=== PATIENT | female | born 1995 | race African-American/Black ===

== ENCOUNTER 2023-02-07 21:02 | Outpatient (REF) | payer MEDICAID, SELFPAY ==
[2023-02-11 13:09] LABS: Age Gdln ACOG Testing Note (.); IGP, rfx Aptima HPV ASCU Note (.)
== END 2023-02-07 21:03 | disposition home or self-care (01) ==
LOC: LAB 21:02
PROVIDERS: PCP Family Medicine; Visit Provider Physician Assistant
DX: Z12.4 Encounter for screening for malignant neoplasm of cervix (principal)
CPT/HCPCS: G0145

== ENCOUNTER 2023-02-13 12:05 | Emergency (ER) | payer MEDICAID, SELFPAY ==
[2023-02-13 12:11] VITALS: BP 138/70; PULSE 93; RESP 16; TEMP 36.7; O2SAT 100; BMI 36.0
--- NOTE | 2023-02-13 13:09 | ED.GENADUL1 ---
HPI - General Adult General Chief complaint: Skin/Abscess/Foreign Body Stated complaint: POSS. PINWORM Time Seen by Provider: 02/13/23 12:07 Source: patient Mode of arrival: walk-in History of Present Illness HPI narrative: mother concerned about pinworm exposure - night of 02/10 the two kids were exposed to another child who was diagnosed with pinworms 02/12/23.? The two siblings are without symptoms but mother wanted them checked.? They tried to go to the urgent care for prophylactic treatment but were informed that they would need to have the pinworms visualized with symptoms to get the pinX, which can be hard on the liver. In going through all of this the mother started to develop itching - she is uncertain of whether this is real or imagined because of the potential exposure - she denied engaging in any activity which would have put her at risk of alfredito pinworms but wants to be checked Related Data Allergies Allergy/AdvReac Type Severity Reaction Status Date / Time No Known Drug Allergies Allergy Verified 02/13/23 12:14 Exam Narrative Exam Narrative: Nurse's notes and vital signs reviewed.? The patient is not hypoxic. afebrile General:? Alert, no acute distress, patient resting comfortably? Patient is not toxic or lethargic. Skin:? warm, intact, no pallor noted Head:? Normocephalic, atraumatic Eye:? Normal conjunctiva Cardio:? normal peripheral perfusion Respiratory:? No acute distress.? No stridor or retractions are noted. Anorectal:? Proctored by ED nurse Dory Elder No pinworms found on visual inspection. Neurological:? AAOx4. Moves extremities. Sensation intact. Psychiatric:? Cooperative. Constitutional Vital Signs, click to edit/add: Last Vital Signs Temp 98.0 F 02/13/23 12:11 Pulse 93 H 02/13/23 12:11 Resp 16 02/13/23 12:11 BP 138/70 02/13/23 12:11 Pulse Ox 100 02/13/23 12:11 O2 Del Method Room Air 02/13/23 12:31 Course Vital Signs Vital signs: Vital Signs Temperature 98.0 F 02/13/23 12:11 Pulse Rate 93 H 02/13/23 12:11 Respiratory Rate 16 02/13/23 12:11 Blood Pressure 138/70 02/13/23 12:11 Pulse Oximetry 100 02/13/23 12:11 Oxygen Delivery Method Room Air 02/13/23 12:11 Temperature 98.0 F 02/13/23 12:11 Pulse Rate 93 H 02/13/23 12:11 Respiratory Rate 16 02/13/23 12:11 Blood Pressure 138/70 02/13/23 12:11 Pulse Oximetry 100 02/13/23 12:11 Oxygen Delivery Method Room Air 02/13/23 12:31 Medical Decision Making MDM Narrative Medical decision making narrative: no pinworms found on exam Patient given reassurance. Instructed to continue to examine the children for pinworms and call the PCP for PinX if she finds them and to check herself as well. Discharge Plan Discharge Chief Complaint: Skin/Abscess/Foreign Body Clinical Impression: Encounter for well adult exam with abnormal findings Patient Disposition: Home, Self-Care Time of Disposition Decision: 13:09 Instructions: Normal Exam (ED) Stand Alone Forms: Portal Instructions Referrals: Pepe Wolfe MD [Primary Care Provider] - 1 week
== END 2023-02-13 13:17 | disposition home or self-care (01) ==
PROVIDERS: Emergency Provider Emergency Medicine; PCP Family Medicine
DX: Z71.1 Person with feared health complaint in whom no diagnosis is made (principal)
CPT/HCPCS: 99282

== ENCOUNTER 2023-02-26 20:32 | Emergency (ER) | payer MEDICAID, SELFPAY ==
[2023-02-26 20:38] VITALS: BP 150/100; PULSE 100; RESP 16; TEMP 36.8; O2SAT 100; BMI 35.8
== END 2023-02-26 21:30 | disposition left against medical advice (07) ==
PROVIDERS: Emergency Provider Internal Medicine; PCP Family Medicine
DX: Z53.21 Procedure and treatment not carried out due to patient leaving prior to being seen by health care provider (principal)
CPT/HCPCS: 99281

== ENCOUNTER 2024-01-16 01:49 | Emergency (ER) | payer MEDICAID, SELFPAY ==
[2024-01-16 01:53] VITALS: BP 139/107; PULSE 87; TEMP 36.5; O2SAT 97; BMI 37.4
--- NOTE | 2024-01-16 02:11 | ED_ITS ---
HPI - Female Genitourinary General Chief complaint: Urogenital-Female Stated complaint: POSS UTI Time Seen by Provider: 01/16/24 02:00 Source: patient Mode of arrival: walk-in Limitations: no limitations History of Present Illness HPI Narrative: patient presents complaining of UTI symptoms. States she was treated at first with Macrobid and now started on Cipro and Pyridium for 3 days. Still has pressure and concern she still has an infection No nausea or vomiting. Related Data Home Medications ?Medication ?Instructions ?Recorded ?Confirmed cephalexin 500 mg tablet mg 01/16/24 Allergies Allergy/AdvReac Type Severity Reaction Status Date / Time No Known Drug Allergies Allergy Verified 01/16/24 01:56 Review of Systems ROS Status of ROS 10 or more systems reviewed and unremark able except as noted in h istory and below PFSH PFS Social History Smoking status: Never smoker Exam Constitutional Vital Signs, click to edit/add: Last Vital Signs Temp 97.7 F 01/16/24 01:53 Pulse 87 01/16/24 01:53 Resp 18 01/16/24 01:53 BP 139/107 H 01/16/24 01:53 Pulse Ox 97 01/16/24 01:53 O2 Del Method Room Air 01/16/24 01:53 Common normals: no apparent distress, average body habitus, oriented x3, no limitations, healthy appearing, alert and well nourished [facility] Common normals: normocephalic and head/scalp atraumatic Eye Common normals: PERRL, EOMs intact bilaterally and conjunctivae normal Respiratory Common normals: normal respiratory effort, no retractions and no use of accessory muscles Cardio Common normals: regular rate, regular rhythm, S1 normal heart sound and S2 normal heart sound GI Other: mild suprapubic tenderness. no CVA tenderness Extremity Common normals: normal to inspection and full ROM Neuro Common normals: oriented x3, CN's II-XII intact bilaterally, moves all extremities and no focal motor deficits Psych Appearance: grossly normal Course Vital Signs Vital signs: Vital Signs Temperature 97.7 F 01/16/24 01:53 Pulse Rate 87 01/16/24 01:53 Respiratory Rate 18 01/16/24 01:53 Blood Pressure 139/107 H 01/16/24 01:53 Pulse Oximetry 97 01/16/24 01:53 Oxygen Delivery Method Room Air 01/16/24 01:53 Temperature 97.7 F 01/16/24 01:53 Pulse Rate 87 01/16/24 01:53 Respiratory Rate 18 01/16/24 01:53 Blood Pressure 139/107 H 01/16/24 01:53 Pulse Oximetry 97 01/16/24 01:53 Oxygen Delivery Method Room Air 01/16/24 01:53 MDM - Female Genitourinary MDM Narrative Medical decision making narrative: patient on antibiotics per Dr Wolfe. Still has urinary frequency and some pressure. Admits she is doing better but did not feel she was normal due to ongoing frequency. EXam neg. Afebrile and UA clear. Discharged and advised to follow up with Dr Wolfe for recheck Lab Data Labs: Lab Results 01/16/24 Range/Units 02:02 Urine Color Lt. yellow (YELLOW) Urine Clarity Clear (CLEAR) Urine pH 7.5 (5.0-9.0) Ur Specific [place] 1.015 (1.005-1.025) Urine Protein Negative (NEG/TRACE) mg/dL Urine Glucose (UA) Negative (NEGATIVE) mg/dL Urine Ketones Negative (NEGATIVE) mg/dL Urine Occult Blood Negative (NEGATIVE) Urine Nitrite Negative (NEGATIVE) Urine Bilirubin Negative (NEGATIVE) Urine Urobilinogen 0.2 (0.2-1.0) EU/dL Ur Leukocyte Esterase Negative (NEGATIVE) Discharge Plan Discharge Stand Alone Forms: Portal Instructions Chief Complaint: Urogenital-Female Clinical Impression: Urinary frequency Patient Disposition: Home, Self-Care Prescriptions / Home Meds: No Action cephalexin 500 mg tablet Print Language: Sudanese Instructions: Urinary Urgency and Frequency (DC) Additional Instructions: follow up with Dr Wolfe Referrals: Pepe Wolfe MD [Primary Care Provider] - 1 week
[2024-01-16 02:18] LABS: Bilirubin Urine NEGATIVE (NEGATIVE); Blood Urine NEGATIVE (NEGATIVE); Clarity Urine CLEAR (CLEAR); Color Urine LT. YELLOW (YELLOW); Glucose Urine UA NEGATIVE (NEGATIVE); Ketones Urine NEGATIVE (NEGATIVE); Leukocyte Esterase Urine NEGATIVE (NEGATIVE); Nitrite Urine NEGATIVE (NEGATIVE); Protein Urine NEGATIVE (NEG/TRACE); Specific Gravity Urine 1.015 (1.005-1.025); Urobilinogen Urine 0.2 EU/dL (0.2-1.0); pH Urine 7.5 (5.0-9.0)
[2024-01-16 02:20] LABS: Urine Microscopic Indicated NO
[2024-01-16 02:41] VITALS: BP 142/72
== END 2024-01-16 02:42 | disposition home or self-care (01) ==
PROVIDERS: Emergency Provider Internal Medicine; PCP Family Medicine
DX: R35.0 Frequency of micturition (principal)
CPT/HCPCS: 81003; 99283

== ENCOUNTER 2024-04-23 21:47 | Emergency (ER) | payer MEDICAID, SELFPAY ==
[2024-04-23 21:49] VITALS: BP 155/100; PULSE 105; TEMP 36.8; O2SAT 98; BMI 36.6
--- OUTSIDE RECORDS SUMMARY | 2024-04-23 21:51 | XMS_ITS | CCD ---
Author Organization [facility] Care Team Providers Care Pen Ruler Operator Name Role Phone Elissa Wolfe MD Primary Care Provider [phone] Maribel Del Real Unavailable Ann Drake Unavailable NON STAFF Primary Care Provider UnavailGABRIELA Gutierrez Attending Provider Elizabeth Millan Unavailable Elizabeth Millan Attending Unavailable Elizabeth Millan Admitting Unavailable NON STAFF Primary Care Unavailable DR ELISSA CHRISTIAN Primary Care Unavailable JANICE SMITH Attending Unavailable JANICE SMITH Admitting Unavailable KATINA, DR YUE Noble Consulting Unavailable JANICE SMITH Consulting Unavailable GABRIEL .DR BOWERS Primary Care Unavailable GABRIEL ., DR BOWERS Admitting Unavailable HOLópez ., DR BOWERS Attending Unavailable HOLópez ., DR BOWERS Consulting Unavailable GABRIEL .DR BOWERS Primary Care Unavailable MISC, DR PATEL Attending Unavailable MISC, DR PATEL Consulting Unavailable MISC, DR PATEL Admitting Unavailable Christiano Engel Consulting Unavailable DR ELISSA CHRISTIAN Primary Care Unavailable HENRY MOORE Attending Unavailable HENRY MOORE Admitting Unavailable DR ELISSA CHRISTIAN Primary Care Unavailable NEREIDA INMAN Attending Unavailable TYLER Corado, NEREIDA Admitting Unavailable PIERCE HEWITT Consulting UnavailNEREIDA Merino Consulting Unavailable TRAE Corado, DR PERSAUD Attending Unavailable TRAE Corado, DR PERSAUD Consulting Unavailable TRAE Corado, DR PERSAUD Admitting Unavailable DR ELISSA CHRISTIAN Primary Care Unavailable Jania Prince Unavailable Jeni Horta Unavailable ELISSA WOLFE Primary Care Unavailable JILLIAN PLATA Admitting Unavailable JILLIAN PLATA Attending Unavailable Dhaval Watson Attending Unavailable ELISSA WOLFE Primary Care Unavailable Dhaval Watson Admitting Unavailable ZOE ANDERSON Attending Unavailable ZOE ANDERSON Attending Unavailable Allergies Allergy Classification Reported Allergen(s) Allergy Type Date of Onset Reaction(s) Facility (3 sources) Shellfish Drug allergy Unknown [employer] Other (1 source) Shellfish Allergy to substance Cramping of the [facility] (1 source) No Known Medication Allergies; Translations: [No Known Medication Allergies] Propensity to adverse reactions to drug (disorder) [facility] Repository Medications Current Medications Medication Drug Class(es) Dates Sig (Normalized) Sig (Original) Acetaminophen (10 sources) Acetaminophen (TYLENOL PO) Take by mouth as needed. 0 Active [id number] actuat albuterol 0.09 mg/actuat metered dose inhaler (15 sources) beta2-Adrenergic Agonist Start: 09-20-2021 take 2 puff(s) by inhalation every four hours as needed Albuterol Sulfate HFA 108 (90 Base) MCG/ACT 2 puffs as needed Inhalation every 4 hrs Sep, Active take 1 puff(s) by in halation every four hours as needed Ventolin HFA 108 (90 Base) MCG/ACT 1 puf f as needed Inhalation every 4 hrs Active take 2 puff(s) by in halation every four hours as needed albuterol 108 (90 Base) MCG/ACT [employer] n inhaler Inhale 2 puffs every 4 hours as needed for Shortness of Breath. 0 Active amoxicillin 875 mg / clavulanate 125 mg oral tablet (1 source) Penicillin-class Antibacterial Start: 06-15-2023 take 1 tablet by mouth every twelve hours Amoxicillin-Pot Clavulanate 875-125 MG 1 tablet Orally every 12 hrs for 10 day(s) Jun, Active cephalexin 500 mg oral tablet (2 sources) Cephalosporin Antibacterial Start: 08-07-2023 take 500 mg by mouth every twelve hours Cephalexin Active 500 MG PO Every 12 hours August 07, 2023 12:00am Start: 09-15-2021 End: 09-22-2021 take 1 capsule by mouth twice daily cephALEXin 500 MG capsule Take 1 capsule by mouth 2 times daily for 7 days. 14 capsule 0 09/15/2021 09/22/2021 Active cetirizine hydrochloride 10 mg oral capsule (10 sources) Histamine-1 Receptor Antagonist take 1 capsule by mouth once daily Cetirizine HCl 10 MG capsule Take 10 mg by mouth daily. 0 Active cyclobenzaprine hydrochloride 5 mg oral tablet (3 sources) Muscle Relaxant Start: take 1 tablet by mouth every eight hours Cyclobenzaprine HCl 5 MG 1 tablet as needed Orally Three times a day Jan, Active Start: 12-09-2021 End: 12-14-2021 take 0.5 tablet by mouth three times daily as needed for muscle spasms cyclobenzaprine 10 MG tablet Take 0.5 tablets by mouth 3 times daily as needed for Muscle spasms for up to 5 days. 8 tablet 0 12/09/2021 Active dexamethasone 6 mg oral tablet (1 source) Corticosteroid Start: 09-20-2021 take 1 tablet by mouth every twenty-four hours Dexamethasone 6 MG 1 tablet Orally Once a day for 5 day(s) Sep, Active fluconazole 150 mg oral tablet (2 sources) Azole Antifungal Start: 05-19-2022 Diflucan 150 MG 1 tablet Orally once for 2 days Take 1 tablet p.o. today, take the second tablet in 3 days. May, Active fluticasone propionate 0.05 mg/actuat metered dose nasal spray (7 sources) Corticosteroid Start: 10-16-2022 take 2 spray(s) nasal route once daily Fluticasone Propionate 50 MCG/ACT 2 sprays Nasally Once a day for 14 day(s) Jun, Active Start: 10-16-2022 take 2 spray(s) nasa l route once daily Fluticasone Propionate 50 MCG/ACT 2 sprays Nasally Once a day for 14 day(s) October, Not-Taking ibuprofen 600 mg oral tablet (2 sources) Nonsteroidal Anti-inflammatory Drug Start: 12-09-2021 End: 12-14-2021 take 1 tablet by mouth three times daily as needed for pain ibuprofen 600 MG tablet Take 1 tablet by mouth 3 times daily as needed for Mild Pain (Take with food.) for up to 5 days. 15 tablet 0 12/09/2021 Active levonorgestrel 0.810344 mg/hr intrauterine system (10 sources) Progestin, Progestin-containing Intrauterine Device levonorgestrel (Mirena, 52 MG,) 20 MCG/24HR 1 Device by Intrauterine route Once. use as directed 0 Active loratadine 10 mg oral tablet (11 sources) take 1 tablet by mouth every twenty-four hours Claritin 10 MG 1 tablet Orally Once a day Active Claritin Active methylPREDNISolone 4 mg oral tablet (1 source) Corticosteroid Start: 02-07-2022 methylPREDNISolone 4 MG as directed Orally Once a day for 6 days Jan, Active nitrofurantoin, macrocrystals 25 mg / nitrofurantoin, monohydrate 75 mg oral capsule (10 sources) Nitrofuran Antibacterial Start: 04-24-2017 take 1 capsule by mouth twice daily nitrofurantoin, macrocrystal-monohydr ate, 100 MG Cap Take 1 capsule by mouth 2 times daily. Take w/ food/milk 14 capsule 0 04/24/2017 Active phenazopyridine hydrochloride 200 mg delayed release oral tablet (10 sources) Start: 04-24-2017 take 1 tablet by mouth three times daily as needed for pain phenazopyridine 200 MG Tab tablet Take 1 tablet by mouth 3 times daily as needed for Pain (Urinary pain). 12 tablet 0 04/24/2017 Active predniSONE 20 mg oral tablet (7 sources) Start: 10-16-2022 take 1 tablet by mouth every twelve hours predniSONE 20 MG 1 tablet Orally bid for 5 day(s) Jun, Active Completed/Discontinued Medications Medication Drug Class(es) Dates Sig (Normalized) Sig (Original) acetaminophen 325 mg / oxyCODONE hydrochloride 5 mg oral tablet (9 sources) Opioid Agonist Start: 09-24-2021 End: 09-24-2021 take 1-2 tablets by mouth every six hours as needed oxyCODONE-acetami nophen (PERCOCET) 5-325 MG per tablet 1-2 tablet Start: 09-15-2021 End: 09-18-2021 take 1 tablet by mouth every six hours as needed for pain oxyCODONE-acetaminophen 5-325 MG per tablet Indications: S/P bilateral breast reduction Take 1 tablet by mouth every 6 hours as needed for Moderate Pain (Use ONLY as needed for pain) for up to 3 days. 8 tablet 0 09/15/2021 Active 5 ml bupivacaine hydrochloride 2.5 mg/ml injection (1 source) Amide Local Anesthetic Start: 09-24-2021 End: 09-24-2021 bupivacaine (PF) (MARCAINE) 0.25 % injection calcium chloride 0.001 meq/ml / glucose 50 mg/ml / potassium chloride 0.004 meq/ml / sodium chloride 0.103 meq/ml / sodium lactate 0.028 meq/ml injectable solution (1 source) Start: 09-24-2021 End: 09-24-2021 dextrose 5% and lactated ringers IV solution calcium chloride 0.0014 meq/ml / potassium chloride 0.004 meq/ml / sodium chloride 0.103 meq/ml / sodium lactate 0.028 meq/ml injectable solution (1 source) Start: 09-24-2021 End: 09-24-2021 lactated ringers IV solution ceFAZolin 1000 mg injection (1 source) Cephalosporin Antibacterial Start: 09-24-2021 End: 09-24-2021 take 1 g intravenously every eight hours ceFAZolin (ANCEF) 1 g in dextrose premix IVPB EPINEPHrine 1 mg/ml injectable solution (1 source) alpha-Adrenergic Agonist, beta-Adrenergic Agonist, Catecholamine Start: 09-24-2021 End: 09-24-2021 EPINEPHrine (ADRENALIN) 30 MG/30ML injection 60 actuat formoterol fumarate 0.005 mg/actuat / mometasone furoate 0.1 mg/actuat metered dose inhaler (12 sources) Corticosteroid, beta2-Adrenergic Agonist take 2 puff(s) by inhalation twice daily as needed Dulera 100-5 MCG/ACT 2 puffs Inhalation Twice a day Not-Taking/PRN take 2 puff(s) by inhalation twi ce daily Dulera 100-5 MCG/ACT 2 puffs Inhalation Twice a day Not-Taking Dulera Active gentamicin (GARAMYCIN) 80 mg in sodium chloride 0.9 % 1,000 mL irrigation solution (1 source) Start: 09-24-2021 End: 09-24-2021 gentamicin (GARAMYCIN) 80 mg in sodium chloride 0.9 % 1,000 mL irrigation solution Ketorolac (13 sources) Nonsteroidal Anti-inflammatory Drug, Cyclooxygenase Inhibitor Start: 10-23-2020 Toradol per 15 mg October, 15 mg meperidine hydrochloride 50 mg/ml injectable solution (1 source) Opioid Agonist Start: 09-24-2021 End: 09-24-2021 inject 12.5-25 mg by intramuscular injection every four hours as needed meperidine (DEMEROL) injection 12.5-25 mg 10 ml methylene blue 5 mg/ml injection (1 source) Oxidation-Reduction Agent Start: 09-24-2021 End: 09-24-2021 methylene blue (PROVAYBLUE) injection promethazine (PHENERGAN) 12.5 mg in sodium chloride 0.9%, with overfill 60.5 mL (total volume) IVPB (1 source) Start: 09-24-2021 End: 09-24-2021 take 12.5 mg intravenously every six hours as needed promethazine (PHENERGAN) 12.5 mg in sodium chloride 0.9%, with overfill 60.5 mL (total volume) IVPB Toradol 30 mg/ml (11 sources) Start: 02-07-2022 Toradol 30 mg/ml Jan, 30 mg Triamcinolone (13 sources) Corticosteroid Start: 10-23-2020 KENALOG - 10 mg October, 10 mg Problems Active Problems Problem Classification Problem Date Documented Da te Episodic/Chronic Asthma (20 sources) Exacerbation of intermittent asthma; Translations: [Mild intermittent asthma with (acute) exacerbation] Onset: 09-20-2021 Resolved: 09-20-2021 Chronic Chronic obstructive pulmonary disease and bronchiectasis (1 source) Bronchitis, not specified as acute or chronic Episodic E Codes: Other specified and classifiable (1 source) Caught, crushed, jammed, or pinched between moving objects, initial encounter; Translations: [CAUGHT CRUSH/PINCH BTWN MOV OBJ INT] Onset: 09-28-2022 Episodic Genitourinary symptoms and ill-defined conditions (13 sources) Dysuria; Translations: [Dysuria] Onset: 05-19-2022 Episodic Immunizations and screening for infectious disease (10 sources) Suspected clinical finding; Translations: [Contact with and (suspected) exposure to other viral communicable diseases] Episodic Nonmalignant breast conditions (16 sources) Large breast; Translations: [Hypertrophy of breast] Onset: 01-28-2021 01-28-2021 Episodic Nonspecific chest pain (1 source) Chest wall pain; Translations: [Other chest pain] Episodic Other connective tissue disease (3 sources) Pain in right finger(s); Translations: [PAIN IN RIGHT FINGERS] Onset: 09-27-2022 Episodic Other ear and sense organ disorders (1 source) Impacted cerumen, left ear Episodic Other lower respiratory disease (4 sources) Chest pain on breathing; Translations: [Chest pain on breathing] Onset: 12-09-2021 12-09-2021 Episodic Other nutritional; endocrine; and metabolic disorders (10 sources) Obese class II; Translations: [Obesity, unspecified] Onset: 01-28-2021 01-28-2021 Chronic Other upper respiratory disease (13 sources) Allergic rhinitis; Translations: [Allergic rhinitis, unspecified] Chronic Other upper respiratory disease (13 sources) Allergic rhinitis due to pollen; Translations: [Allergic rhinitis due to pollen] Chronic Other upper respiratory disease (1 source) Allergic rhinitis due to pollen Onset: 01-08-2022 Resolved: 01-08-2022 Chronic Other upper respiratory disease (12 sources) Nasal congestion; Translations: [Nasal congestion] Episodic Other upper respiratory infections (8 sources) Acute pharyngitis, unspecified; Translations: [Acute upper respiratory infection, unspecified] Episodic Residual codes; unclassified (4 sources) Procedure and treatment not carried out due to patient leaving prior to being seen by health care provider; Translations: [PROC AND TX NOT CARRIED OUT PT LEAVE] Onset: 08-20-2022 Episodic Sprains and strains (2 sources) Strain of back muscle; Translations: [Strain of muscle and tendon of back wall of thorax, initial encounter] Episodic Superficial injury; contusion (1 source) Contusion of right little finger without damage to nail, initial encounter; Translations: [CONTUS RT LF W/O DAMAGE NAIL INIT] Onset: 09-28-2022 Episodic Unclassified (3 sources) COUGH, UNSPECIFIED; Translations: [COUGH, UNSPECIFIED] Onset: 05-29-2022 Unclassified (1 source) CONTACT W/AND (SUSP) EXPOS COVID-19; Translations: [CONTACT W/AND (SUSP) EXPOS COVID-19] Onset: 05-29-2022 Past or Other Problems Problem Classification Problem Date Documented Da te Episodic/Chronic Abdominal pain (4 sources) Pelvic and perineal pain; Translations: [PELVIC AND PERINEAL PAIN] Onset: 05-19-2022 Episodic Disorders of teeth and jaw (4 sources) Other specified disorders of teeth and supporting structures; Translations: [OTH SPEC DISORDERS TEETH SUPP STRCT] Onset: 04-14-2022 Episodic Inflammatory diseases of female pelvic organs (1 source) Acute vaginitis; Translations: [ACUTE VAGINITIS] Onset: 05-24-2022 Episodic Other aftercare (1 source) Other primary operator (current) drug therapy; Translations: [OTH MIXED SIGNAL DESIGN ENGINEER CURRENT DRUG THERAPY] Onset: 05-24-2022 Episodic Other circulatory disease (1 source) Other specified symptoms and signs involving the circulatory and respiratory systems Onset: 09-20-2021 Resolved: 09-20-2021 Episodic Other upper respiratory disease (1 source) Nasal congestion Onset: 01-08-2022 Resolved: 01-08-2022 Episodic Spondylosis; intervertebral disc disorders; other back problems (20 sources) Chronic back pain ; Translations: [Dorsalgia, unspecified] Onset: 01-28-2021 Resolved: 02-07-2022 01-28-2021 Episodic Unclassified (2 sources) Vaginal yeast infection B37.31 Unclassified (1 source) COUGH, UNSPECIFIED; Translations: [COUGH, UNSPECIFIED] Onset: 05-25-2022 Results Test Name Value Interpretation Reference Range Facility Coding Summaryon 08-10-2023 Coding Summary HTMLBase 64 DskyljoxIYm4oAd+PGhlY WQ+PT7OCOZaX16yaLFfkR 4tB1LJBSrMPpxvYJKGVKp UStHyulHpQE6wgAWxVHRi IC8+YX6eOLScHrrtkQCxg 3B7fFT6I68uem9nIVvacE I2GCYnEmFgvrabg1touCz 6IDcuNmluOyBt WMTvcS44KOD2eH14Zt01q GTvzCEan0aunWx3FkHxSQ ZbBLT4eJdyKTgsc7MkBML uS71byYHpw3M6 JITozCafzEYfPvNreMI2j F9nRAaazvmpj1kvakzvSh j1md29dDQkp3W4xPY0Q8C wvhB2IPTxxKDl LzzxbJPAbA6jmuesj3kxr krqNwXfQDFwAQu2QNt3HT NqcKbvSyBjCO01AZB3AZU opuHbD2WyYUZo fLiuXaW2t9J6Is9YA6JVW zsjF5JORAANRIanbMN+PC 63nt69X5DeFrdrSus7EHR zKIZ0xMU9pN9p EWMoKNspj0Q2pYJ6O5Jwl oNvot3ma1hzNHWwJWuzR5 3tvQJrg4Y0IYSyhNQ4TLB ozPygDfUriO83 Oyc+VPYxdHrzn5AlFeysv 1bny2hevWv1EmzxHSXmhl YpxCkaDSU0i7CpBs1tZGU ceFL6tIN1eU8i MoQhMrV2VOcsW129VfYbb HDuBhgbX76gM6OikCP+PH ZsCbm7SBUtiWeaCZ8cM7D hZGRpbmctbGVm bPntDW5qFJLzlkeaYUPju W1pUEWiU5r1YbOcKcP3SN edT2IpPRWvrcfmGx21fZ5 gMfPnGqL7REeu M5KwrbR0GBYtoCMeACugH GW7G93ik7P1FJUxMRSgYO E2iRL8qZ5xsXtqxcpbxDJ mdDsgdmVydGlj XEvrVLmxG501WUBlpSpgV kNvZGluZyBEYXRlOiAgMD IvMjgvMjAyNDwvdGQ+PHR lIUH2gClfPBVy lPWkNMeeIi9qzHfbkSvbO B1wLMPchxhfGITgjK3zSO ZycEEhbHnpVY3vQQFukqf or384QiMsGMK6 FWVpsCWdR4WzrT4bOcIzD UXbETQhQ6JrhVCvTRdgG4 87CPctUmM1PTDwbdWwV7Z sLWFsaWduOiB0 i9X9Pm2Gg0JeigqoJ0Mmg GVqIlZsWfvfLNr6B1QqCx wvdHI+XR52ODQxKO17GKc 0QNS5gHadGCex YZDrC3PzaJ8qHcEkDNDqG GRkOyc+PHRhYmxlIHdpZH RoPScxMDAlJyBzdHlsZT0 kTf7bXDSqDPQh kDuoiCUaJwDfr4jkSEYuY DlnBL5szFtcQ0TyrMF6HI Atz0k5Db99H77wA8ZicYT +UEKjdTI9wWJ4 jJ2vBnGgUcF8FFheA083B cJgjRSoPujgb5mcm4pstC a4IfS9IMWjbbNawIjfZDT 4j8RtVm60J87h IHdpZHRoPSIxNSUiIHZhb Txrhq0nsH0xFf5+PGNvbC G4yAO4dX7dDrFvXrW6WNt mQ819RwJfyBSx Gsfbh4ift4ewzFr9MsBuM CMmsiYbsMkcKKJ0w2YkPr 72M8CaxDosx5JuBfb4lk1 5vJFlt0T0qPG6 T2WlQTZvoihaeIYboNhcP F5iXKFghbsgBPDlcD4oIE KjW5c9CaAmOxI4VTqdQ3O tqyQ9KMUhrXFa FWOucIRQaI3ztamop6uqe ilkMpOmHCHuYZu8YLd1WD TqpRhiAjPfANW3MiY3RHE 2qJZuoD9vbIlp lzuslN9qCjz+KDG1nNHxy ULRSC0uPgfnwAX+PHRkIH W2oYinJQuoXNSlpR7pWCS eN5c4AyZoTqG4 YBjdO5IwrgW7TJKirPDsM AIgsIGJnK2ywzmcl3zdmg fjRbAkBJWkUFy9SCx7HTM saWduOiBsZWZ0 MlT6OJJ4pOOgjO7ftJiai tfbrT2gRqv+QmlydGggRG V7HIy1Y1SmIck4XMGqfSi hEY8bxVVsBBie Zt3maJwhpJxwWV6eNHOje jhtu387DjZhu3ydZVBzdR ApMVmeXYK0F41mp6A5WGU gXSHePSR9lCI8 dY9fdVtovhpwkRHmjOuee cRryNhwYPksGNtdC302SO ZtmQibFbEiGKx1W3LsGxv 9KSDrgMtrIC3b wFYeXAtyWl8sdHjygMubK K7yUAHwilhdd304AwKlg8 dsCANakFNkXPsbAFX7L21 ds9P3BFCnDSTl MWM1cAN2aJ0moEfcaqusu GVmdDsgdmVydGljYWwtYW xmF078EIPczLuzIpHhaSu 9J4PwOhw3WLQl pCcqWW6npYVqQImaCt7zq AythWcbOC6hMKWzamsfl8 45RlDil4niCZBwhSArYWw eDOT4P92oq0P1 TVQtZVPbTOX8qYC8kN1ri GlnbjogbGVmdDsgdmVydG crAAwhLPncM592UWGpeGj nPlBhdGllbnQg ZOjpDVv2D4DtOhjvvXD+P H10TEIsRB25zXKwdOZkh8 pnjLt9ZvAhLNIuRFZ8zAp oADxpp6XzRRUc K61zcUWwu9H2YISnzKznp CTeAcPibLO0gD0iCTceki lxo4xuvllyWxvfe4bxqs6 1hP41L68bHRpj ZHRoPSIzMCUiIHZhbGlnb y3dgA3xBd0+NLHjfWB8iR M6cZ6nCWRzJuG3JWtgQ31 9InRvcCIvPjxj g5pnv2ajuRb3OgF4OEVmp lGnlHszBWA1j8VqLt95N8 9sIHdpZHRoPSIyMCUiIHZ nhTofjk8erX5a Ii8+WKPhjNS6cMG4iX6qT mUxTkY1WZslS272EwBixY VqVebhV91cX9StbJP+PHR fHoz3VLBvsHiq KW7iiPHmQEguCf5tNET0F kRqPcGmCUlaG5HpOFPwfu jufiyfvXX8BDNkDRIgpL8 7Do5shTlrZKTo yNAQbJ5qrltwx1ybckkoB aYaSGLoUEa7FZa8XEKalS vwBkHsPTN9ZcX4YJB1qTZ wuZ6bvZfsmtmt uQ5mD4YzMJTheyepPg77f B6aTkRqXaB0SYseLuz+Uk 4GLPeqQoJPM2kFTXJFI6E CA9I1R2ReKyp0 ZLFqzTqeSF7wsSTeTOujD h9meFjoqDdqHI0fUTZufn ilMMJgfZ4sDZOmjZFotGy hHT4lNMKucgik t653CjSoFHU1UDGyqLJtH 7MpwQ6qVpIdUWTrONAiP2 IonXFuOEkxR964TRptKiK 8EFNaklFtT6Fc ZTSlxArcYtY7n5J4Wv2yG g0rBo4bHMd8PM40WW08rP Epi8Z6sYK8M1QqAXHkigm eitcofZY6ZABz XHQpqM40kIElUFetDi1ne 5S4l761VKZePJIurA88Qw 1ngMeoJJZkrNFIyE4vleg og1yrutewAoFl IENuFPc5BCb5GLKimUouT gFxDER7BvB9PLP9nOCkqT 7enWhymyeupL1dOma+Mjg vTWCerdN0R7Tk Jxt3HTKvtYicQK5cnPAzF YqxVy3wcWqhjDzoVI2iAD XquftpMAUkiM7jXGSpwBI ukGjaYM1rXPXj gmbho179IkEqXZC7YPPtf KKbS7KbiS7uEcQtCQZcSG DmC1KnzWSySTkwY600CFo fQgM3GFFdycTb U4AdXYUbuAgcJrC8n5P2J t7ZOH6FNVD7V4NsPbn2FF QytLvnKO6fpGWaINttOv9 fpHcrqMvuTZ0p HXRtqyizWBOpoW2lBFSow QApyYphLP6eRFNeukllk6 66KuEbGJG3QNSdqLGtO9T mzB9tOhCuJWQd IESlX8NkzNZvFMwzU809Y QyeHeA6QSLmwdRwT9EmYR WvyPzfIkF6w5A2Ww6JsCS nK5QsA9o0A3Pl PjwvdHI+VV64AZFuGO40s XNmwCUjc8evrJi6WyRgMM VjJMD5cKkpATygf7UbKVB oW12nyFSbo3Y9 GPUmnVxjdMCeQiLjxXI3z X1yWGyqlslrs6edkaybRf hkf4pdpz86pH76P07yCHr pZHRoPSIzMCUi SJSayXokhx2seB0xEp1+P JSxwMN6lXJ3uK8iPxAbUt L1BDedC452WxCepGSuRne fa9xdf9nnkUv8 IyJfECPfamTddAswGQR4q 8HaAz67X45fWVjaRMHxZM GuDEKnEKBsbGmuie4noT7 wIi8+HI8je1kl fv27fK69yFO+ONNmEGQ3f PdpACyeYWRgiT6jNNitVm N8VGLqBfUmvM04tRTaPPf fJw8jjYhzbFyr EU7fXILlejxap572NzVew 5zhVJNosMJpFBpuQHT5J2 1ja1M2HIExBFLrKPY2sOM 5hI0msPhpbbca bGVmdDsgdmVydGljYWwtY BraO149QUBmtAapTqDjbC WcX2pcjbIFNB5kBihaoPN +QZWkVIP9nAnx YXdfUYYzpJ8bFJEfO8f2B pIiJyT0PZckN3ZflaR3DE LqmVDlGMUyoBRVzH5uzip kl9zdkipxCoZp ZNBsRPr4FFm8HGBjcJhuH rIbXJJ9StZ5SZJ5pOMmpI 9zyBvfbhzgbV2nZaj+Rkl OOjwvdGQ+PHRk TAV8dKhiWDjoYUFygI0nZ SBqS1r2FmKoMwS1NJwbQ6 CmnpD9CXRhzMZxIZTwtNL QuX1vimefg4xs xdtoLdRjVHTrLRb8DPf6B LBfaQvsAzFoKII1AiT5OK A0xNLilP9ooTopjljtbP7 wOyc+TVJOOjwv dGQ+KVJtUUP1hGtkCRqwQ GHdfM7oZMGyN5x0PxTuHt W5UJvhQ1HbpqX2YQUqkAW oOWOwuYBAhB0y pjznj5pgccomAhZqEPCdA Wn7PBe6KYYqpKlxNpZnRX M7HxD9GHH3jVBsbL0vnTa momanlH4gUrx+ VKS2SME9ON10YW83L2WyJ jwvdGFibGU+PHRhYmxlIH dpZHRoPScxMDAlJyBzdHl oSI9cVc3lORQu LWN (more content not included)... Normal [facility] Chlamydia/GC Amplification L Con 08-09-2023 Chlamydia trachomatis, ANN LC Negative Invalid Interpretation Code Negative [facility] Comment on above: Performed By: #### [id number] ####[facility] (DEFAULT)[address] [place] [address] Neisseria gonorrhoeae, ANN LC Negative Invalid Interpretation Code Negative [facility] Comment on above: Result Comment: Perf ormed At: =G [facility] [address] [facility] [facility] [id number] Ashley Solares MD Ph:[phone] Performed By: #### 1 [id number] ####[facility] (DEFAULT)[address] [place] [id number] C Urineon 08-08-2023 C Urine Urine Culture ordere d as a result of parameters set on specific urine dip and urine microsopic results. <10,000 cfu/ml Normal [facility] Comment on above: Performed By: #### [id number] ####[facility] (DEFAULT)[address] [place] [id number] ED Clinical Summaryon 2023 ED Clinical Summary [facility] - Emergency Department [address] [place] [address] ED Clinical Summary PERSON INFORMATION Name: TAYLOR RAINEY Age: 28 Years Sex: FEMALE : 1995 MRN: Acct#: Visit Reason: Genitourinary problem; PELVIC PRESSURE Arrival: 08/05/2023 01:52:53 Discharge: 08/05/2023 02:52:00 LOS: 000 01:00 Check In: 08/05/2023 01:52:53 Checkout:08/05/2023 02:52:00 Address: [address] [address] PCP: ELISSA WOLFE PROVIDER INFORMATION Provider Role Assigned Unassigned Dhaval Watson DO ED Provider 08/05/2023 01:55:14 Delilah Hunt MANAGER DRUG Nurse 08/05/2023 01:55:30 VITALS INFORMATION Vital Sign Triage Latest Temperature Tympanic Temperature Temporal Artery Pulse Rate 109 bpm 109 bpm O2 Sat 98 % 98 % Respiratory Rate 18 br/min 18 br/min Blood Pressure /93 mmHg /93 mmHg MEDICAL INFORMATION Medications Given: Allergy Information: No Known Medication Allergies PHYSICIAN DOCUMENTATION DISCHARGE INFORMATION: Discharge Disposition: Home Discharge Location: Home PATIENT EDUCATION INFORMATION Instructions: Urinary Tract Infection, Adult, [id number] Follow-Up: With: Address: When: ELISSA WOLFE [address] [facility], [facility] [address] [id number] Business (1) In 2 days 08/07/2023 Comments: home continue the medications call here in 48 hours, to check the results of the STD testing, which is done on the urine your test was negative. You are welcomed to return anytime. Aaliyah WATSON< ER PHYSICIAN< [facility] DIAGNOSIS: Urinary tract infection symptoms Patient Understands: Yes - Patient/family/caregi tereza verbalizes understanding of instructions given Comment: [facility] ED Note - Physicianon 2023 ED Note - Physician Patient: TAYLOR RAINEY Age: 28 years Sex: FEMALE : 1995 Associated Diagnoses: Urinary tract infection symptoms Author: Dhaval Watson DO Basic Information Time seen: Date & time 08/05/2023 01:56:00. History source: Patient. Arrival mode: Private vehicle, walking. History limitation: None. History of Present Illness The patient presents This patient presents to the ER to check on her urine--she called her family physician in [place] yesterday Dr. Wolfe, and he prescribed Pyridium and Keflex for her. She started taking this last night, but decided that to be on the safe side, she wanted to send a urine culture and then she says that periodically she like to check to make sure there is no STDs even though she is not had any symptoms and even though she has been with the same partner for 13 years, she just likes to check, and she also wanted a test, even though she is on control and her periods are normal. She states she has no suspicions of any STD infection at this time. She states that the discomfort that she was experiencing with urination that is frequency and lower abdominal discomfort has improved markedly since she began taking the medication. Otherwise, no fevers, no sore throat cough congestion chest pain difficulty breathing abdominal pain flank pain extremity pain or rashes. On exam, she is pleasant and alert, she is known to me from prior visits to the emergency room, she brought out pictures of her family which I have not seen for some time, she is a very nice lady. Her HEENT exam is normal, neck is supple, there is no anterior posterior supraclavicular nodes, her lungs are clear, there is no expiratory wheeze or rales or paradoxical chest motion, heart rate and rhythm is regular no murmur, PMI left chest, she has no peripheral edema, she has good dorsalis pedis and radial pulses, there is no peripheral edema, the abdomen is soft and nontender, she has no CVA discomfort skin is warm and dry, neurologic exam symmetric and intact, and psychiatric evaluation is that of a pleasant individual. A urine was obtained, which was positive for nitrates, and since she was improved I told her to continue her antibiotics, also told her the test was negative, and that screening for gonorrhea and chlamydia would be performed on her urine.. Medical Decision Making Orders Launch Orders Laboratory: Test Urine 1 (Order): Urine, Stat collect, 08/05/2023 1:56 EST, Nurse collect Urine Culture (Order): Urine, Clean Catch, 08/05/2023 1:56 EST, Stat collect, Nurse collect Urinalysis with Culture, if indicated Standard (Order): Urine, Stat collect, 08/05/2023 1:56 EST, Nurse collect, Launch Orders Laboratory: Chlamydia/GC Amplification LC (Order): Urine, 08/05/2023 2:04 EST, Stat collect, Lab Collect. Results review: Interpretation Abnormal results (+) nitrate, neg preg, std pending. Impression and Plan Diagnosis Urinary tract infection symptoms ([id number] R39.9, Discharge, Medical) Plan Condition: Improved. Disposition: Discharged: time 08/05/2023 02:43:00. Patient was given the following educational materials: Urinary Tract Infection, Adult, Zfmm-np-Lnpu. Follow up with: ELISSA WOLFE In 2 days 08/07/2023 home continue the medications call here in 48 hours, to check the results of the STD testing, which is done on the urine your test was negative. You are welcomed to return anytime. Aaliyah WATSON< ER PHYSICIAN< Savannah Mcdonald. Counseled: Patient, Regarding diagnosis, Regarding diagnostic results, Regarding treatment plan, Regarding prescription, Patient indicated understanding of instructions. [Electronically Signed on: 08/06/2023 20:50 EST] Dhaval Watson DO [Electronically Signed on: 08/06/2023 20:51 EST] Dhaval Watson DO [Verified on: 08/06/2023 20:50 EST] Dhaval Watson DO Normal [facility] ED Patient Summaryon 024 ED Patient Summary [facility] - Emergency Department [address] [place] [address] PATIENT DISCHARGE INSTRUCTIONS Patient Information Name: TAYLOR RAINEY Age: 28 Years Date of : 1995 Reason For Visit: Genitourinary problem; PELVIC PRESSURE Arrival Time: 08/05/2023 01:52:53 Primary Care Physician: ELISSA WOLFE Attending Physician: Dhaval Watson DO Comment: Visit Diagnosis: Diagnoses This Visit Genitourinary problem ([id number]) Urinary tract infection symptoms (R39.9) The Pharmacy at [facility] is open Tuesday through Tuesday from 9A to 6P and Tuesday and Tuesday from 9A to 5P Prescription Information: If you have been given a prescription for narcotics, seek immediate medical attention if you have any difficulty breathing or any sudden status changes such as confusion and sleepiness. If you or anyone you know is experiencing suicidal thoughts, mental health, alcohol and/or drug addiction problems; contact the [facility] Count Includes [facility] 03/01 Crisis Hotline -Text 4HSYB pc 428349. If you received any narcotics, sedation, or any other medication that causes drowsiness for the next 24 hours, unless otherwise directed: ? Do not drive a car. ? Do not operate machinery such as power tools, lawn mowers, drills, sewing machines, or stoves ? Avoid alcoholic beverages and drugs for allergies, nerves, or sleep ? Do not make important personal or business decisions or sign any legal documents With: Address: When: ELISSA WOLFE [facility] [facility], [place] [address] Business (1) In 2 days 08/07/2023 Comments: home continue the medications call here in 48 hours, to check the results of the STD testing, which is done on the urine your test was negative. You are welcomed to return anytime. Aaliyah WATSON< ER PHYSICIAN< [facility] Medication Information: The exam and treatment you received today in the [facility] Emergency Department were for an urgent problem and are not intended as complete care. It is important for you to follow up with a doctor, nurse practitioner, or physician?s quality assurance assistant for ongoing care. If your symptoms become worse or you do not improve as expected and you are unable to reach your usual health care provider, you should return to the Emergency Department, we are available 24 hours a day. For those patients who have received Radiology results, the interpretation of your X-ray as given to you by our Emergency Department physician is only a preliminary report. The Radiologist will review your films and if there is a change in the diagnosis you will be notified by phone. Please make sure you have provided a working phone number so we can reach you if necessary. In the event that you had a lab culture while you were a patient in the Emergency Department, you will be notified by phone if there is a need to change your antibiotic. Please make sure you have provided a working phone number so we can reach you if necessary. [facility] Emergency Department has provided you with a complete list of medications post discharge. Please inform your primary teacher/provider of your visit and for further instruction on these medications. Any specific questions regarding your chronic medications and dosages should be discussed with your primary care physician(s) and/or pharmacist. Medications to Continue That Have Not Changed Other Medications cephalexin (cephalexin 500 mg oral tablet) take 2 tablets by mouth twice a day. cetirizine (cetirizine 10 mg oral tablet) 1 tab(s) Oral (given by mouth) every day as needed for allergy symptoms. formoterol-mometasone (Dulera 100 mcg-5 mcg/inh inhalation aerosol) 2 puff(s) Inhale (breathe in) 2 times a day (scheduled). phenazopyridine (phenazopyridine 200 mg oral tablet) 1 tab(s) Oral (given by mouth) 3 times a day after meals as needed as needed for urinary discomfort. with food. Visit Information Allergies: Substance Reaction Symptoms Type Comments No Known Medication Allergies Drug Vital Signs: Vitals and Measurements this Visit (last charted value for your 08/05/2023 visit) Vital Signs This Visit Temperature Oral: 36.9 DegC Peripheral Pulse Rate: 109 bpm Respiratory Rate: 18 br/min Systolic Blood Pressure: 136 mmHg Diastolic Blood Pressure: 93 mmHg SpO2: 98 % Oxygen Therapy: Room air Measurements This Visit Height/Length Measured: 165.1 cm Weight Measured: 99.79 kg Weight Dosin.790 kg Body Mass Index: 36.61 kg/m2 Problems List: Problem Onset Comments asthma seasonal allergies Patient Education Urinary Tract Infection, Adult A urinary tract infection (UTI) is an infection of any part of the urinary tract. The urinary tract includes: ? The kidneys. ? The ureters. ? The bladder. ? The urethra. These organs make, sto (more content not included)... [facility] Test Urine 1on U Preg Negative [facility] Comment on above: Performed By: #### 3 [id number], [id number], [id number], [id number] ####[facility] (DEFAULT)[address] [place] [address] U Preg Internal Control Pass [facility] Comment on above: Performed By: #### 3 [id number], [id number], [id number], [id number] ####[facility] (DEFAULT)[address] [place] [address] UA Eqnpl3ib 08-05-2023 UA Bacteria None [facility] Comment on above: Order Comment: Urina lysis Microscopic order added on by [employer] Expert Rules system. Performed By: #### 3 [id number], [id number], [id number], [id number] ####[facility] (DEFAULT)[address] [place] [address] UA RBC 0-2 [facility] Comment on above: Order Comment: Urina lysis Microscopic order added on by Discern Expert Rules system. Performed By: #### 3 [id number], [id number], [id number], [id number] ####[facility] (DEFAULT)[address] [place] [address] UA Squam Epi Moderate [facility] Comment on above: Order Comment: Urina lysis Microscopic order added on by Discern Expert Rules system. Performed By: #### 3 [id number], [id number], [id number], [id number] ####[facility] (DEFAULT)[address] [place] [address] UA WBC 3-5 [facility] Comment on above: Order Comment: Urina lysis Microscopic order added on by Discern Expert Rules system. Performed By: #### 3 [id number], [id number], [id number], [id number] ####[facility] (DEFAULT)[address] [place] [address] UA w Culture if Ind Standard on 08-05-2023 Breakpoint UA [facility] Comment on above: Performed By: #### 3 [id number], [id number], [id number], [id number] ####[facility] (DEFAULT)[address] [place] [address] Color (U) Jackson [facility] Comment on above: Performed By: #### 3 [id number], [id number], [id number], [id number] ####[facility] (DEFAULT)[address] [place] [address] Culture? Indicated Invalid Interpretation Code [facility] Comment on above: Result Comment: Resu lt created by rule GL_MAGR_ADD_UA_CULT Result created by rule GL_MAGR_ADD_UA_CULT Result created by rule GL_MAGR_ADD_UA_CULT1 Result created by rule GL_MAGR_ADD_UA_CULT Performed By: #### 3 [id number], [id number], [id number], [id number] ####[facility] (DEFAULT)[address] [place] [address] Glucose (U) [Mass/Vol] 100 mg/dL Normal [facility] Comment on above: Performed By: #### 3 [id number], [id number], [id number], [id number] ####[facility] (DEFAULT)[address] [place] [address] Ketones Ql (U) Negative Normal [facility] Comment on above: Performed By: #### 3 [id number], [id number], [id number], [id number] ####[facility] (DEFAULT)[address] [place] [address] Micro? Indicated Invalid Interpretation Code [facility] Comment on above: Result Comment: Resu lt created by rule GL_MAGR_ADD_UA_MICRO Performed By: #### 3 [id number], [id number], [id number], [id number] ####[facility] (DEFAULT)[address] [place] [address] UA Bilirubin Negative Normal [facility] Comment on above: Performed By: #### 3 [id number], [id number], [id number], [id number] ####[facility] (DEFAULT)[address] [place] [address] UA Blood Negative Normal NEGATIVE [facility] Comment on above: Performed By: #### 3 [id number], [id number], [id number], [id number] ####[facility] (DEFAULT)[address] [place] [address] UA Clarity CLEAR Normal CLEAR [facility] Comment on above: Performed By: #### 3 [id number], [id number], [id number], [id number] ####[facility] (DEFAULT)[address] [place] [address] UA Leuk Est SMALL Abnormal NEGATIVE [facility] Comment on above: Performed By: #### 3 [id number], [id number], [id number], [id number] ####[facility] (DEFAULT)[address] [place] [address] UA Nitrite Positive Abnormal NEGATIVE [facility] Comment on above: Performed By: #### 3 [id number], [id number], [id number], [id number] ####[facility] (DEFAULT)[address] [place] [address] UA pH 6.5 Normal 5-8 [facility] Comment on above: Performed By: #### 3 [id number], [id number], [id number], [id number] ####[facility] (DEFAULT)[address] [place] [address] UA Protein Negative Normal NEGATIVE [facility] Comment on above: Performed By: #### 3 [id number], [id number], [id number], [id number] ####[facility] (DEFAULT)[address] [place] [address] UA Spec Grav 1.020 Normal 1.001-1.035 [facility] Comment on above: Performed By: #### 3 [id number], [id number], [id number], [id number] ####[facility] (DEFAULT)[address] [place] [address] UA Urobilinogen 1.0 mg/dL Normal 0.2-1.0 [facility] Comment on above: Performed By: #### 3 [id number], [id number], [id number], [id number] ####[facility] (DEFAULT)[address] [place] [address] Urine Source Clean Catch Normal [facility] Comment on above: Performed By: #### 3 [id number], [id number], [id number], [id number] ####[facility] (DEFAULT)[address] [place] [address] Coding Summaryon 07-15-2023 Coding Summary HTMLBase 64 KmwhqobvBHk4dMo+PGhlY WQ+BQ6OLRRzE58sgRXsyQ 1pR3NSHGqJJrzdICGSWVv JGsKlmtJhOX2frJLwFZHu IC8+LL0sSLTvJueakMHgd 7U3eOF4X54hcb4tNBrhgV F9LQGjGyPpfeacn6pptSz 6IDcuNmluOyBt RAWogR11AHU8tS73Lh60n HCaaVFrz7pwfQa1DhEuNS DpCMG4nNoaQYbar9CmGEZ cX09jgXZek0G9 XIKvhWerdMDpUuJknFT3x O9bOGuzzhlit1xptohdZl r1vy28oEBfh8E4fHX9I3S ovfG9MSQymPHj BtggoNMYbH9iksjte9uwr zhzJqVaMJCjGQm5KBq3PR AkqFpxYnNdAY90IFP3KQT eabDgS0MmVCAd fIscIoG2v9Q3La3FF7RRX xbyX6TZYKWQCTmmeWO+PC 34rw79J1ObSyxsPri0LRY sHFN3nPY0mA1p KIIuZLeye8Z6sZU7X2Oze cSlsd5on9keCSXcKOgyZ7 7lpYGjr9W9NKJcnRF4JGG trChgZqFmiK72 Oyc+KAYmqAfmm8RvCgfoo 2xpd2losTh7LurtYBOcvh EjzAgcUKD3i1BeUi5vQNL maTA1oMZ2bH8o IgPsRlS1RFmxU925HqGhg GXnUzpfS86kE3BcmHU+PH IbPvl8DJNboKxdSD8uV6Z hZGRpbmctbGVm hPeuRU8rESQhstvkIRXai B9jANRbH7a9KqHbCuC0EM mpI4JfEVOvfyxbMj84yW7 xZcMeWcG4VFqt G9JaxvS1DHBpiAQuGOntZ LW8B76bi3X4NPRpHTUxOS J7cWH3fC3umWrzuzxruNU mdDsgdmVydGlj QMdqKKcvH816KDOpmDvqX kNvZGluZyBEYXRlOiAgMD IvMDIvMjAyNDwvdGQ+PHR lNTJ4bHybWPTw tKNvBPkkBj6yuWbmiEraM G9yJRTzfuejOIInmP0kJW OqlHUutCsmKQ0aIHSzzco js520EeIoFWM0 GWHgoIFhY8SnxY4tMqHoO ZWrJGWhO6EfaVNlHWexT9 11MXleQgG2FDXlntOjA9U sLWFsaWduOiB0 e2F8Nm0Km4NnbtmkD4Zvt LKxVqCyKvagEHl7J1JfLb wvdHI+MN98YNLcQI85GTy 1HCR3mBzcSGbt MLSnD2PnuQ0wPwOiQOFaO GRkOyc+PHRhYmxlIHdpZH RoPScxMDAlJyBzdHlsZT0 fCo5nVGOqZUGa jNwqzYOjDgIjl6unIEMyN ZjsWZ6rgFbuA4FtgVJ9QQ Mjt8l1Jh61A39fY6ChyZP +DFGjpQR6fGL3 pE2eAtFsVwB3XOlaJ231W rMrbKRvZsbzl3biz3pedF w8WvF4BMNhczQemPriDYP 2f5JfMl30M43r IHdpZHRoPSIxNSUiIHZhb Uvezj2lsX5oAw6+PGNvbC Y2mIX8rN5fJvOhNuM3POn uF615OoLyzBYq Mfebf8zib1zgvFn2OtBbW ATqgwNxtCauCAC5k4UgZi 37P2XyoEtlm2CoKbj4pp4 6gQFqd0Z7fVL4 V5VuGIIdfzvatDPomSeoZ J8oEAOgciieHJNakA3kQH FpW7r3LqEuFwV9QXniJ4C gywR4FTCggIQr CVLgfLFNeE1odsfbu5ehe bpvJpJnXWHpGOj8QQs9MM XvtIivDjWtJLT0EqV6EAP 3bZPepX3jvZsm ktgtaR2zCkc+XQS5eACdg MJUOC5oTuufpXU+PHRkIH S2xYncHCbvPGKxrX5qNRQ tG7c0SfCpKfH0 BDryW8ZcjcD9JOZouXOkQ KAcySFQnR1rrlydw2aczh aqIpDiTDDzHEm8WEh2NLD saWduOiBsZWZ0 NvA5LTN4xOIomJ2yySvtl ayflI6rHmp+QmlydGggRG T7YKr4P5CuHdc4PZNywJb vNC8ymMCmMQsf Tv4ljDmteLsoHC0uCTGke gysz246WhOzf3arKNEtpT SpPRsiMFC6S55wb6O6TKY vXINgKOY6dDH4 tF2dmUgwcdgohLPawZkqb bNwcBnkSLfwBNloD222LA TihJcoXiNyCOr9T7VlXny 1SSQwbWlfDW9v sRJmWCjkIv8avYkizSfwG M3sCTSqvmdnk826PfQnv1 haCYEqnPFeZTzjIDT2C71 mu2S7SMOyZOCq MNQ8iST2cE5nnMoanlvac GVmdDsgdmVydGljYWwtYW lpE274BWIxhNfjFvUmxQv 7D6IjQdu5LMVq oLtpWQ2knJFbDAfwNl4qz BjmzUnyMR1jQJHphkqsm0 41SrKou8szZBImjJSnPIc lVPZ0V50iw5G3 EGCpCKUnOYG6qGG3vI2tb GlnbjogbGVmdDsgdmVydG ypILbrLUxbY513SQUtsPe nPlBhdGllbnQg PQhgIFz5I2ApZdliyAO+P L73FIUzVN72lHUqlKVzz7 cxpIx1WnQzSJTaRSA9kBa iWFvof9CgCNOk Q22nxXJvf4Z5AQIqgFmeb DTjHlQdiQG7jA3pSAltgx ffp9dufjmmKwjgm5jwre6 0qW60E41rFPfk ZHRoPSIzMCUiIHZhbGlnb q3yjV8iAy4+ESJpjJK9rD Y1fT5jXDAvIbP4VThcG02 9InRvcCIvPjxj j7sns5jmgCg4SqT5NHXxc xDypIpiRDN1i2SnVy36X8 9sIHdpZHRoPSIyMCUiIHZ lcFuaho3nyO9p Ii8+REXyfOZ6rGG4nR4wC tTlGqD6XHbzG115WiKimC MzXjczY80wN9SrqXR+PHR zMde1QTBxpLgt JL2xgXHdXZwePs3hLRZ9M eQbJlHgEIesM5ArEDKwpf ievbelwCT0XKEcSCJwrP0 1Ir4qlQjxCFPl vZZYfV4dkkhkw9nmumujY yYbXLRaOBc3WMo3JUTgxT heRxYwLMD3ZpS1ZKL3hXH qiS9oqAdecyvv uB3mR9LfMIIjgiehXd72g S2qEiUmXrB8FAnmGrs+Uk 0UIUkwYzQZV5bBARCEH4C NW7N8U4RoHxu5 SBFfpCbcYH5qoKNbKDseU h1xhKqxmUlfDW9aKYDsgd kiZFVgnJ6jJEFxyETnaXi uTP1bRKKucmzl e410LfCpZAV2IQZvlYRfJ 8ZbaG5kAfQpEMXuGOKuN1 GtyAFcNMxpA780PAyqIfY 7UBHgwpZbN1Zm SOPrhTdlNhD4f7T4Zg5mB r2gUb5lVAg4YG03FI75dL Rag1R6qTE9O4HyCFHaihv gzigwtOD3WBTk CYGzrN07hSZqZVccBo8rp 2P5p276XYOkSSCozJ14Uk 9jdAjmCDIviIIRhV9kvbc uf3cbzlceSuHm NKFbCMl2FIn4KMArrRkrA sOaCNI3HmE7FAJ0rDRvaF 5ncPdmnoxnpS1bRyj+Mjg mBLUeqtS5M0Xm Lts4HDRdmDsxHE2vjTRlE GmzRt5dbBkbtOgpGG6nCL RccjnnFJMxhX3xKYDiwRQ kzBbbFN5fHDKq zrody759OmErCBV0DISqr EOxE5LckQ7eIdOgGWPbPW MxN3ZkjLUlUBieG230XFn rBpN2EITqbfUu J9IrPMZqtWuoLiH9h7T9B e8TDL2BMAE3M4BxZch8KI OxzSjmZP2uyZLzRVgrBr8 yxFxroRmcNV8e LZYfxdliYDKuyJ6uNKXhd SVcvZcaHC2fQCDsehocn6 24XlBwMCL5RHKovKEdI8C viQ4bXsNfIRLk EVCeM7DylWZwYNpcC904G VojXrC5RDAsfvVzP1EgSY QgrHjgBxZ8b3F0Vu9GQGj vdGQ+PO75zq48 U4AbPbsiXpr6ABTsWBK8s QM7uJ4xRZRbBYcgk0S7hP I5W0PjtaJaoh8vu9tiMEB vEBerN34fhVYf k1X1MRVezEJ1HFFedPtoP xXrlV30Mji+PGNvbGdyb3 VbPmasd2ljw3sgbZi9AbB wJSIgdmFsaWdu IAZ3p7VoRz09R95eYLdrA HRoPSIzMCUiIHZhbGlnbj 0yqK8tLa7+SQAgyYY3yAK 6eT5jKbPnRwD4 ANbrE634QuDbdHTtIumnw 4lbk1xhkVq5PgBkFTUphw DmfDxmKIV8m4EmBi08A5P qlCgzx4ViRek3 ot05dHOph8X7yOY3Y7OxH ATgcthipONdrJmbOQ7wFC KxuvnfJORzsL1dMNBjV9f 5YbWeFkS8AFpa Q3SuteF8HIZycWFxDFBfg DSTyE0geykbd0vmykgqKr HaQOZfAFu1HAp9EGQmfVv dCcKwJOO7GnJ5 MIM4aJFqaF8kbFmnjbtym G9wOyc+JNx2y7lvmCHwHM 9ivHE1QH55OA79iKLvp9Z 8yDP3S1IiQCWh zzjybmebuIH3OPKaAYFtk X24As1euVcpHi7eUOBfIN I8SIRomRQyH0IozM9xZjS sGOAzSLDvX8Jv bDYxENatX045PTkoPpT8F UPicjCwQ3XoXSPnoPdjGi X2z9P1Vc8UFV27FS50MF8 6uLBlh0F6xYN8 E8AdQKHvoieofleejUN3Z GInYVTwoY16Gf2xyOnmJu 2rIRXoVXP3VRAzvYNdW4J vfT8pUrUiKLNm OTYtV3SqbWXdJQvpU119B KnrVyU0DFGlesHiS2QjYT KqmQebBiZ2o9Y7Qx2TOu3 4TR15PQ33dUJl j3O2zND1Q4ZdTOHhifxms edquFI4VFKmERCelQ26Vx 4sfLkbUg4uTTJlUBO0TQE unXZsJ9HtaF6v AyCnGFDiRSPjR3ZhkWZoF ZplK560ZDfiQxS4GPCtgt QdZ0XmSDXinLmxChY3y4T 9Gj9HAKzeeue3 P0QoSknhsAA+FO93UYYyC F56rMChuOEtv6bghOn6Bc ZrRPLpZMU3eYqtPPvsv4C nYFVeY80xlYFy c2U (more content not included)... Normal [facility] C Throaton 07-11-2023 C Throat Ordered by Discern. Normal throat patricia isolated No pathogens isolated Normal [facility] Comment on above: Performed By: #### 6 [id number] ####[facility] (DEFAULT)[address] [place] [address] ED Clinical Summaryon 2023 ED Clinical Summary [facility] ? Urgent Care [address] [place] [address] Clinical Summary PERSON INFORMATION Name: TAYLOR RAINEY Age: 28 Years Sex: FEMALE : 1995 MRN: Acct#: Visit Reason: Sore throat - Adult; SORE THROAT, SINUS PRESSURE, COUGH Arrival: 07/09/2023 10:32:38 Discharge: 07/09/2023 11:36:00 LOS: 000 01:04 Check In: 07/09/2023 10:32:38 Checkout: 07/09/2023 11:36:00 Address: [facility] [place] [address] PCP: ELISSA WOLFE PROVIDER INFORMATION Provider Role Assigned Unassigned Emilie RN, Maria M ED Nurse 07/09/2023 10:36:44 JILLIAN PLATA ED PA 07/09/2023 11:05:44 VITALS INFORMATION Vital Sign Triage Latest Temperature Tympanic Temperature Temporal Artery Pulse Rate O2 Sat 99 % 99 % Respiratory Rate Blood Pressure /88 mmHg /88 mmHg MEDICAL INFORMATION Medications Given: Allergy Information: No Known Medication Allergies PHYSICIAN DOCUMENTATION DISCHARGE INFORMATION: Discharge Disposition: Home Discharge Location: Home PATIENT EDUCATION INFORMATION Instructions: Viral Respiratory Infection Follow-Up: With: Address: When: ELISSA WOLFE [address] [facility], [place] [address] Business (1) Within 3 to 5 days Comments: Follow-up primary care provider next few days for reevaluation. Continue supportive care with plenty of rest and fluids, Tylenol for aches and pains, salt water gargle for sore throat, honey as a natural cough suppressant, Vicks vapor rub for congestion, wrsk-wql-bvgmwsn medications such as Mucinex for congestion. Go directly to the emergency department for any crushing chest pains, shortness of breath, intractable vomiting, abdominal pains, high spiking fevers or any other problems. DIAGNOSIS: Nasal congestion; Sore throat Patient Understands: Yes - Patient/family/caregi tereza verbalizes understanding of instructions given Comment: Normal [facility] ED Patient Summaryon 024 ED Patient Summary [facility] ? Urgent Care [address] [place] [address] PATIENT DISCHARGE INSTRUCTIONS Patient Information Name: TAYLOR RAINEY Age: 28 Years Date of : 1995 Reason For Visit: Sore throat - Adult; SORE THROAT, SINUS PRESSURE, COUGH Arrival Time: 07/09/2023 10:32:38 Primary Care Physician: ELISSA WOLFE Attending Physician: JILLIAN PLATA Comment: Patient Education With: Address: When: ELISSA WOLFE [address] [place] [id number] Business (1) Within 3 to 5 days Comments: Follow-up primary care provider next few days for reevaluation. Continue supportive care with plenty of rest and fluids, Tylenol for aches and pains, salt water gargle for sore throat, honey as a natural cough suppressant, Vicks vapor rub for congestion, lvwc-nqp-sdjrjoe medications such as Mucinex for congestion. Go directly to the emergency department for any crushing chest pains, shortness of breath, intractable vomiting, abdominal pains, high spiking fevers or any other problems. Viral Respiratory Infection A respiratory infection is an illness that affects part of the respiratory system, such as the lungs, nose, or throat. A respiratory infection that is caused by a virus is called a viral respiratory infection. Common types of viral respiratory infections include: ? A cold. ? The flu (influenza). ? A respiratory syncytial virus (RSV) infection. What are the causes? This condition is caused by a virus. The virus may spread through contact with droplets or direct contact with infected people or their mucus or secretions. The virus may spread from person to person (is contagious). What are the signs or symptoms? Symptoms of this condition include: ? A stuffy or runny nose. ? A sore throat or cough. ? Shortness of breath or difficulty breathing. ? Yellow or green mucus (sputum). Other symptoms may include: ? A fever. ? Sweating or chills. ? Fatigue. ? Achy muscles. ? A headache. How is this diagnosed? This condition may be diagnosed based on: ? Your symptoms. ? A physical exam. ? Testing of secretions from the nose or throat. ? Chest X-ray. How is this treated? This condition may be treated with medicines, such as: ? Antiviral medicine. This may shorten the length of time a person has symptoms. ? Expectorants. These make it easier to cough up mucus. ? Decongestant nasal sprays. ? Acetaminophen or NSAIDs, such as ibuprofen, to relieve fever and pain. Antibiotic medicines are not prescribed for viral infections.This is because antibiotics are designed to kill bacteria. They do not kill viruses. Follow these instructions at home: Managing pain and congestion ? Take [id number]-[id number] and prescription medicines only as told by your health care provider. ? If you have a sore throat, gargle with a mixture of salt and water 3?4 times a day or as needed. To make salt water, completely dissolve ??1 tsp (3?6 g) of salt in 1 cup (237 mL) of warm water. ? Use nose drops made from salt water to ease congestion and soften raw skin around your nose. ? Take 2 tsp (10 mL) of honey at bedtime to lessen coughing at night. ? Do not give honey to children who are younger than 1 year. ? Drink enough fluid to keep your urine pale yellow. This helps prevent dehydration and helps loosen up mucus. General instructions ? Rest as much as possible. ? Do not drink alcohol. ? Do not use any products that contain nicotine or tobacco. These products include cigarettes, chewing tobacco, and vaping devices, such as e-cigarettes. If you need help quitting, ask your health care provider. ? Keep all follow-up visits. This is important. How is this prevented? ? Get an annual flu shot. You may get the flu shot in late summer, fall, or winter. Ask your health care provider when you should get your flu shot. ? Avoid spreading your infection to other people. If you are sick: ? Wash your hands with soap and water often, especially after you cough or sneeze. Wash for at least 20 seconds. If soap and water are not available, use alcohol-based hand critical care nurse specialist. ? Cover your mouth when you cough. Cover your nose and mouth when you sneeze. ? Do not share cups or eating utensils. ? Clean commonly used objects often. Clean commonly touched surfaces. ? Stay home from work or school as told by your health care provider. ? Avoid contact with people who are sick during cold and flu season. This is generally fall and winter. Contact a health care provider if: ? Your symptoms last for 10 days or longer. ? Your symptoms get worse over time. ? You have severe sinus pain in your face or forehead. ? The glands in your jaw or neck become very swollen. ? You have shortness of breath. Get help right away if yo (more content not included)... Normal [facility] Strep Aon 07-09-2023 Strep procedure control Pass Normal [facility] Comment on above: Performed By: #### [id number] ####[facility] (DEFAULT)[address] [place] [address] Streptococcus A Negative Normal Negative [facility] Comment on above: Performed By: #### [id number] ####[facility] (DEFAULT)[address] [place] [address] Urgent Care Note- Provideron 07-09-2023 Urgent Care Note- Provider Patient: TAYLOR RAINEY Age: 28 years Sex: FEMALE : 1995 Associated Diagnoses: Sore throat; Nasal congestion Author: JILLIAN PLATA Subjective Patient is a 28-year-old female presenting to urgent care with complaint of nasal congestion and sore throat. Patient states that this started this morning when she woke up. She indicates that her kids at home have been sick with same symptoms along with mild cough over the last week. States that they were evaluated and were told that they had a viral infection. She denies having any nausea vomiting, abdominal pains, chest pains, shortness of breath, fevers or any other problems. Health Status Allergies: Allergic Reactions (Selected) No Known Medication Allergies Problem list (past medical history): All Problems (Selected) asthma / SNOMED CT 126213103 / Confirmed seasonal allergies / SNOMED CT 550953496 / Confirmed Objective CONST: -Well-developed well-nourished. -Acute distress: No -Vitals: reviewed. SKIN: -Gross abnormalities: No EYES: -EOM intact, ALLAN: -Sclera conjunctiva: Unremarkable. ENT: - Normal pharynx pink and moist. Uvula midline tolerating oral secretions without any problems. No tripoding or hot potato voice appreciated NECK: -Supple (vpiy-vt-aipra): non-tender. CARD: -Rate and rhythm: Regular RESP: -Respiratory effort and chest excursion with respirations: Normal -Breath sounds equal bilaterally: Clear -Wheezes: No -Rales: No NEURO: -Patient: alert -Gross CN or Focal Neuro deficits: No -Oriented to: person, place and time. -Appearance and judgment: appropriate. Results Review Results review Lab results 07/09/2023 11:22 EST Employed in healthcare? No Symptomatic as defined by CDC? Yes Date of onset (Lab) 07/09/2023 Hospitalized due to COVID-19? No In ICU? No Group care resident? No status? Not SARS-CoV-2 (COVID-19) Ag (BD Veritor) Not Detected Influenza A POCT Negative Influenza B POCT Negative 07/09/2023 11:05 EST Streptococcus A Negative Impression and Plan Assessment and Plan: Diagnosis: Sore throat (MKE83-DU J02.9), Nasal congestion (YUU91-IJ R09.81). Patient reports nasal congestion and sore throat starting this morning. Sick contacts at home. COVID influenza swab are negative, rapid strep is negative. I discussed viral versus bacterial infections and continue with supportive care measures at home. I also recommended close follow-up primary care provider. Patient indicated she understood was in agreement. Patient stable will be discharged [Electronically Signed on: 07/09/2023 11:33 EST] JILLIAN PLATA [Verified on: 07/09/2023 11:33 EST] JILLIAN PLATA Normal [facility] [address] Urgent Care Record [facility] ? Urgent Care [address] [place] [address] PATIENT DISCHARGE INSTRUCTIONS Patient Information Name: TAYLOR RAINEY Age: 28 Years Date of : 1995 Reason For Visit: Sore throat - Adult; SORE THROAT, SINUS PRESSURE, COUGH Arrival Time: 07/09/2023 10:32:38 Primary Care Physician: ELISSA WOLFE Attending Physician: JILLIAN PLATA Comment: Visit Diagnosis: Diagnoses This Visit Nasal congestion (R09.81) Sore throat (J02.9) Sore throat - Adult ([id number]) If you received any narcotics, sedation, or any other medication that causes drowsiness for the next 24 hours, unless otherwise directed: ? Do not drive a car. ? Do not operate machinery such as power tools, lawn mowers, drills, sewing machines, or stoves ? Avoid alcoholic beverages and drugs for allergies, nerves, or sleep ? Do not make important personal or business decisions or sign any legal documents With: Address: When: ELISSA WOLFE [address] [place] [address] [place] [address] Business (1) Within 3 to 5 days Comments: Follow-up primary care provider next few days for reevaluation. Continue supportive care with plenty of rest and fluids, Tylenol for aches and pains, salt water gargle for sore throat, honey as a natural cough suppressant, Vicks vapor rub for congestion, utee-mxo-dnewjrn medications such as Mucinex for congestion. Go directly to the emergency department for any crushing chest pains, shortness of breath, intractable vomiting, abdominal pains, high spiking fevers or any other problems. Medication Information: The exam and treatment you received today in the [facility] were for an urgent problem and are not intended as complete care. It is important for you to follow up with a doctor, nurse practitioner, or physician?s quality assurance assistant for ongoing care. If your symptoms become worse or you do not improve as expected and you are unable to reach your usual health care provider, you should return to the Emergency Department, we are available 24 hours a day. For those patients who have received Radiology results, the interpretation of your X-ray as given to you by our Urgent Care physician is only a preliminary report. The Radiologist will review your films and if there is a change in the diagnosis you will be notified by phone. Please make sure you have provided a working phone number so we can reach you if necessary. In the event that you had a lab culture while you were a patient in the Urgent Care, you will be notified by phone if there is a need to change your antibiotic. Please make sure you have provided a working phone number so we can reach you if necessary. [facility] has provided you with a complete list of medications post discharge. Please inform your primary teacher/provider of your visit and for further instruction on these medications. Any specific questions regarding your chronic medications and dosages should be discussed with your primary care physician(s) and/or pharmacist. Additional medications on your home medication list not specifically addressed. Please contact the ordering physician if you have questions about these medications. cetirizine (cetirizine 10 mg oral tablet) 1 tab(s) Oral (given by mouth) every day as needed for allergy symptoms. formoterol-mometasone (Dulera 100 mcg-5 mcg/inh inhalation aerosol) 2 puff(s) Inhale (breathe in) 2 times a day (scheduled). Visit Information Allergies: Substance Reaction Symptoms Type Comments No Known Medication Allergies Drug Vital Signs: Vitals and Measurements this Visit (last charted value for your 07/09/2023 visit) Vital Signs This Visit Peripheral Pulse Rate: 90 bpm Respiratory Rate: 18 br/min Systolic Blood Pressure: 124 mmHg Diastolic Blood Pressure: 88 mmHg SpO2: 99 % Oxygen Therapy: Room air Blood Pressure Method: Automatic Measurements This Visit Height/Length Measured: 165.1 cm Weight Measured: 99.79 kg Weight Dosin.790 kg Body Mass Index: 36.61 kg/m2 BSA Measured: 2.14 m2 Problems List: Problem Onset Comments asthma seasonal allergies Patient Education Viral Respiratory Infection A respiratory infection is an illness that affects part of the respiratory system, such as the lungs, nose, or throat. A respiratory infection that is caused by a virus is called a viral respiratory infection. Common types of viral respiratory infections include: ? A cold. ? The flu (influenza). ? A respiratory syncytial virus (RSV) infection. What are the causes? This condition is caused by a virus. The virus may spread through contact with droplets or direct contact with infected people or their mucus or secretions. The virus may spread from person to person (is contagious). What are the signs or symptoms? Symptoms of this condition include: ? A stuffy or runny nose. ? A (more content not included)... Normal [facility] COVID/FLU/RSV RT-PCRon 05-15 SARS-CoV-2 (COVID-19) RNA ANN+probe Ql (Unsp spec) Negative [employer] Other COVID/FLU/RSV RT-PCR Negative [employer] Other Quick Strepon 10-16-2022 S. pyogenes Org specific cx Ql (Throat) Negative [employer] Other Quick Strep [employer] Other MG MAMM DIAGNOSTIC 3D RENÉE CA Don 10-11-2022 MG MAMM DIAGNOSTIC 3D RENÉE CAD Patient: TAYLOR RAINEY Exam Date: 10/11/2022 : 1995 Gender:F Ordering : [facility] [place] Admission #: [id number] Family : Order #: [id number] CLICK HERE TO VIEW EXAM RADIOLOGY REPORT PROCEDURE: MAMMOGRAM DIAGNOSTIC 3D BILATERAL CAD, 10/11/2022, 14:59 ULTRASOUND BREAST RIGHT LIMITED, 10/11/2022, 14:40 COMPARISON: None. INDICATIONS: Breast lump Calculator Name NCI Breast Cancer Risk Assessment Tool 5 Year Breast Cancer Risk Not Applicable. Lifetime Breast Cancer Risk Not Applicable. Personal Breast Cancer No Personal Ovarian Cancer No Treatments None Family Cancers None LOCATION: [facility] BREAST COMPOSITION: Scattered areas fibroglandular density. FINDINGS: DIAGNOSTIC CATEGORY 3--PROBABLY BENIGN FINDING. THE FOLLOWING FINDING(S) HAS A HIGH PROBABILITY OF A BENIGN ETIOLOGY: RIGHT BREAST: 1.3 cm poorly marginated density near the skin surface marker within the lower breast which may correspond to the patient's palpable lump. No suspicious calcifications. Ultrasound evaluation demonstrates a 1.4 x 0.5 x 0.9 cm mass with posterior shadowing corresponding to the patient's palpable lump. Clinically this is adjacent or within the scar from prior mammoplasty. Given the patient's age, breast cancer is less likely. Follow-up imaging in 6 months to document stability is recommended, with imaging performed earlier if a change is noticed. Alternatively, ultrasound-guided biopsy could be performed at this time. LEFT BREAST: No significant suspicious finding. RECOMMENDATIONS: SHORT TERM FOLLOW-UP DIAGNOSTIC MAMMOGRAM RIGHT BREAST IN 6 MONTHS. SHORT TERM FOLLOW-UP ULTRASOUND RIGHT BREAST IN 6 MONTHS. PLEASE NOTE: A NORMAL MAMMOGRAM DOES NOT EXCLUDE THE POSSIBILITY OF BREAST CANCER. A CLINICALLY SUSPICIOUS PALPABLE LUMP SHOULD BE BIOPSIED. Dictated by: Christiano Engel M.D. on 10/11/2022 at 15:38 Approved by: Christiano Engel M.D. on 10/11/2022 at 15:46 Normal [facility] US BREAST RIGHT LIMITEDon US BREAST RIGHT LIMITED Patient: TAYLOR RAINEY Exam Date: 10/11/2022 : 1995 Gender:F Ordering : [facility] [place] Admission #: [id number] Family : Order #: [id number] CLICK HERE TO VIEW EXAM RADIOLOGY REPORT PROCEDURE: MAMMOGRAM DIAGNOSTIC 3D BILATERAL CAD, 10/11/2022, 14:59 ULTRASOUND BREAST RIGHT LIMITED, 10/11/2022, 14:40 COMPARISON: None. INDICATIONS: Breast lump Calculator Name NCI Breast Cancer Risk Assessment Tool 5 Year Breast Cancer Risk Not Applicable. Lifetime Breast Cancer Risk Not Applicable. Personal Breast Cancer No Personal Ovarian Cancer No Treatments None Family Cancers None LOCATION: [facility] BREAST COMPOSITION: Scattered areas fibroglandular density. FINDINGS: DIAGNOSTIC CATEGORY 3--PROBABLY BENIGN FINDING. THE FOLLOWING FINDING(S) HAS A HIGH PROBABILITY OF A BENIGN ETIOLOGY: RIGHT BREAST: 1.3 cm poorly marginated density near the skin surface marker within the lower breast which may correspond to the patient's palpable lump. No suspicious calcifications. Ultrasound evaluation demonstrates a 1.4 x 0.5 x 0.9 cm mass with posterior shadowing corresponding to the patient's palpable lump. Clinically this is adjacent or within the scar from prior mammoplasty. Given the patient's age, breast cancer is less likely. Follow-up imaging in 6 months to document stability is recommended, with imaging performed earlier if a change is noticed. Alternatively, ultrasound-guided biopsy could be performed at this time. LEFT BREAST: No significant suspicious finding. RECOMMENDATIONS: SHORT TERM FOLLOW-UP DIAGNOSTIC MAMMOGRAM RIGHT BREAST IN 6 MONTHS. SHORT TERM FOLLOW-UP ULTRASOUND RIGHT BREAST IN 6 MONTHS. PLEASE NOTE: A NORMAL MAMMOGRAM DOES NOT EXCLUDE THE POSSIBILITY OF BREAST CANCER. A CLINICALLY SUSPICIOUS PALPABLE LUMP SHOULD BE BIOPSIED. Dictated by: Christiano Engel M.D. on 10/11/2022 at 15:38 Approved by: Christiano Engel M.D. on 10/11/2022 at 15:46 Normal [facility] COVID/FLU RT-PCRon SARS-CoV-2 (COVID-19) RNA ANN+probe Ql (Unsp spec) Negative [employer] Other COVID/FLU RT-PCR Negative [facility] [employer] Other Quick Strepon 07-12-2022 S. pyogenes Org specific cx Ql (Throat) Negative [employer] Other Quick Strep [employer] Other COVID + FLU Quick Testingon 05-30-2022 SARS-CoV-2 (COVID-19) RNA ANN+probe Ql (Unsp spec) Negative [employer] Other COVID + FLU Quick Testing Negative [employer] Other Covid-19 PCR (CVDTBH)on 05-13 SARS-CoV-2 (COVID-19) RNA ANN+probe Ql (Unsp spec) Not detected Normal NOT DETECTED [facility] Comment on above: Result Comment: This test is not yet approved or cleared by the [place] FDA. When there are no FDA-approved or cleared tests available, and other criteria are met, FDA can make tests available under an emergency access mechanism called an Emergency Use Authorization (EUA). The EUA for this test is supported by the [employer] of Health and Human Service's (HHS's) declaration that circumstances exist to justify the emergency use of in vitro diagnostics for the detection and/or diagnosis of the virus that causes COVID-19. This EUA will remain in effect (meaning this test can be used) for the duration of the COVID-19 declaration justifying emergency of IVDs, unless it is terminated or revoked by FDA (after which the test may no longer be used). When diagnostic testing is negative, the possibility of a false negative should be considered in the context of a patient's recent exposures and the presence of clinical signs and symptoms consistent with SARS-CoV-2. Performed By: #### C VDTBH #### [facility] [address] [place] [address] Dr. Shane Rodriguez GROUP A STREP CULTUREon 05-13 S. pyogenes Ag Ql (Unsp spec) Culture Observations: NEGATIVE FOR GROUP A STREPTOCOCCUS. Normal [facility] Comment on above: Performed By: #### G RASTCX, SSCRN #### [facility] [address] [place] [address] Dr. Shane Rodriguez INFLUENZA A AND B AGon 05-25 INFLUANEGH SEE BELOW Normal [facility] Comment on above: Result Comment: Nega tive for Flu A protein angiten. Infection due to Flu A cannot be ruled out. Flu A angiten in the sample may be below the detection limit of the test. Performed By: #### G RASTCX, SSCRN #### [facility] [address] [place] [address] Dr. Shane Rodriguez INFLUBNEG SEE BELOW Normal [facility] Comment on above: Result Comment: Nega tive for Flu B protein antigen. Infection due to Flu B cannot be ruled out. Flu B antigen in the sample may be below the detection limit of the test. Performed By: #### G RASTCX, SSCRN #### [facility] [address] [place] [address] Dr. Shane Rodriguez INFLUENZA A AG Negative Normal NEGATIVE SEE COMMENT [facility] Comment on above: Performed By: #### G RASTCX, SSCRN #### [facility] [address] [place] [address] Dr. Shane Rodriguez INFLUENZA B AG Negative Normal NEGATIVE SEE COMMENT [facility] Comment on above: Performed By: #### G RASTCX, SSCRN #### [facility] [address] [place] [address] Dr. Shane Rodriguez INTERNAL CONTROLS Within Normal Limits Normal Wi thin Normal Limits [facility] Comment on above: Performed By: #### G RASTCX, SSCRN #### [facility] [address] [place] [address] Dr. Shane Rodriguez STREPT SCREENon 05-25-2022 STREP SCREEN A Negative Normal NEGATIVE [facility] Comment on above: Performed By: #### G RASTCX, SSCRN #### [facility] [address] [place] [address] Dr. Shane Rodriguez CHLAMYDIA/GONOCOCCUS ANN (SW AB/URINE/PAPon 05-23-2022 Chlamydia trachomatis, ANN Negative Normal Negative [facility] Comment on above: Performed By: #### C T/NGNA #### [facility] [address] [place] [address] Dr. Shane Rodriguez Neisseria gonorrhoeae, ANN Negative Normal Negative [facility] Comment on above: Performed By: #### C T/NGNA #### [facility] [address] [place] [address] Dr. Shane Rodriguez CBC AUTO DIFFon 05-19-2022 BASO # 0.1 103/ul Normal 0.0-0.1 [facility] Comment on above: Performed By: #### G RASTCX, SSCRN #### [facility] [address] [place] [address] Dr. Shane Rodriguez Basophils/100 WBC (Bld) 0.7 % Normal 0.2-2.0 [facility] Comment on above: Performed By: #### G RASTCX, SSCRN #### [facility] [address] [place] [address] Dr. Shane Rodriguez EO # 0.1 103/ul Normal 0.0-0.7 [facility] Comment on above: Performed By: #### G RASTCX, SSCRN #### [facility] [address] [place] [address] Dr. Shane Rodriguez Eosinophils/100 WBC (Bld) 1.3 % Normal 0.9-7.0 [facility] Comment on above: Performed By: #### G RASTCX, SSCRN #### [facility] [address] [place] [address] Dr. Shane Rodriguez Erythrocyte distribution width (RBC) [Ratio] 12.6 % Normal 11.0-15.0 [facility] Comment on above: Performed By: #### G RASTCX SSCRN #### [facility] [address] [place] [address] Dr. Shane Rodriguez Hematocrit (Bld) [Volume fraction] 39.9 % Normal 36.0-48.0 [facility] Comment on above: Performed By: #### G RASTCX SSCRN #### [facility] [address] [place] [address] Dr. Shane Rodriguez Hemoglobin (Bld) [Mass/Vol] 13.8 g/dL Normal 12.0-16.0 [facility] Comment on above: Performed By: #### G RASTCX SSCRN #### [facility] [address] [place] [address] Dr. Shane Rodriguez IG # 0.03 10e3/ul Normal 0.00-0.03 [facility] Comment on above: Performed By: #### G RASTCX SSCRN #### [facility] [address] [place] [address] Dr. Shane Rodriguez IG % 0.3 % Normal 0.0-0.5 [facility] Comment on above: Performed By: #### G RASTCX, SSCRN #### [facility] [address] [place] [address] Dr. Shane Rodriguez LYMPH # 3.3 103/ul Normal 1.2-3.8 [facility] Comment on above: Performed By: #### G RASTCX, SSCRN #### [facility] [address] [address] [address] Shane Rodriguez Lymphocytes/100 WBC (Bld) 30.6 % Normal 20.5-60.0 [facility] Comment on above: Performed By: #### G RASTCX, SSCRN #### [facility] [address] [place] [address] Dr. Shane Rodriguez MANUAL DIFF REQ NO Normal [facility] Comment on above: Performed By: #### G RASTCX, SSCRN #### [facility] [address] [place] [address] Dr. Shane Rodriguez MCH (RBC) [Entitic mass] 32.3 pg Normal 26.7-34.0 [facility] Comment on above: Performed By: #### G RASTCX, SSCRN #### [facility] [address] [place] [address] Dr. Shane Rodriguez MCHC (RBC) [Mass/Vol] 34.6 g/dL Normal 29.9-35.2 [facility] Comment on above: Performed By: #### G RASTCX, SSCRN #### [facility] [address] [place] [address] Dr. Shane Rodriguez MCV (RBC) [Entitic vol] 93.4 fL Normal 81.0-99.0 [facility] Comment on above: Performed By: #### G RASTCX, SSCRN #### [facility] [address] [place] [address] Dr. Shane Rodriguez MONO # 0.7 103/ul Normal 0.3-0.8 [facility] Comment on above: Performed By: #### G RASTCX, SSCRN #### [facility] [address] [place] [address] Dr. Shane Rodriguez Monocytes/100 WBC (Bld) 6.2 % Normal 1.7-12.0 [facility] Comment on above: Performed By: #### G RASTCX, SSCRN #### [facility] [address] [place] [address] Dr. Shane Rodriguez NEUT # 6.5 103/ul Normal 1.4-6.5 [facility] Comment on above: Performed By: #### G RASTCX, SSCRN #### [facility] [address] [place] [address] Dr. Shane Rodriguez Neutrophils/100 WBC (Bld) 60.9 % Normal 43.0-75.0 [facility] Comment on above: Performed By: #### G RASTCX, SSCRN #### [facility] [address] [place] [address] Dr. Shane Rodriguez Platelet mean volume (Bld) [Entitic vol] 9.7 fL Normal 9.5-13.5 [facility] Comment on above: Performed By: #### G CHIARATCX SSCRN #### [facility] [address] [place] [address] Dr. Shane Rodriguez PLT 306 103/ul Normal 150-450 [facility] Comment on above: Performed By: #### Ginny GUADARRAMATCX SSCRN #### [facility] [address] [place] [address] Dr. Shane Rodriguez RBC 4.27 106/ul Normal 4.20-5.40 [facility] Comment on above: Performed By: #### Ginny GUADARRAMATCX SSCRN #### [facility] [address] [place] [address] Dr. Shane Rodriguez WBC 10.6 103/ul Normal 4.0-11.0 [facility] Comment on above: Performed By: #### G RASTCX, SSCRN #### [facility] [address] [place] [address] Dr. Shane Rodriguez ER URINE PROFILEon 2 Clarity (U) CLEAR Normal CLEAR [facility] Comment on above: Performed By: #### G CHIARATCX SSCRN #### [facility] [address] [place] [address] Dr. Shane Rodriguez Color (U) YELLOW Normal YELLOW [facility] Comment on above: Performed By: #### G RASTCX, SSCRN #### [facility] [address] [place] [address] Dr. Yilan Rodriguez ERUAHD A micrscopic examination will be performed if indicated. Normal [facility] Comment on above: Performed By: #### G RASTCX, SSCRN #### [facility] [address] [place] [address] Dr. Shane Rodriguez LEUKOCYTES TRACE Abnormal NEGATIVE [facility] Comment on above: Performed By: #### G RASTCX, SSCRN #### [facility] [address] [place] [address] Dr. Shane Rodriguez pH (U) 8.0 [pH] Normal 5-9 [facility] Comment on above: Performed By: #### G RASTCX, SSCRN #### [facility] [address] [place] [address] Dr. Shane Rodriguez SPEC GRAVITY 1.020 Normal 1.005-<=1.025 [facility] Comment on above: Performed By: #### G RASTCX, SSCRN #### [facility] [address] [place] [address] Dr. Shane Rodriguez UA PROTEIN Negative Normal NEGATIVE/ TRACE [facility] Comment on above: Performed By: #### G RASTCX, SSCRN #### [facility] [address] [place] [address] Dr. Shane Rodriguez UR MICRO IND INDICATED Normal [facility] Comment on above: Performed By: #### G RASTCX, SSCRN #### [facility] [address] [place] [address] Dr. Shane Rodriguez Urobilinogen Qn (U) 1.0 {Mauri'U}/dL Normal 0.2 - 1.0 [facility] Comment on above: Performed By: #### G RASTCX, SSCRN #### [facility] [address] [place] [address] Dr. Shane Rodriguez LIPASEon 05-19-2022 Lipase [Catalytic activity/Vol] 51.0 U/L Critically low 73.0-393.0 [facility] Comment on above: Performed By: #### L IPA, CMP #### [facility] [address] [place] [address] Dr. Shane Rodriguez URon 05-19-2022 , QUAL Negative Normal NEGATIVE [facility] Comment on above: Performed By: #### G RASTCX, SSCRN #### [facility] [address] [address] [address] Shane Rodriguez PROF 14(COMP METB)on 022 Albumin [Mass/Vol] 3.6 g/dL Normal 3.4-5.0 [facility] Comment on above: Performed By: #### L IPA, CMP #### [facility] [address] [place] [address] Dr. Shane Rodriguez Albumin/Globulin [Mass ratio] 0.9 {ratio} Normal [facility] Comment on above: Performed By: #### L IPA, CMP #### [facility] [address] [place] [address] Dr. Shane Rodriguez ALP [Catalytic activity/Vol] 93 U/L Normal 46-116 [facility] Comment on above: Performed By: #### L IPA, CMP #### [facility] [address] [place] [address] Dr. Shane Rodriguez ALT [Catalytic activity/Vol] 25 U/L Normal 14-59 [facility] Comment on above: Performed By: #### L IPA, CMP #### [facility] [address] [place] [address] Dr. Shane Rodriguez Anion gap [Moles/Vol] 8.1 mmol/L Normal [facility] Comment on above: Performed By: #### L IPA, CMP #### [facility] [address] [place] [address] Dr. Shane Rodriguez AST [Catalytic activity/Vol] 16 U/L Normal 15-37 [facility] Comment on above: Performed By: #### L IPA, CMP #### [facility] [address] [place] [address] Dr. Shane Rodriguez Bilirubin [Mass/Vol] 0.2 mg/dL Normal 0.2-1.0 [facility] Comment on above: Performed By: #### L IPA, CMP #### [facility] [address] [address] [address] Shane Rodriguez Calcium [Mass/Vol] 8.3 mg/dL Critically low 8.5-10.1 [facility] Comment on above: Performed By: #### L IPA, CMP #### [facility] [address] [address] [address] Shane Rodriguez Chloride [Moles/Vol] 102 mmol/L Normal 98-107 [facility] Comment on above: Performed By: #### L IPA, CMP #### [facility] [address] [address] [address] Shane Rodriguez CO2 [Moles/Vol] 28.6 mmol/L Normal 21.0-32.0 [facility] Comment on above: Performed By: #### L IPA, CMP #### [facility] [address] [place] [address] Dr. Shane Rodriguez Creatinine [Mass/Vol] 0.66 mg/dL Normal 0.55-1.02 [facility] Comment on above: Performed By: #### L IPA, CMP #### [facility] [address] [place] [address] Dr. Shane Rodriguez EGFR-AF NIGERIEN >60 Normal >=60 [facility] Comment on above: Performed By: #### L IPA, CMP #### [facility] [address] [place] [address] Dr. Shane Rodriguez EGFR-NON AF NIGERIEN >60 Normal >=60 [facility] Comment on above: Performed By: #### L IPA, CMP #### [facility] [address] [place] [address] Dr. Shane Rodriguez Globulin (S) [Mass/Vol] 4.1 g/dL Normal [facility] Comment on above: Performed By: #### L IPA, CMP #### [facility] [address] [place] [address] Dr. Shane Rodriguez Glucose [Mass/Vol] 90 mg/dL Normal 74-106 [facility] Comment on above: Performed By: #### L IPA, CMP #### [facility] [address] [place] [address] Dr. Shane Rodriguez Potassium [Moles/Vol] 3.7 mmol/L Normal 3.5-5.1 [facility] Comment on above: Performed By: #### L IPA, CMP #### [facility] [address] [place] [address] Dr. Shane Rodriguez Protein [Mass/Vol] 7.7 g/dL Normal 6.4-8.2 [facility] Comment on above: Performed By: #### L IPA, CMP #### [facility] [address] [place] [address] Dr. Shane Rodriguez Sodium [Moles/Vol] 135 mmol/L Critically low 136-145 [facility] Comment on above: Performed By: #### L IPA, CMP #### [facility] [address] [place] [address] Dr. Sahne Rodriguez Urea nitrogen [Mass/Vol] 11.0 mg/dL Normal 7.0-18.0 [facility] Comment on above: Performed By: #### L IPA, CMP #### [facility] [address] [place] [address] Dr. Shane Rodriguez Urea nitrogen/Creatinin e [Mass ratio] 16.7 mg/mg Normal [facility] Comment on above: Performed By: #### L IPA, CMP #### [facility] [address] [place] [address] Dr. Shane Rodriguez URINE MICROSCOPIC ONLYon BACTERIA TRACE Abnormal NONE SEEN [facility] Comment on above: Performed By: #### G RASTCX, SSCRN #### [facility] [address] [place] [address] Dr. Shane Rodriguez Bacteria identified Cx Nom (U) NOT INDICATED Normal [facility] Comment on above: Performed By: #### G RASTCX, SSCRN #### [facility] [address] [place] [address] Dr. Shane Rodriguez CAST NONE SEEN Normal NONE SEEN [facility] Comment on above: Performed By: #### G RASTCX, SSCRN #### [facility] [address] [place] [address] Dr. Shane Rodriguez Crystals LM Nom (Urine sed) NONE SEEN Normal NONE SEEN [facility] Comment on above: Performed By: #### G RASTCX, SSCRN #### [facility] [address] [place] [address] Dr. Shane Rodriguez Epithelial cells LM Ql (Urine sed) MODERATE Abnormal NONE SEEN /RARE [facility] Comment on above: Performed By: #### G RASTCX, SSCRN #### [facility] [address] [place] [address] Dr. Shane Rodriguez MUCOUS NONE SEEN Normal NONE SEEN [facility] Comment on above: Performed By: #### G RASTCX, SSCRN #### [facility] [address] [place] [address] Dr. Shane Rodriguez RBC 2-5 Abnormal 0-2 [facility] Comment on above: Performed By: #### G RASTCX, SSCRN #### [facility] [address] [place] [address] Dr. Shane Rodriguez WBC 0-2 Abnormal NONE SEEN [facility] Comment on above: Performed By: #### G RASTCX, SSCRN #### [facility] [address] [place] [address] Dr. Shane Rodriguez Urinalysis - AUTOMATEDon Bilirubin Ql (U) Negative Normal NEGATIVE [facility] [facility] Other Comment on above: Performed By: #### G RASTCX, SSCRN #### [facility] [address] [place] [address] Dr. Shane Rodriguez Glucose Ql (U) Negative Normal NEGATIVE [email or web address] Other Comment on above: Performed By: #### G RASTCX, SSCRN #### [facility] [address] [place] [address] Dr. Shane Rodriguez Hemoglobin Ql (U) trace-intact Abnormal NEGATIVE [employer] Other Comment on above: Performed By: #### G RASTCX, SSCRN #### [facility] [address] [address] [address] Shane Rodriguez Ketones Ql (U) Negative Normal NEGATIVE [email or web address] Other Comment on above: Performed By: #### G RASTCX, SSCRN #### [facility] [address] [address] [address] Shane Rodriguez Nitrite Ql (U) Negative Normal NEGATIVE [email or web address] Other Comment on above: Performed By: #### G RASTCX, SSCRN #### [facility] [address] [address] [address] Shane Rodriguez Appearance (U) clear [email or web address] Other Color (U) dark yellow [employer] Other Leukocyte esterase Test strip Ql (U) trace [employer] Other pH (U) 6.0 [pH] [facility] Other Protein Ql (U) Negative [email or web address] Other Specific gravity (U) [Rel density] 1.030 [facility] Other Urobilinogen (U) [Mass/Vol] 0.2 mg/dL [facility] Other Urinalysis - AUTOMATED [employer] Other Urine Cultureon 05-19-2022 Bacteria identified Cx Nom (U) Reason for Exam Dysuria Urine 40,000 colonies/ml mixed bacterial skin contaminants 2 Days PERFORMED BY: [place] [address] PATHOLOGIST [employer]PLOSION INVESTIGATOR GUIDO ROBB M.D. Normal [facility] Comment on above: Performed By: #### C UU #### [address] Bacteria identified Cx Nom (U) [employer] Other WET PREPon 12-07-2022 CLUE CELLS NONE SEEN Normal NONE SEEN [facility] Comment on above: Performed By: #### W P #### [facility] [address] [address] [address] Shane Rodriguez FUNGAL ELEMENTS NONE SEEN Normal NONE SEEN [facility] Comment on above: Performed By: #### W P #### [facility] [address] [address] [address] Shane Rodriguez RBC -WET PREP NONE SEEN Normal NONE SEEN [facility] Comment on above: Performed By: #### W P #### [facility] [address] [address] [address] Shane Rodriguez TRICHOMONAS NONE SEEN Normal NONE SEEN [facility] Comment on above: Performed By: #### W P #### [facility] [address] [address] [address] Shane Rodriguez WBC- WET PREP RARE Abnormal NONE SEEN [facility] Comment on above: Performed By: #### W P #### [facility] [address] [address] [address] Shane Rodriguez WET PREP BACTERIA RARE Abnormal NONE SEEN [facility] Comment on above: Performed By: #### W P #### [facility] [address] [address] [address] Shane Rodriguez SARS-CoV-2 (COVID-19) RNA NA A+probe Ql (Resp)on 01-08-2022 SARS-CoV-2 (COVID-19) RNA ANN+probe Ql (Unsp spec) Negative [employer] Other D DIMERon 12-09-2021 D DIMER <0.27 Normal <0.50 [facility] Comment on above: Result Comment: If r esult is greater than the cutoff value of 0.56 mg/L then the potential for PE or DVT exists. Other conditions exist which may cause a falsely elevated level. Please correlate clinically, including radiological findings and other clinical parameters. Performed By: #### D DIMER #### Testing performed at [facility] [address] [place] [address] D-DIMER,QUANTITATIVEon 12-09 Fibrin D-dimer FEU (PPP) [Mass/Vol] <0.27 <0.50 g/ml [facility] Comment on above: If result is greater than the cutoff value of 0.56 mg/L then the potential for PE or DVT exists. Other conditions exist which may cause a falsely elevated level. Please correlate clinically, including radiological findings and other clinical parameters. [facility] XR CHEST PA AND LATERALon XR CHEST PA AND LATERAL EXAMINATION: XR CHEST PA AND LATERAL, 12/09/2021 2:25 PM EDT HISTORY: chest pain thought to be muscular . Right-sided pain with deep inspiration for 2 days. COMPARISON: 09/27/2021 TECHNIQUE: Chest x-ray: Two views. FINDINGS: Lungs are clear. The cardiomediastinal configuration is within normal limits. No acute bony abnormalities. IMPRESSION: No acute cardiopulmonary abnormalities. Normal [facility] XR Chest PA and Lateralon IMPRESSION: No acute cardiopulmonary abnormalities. RADIOLOGY EXAMINATION: XR CHES T PA AND LATERAL, 12/09/2021 2:25 PM EDT HISTORY: chest pain thought to be muscular . Right-sided pain with deep inspiration for 2 days. COMPARISON: 09/27/2021 TECHNIQUE: Chest x-ray: Two views. FINDINGS: Lungs are clear. The cardiomediastinal configuration is within normal limits. No acute bony abnormalities. RADIOLOGY Mya, Adela Norris MD - 12/09/2021 EXAMINATION: XR CHEST PA AND LATERAL, 12/09/2021 2:25 PM EDT HISTORY: chest pain thought to be muscular . Right-sided pain with deep inspiration for 2 days. COMPARISON: 09/27/2021 TECHNIQUE: Chest x-ray: Two views. FINDINGS: Lungs are clear. The cardiomediastinal configuration is within normal limits. No acute bony abnormalities. IMPRESSION IMPRESSION: No acute cardiopulmonary abnormalities. [facility] Radiology Study observation (narrative) [facility] XR Chest PA and LateralOrder ed By: Adela Roque on 12-09-2021 [facility] Work Phone: HCG ( test) Ql (U)o n 09-24-2021 [facility] HCG QUALITATIVE, URINEon HCG ( test) Ql (U) Negative [facility] Comment on above: Testing performed at [place] [address] URINE HCG QUALon 09-24-2021 Beta HCG ( test) Ql (U) Negative Normal [facility] Comment on above: Result Comment: Test ing performed at [place] [address] Performed By: #### U HCGT #### [place] [address] COVID Quick Testingon 2021 Result Negative [employer] Other Quick Fluon 09-20-2021 FLUAV Ab CF (S) [Titer] Negative [facility] Other FLUBV Ab CF (S) [Titer] Negative [facility] Other Vital Signs Date Time Vital Sign Value Performing Clinician Facility 08-07-2023 11:15-0500 Body height 166.37 cm [facility] 08-07-2023 11:15-0500 Body mass index (BMI) [Ratio] 36.6 kg/m2 [facility] 08-07-2023 11:15-0500 Body temperature 98 [degF] [facility] 08-07-2023 11:15-0500 Body weight 101.26 kg [facility] 08-07-2023 11:15-0500 Heart rate 96 /min [facility] 08-07-2023 11:15-0500 Respiratory rate 18 /min [facility] 08-07-2023 11:15-0500 SaO2% (BldA) [Mass fraction] 97 % [facility] 06-15-2023 12:00-0500 Body height 166.37 cm Elizabeth Millan Other [facility] 06-15-2023 12:00-0500 Body mass index (BMI) [Ratio] 36.02 kg/m2 Elizabeth Millan Other [employer] Other 06-15-2023 12:00-0500 Body temperature 100 [degF] Elizabeth Millan Other [email or web address] [facility] Other 06-15-2023 12:00-0500 Body weight 99.7 kg Elizabeth Millan Other [employer] Other 06-15-2023 12:00-0500 Body weight 99.69 kg [facility] 06-15-2023 12:00-0500 Diastolic blood pressure 76 mm[Hg] Elizabeth Gaticamond Other [facility] 06-15-2023 12:00-0500 Respiratory rate 18 /min Elizabeth Gaticamond Other [email or web address] Other 06-15-2023 12:00-0500 SaO2% (BldA) [Mass fraction] 99 % Elizabeth Millan Other [facility] Other 06-15-2023 12:00-0500 Systolic blood pressure 118 mm[Hg] Elizabeth Millan Other [facility] 05-17-2023 12:45-0500 Body height 166.37 cm Jeni Mychal Other [facility] 05-17-2023 12:45-0500 Body mass index (BMI) [Ratio] 35.72 kg/m2 Jeni Mychal Other [facility] Other 05-17-2023 12:45-0500 Body temperature 97.7 [degF] Jeni Mychal Other [facility] Other 05-17-2023 12:45-0500 Body weight 98.88 kg Jeni Mychal Other [facility] 05-17-2023 12:45-0500 Diastolic blood pressure 82 mm[Hg] Jeni Mychal Other [facility] 05-17-2023 12:45-0500 Respiratory rate 18 /min Jeni Mychal Other [facility] Other 05-17-2023 12:45-0500 SaO2% (BldA) [Mass fraction] 98 % Jeni Mychal Other [facility] Other 05-17-2023 12:45-0500 Systolic blood pressure 127 mm[Hg] Jeni Mychal Other [facility] 05-15-2023 12:35-0500 Body height 166.37 cm Jania Prince Other [facility] 05-15-2023 12:35-0500 Body mass index (BMI) [Ratio] 35.07 kg/m2 Jania Prince Other [facility] Other 05-15-2023 12:35-0500 Body temperature 98.1 [degF] Jania Prince Other [facility] Other 05-15-2023 12:35-0500 Body weight 97.07 kg Jania Prince Other [email or web address] Other 05-15-2023 12:35-0500 Body weight 97.06 kg [facility] 05-15-2023 12:35-0500 Diastolic blood pressure 79 mm[Hg] Jania Prince Other [facility] 05-15-2023 12:35-0500 Respiratory rate 18 /min Jania Prince Other [employer] Other 05-15-2023 12:35-0500 SaO2% (BldA) [Mass fraction] 99 % Jania Prince Other [employer] Other 05-15-2023 12:35-0500 Systolic blood pressure 123 mm[Hg] Jania Prince Other [facility] 01-05-2023 14:15-0400 Body height 166.37 cm Elizabeth Millan Other [employer] Other 01-05-2023 14:15-0400 Body mass index (BMI) [Ratio] 35.07 kg/m2 Elizabeth Gaticamond Other [employer] Other 01-05-2023 14:15-0400 Body temperature 98.1 [degF] Elizabeth Millan Other [employer] Other 01-05-2023 14:15-0400 Body weight 97.07 kg Elizabeth Gaticamond Other [employer] Other 01-05-2023 14:15-0400 Diastolic blood pressure 81 mm[Hg] Elizabeth Millan Other [employer] Other 01-05-2023 14:15-0400 Respiratory rate 18 /min Elizabeth Millan Other [employer] Other 01-05-2023 14:15-0400 SaO2% (BldA) [Mass fraction] 98 % Elizabeth Millan Other [employer] Other 01-05-2023 14:15-0400 Systolic blood pressure 125 mm[Hg] Elizabeth Yana Other [employer] Other 11-10-2022 15:00-0400 Body height 166.37 cm Elizabeth Gatiacmond Other [employer] Other 05-31-2023 15:00-0400 Body mass index (BMI) [Ratio] 35.16 kg/m2 Elizabeth Yana Other [employer] Other 11-10-2022 15:00-0400 Body temperature 97.6 [degF] Elizabeth Yana Other [employer] Other 11-10-2022 15:00-0400 Body weight 97.34 kg Elizabeth Ynaa Other [employer] Other 11-10-2022 15:00-0400 Respiratory rate 18 /min Elizabeth Yana Other [employer] Other 11-10-2022 15:00-0400 SaO2% (BldA) [Mass fraction] 98 % Elizabeth Yana Other [employer] Other 10-16-2022 14:30-0400 Body height 166.37 cm Elizabeth Yana Other [employer] Other 10-16-2022 14:30-0400 Body mass index (BMI) [Ratio] 34.8 kg/m2 Elizabeth Yana Other [employer] Other 10-16-2022 14:30-0400 Body temperature 98.7 [degF] Elizabeth Yana Other [employer] Other 10-16-2022 14:30-0400 Body weight 96.34 kg Elizabeth Yana Other [employer] Other 10-16-2022 14:30-0400 Diastolic blood pressure 86 mm[Hg] Elizabeth Yana Other [employer] Other 10-16-2022 14:30-0400 Respiratory rate 18 /min Elizabeth Yana Other [employer] Other 10-16-2022 14:30-0400 SaO2% (BldA) [Mass fraction] 98 % Elizabeth Yana Other [employer] Other 10-16-2022 14:30-0400 Systolic blood pressure 130 mm[Hg] Elizabeth Yana Other [employer] Other 07-12-2022 11:35-0500 Body height 166.37 cm Elizabeth Yana Other [employer] Other 07-12-2022 11:35-0500 Body mass index (BMI) [Ratio] 34.95 kg/m2 Elizabeth Yana Other [employer] Other 07-12-2022 11:35-0500 Body temperature 98.2 [degF] Elizabeth Yana Other [employer] Other 07-12-2022 11:35-0500 Body weight 96.75 kg Elizabeth Yana Other [employer] Other 07-12-2022 11:35-0500 Respiratory rate 18 /min Elizabeth Yana Other [employer] Other 07-12-2022 11:35-0500 SaO2% (BldA) [Mass fraction] 84 % Elizabeth Yana Other [employer] Other 05-30-2022 12:00-0500 Body height 166.37 cm Maribel Del Real Other [employer] Other 05-30-2022 12:00-0500 Body mass index (BMI) [Ratio] 34.08 kg/m2 Maribel Del Real Other [employer] Other 05-30-2022 12:00-0500 Body temperature 98.2 [degF] Maribel Del Real Other [employer] Other 05-30-2022 12:00-0500 Body weight 94.35 kg Maribel Del Real Other [employer] Other 05-30-2022 12:00-0500 Respiratory rate 18 /min Maribel Del Real Other [employer] Other 05-30-2022 12:00-0500 SaO2% (BldA) [Mass fraction] 99 % Maribel Del Real Other [employer] Other 05-19-2022 11:00-0500 Body height 166.37 cm Elizabeth Yana Other [employer] Other 05-19-2022 11:00-0500 Body mass index (BMI) [Ratio] 34.08 kg/m2 Elizabeth Millan Other [employer] Other 05-19-2022 11:00-0500 Body temperature 98.5 [degF] Elizabeth Yana Other [employer] Other 05-19-2022 11:00-0500 Body weight 94.35 kg Elizabeth Yana Other [employer] Other 05-19-2022 11:00-0500 Diastolic blood pressure 80 mm[Hg] Elizabeth Millan Other [employer] Other 05-19-2022 11:00-0500 Respiratory rate 18 /min Elizabeth Millan Other [employer] Other 05-19-2022 11:00-0500 SaO2% (BldA) [Mass fraction] 100 % Elizabeth Millan Other [employer] Other 05-19-2022 11:00-0500 Systolic blood pressure 128 mm[Hg] Elizabeth Millan Other [employer] Other 02-07-2022 12:15-0400 Body height 166.37 cm Maribel Del Real Other [employer] Other 02-07-2022 12:15-0400 Body temperature 98.9 [degF] Maribel Gt Other [employer] Other 02-07-2022 12:15-0400 SaO2% (BldA) [Mass fraction] 98 % Maribel Del Real Other [employer] Other 01-08-2022 16:40-0400 Body height 166.37 cm Ann Drake Other [employer] Other 01-08-2022 16:40-0400 Body mass index (BMI) [Ratio] 34.41 kg/m2 Ann Drake Other [employer] Other 01-08-2022 16:40-0400 Body temperature 98.4 [degF] Ann Drake Other [employer] Other 01-08-2022 16:40-0400 Body weight 95.26 kg Ann Drake Other [employer] Other 01-08-2022 16:40-0400 Respiratory rate 18 /min Ann Drake Other [employer] Other 01-08-2022 16:40-0400 SaO2% (BldA) [Mass fraction] 98 % Ann Drake Other [employer] Other 01-06-2022 15:12-0400 Body height 165.1 cm Kami Leigh MD Work Phone: [facility] 01-06-2022 15:12-0400 Body mass index (BMI) [Ratio] 35.11 kg/m2 Kami Leigh MD Work Phone: [facility] 01-06-2022 15:12-0400 Body temperature 97.81 [degF] Kami Leigh MD Work Phone: [facility] 01-06-2022 15:12-0400 Body weight 95.71 kg Kami Leigh MD Work Phone: [facility] 01-06-2022 15:12-0400 Diastolic blood pressure 96 mm[Hg] Kami Leigh MD Work Phone: [facility] 01-06-2022 15:12-0400 Heart rate 89 /min Kami Leigh MD Work Phone: [facility] 01-06-2022 15:12-0400 Systolic blood pressure 122 mm[Hg] Kami Leigh MD Work Phone: [facility] 12-09-2021 15:00-0400 Diastolic blood pressure 68 mm[Hg] Dhaval Mcallister MD Work Phone: [facility] 12-09-2021 15:00-0400 Heart rate 104 /min Dhaval Mcallister MD Work Phone: [facility] 12-09-2021 15:00-0400 Respiratory rate 20 /min Dhaval Mcallister MD Work Phone: [facility] 12-09-2021 15:00-0400 SaO2% (BldA) [Mass fraction] 100 % Dhaval Mcallister MD Work Phone: [facility] 12-09-2021 15:00-0400 Systolic blood pressure 122 mm[Hg] Dhaval Mcallister MD Work Phone: [facility] 12-09-2021 14:08-0400 Body height 165.1 cm Dhaval Mcallister MD Work Phone: [facility] 12-09-2021 14:07-0400 Body temperature 97.81 [degF] Dhaval Mcallister MD Work Phone: [facility] 12-09-2021 13:25-0400 Body height 162.6 cm Kami Leigh MD Work Phone: [facility] 12-09-2021 13:25-0400 Body mass index (BMI) [Ratio] 36.05 kg/m2 Kami Leigh MD Work Phone: [phone] [place] [address] 12-09-2021 13:25-0400 Body temperature 97.5 [degF] Kami Leigh MD Work Phone: [facility] 12-09-2021 13:25-0400 Body weight 95.25 kg Kami Leigh MD Work Phone: [facility] 12-09-2021 13:25-0400 Diastolic blood pressure 77 mm[Hg] Kami Leigh MD Work Phone: [facility] 12-09-2021 13:25-0400 Heart rate 84 /min Kami Leigh MD Work Phone: [facility] 12-09-2021 13:25-0400 Systolic blood pressure 105 mm[Hg] Kami Leigh MD Work Phone: 9(702)633-564412 [place] [address] 11-10-2021 15:25-0400 Body height 162.6 cm Kami Leigh MD Work Phone: 7(226)018-119412 [place] [address] 11-10-2021 15:25-0400 Body mass index (BMI) [Ratio] 35.87 kg/m2 Kami Leigh MD Work Phone: 6(634)029-048712 [place] [address] 11-10-2021 15:25-0400 Body temperature 97.7 [degF] Kami Leigh MD Work Phone: 6(035)161-746712 [place] [address] 11-10-2021 15:25-0400 Body weight 94.8 kg Kami Leigh MD Work Phone: 6(816)144-302312 [place] [address] 11-10-2021 15:25-0400 Diastolic blood pressure 69 mm[Hg] Kami Leigh MD Work Phone: 5(706)272-102712 [place] [address] 11-10-2021 15:25-0400 Heart rate 94 /min Kami Leigh MD Work Phone: 9(195)823-718512 [place] [address] 11-10-2021 15:25-0400 Systolic blood pressure 108 mm[Hg] Kami Leigh MD Work Phone: 6(594)356-865512 [place] [address] 10-20-2021 13:38-0400 Body height 162.6 cm Kami Leigh MD Work Phone: 0(097)049-145612 [place] [address] 10-20-2021 13:38-0400 Body mass index (BMI) [Ratio] 35.75 kg/m2 Kami Leigh MD Work Phone: 9(169)350-809112 [place] [address] 10-20-2021 13:38-0400 Body temperature 97 [degF] Kami Leigh MD Work Phone: 3(888)977-456812 [place] [address] 10-20-2021 13:38-0400 Body weight 94.48 kg Kami Leigh MD Work Phone: 6(251)794-968512 [place] [address] 10-20-2021 13:38-0400 Diastolic blood pressure 93 mm[Hg] Kami Leigh MD Work Phone: 9(956)628-305012 [place] [address] 10-20-2021 13:38-0400 Heart rate 84 /min Kami Leigh MD Work Phone: 0(331)423-479912 [place] [address] 10-20-2021 13:38-0400 Systolic blood pressure 115 mm[Hg] Kami Leigh MD Work Phone: 7(237)766-249812 [place] [address] 10-07-2021 10:54-0400 Body height 162.6 cm Kami Leigh MD Work Phone: 3(689)157-414512 [place] [address] 10-07-2021 10:54-0400 Body mass index (BMI) [Ratio] 35.02 kg/m2 Kami Leigh MD Work Phone: 3(998)216-185112 [place] [address] 10-07-2021 10:54-0400 Body temperature 97.2 [degF] Kami Leigh MD Work Phone: 2(807)351-742312 [place] [address] 10-07-2021 10:54-0400 Body weight 92.53 kg Kami Leigh MD Work Phone: 2(429)893-992512 [place] [address] 10-07-2021 10:54-0400 Diastolic blood pressure 59 mm[Hg] Kami Leigh MD Work Phone: 0(038)861-285412 [place] [address] 10-07-2021 10:54-0400 Heart rate 90 /min Kami Leigh MD Work Phone: 9(630)603-259312 [place] [address] 10-07-2021 10:54-0400 Systolic blood pressure 115 mm[Hg] Kami Leigh MD Work Phone: 1(270)373-569912 [place] [address] 09-30-2021 11:05-0400 Body height 162.6 cm Kami Leigh MD Work Phone: 0(581)844-759112 [place] [address] 09-30-2021 11:05-0400 Body mass index (BMI) [Ratio] 35.02 kg/m2 Kami Leigh MD Work Phone: 2(885)074-369012 [place] [address] 09-30-2021 11:05-0400 Body temperature 97.5 [degF] Kami Leigh MD Work Phone: 0(035)594-315212 [place] [address] 09-30-2021 11:05-0400 Body weight 92.53 kg Kami Leigh MD Work Phone: 3(274)034-735912 [place] [address] 09-30-2021 11:05-0400 Diastolic blood pressure 76 mm[Hg] Kami Leigh MD Work Phone: 6(296)193-891412 [place] [address] 09-30-2021 11:05-0400 Heart rate 103 /min Kami Leigh MD Work Phone: 5(178)574-086412 [place] [address] 09-30-2021 11:05-0400 Systolic blood pressure 103 mm[Hg] Kami Leigh MD Work Phone: 5(301)124-171212 [place] [address] 09-24-2021 16:00-0400 Diastolic blood pressure 80 mm[Hg] Kami Leigh MD Work Phone: 2(771)707-665412 [place] [address] 09-24-2021 16:00-0400 Heart rate 112 /min Kami Leigh MD Work Phone: 4(197)797-785712 [place] [address] 09-24-2021 16:00-0400 Respiratory rate 16 /min Kami Leigh MD Work Phone: 6(979)984-425812 [place] [address] 09-24-2021 16:00-0400 SaO2% (BldA) [Mass fraction] 99 % Kami Leigh MD Work Phone: 4(345)183-483312 [place] [address] 09-24-2021 16:00-0400 Systolic blood pressure 130 mm[Hg] Kami Leigh MD Work Phone: 3(755)573-466912 [place] [address] 09-24-2021 12:50-0400 Body temperature 98.49 [degF] Kami Leigh MD Work Phone: 1(694)748-198512 [place] [address] 09-24-2021 06:45-0400 Body height 162.6 cm Kami Leigh MD Work Phone: [facility] 09-24-2021 06:45-0400 Body mass index (BMI) [Ratio] 36.39 kg/m2 Kami Leigh MD Work Phone: [facility] 09-24-2021 06:45-0400 Body weight 96.16 kg Kami Leigh MD Work Phone: [facility] 09-20-2021 10:35-0400 Body height 166.37 cm Maribel Solomonault Other [facility] [facility] 09-20-2021 10:35-0400 Body mass index (BMI) [Ratio] 34.08 kg/m2 Maribel Solomonault Other [employer] [facility] 09-20-2021 10:35-0400 Body temperature 98.6 [degF] Maribel Solomonault Other [employer] [facility] 09-20-2021 10:35-0400 Body weight 94.35 kg Maribel Solomonault Other [employer] Other 09-20-2021 10:35-0400 SaO2% (BldA) [Mass fraction] 99 % Maribel Solomonault Other [employer] [facility] 09-15-2021 10:31-0400 Body height 162.6 cm Kami Leigh MD Work Phone: [facility] 09-15-2021 10:31-0400 Body mass index (BMI) [Ratio] 36.39 kg/m2 Kami Leigh MD Work Phone: [facility] 09-15-2021 10:31-0400 Body temperature 97.9 [degF] Kami Leigh MD Work Phone: [facility] 09-15-2021 10:31-0400 Body weight 96.16 kg Kami Leigh MD Work Phone: [facility] 09-15-2021 10:31-0400 Diastolic blood pressure 87 mm[Hg] Kami Leigh MD Work Phone: 3(586)057-758056 [place] [address] 09-15-2021 10:31-0400 Heart rate 93 /min Kami Leigh MD Work Phone: 4(256)620-399656 [place] [address] 09-15-2021 10:31-0400 Systolic blood pressure 125 mm[Hg] Kami Leigh MD Work Phone: 2(778)658-944556 [place] [address] 01-28-2021 15:51-0400 Body height 162.6 cm Kami Leigh MD Work Phone: 5(598)856-257212 [place] [address] 01-28-2021 15:51-0400 Body mass index (BMI) [Ratio] 36.42 kg/m2 Kami Leigh MD Work Phone: 0(709)000-534312 [place] [address] 01-28-2021 15:51-0400 Body temperature 98.01 [degF] Kami Leigh MD Work Phone: [facility] 01-28-2021 15:51-0400 Body weight 96.25 kg Kami Leigh MD Work Phone: 1(582)918-707956 [place] [address] 01-28-2021 15:51-0400 Diastolic blood pressure 94 mm[Hg] Kami Leigh MD Work Phone: 4(173)777-229256 [place] [address] 01-28-2021 15:51-0400 Heart rate 95 /min Kami Leigh MD Work Phone: [facility] 01-28-2021 15:51-0400 Systolic blood pressure 125 mm[Hg] Kami Leigh MD Work Phone: 8(179)672-262856 [place] [address] Encounters Encounter Date Encounter Type Care Provider Facility Start: 08-23-2023 End: 08-23-2023 ambulatory ZOE MONICA Not Available Start: 08-09-2023 End: 08-09-2023 ambulatory ZOE MONICA Not Available Start: 08-07-2023 End: 08-07-2023 ambulatory [facility] Work Phone: Start: 08-07-2023 End: 08-07-2023 Patient encounter procedure [facility] Work Phone: Start: 08-05-2023 End: 08-05-2023 Emergency department patient visit Dhaval Watson Facility:[facility] Start: 07-09-2023 End: 07-09-2023 ambulatory ELISSA WLOFE Facility:[facility] Start: 06-15-2023 End: 06-15-2023 ambulatory Elizabeth Yana Other [facility] Other Start: 06-15-2023 Office outpatient vi sit 15 minutes Elizabeth Yana [facility] Start: 06-15-2023 End: 06-15-2023 Patient encounter procedure [facility] Work Phone: Start: 05-17-2023 End: 05-17-2023 ambulatory Jeni Mychal Other [facility] Other Start: 05-17-2023 Office outpatient vi sit 15 minutes Jeni Mychal [facility] Start: 05-17-2023 End: 05-17-2023 Patient encounter procedure [facility] Work Phone: Start: 05-15-2023 End: 05-15-2023 ambulatory Jania Prince Other [facility] Other Start: 05-15-2023 Office outpatient vi sit 15 minutes Jania Prince [facility] Start: 05-15-2023 End: 05-15-2023 Patient encounter procedure [facility] Work Phone: Start: 01-05-2023 End: 01-05-2023 ambulatory Elizabeth Yana Other [facility] Other Start: 01-05-2023 Office outpatient vi sit 15 minutes Elizabeth Yana [facility] Start: 11-10-2022 End: 11-10-2022 ambulatory Elizabeth Yana Other [facility] Other Start: 11-10-2022 Office outpatient vi sit 15 minutes Elizabeth Yana [facility] Start: 10-16-2022 End: 10-16-2022 ambulatory Elizabeth Yana Other [facility] Other Start: 10-16-2022 Office outpatient vi sit 15 minutes Elizabeth Yana [facility] Start: 10-11-2022 End: 10-12-[address] ELISSA WOLFE . Facility:[facility] Start: 09-27-2022 End: 09-27-[address] ELISSA WOLFE . Facility:[facility] Start: 08-20-2022 End: 08-20-[address] ELISSA WOLFE . Facility:[facility] Start: 07-12-2022 End: 07-12-2022 ambulatory Elizabeth Millan Other [facility] Other Start: 07-12-2022 Office outpatient vi sit 15 minutes Elizabeth Yana [facility] Start: 05-30-2022 End: 05-30-2022 ambulatory Maribel Del Real Other [facility] Other Start: 05-30-2022 Office outpatient vi sit 15 minutes Maribel Del Real [facility] Start: 05-25-2022 End: 05-25-[address] ELISSA WOLFE . Facility:[facility] Start: 05-19-2022 End: 05-19-[address] ELISSA WOLFE . Facility:[facility] Start: 05-19-2022 Office outpatient vi sit 15 minutes Elizabeth Millan [facility] Start: 05-19-2022 End: 05-19-2022 ambulatory Elizabeth Millan Facility:[facility] Start: 05-19-2022 End: 05-19-2022 ambulatory NON STAFF [facility] Work Phone: Start: 05-19-2022 End: 05-19-2022 Departed Referred [facility] [place] Start: 04-14-2022 End: 04-14-[address] CORI LARKIN . Facility:[facility] Start: 02-07-2022 End: 02-07-2022 ambulatory Maribel Del Real Other [facility] Other Start: 02-07-2022 Office outpatient vi sit 15 minutes Maribel Del Real [facility] Start: 01-08-2022 End: 01-08-2022 ambulatory Ann Drake Other [facility] Other Start: 01-08-2022 Office outpatient vi sit 15 minutes Ann rDake [facility] Start: 01-06-2022 End: 01-06-2022 Postop follow up visit related to original px Kami Leigh MD Work Phone: [facility] Comment on above: S/P bilateral breast reduction (Primary Dx) Start: 12-09-2021 End: 12-09-2021 Emergency department patient visit Dhaval Mcallister MD Work Phone: [facility] Start: 12-09-2021 End: 12-09-2021 Office outpatient visit 10 minutes Kami Leigh MD Work Phone: [facility] Comment on above: Pain of anterior diana st wall with respiration (Primary Dx); Neck pain, bilateral posterior Start: 11-10-2021 End: 11-10-2021 Postop follow up visit related to original px Kami Leigh MD Work Phone: [facility] Comment on above: S/P bilateral breast reduction (Primary Dx) Start: 10-20-2021 End: 10-20-2021 Postop follow up visit related to original px Kami Leigh MD Work Phone: [facility] Comment on above: S/P bilateral breast reduction (Primary Dx) Start: 10-07-2021 End: 10-07-2021 Postop follow up visit related to original px Kami Leigh MD Work Phone: [facility] Comment on above: S/P bilateral breast reduction (Primary Dx) Start: 09-30-2021 End: 09-30-2021 Postop follow up visit related to original px Kami Leigh MD Work Phone: [facility] Comment on above: S/P bilateral breast reduction (Primary Dx) Start: 09-24-2021 End: 09-24-2021 Patient encounter status Kami Leigh MD Work Phone: [facility] Start: 09-24-2021 End: 09-24-2021 Subsequent hospital visit by physician Kami Leigh MD Work Phone: [facility] Comment on above: Macromastia Start: 09-20-2021 End: 09-20-2021 ambulatory Maribel Del Real Other [facility] Other Start: 09-20-2021 Office outpatient vi sit 15 minutes Maribel Del Real [facility] Start: 09-15-2021 End: 09-15-2021 Office outpatient visit 25 minutes Kami Leigh MD Work Phone: [facility] Comment on above: S/P bilateral breast reduction (Primary Dx) Start: 01-28-2021 End: 01-28-2021 Office outpatient new 30 minutes Kami Leigh MD Work Phone: [facility] Comment on above: Macromastia (Primary Dx); Chronic back pain, unspecified back location, unspecified back pain laterality Procedures Date Procedure Procedure Detail Performing Clinician Start: 12-09-2021 Fibrin dgradj produc ts d-dimer quantitative Dhaval Mcallister MD Work Phone: Start: 12-09-2021 Radiologic exam ches t 2 views Dhaval Mcallister MD Work Phone: Start: 09-24-2021 Gonadotropin chorion ic qualitative Irwin Estes DO Work Phone: History of reduction of breast S/P bilateral breast reduction aKmi Leigh MD Work Phone: History of reduction of breast S/P bilateral breast reduction Kami Leigh MD Work Phone: History of reduction of breast S/P bilateral breast reduction Kami Leigh MD Work Phone: History of reduction of breast S/P bilateral breast reduction Kami Leigh MD Work Phone: History of reduction of breast S/P bilateral breast reduction Kami Leigh MD Work Phone: History of reduction of breast S/P bilateral breast reduction Kami Leigh MD Work Phone: History of reduction of breast History of bilateral breast reduction surgery Dhaval Mcallister MD Work Phone: History of reduction of breast S/P bilateral breast reduction Kami Leigh MD Work Phone: Plan of Treatment Date Care Activity Detail Author Start: 02-11-2022 Influenza vaccination A [facility] Start: 12-09-2021 End: 12-09-2021 Patient encounter procedure 12/09/2021 Office Visit Plastic Surgery Kami Leigh MD [address] [place] [address] [facility] Start: 11-03-2021 End: 11-03-2021 Patient encounter procedure 11/03/2021 Office Visit Plastic Surgery Kami Leigh MD [address] [place] [address] [facility] Start: 10-20-2021 End: 10-20-2021 Patient encounter procedure 10/20/2021 Office Visit Plastic Surgery Kami Leigh MD [address] [place] [address] [facility] Start: 10-07-2021 End: 10-07-2021 Patient encounter procedure 10/07/2021 Office Visit Plastic Surgery Kami Leigh MD [address] [place] [address] [facility] Start: 09-30-2021 End: 09-30-2021 Patient encounter procedure 09/30/2021 Office Visit Plastic Surgery Kami Leigh MD [address] [place] [address] [facility] Start: 09-24-2021 End: 09-24-2021 Admission to same day surgery center 09/24/2021 Surgery Multispecialty Kami Leigh MD [address] [place] [address] BILATERAL BREAST REDUCTION [facility] Comment on above: BILATERAL BREAST RED UCTION Start: 09-24-2021 End: 09-24-2021 Anesthesia consultation 09/24/2021 Anesthesia Event Multispecialty 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, [employer]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 [address], [place] [facility] Start: 09-24-2021 End: 09-24-2021 Reduction mammaplasty BREAST REDUCTION Macromastia Chronic back pain, unspecified back location, unspecified back pain laterality 09/24/2021 7:30 AM EDT [facility] Start: 04-14-2022 Subsequent hospital visit by physician 09/24/2021 Hospital Encounter Multispecialty Kami Leigh MD [address] [place] [address] Macromastia [facility] Comment on above: Macromastia Start: 02-11-2021 Influenza vaccination INFLUENZA VACC INE (#1) [facility] Start: 2016 Screening for malign ant neoplasm of cervix CERVICAL CANCER SCREENING DISCUSSION [facility] Start: 2014 Third diphtheria, tetanus and acellular pertussis (DTaP) vaccination TDAP (ADULT) [facility] Start: 2013 Tetanus vaccination TETANUS [facility] Start: 2011 Screening for Chlamy charli trachomatis CHLAMYDIA SCREEN [facility] Start: 2010 HIV screening HIV SCREENING DISCUSSI ON [facility] Start: 2007 COVID-19 VACCINE (1) COVID-19 VACCIN E (1) [facility] Start: 2006 Vaccination for jeferson n papillomavirus HPV VACCINE ADOL (1 - 2-dose series) [facility] Start: 2000 COVID-19 VACCINE (#1) COVID-19 VACCI NE (#1) [facility] Start: 2000 COVID-19 VACCINE (1) COVID-19 VACCIN E (1) [facility] Start: 1995 COVID-19 VACCINE (#1) COVID-19 VACCI NE (#1) [facility] Start: 1995 GONORRHEA SCREEN GONORRHEA SCREEN [facility] Start: 1995 Hepatitis C antibody , confirmatory test HEPATITIS C VIRUS SCREENING [facility] Bacteria identified in Urine by Culture [facility] SURGICAL PATHOLOGY REQUEST SURGICAL PATHOLOGY REQUEST Surg Path Routine Macromastia Chronic back pain, unspecified back location, unspecified back pain laterality Release Upon Ordering for 1 Occurrences starting 09/24/2021 [facility] Comment on above: Release Upon Orderin g for 1 Occurrences starting 09/24/2021 [facility] Immunizations Immunization Date Immunization Notes Care Provider Fa cility 02-26-2011 influenza virus vaccine, unspecified formulation Kami Leigh MD Work Phone: [facility] Payers Date Payer Category Payer Medicaid [id number] 2022 Self-pay 2021 Unknown [employer] [id number] 2021-Present [address] [place] [address] [id number] 2021 Unknown [employer] [id number] 2021-Present [address] [place] [address] [id number] 1995 Unknown [id number] 1995 Unknown [id number] 1995 Unknown [id number] 1995 Unknown [id number] [id number] 1995 Unknown [id number] [id number] 1995 Unknown [id number] [id number] 1995 Unknown [id number] [id number] 1995 Unknown [id number] [id number] 1995 Unknown [id number] [id number] 1995 Unknown [id number] 1959 Unknown [id number] Medicaid [place] Ad[place]age [id number] Unknown [id number] Unknown [id number] Social History Date Type Detail Facility Start: 04-24-2017 End: 04-15-2018 Tobacco smoking status NHIS Never smoked tobacco [facility] Work Phone: Start: 04-24-2017 Tobacco use and exposure Smokeless tobacco non-user [facility] Start: 09-15-2021 End: 01-06-2022 Alcohol intake Ex-drinker (finding) [facility] Start: 09-15-2021 End: 01-06-2022 Alcohol intake [facility] Start: 1995 Sex Assigned At Not on file A [facility] Start: 09-14-2021 End: 09-24-2021 Exposure to SARS-CoV-2 (event) Not sure [facility] Sex Assigned At Sex Assigned At Bir th [employer] Other Start: 1995 Sex Assigned At Female F [facility] Clinical Notes 01-28-2021 to 08-05-2023 Note Date & Type Note Facility 08-05-2023 Note Education Materials Obstetrics and Gynecology Urinary Tract Infection, Adult A urinary tract infection (UTI) is an infection of any part of the urinary tract. The urinary tract includes: ? The kidneys. ? The ureters. ? The bladder. ? The urethra. These organs make, store, and get rid of pee (urine) in the body. What are the causes? This infection is caused by germs (bacteria) in your genital area. These germs grow and cause swelling (inflammation) of your urinary tract. What increases the risk? The following factors may make you more likely to develop this condition: ? Using a small, thin tube (catheter) to drain pee. ? Not being able to control when you pee or poop (incontinence). ? Being female. If you are female, these things can increase the risk: ? Using these methods to prevent : ? A medicine that kills sperm (spermicide). ? A device that blocks sperm (diaphragm). ? Having low levels of a female hormone (estrogen). ? Being . You are more likely to develop this condition if: ? You have genes that add to your risk. ? You are sexually active. ? You take antibiotic medicines. ? You have trouble peeing because of: ? A prostate that is bigger than normal, if you are male. ? A blockage in the part of your body that drains pee from the bladder. ? A kidney stone. ? A nerve condition that affects your bladder. ? Not getting enough to drink. ? Not peeing often enough. ? You have other conditions, such as: ? Diabetes. ? A weak disease-fighting system (immune system). ? Sickle cell disease. ? Gout. ? Injury of the spine. What are the signs or symptoms? Symptoms of this condition include: ? Needing to pee right away. ? Peeing small amounts often. ? Pain or burning when peeing. ? Blood in the pee. ? Pee that smells bad or not like normal. ? Trouble peeing. ? Pee that is cloudy. ? Fluid coming from the vagina, if you are female. ? Pain in the belly or lower back. Other symptoms include: ? Vomiting. ? Not feeling hungry. ? Feeling mixed up (confused). This may be the first symptom in older adults. ? Being tired and grouchy (irritable). ? A fever. ? Watery poop (diarrhea). How is this treated? ? Taking antibiotic medicine. ? Taking other medicines. ? Drinking enough water. In some cases, you may need to see a specialist. Follow these instructions at home: Medicines ? Take [id number] and prescription medicines only as told by your doctor. ? If you were prescribed an antibiotic medicine, take it as told by your doctor. Do not stop taking it even if you start to feel better. General instructions ? Make sure you: ? Pee until your bladder is empty. ? Do not hold pee for a long time. ? Empty your bladder after sex. ? Wipe from front to back after peeing or pooping if you are a female. Use each tissue one time when you wipe. ? Drink enough fluid to keep your pee pale yellow. ? Keep all follow-up visits. Contact a doctor if: ? You do not get better after 1?2 days. ? Your symptoms go away and then come back. Get help right away if: ? You have very bad back pain. ? You have very bad pain in your lower belly. ? You have a fever. ? You have chills. ? You feeling like you will vomit or you vomit. Summary ? A urinary tract infection (UTI) is an infection of any part of the urinary tract. ? This condition is caused by germs in your genital area. ? There are many risk factors for a UTI. ? Treatment includes antibiotic medicines. ? Drink enough fluid to keep your pee pale yellow. This information is not intended to replace advice given to you by your health care provider. Make sure you discuss any questions you have with your health care provider. Document Revised: 01/09/2021 Document Reviewed: 01/09/2021 [employer] Patient Education ? 2022 [employer] [facility] 07-09-2023 Note Patient Education Ma terials Follows:Disease Viral Respiratory Infection A respiratory infection is an illness that affects part of the respiratory system, such as the lungs, nose, or throat. A respiratory infection that is caused by a virus is called a viral respiratory infection. Common types of viral respiratory infections include: ? A cold. ? The flu (influenza). ? A respiratory syncytial virus (RSV) infection. What are the causes? This condition is caused by a virus. The virus may spread through contact with droplets or direct contact with infected people or their mucus or secretions. The virus may spread from person to person (is contagious). What are the signs or symptoms? Symptoms of this condition include: ? A stuffy or runny nose. ? A sore throat or cough. ? Shortness of breath or difficulty breathing. ? Yellow or green mucus (sputum). Other symptoms may include: ? A fever. ? Sweating or chills. ? Fatigue. ? Achy muscles. ? A headache. How is this diagnosed? This condition may be diagnosed based on: ? Your symptoms. ? A physical exam. ? Testing of secretions from the nose or throat. ? Chest X-ray. How is this treated? This condition may be treated with medicines, such as: ? Antiviral medicine. This may shorten the length of time a person has symptoms. ? Expectorants. These make it easier to cough up mucus. ? Decongestant nasal sprays. ? Acetaminophen or NSAIDs, such as ibuprofen, to relieve fever and pain. Antibiotic medicines are not prescribed for viral infections.This is because antibiotics are designed to kill bacteria. They do not kill viruses. Follow these instructions at home: Managing pain and congestion ? Take xryf-aig-scclotm and prescription medicines only as told by your health care provider. ? If you have a sore throat, gargle with a mixture of salt and water 3?4 times a day or as needed. To make salt water, completely dissolve ??1 tsp (3?6 g) of salt in 1 cup (237 mL) of warm water. ? Use nose drops made from salt water to ease congestion and soften raw skin around your nose. ? Take 2 tsp (10 mL) of honey at bedtime to lessen coughing at night. ? Do not give honey to children who are younger than 1 year. ? Drink enough fluid to keep your urine pale yellow. This helps prevent dehydration and helps loosen up mucus. General instructions ? Rest as much as possible. ? Do not drink alcohol. ? Do not use any products that contain nicotine or tobacco. These products include cigarettes, chewing tobacco, and vaping devices, such as e-cigarettes. If you need help quitting, ask your health care provider. ? Keep all follow-up visits. This is important. How is this prevented? ? Get an annual flu shot. You may get the flu shot in late summer, fall, or winter. Ask your health care provider when you should get your flu shot. ? Avoid spreading your infection to other people. If you are sick: ? Wash your hands with soap and water often, especially after you cough or sneeze. Wash for at least 20 seconds. If soap and water are not available, use alcohol-based hand critical care nurse specialist. ? Cover your mouth when you cough. Cover your nose and mouth when you sneeze. ? Do not share cups or eating utensils. ? Clean commonly used objects often. Clean commonly touched surfaces. ? Stay home from work or school as told by your health care provider. ? Avoid contact with people who are sick during cold and flu season. This is generally fall and winter. Contact a health care provider if: ? Your symptoms last for 10 days or longer. ? Your symptoms get worse over time. ? You have severe sinus pain in your face or forehead. ? The glands in your jaw or neck become very swollen. ? You have shortness of breath. Get help right away if you: ? Feel pain or pressure in your chest. ? Have trouble breathing. ? Faint or feel like you will faint. ? Have severe and persistent vomiting. ? Feel confused or disoriented. These symptoms may represent a serious problem that is an emergency. Do not wait to see if the symptoms will go away. Get medical help right away. Call your local emergency services (911 in the [place] Do not drive yourself to the hospital. Summary ? A respiratory infection is an illness that affects part of the respiratory system, such as the lungs, nose, or throat. A respiratory infection that is caused by a virus is called a viral respiratory infection. ? Common types of viral respiratory infections include a cold, influenza, and respiratory syncytial virus (RSV) infection. ? Symptoms of this condition include a stuffy or runny nose, cough, fatigue, achy muscles, sore throat, and fevers or chills. ? Antibiotic medicines are not prescribed for viral infections. This is because antibiotics are designed to kill bacteria. They are not effective against viruses. This informati (more content not included)... [facility] 06-15-2023 Evaluation note Encounter Date Diagnosis Assessment Notes Jun, Acute sinusitis, recurrence not specified, unspecified location (ICD-10 - J01.90) Drink plenty fluids, get plenty of rest. Take the amoxicillin with clavulanate and prednisone as prescribed until gone. Use the fluticasone nasal spray as prescribed until your symptoms improve. Continue home medications as prescribed. Take Tylenol or Motrin as needed for aches pains or fevers. Follow-up with your family physician if no improvement in 2 to 3 days [facility] 12-05-2023 Evaluation note* Encounter Date Diagnosis Assessment Notes Treatment Notes Treatment Clinical Notes May, Viral upper respiratory illness (ICD-10 - J06.9) You were seen here for your cough, congestion, body aches and chills. You state you were tested by peds on [facility] nurse yesterday and was positive for flu B. You denies fevers, nausea, vomitinng, diarrhea, or abdominal pain. You deny cough, chest pain or shortness of breath, You are being diagnosed with a virla upper repsiratory infection. Tamiflu is not necessary at this time as you have had symptoms for several days. Rest. Take tylenol and motrin as needed for fever or discomfort. Drink plenty of water. Follow up with your regular primary care provider if symptoms persist. Go to the ER if you develop cough, shortness of breath, chest pain. [facility] 12-03-2023 Evaluation note* Encounter Date Diagnosis Assessment Notes Treatment Notes Treatment Clinical Notes May, Contact with and (suspected) exposure to other viral communicable diseases (ICD-10 - Z20.828) May, Viral URI (ICD-10 - J06.9) testing is negative today in clinic. low suspicion for bacterial infection at this time. continue symptomatic tx c otc meds prn. recommended hot steam baths and/or cool mist humidifier. push rest/fluids. reinforced universal infection control protocols and good hand hygiene for infection control. pt education and anticipatory guidance provided on viral vs bacterial infection progression. immediate eval if warning s/s of intractable fevers, respir distress or other emergent symptoms. otherwise f/u with PCP if febrile or new/worsening s/s. [facility] 07-26-2023 Evaluation note* Encounter Date Diagnosis Assessment Notes Treatment Notes Treatment Clinical Notes Dec, Acute sinusitis, recurrence not specified, unspecified location (ICD-10 - J01.90) Sinusitis home care material was printed Drink plenty fluids, get plenty of rest. Use your Flonase nasal spray, 2 sprays to each side of your nose once a day, take Tylenol or Motrin as needed for aches pains or fevers. Follow-up with your family physician if no improvement and 5 to 7 days [facility] 05-31-2023 Evaluation note* Encounter Date Diagnosis Assessment Notes Treatment Notes Treatment Clinical Notes October, Strain of neck muscle, initial encounter (ICD-10 - S16.1XXA) Cervical muscle strain home care material was printed Drink plenty fluids, get plenty of rest. Alternate ibuprofen with Tylenol every 4 hours for the next 24 hours for pain. Apply ice to the neck 2-3 times a day for 20 minutes at a time. You may use IcyHot or Bengay to the area as well. Follow-up with your family physician if no improvement in 2 to 3 days [facility] 05-06-2023 Evaluation note* Encounter Date Diagnosis Assessment Notes Treatment Notes Treatment Clinical Notes October, Sore throat (ICD-10 - J02.9) October, Acute sinusitis, recurrence not specified, unspecified location (ICD-10 - J01.90) Sinusitis home care material was printed Drink plenty fluids, get plenty of rest. Take the prednisone as prescribed until gone. Use the fluticasone nasal spray as prescribed until your symptoms improve. Take Tylenol or Motrin as needed for aches pains or fevers. Follow-up with your family physician if no improvement in 2 to 3 days October, Impacted cerumen, left ear (ICD-10 - H61.22) Cerumen impaction home care material was printed [facility] 04-17-2023 NotePROCEDURE: XR HAND RT MIN 3V COMPARISON: None. HISTORY: Pain FINDINGS: BONES:No fracture, acute abnormality, or significant arthropathy. SOFT TISSUES:Soft tissue swelling tip of the fifth finger EFFUSION:None visible. OTHER: Negative. IMPRESSION: No acute fracture Electronically authenticated by: YUE AMBRIZ Date: 2022-09-27 09:11[facility]01-30-2023 Evaluation note* Encounter Date Diagnosis Assessment Notes Treatment Notes Treatment Clinical Notes Jun, Sore throat (ICD-10 - J02.9) Jun, Viral upper respiratory infection (ICD-10 - J06.9) Viral upper respiratory infection: adult home care material was printed Drink plenty fluids, get plenty of rest. Take Tylenol or Motrin as needed for aches pains or fevers. Take Mucinex and/or Sudafed for congestion. Follow-up with your family physician if no improvement in 2 to 3 days [facility] 12-18-2022 Evaluation note* Encounter Date Diagnosis Assessment Notes Treatment Notes Treatment Clinical Notes May, Contact with and (suspected) exposure to other viral communicable diseases (ICD-10 - Z20.828) May, Bronchitis (ICD-10 - J40) Take medications as directed. Rest and increase fluid intake. Take meds with food to prevent stomach upset. Use inhaler as needed for coughing spells and SOB. It is better to use inhaler a few times a day over the next 2-3 days. Follow up with primary care provider if symptoms do not improve with treatment plan, although it may take a few weeks for the cough to go away [facility] 12-07-2022 Evaluation note* Encounter Date Diagnosis Assessment Notes Treatment Notes Treatment Clinical Notes May, Dysuria (ICD-10 - R30.0) May, Vaginal yeast infection (ICD-10 - B37.31) Drink plenty of fluids, get plenty of rest. Take the Diflucan as prescribed until gone. Follow-up with your family physician if no improvement in 4 to 5 days. Go to the ER for worsening symptoms or concerns History is consistent with a vaginal yeast infection, the patient will be prescribed Diflucan. Her urine appears to be negative for infection however will be sent for culture for confirmation May, Other Vaginal yeast infection material was printed [facility] 08-28-2022 Evaluation note* Encounter Date Diagnosis Assessment Notes Treatment Notes Treatment Clinical Notes Jan, Torticollis, acute (ICD-10 - M43.6) Take medications as directed. Use caution when operating machinery with muscle relaxer as it may cause drowsiness. Alternating heat and ice to area 3-4 times per day. Rest a lot Follow up with primary care if there is no symptom improvement within the next week, sooner if symptoms worsen or new symptoms occur. [facility] 07-29-2022 Evaluation note* Encounter Date Diagnosis Assessment Notes Treatment Notes Treatment Clinical Notes Dec, Nasal congestion (ICD-10 - R09.81) Dec, Seasonal allergic rhinitis due to pollen (ICD-10 - J30.1) Advised patient that COVID PCR test was negative today. Advised patient that will treat as viral URI. Supportive care as directed, increase fluids and rest, Tylenol/Motrin as directed, OTC cough/cold remedies as directed on packaging, cool mist humidifier, throat lozenges. Discussed infection control practices such as good hand washing and mask wearing. Patient to follow up with PCP if symptoms persist or worsen despite treatment. Immediate eval for SOB, difficulty, chest pain, fevers that do not break with antipyretic or any other concerning symptoms as reviewed on patient education handout. Patient verbalizes understanding and is agreeable to treatment plan. Patient left in stable condition [facility] 07-27-2022 History of Present illness Narrative* Sara Dodd LPN - 01/06/2022 3:00 PM EDT General Plastics Review of Systems: Do you have any of the following: Chills, Fatigue, Fever or Night Sweats: no. Ear pain or eye discharge: no. Hearing loss or visual changes: no. Sore throat or chronic cough: no. Shortness of breath: no. Chest pain, swelling, or heart palpitations: no. Abdominal pain: no. Constipation or diarrhea: no. Heartburn or Nausea: no. Rash or skin problems: no. Dizziness or numbness: no. Headaches or Migraines: no. Seizures: no. Joint pain, joint swelling or muscle weakness: no. Bruise or bleed easily: no. Any swollen lymph nodes: no. Have you used any nicotine products in the last 3 months? no. Do you use any cannabis, THC or marijuana containing products? no. Are you currently taking the medication Adipex? no. * Kami Leigh MD - 01/06/2022 3:00 PM EDT Subjective: Taylor Rainey is an 26 y.o. female who presents for evaluation of Bilateral breast reduction on 09/24/21. She has no concerns today. No Known Allergies Current Outpatient Medications Medication Sig Dispense Refill Acetaminophen (TYLENOL PO) Take by mouth as needed. albuterol 108 (90 Base) MCG/ACT Aero Soln inhaler Inhale 2 puffs every 4 hours as needed for Shortness of Breath. Cetirizine HCl 10 MG capsule Take 10 mg by mouth daily. levonorgestrel (Mirena, 52 MG,) 20 MCG/24HR 1 Device by Intrauterine route Once. use as directed nitrofurantoin, macrocrystal-monohydrate, 100 MG Cap Take 1 capsule by mouth 2 times daily. Take w/food/milk 14 capsule 0 phenazopyridine 200 MG Tab tablet Take 1 tablet by mouth 3 times daily as needed for Pain (Urinary pain). 12 tablet 0 cyclobenzaprine 10 MG tablet Take 0.5 tablets by mouth 3 times daily as needed for Muscle spasms for up to 5 days. 8 tablet 0 ibuprofen 600 MG tablet Take 1 tablet by mouth 3 times daily as needed for Mild Pain (Take with food.) for up to 5 days. 15 tablet 0 oxyCODONE-acetaminophen 5-325 MG per tablet Take 1 tablet by mouth every 6 hours as needed for Moderate Pain (Use ONLY as needed for pain) for up to 3 days. 8 tablet 0 No current facility-administered medications for this visit. Past Medical History: Diagnosis Date Anxiety Asthma Depression Migraine Past Surgical History: Procedure Laterality Date BREAST REDUCTION Bilateral 09/24/2021 Bilateral breast reduction. (L) 342 gms, (R) 681 gms DILATION AND CURETTAGE 01/28/2016 WISDOM TEETH EXTRACTION Family History Problem Relation Age of Onset Hypertension Brother Social History Socioeconomic History Marital status: Single Spouse name: Not on file Number of children: Not on file Years of education: Not on file Highest education level: Not on file Occupational History Not on file Tobacco Use Smoking status: Never Smoker Smokeless tobacco: Never Used Vaping Use Vaping Use: Never used Substance and Sexual Activity Alcohol use: Not Currently Alcohol/week: 2.0 standard drinks Types: 2 Cans of beer per week Drug use: No Sexual activity: Yes Other Topics Concern Not on file Social History Narrative Not on file Social Determinants of Health Financial Resource Strain: Not on file Food Insecurity: Not on file Transportation Needs: Not on file Physical Activity: Not on file Stress: Not on file Social Connections: Not on file Intimate Partner Violence: Not on file Housing Stability: Not on file Review of Systems Pertinent items are noted in HPI. General Plastics Review of Systems: Do you have any of the following: Chills, Fatigue, Fever or Night Sweats: no. Ear pain or eye discharge: no. Hearing loss or visual changes: no. Sore throat or chronic cough: no. Shortness of breath: no. Chest pain, swelling, or heart palpitations: no. Abdominal pain: no. Constipation or diarrhea: no. Heartburn or Nausea: no. Rash or skin problems: no. Dizziness or numbness: no. Headaches or Migraines: no. Seizures: no. Joint pain, joint swelling or muscle weakness: no. Bruise or bleed easily: no. Any swollen lymph nodes: no. Have you used any nicotine products in the last 3 months? no. Do you use any cannabis, THC or marijuana containing products? no. Are you currently taking the medication Adipex? no. Objective: BP (!) 122/96 Pulse 89 Temp 97.8 F (36.6 C) (Temporal) Ht 1.651 m (5' 5 ) Wt 95.7 kg (211 lb) BMI 35.11 kg/m Smoking Status Never Smoker Patient's breast incisions are well approximated. There is no evidence of infection. She has mild hypopigmentation along some of the scars. She is satisfied with the results. Assessment: Status post breast reduction surgery Plan: The pt is to call with any further problems or questions, otherwise I will see them back PRN. [facility]* Jose Elias Villalba RN - 12/09/2021 3:51 PM EDT Pt given discharge instruction and advised to pick prescription up from pharmacy. Pt voiced understanding and walked out of ER with steady gait and in stable condition. [facility]* Jose Elias Villalba RN - 12/09/2021 3:51 PM EDT Pt given discharge instruction and advised to pick prescription up from pharmacy. Pt voiced understanding and walked out of ER with steady gait and in stable condition. * Dhaval Mcallister MD - 12/09/2021 2:23 PM EDT Emergency Room Note [facility] EMERGENCY DEPARTMENT Service Date:.12/09/21 PCP: Elissa Wolfe Chief Complaint: Chief Complaint Patient presents with Muscle Pain Sent by Dr Leigh due to c/o muscular right sided chest pain with history of breast reduction surgey on September 11 HPI Taylor Rainey is a 26 y.o. female presents to the ED today due to chest and back pain. Patient is complaining of pain in the upper back and on the right anterior chest. She states it feels like muscles. She tells me she had breast reduction in September of this year. She is not been lifting anything until just recently. States she has a 1 and a 3-year-old child that she started lifting and now feels sore. She is not complaining shortness of breath. She states she does get a little increase in the pain right anterior chest with deep inspiration. She has no dyspnea on exertion. She hasno swelling or pain in her legs. She has no dysphonia or dysphagia. Is not complaining neck pain. She denies trauma to the area. She describes it as a sharp pain feels like muscle tightness. She went to Dr. Beal's office today and was sent to the emergency department for further evaluation of his pain. Review of Systems: Review of Systems She has no fever or chills. She is not complaining cough, sore throat, or other upper history complaints. No headache or lightheadedness. No paresthesias or focal weakness. She has no lower back pain. She not complaining of any rash. She has no trauma. No gastrointestinal complaints. No genitourinary complaints. No upper respiratory complaints. She has no swelling or asymmetry of the extremities.No posterior calf pain. No history of DVT. Past Medical History: Past Medical History: Diagnosis Date Anxiety Asthma Depression Migraine Past Surgical History: Past Surgical History: Procedure Laterality Date BREAST REDUCTION Bilateral 09/24/2021 Bilateral breast reduction. (L) 342 gms, (R) 681 gms DILATION AND CURETTAGE 01/28/2016 WISDOM TEETH EXTRACTION Allergies: No Known Allergies Medications: Patient's Medications New Prescriptions CYCLOBENZAPRINE 10 MG TABLET Take 0.5 tablets by mouth 3 times daily as needed for Muscle spasms for up to 5 days. IBUPROFEN 600 MG TABLET Take 1 tablet by mouth 3 times daily as needed for Mild Pain (Take with food.) for up to 5 days. Previous Medications ACETAMINOPHEN (TYLENOL PO) Take by mouth as needed. ALBUTEROL 108 (90 BASE) MCG/ACT AERO SOLN INHALER Inhale 2 puffs every 4 hours as needed for Shortness of Breath. CETIRIZINE HCL 10 MG CAPSULE Take 10 mg by mouth daily. LEVONORGESTREL (MIRENA, 52 MG,) 20 MCG/24HR 1 Device by Intrauterine route Once. use as directed NITROFURANTOIN, MACROCRYSTAL-MONOHYDRATE, 100 MG CAP Take 1 capsule by mouth 2 times daily. Take w/food/milk OXYCODONE-ACETAMINOPHEN 5-325 MG PER TABLET Take 1 tablet by mouth every 6 hours as needed for Moderate Pain (Use ONLY as needed for pain) for up to 3 days. PHENAZOPYRIDINE 200 MG TAB TABLET Take 1 tablet by mouth 3 times daily as needed for Pain (Urinary pain). Modified Medications No medications on file Discontinued Medications No medications on file Family History: Family History Problem Relation Age of Onset Hypertension Brother Social History: Social History Socioeconomic History Marital status: Single Spouse name: Not on file Number of children: Not on file Years of education: Not on file Highest education level: Not on file Occupational History Not on file Tobacco Use Smoking status: Never Smoker Smokeless tobacco: Never Used Vaping Use Vaping Use: Never used Substance and Sexual Activity Alcohol use: Not Currently Alcohol/week: 2.0 standard drinks Types: 2 Cans of beer per week Drug use: No Sexual activity: Yes Other Topics Concern Not on file Social History Narrative Not on file Social Determinants of Health Financial Resource Strain: Not on file Food Insecurity: Not on file Transportation Needs: Not on file Physical Activity: Not on file Stress: Not on file Social Connections: Not on file Intimate Partner Violence: Not on file Housing Stability: Not on file Physical Exam: Physical Exam She is speaking in full sentences. Her wrist rate is 16 on my exam and is nonlabored. Sclera conjunctiva clear moist mouth is pink moist because. Neck is supple trachea is midline. She had no tenderness of the posterior cervical spine. She has good range of motion neck without difficulty or discomfort. She is tender to palpation over the trapezius muscles and the cephalad thoracic paraspinous musculature and supraspinatus musculature bilaterally. She states this does re-create the pain she is complaining of. She has no tenderness over the shoulder joints. She is not tender over the clavicles.She has no tenderness over the thoracic spinous processes. She has no tenderness over the lumbar por tion the back. Her pain is exacerbated with rotation of the trunk. She has range of motion neck without difficulty or discomfort. She has some tenderness over the right mid lateral cephalad pectoral musculature which also states re-creates her pain. This is also exacerbated with rotation movements.Abdomen is soft and nontender. Is no erythema or swelling of her incision line beneath the breasts. Lungs are clear to auscultation bilaterally with good air movement. Heart regular. No Ottis murmur.No Mathieu's crunch. Skin is warm and dry. No rash. Cap refill is brisk distally. She is good strength and sensation in all 4 extremities. Vital Signs During ED Visit Patient Vitals for the past 24 hrs: BP Temp Temp src Pulse Resp SpO2 Height 12/09/21 1500 122/68 -- -- 104 20 100 % -- 12/09/21 1408 -- -- -- -- -- -- 1.651 m (5' 5 ) 12/09/21 1407 135/86 97.8 F (36.6 C) Oral 92 16 100 % -- Orders/Results: Orders Placed This Encounter XR CHEST PA AND LATERAL D-DIMER,QUANTITATIVE AMB REFERRAL TO PLASTIC SURGERY cyclobenzaprine 10 MG tablet ibuprofen 600 MG tablet Results for orders placed or performed during the hospital encounter of 12/09/21 D-DIMER,QUANTITATIVE Result Value Ref Range D-DIMER <0.27 <0.50 g/ml Radiographic Imaging XR CHEST PA AND LATERAL Final Result IMPRESSION: No acute cardiopulmonary abnormalities. Procedures: Procedures Moderate Sedation Procedure: No ED Summary/MDM No acute findings on chest x-ray. D-dimer is not elevated. Patient's symptomatology and presentation are consistent with musculoskeletal pain. She is medically stable for discharge. Given a prescription for short course of Flexeril and Motrin. To follow back up with her primary care provider and Dr. Curtis next week. Call both today to schedule. Return if increased or different pain, or worsen anyway. She did voice understanding and agreement with this. She is discharged in good condition. She had no further questions at this time. Clinical Impression: 1. Upper back strain, initial encounter 2. Chest wall pain 3. History of bilateral breast reduction surgery No follow-ups on file. New Prescriptions CYCLOBENZAPRINE 10 MG TABLET Take 0.5 tablets by mouth 3 times daily as needed for Muscle spasms for up to 5 days. IBUPROFEN 600 MG TABLET Take 1 tablet by mouth 3 times daily as needed for Mild Pain (Take with food.) for up to 5 days. Discontinued Medications No medications on file An After Visit Summary was printed and given to the patient with above information. . Dhaval Mcallister MD 12/09/21 1528 documented in this [facility]06-29-2022 Hospital Discharge instructions* Discharge Instructions* Dhaval Mcallister MD - 12/09/2021 3:26 PM EDT He can take Tylenol 500 mg every 4-6 hours as needed for aches or pains along with prescribed medications. No lifting over 5 pounds for the next 3-5 days. Gradually increase your activity after this. Remember that you would not use these muscles in the past few months so it will take a while before he canuse to the motions again. Return for reevaluation if you develop increased or different pain, or feel worse in any way. documented in this [facility]06-29-2022 Physician Emergency department Note* Dhaval Mcallister MD - 12/09/2021 2:23 PM EDT Emergency Room Note [facility] EMERGENCY DEPARTMENT Service Date:.12/09/21 PCP: Elissa Wolfe Chief Complaint: Chief Complaint Patient presents with Muscle Pain Sent by Dr Leigh due to c/o muscular right sided chest pain with history of breast reduction surgey on September 11 HPI Taylor Rainey is a 26 y.o. female presents to the ED today due to chest and back pain. Patient is complaining of pain in the upper back and on the right anterior chest. She states it feels like muscles. She tells me she had breast reduction in September of this year. She is not been lifting anything until just recently. States she has a 1 and a 3-year-old child that she started lifting and now feels sore. She is not complaining shortness of breath. She states she does get a little increase in the pain right anterior chest with deep inspiration. She has no dyspnea on exertion. She hasno swelling or pain in her legs. She has no dysphonia or dysphagia. Is not complaining neck pain. She denies trauma to the area. She describes it as a sharp pain feels like muscle tightness. She went to Dr. Beal's office today and was sent to the emergency department for further evaluation of his pain. Review of Systems: Review of Systems She has no fever or chills. She is not complaining cough, sore throat, or other upper history complaints. No headache or lightheadedness. No paresthesias or focal weakness. She has no lower back pain. She not complaining of any rash. She has no trauma. No gastrointestinal complaints. No genitourinary complaints. No upper respiratory complaints. She has no swelling or asymmetry of the extremities.No posterior calf pain. No history of DVT. Past Medical History: Past Medical History: Diagnosis Date Anxiety Asthma Depression Migraine Past Surgical History: Past Surgical History: Procedure Laterality Date BREAST REDUCTION Bilateral 09/24/2021 Bilateral breast reduction. (L) 342 gms, (R) 681 gms DILATION AND CURETTAGE 01/28/2016 WISDOM TEETH EXTRACTION Allergies: No Known Allergies Medications: Patient's Medications New Prescriptions CYCLOBENZAPRINE 10 MG TABLET Take 0.5 tablets by mouth 3 times daily as needed for Muscle spasms for up to 5 days. IBUPROFEN 600 MG TABLET Take 1 tablet by mouth 3 times daily as needed for Mild Pain (Take with food.) for up to 5 days. Previous Medications ACETAMINOPHEN (TYLENOL PO) Take by mouth as needed. ALBUTEROL 108 (90 BASE) MCG/ACT AERO SOLN INHALER Inhale 2 puffs every 4 hours as needed for Shortness of Breath. CETIRIZINE HCL 10 MG CAPSULE Take 10 mg by mouth daily. LEVONORGESTREL (MIRENA, 52 MG,) 20 MCG/24HR 1 Device by Intrauterine route Once. use as directed NITROFURANTOIN, MACROCRYSTAL-MONOHYDRATE, 100 MG CAP Take 1 capsule by mouth 2 times daily. Take w/food/milk OXYCODONE-ACETAMINOPHEN 5-325 MG PER TABLET Take 1 tablet by mouth every 6 hours as needed for Moderate Pain (Use ONLY as needed for pain) for up to 3 days. PHENAZOPYRIDINE 200 MG TAB TABLET Take 1 tablet by mouth 3 times daily as needed for Pain (Urinary pain). Modified Medications No medications on file Discontinued Medications No medications on file Family History: Family History Problem Relation Age of Onset Hypertension Brother Social History: Social History Socioeconomic History Marital status: Single Spouse name: Not on file Number of children: Not on file Years of education: Not on file Highest education level: Not on file Occupational History Not on file Tobacco Use Smoking status: Never Smoker Smokeless tobacco: Never Used Vaping Use Vaping Use: Never used Substance and Sexual Activity Alcohol use: Not Currently Alcohol/week: 2.0 standard drinks Types: 2 Cans of beer per week Drug use: No Sexual activity: Yes Other Topics Concern Not on file Social History Narrative Not on file Social Determinants of Health Financial Resource Strain: Not on file Food Insecurity: Not on file Transportation Needs: Not on file Physical Activity: Not on file Stress: Not on file Social Connections: Not on file Intimate Partner Violence: Not on file Housing Stability: Not on file Physical Exam: Physical Exam She is speaking in full sentences. Her wrist rate is 16 on my exam and is nonlabored. Sclera conjunctiva clear moist mouth is pink moist because. Neck is supple trachea is midline. She had no tenderness of the posterior cervical spine. She has good range of motion neck without difficulty or discomfort. She is tender to palpation over the trapezius muscles and the cephalad thoracic paraspinous musculature and supraspinatus musculature bilaterally. She states this does re-create the pain she is complaining of. She has no tenderness over the shoulder joints. She is not tender over the clavicles.She has no tenderness over the thoracic spinous processes. She has no tenderness over the lumbar por tion the back. Her pain is exacerbated with rotation of the trunk. She has range of motion neck without difficulty or discomfort. She has some tenderness over the right mid lateral cephalad pectoral musculature which also states re-creates her pain. This is also exacerbated with rotation movements.Abdomen is soft and nontender. Is no erythema or swelling of her incision line beneath the breasts. Lungs are clear to auscultation bilaterally with good air movement. Heart regular. No Ottis murmur.No Mathieu's crunch. Skin is warm and dry. No rash. Cap refill is brisk distally. She is good strength and sensation in all 4 extremities. Vital Signs During ED Visit Patient Vitals for the past 24 hrs: BP Temp Temp src Pulse Resp SpO2 Height 12/09/21 1500 122/68 -- -- 104 20 100 % -- 12/09/21 1408 -- -- -- -- -- -- 1.651 m (5' 5 ) 12/09/21 1407 135/86 97.8 F (36.6 C) Oral 92 16 100 % -- Orders/Results: Orders Placed This Encounter XR CHEST PA AND LATERAL D-DIMER,QUANTITATIVE AMB REFERRAL TO PLASTIC SURGERY cyclobenzaprine 10 MG tablet ibuprofen 600 MG tablet Results for orders placed or performed during the hospital encounter of 12/09/21 D-DIMER,QUANTITATIVE Result Value Ref Range D-DIMER <0.27 <0.50 g/ml Radiographic Imaging XR CHEST PA AND LATERAL Final Result IMPRESSION: No acute cardiopulmonary abnormalities. Procedures: Procedures Moderate Sedation Procedure: No ED Summary/MDM No acute findings on chest x-ray. D-dimer is not elevated. Patient's symptomatology and presentation are consistent with musculoskeletal pain. She is medically stable for discharge. Given a prescription for short course of Flexeril and Motrin. To follow back up with her primary care provider and Dr. Curtis next week. Call both today to schedule. Return if increased or different pain, or worsen anyway. She did voice understanding and agreement with this. She is discharged in good condition. She had no further questions at this time. Clinical Impression: 1. Upper back strain, initial encounter 2. Chest wall pain 3. History of bilateral breast reduction surgery No follow-ups on file. New Prescriptions CYCLOBENZAPRINE 10 MG TABLET Take 0.5 tablets by mouth 3 times daily as needed for Muscle spasms for up to 5 days. IBUPROFEN 600 MG TABLET Take 1 tablet by mouth 3 times daily as needed for Mild Pain (Take with food.) for up to 5 days. Discontinued Medications No medications on file An After Visit Summary was printed and given to the patient with above information. . Dhaval Mcallister MD 12/09/21 [facility]06-29-2022 History of Present illness Narrative* Sara Dodd LPN - 12/09/2021 1:30 PM EDT General Plastics Review of Systems: Do you have any of the following: Chills, Fatigue, Fever or Night Sweats: no. Ear pain or eye discharge: no. Hearing loss or visual changes: no. Sore throat or chronic cough: no. Shortness of breath: no. Chest pain, swelling, or heart palpitations: no. Abdominal pain: no. Constipation or diarrhea: no. Heartburn or Nausea: no. Rash or skin problems: no. Dizziness or numbness: no. Headaches or Migraines: no. Seizures: no. Joint pain, joint swelling or muscle weakness: yes. Bruise or bleed easily: no Any swollen lymph nodes: yes. Have you used any nicotine products in the last 3 months? no. Do you use any cannabis, THC or marijuana containing products? no. Are you currently taking the medication Adipex? no. * Kami Leigh MD - 12/09/2021 1:30 PM EDT Subjective: Taylor Rainey is an 26 y.o. female who presents for evaluation of right chest and neck pain for the past few days. She denies fever. She has been more active the last couple weeks. No Known Allergies Current Outpatient Medications Medication Sig Dispense Refill Acetaminophen (TYLENOL PO) Take by mouth as needed. albuterol 108 (90 Base) MCG/ACT Aero Soln inhaler Inhale 2 puffs every 4 hours as needed for Shortness of Breath. Cetirizine HCl 10 MG capsule Take 10 mg by mouth daily. levonorgestrel (Mirena, 52 MG,) 20 MCG/24HR 1 Device by Intrauterine route Once. use as directed nitrofurantoin, macrocrystal-monohydrate, 100 MG Cap Take 1 capsule by mouth 2 times daily. Take w/food/milk 14 capsule 0 phenazopyridine 200 MG Tab tablet Take 1 tablet by mouth 3 times daily as needed for Pain (Urinary pain). 12 tablet 0 oxyCODONE-acetaminophen 5-325 MG per tablet Take 1 tablet by mouth every 6 hours as needed for Moderate Pain (Use ONLY as needed for pain) for up to 3 days. 8 tablet 0 No current facility-administered medications for this visit. Past Medical History: Diagnosis Date Anxiety Asthma Depression Migraine Past Surgical History: Procedure Laterality Date BREAST REDUCTION Bilateral 09/24/2021 Bilateral breast reduction. (L) 342 gms, (R) 681 gms DILATION AND CURETTAGE 01/28/2016 WISDOM TEETH EXTRACTION Family History Problem Relation Age of Onset Hypertension Brother Social History Socioeconomic History Marital status: Single Spouse name: Not on file Number of children: Not on file Years of education: Not on file Highest education level: Not on file Occupational History Not on file Tobacco Use Smoking status: Never Smoker Smokeless tobacco: Never Used Vaping Use Vaping Use: Never used Substance and Sexual Activity Alcohol use: Not Currently Alcohol/week: 2.0 standard drinks Types: 2 Cans of beer per week Drug use: No Sexual activity: Yes Other Topics Concern Not on file Social History Narrative Not on file Social Determinants of Health Financial Resource Strain: Not on file Food Insecurity: Not on file Transportation Needs: Not on file Physical Activity: Not on file Stress: Not on file Social Connections: Not on file Intimate Partner Violence: Not on file Housing Stability: Not on file Review of Systems Pertinent items are noted in HPI. General Plastics Review of Systems: Do you have any of the following: Chills, Fatigue, Fever or Night Sweats: no. Ear pain or eye discharge: no. Hearing loss or visual changes: no. Sore throat or chronic cough: no. Shortness of breath: no. Chest pain, swelling, or heart palpitations: no. Abdominal pain: no. Constipation or diarrhea: no. Heartburn or Nausea: no. Rash or skin problems: no. Dizziness or numbness: no. Headaches or Migraines: no. Seizures: no. Joint pain, joint swelling or muscle weakness: yes. Bruise or bleed easily: no Any swollen lymph nodes: yes. Have you used any nicotine products in the last 3 months? no. Do you use any cannabis, THC or marijuana containing products? no. Are you currently taking the medication Adipex? no. Objective: BP 105/77 Pulse 84 Temp 97.5 F (36.4 C) (Temporal) Ht 1.626 m (5' 4 ) Wt 95.3 kg (210 lb) BMI 36.05 kg/m Smoking Status Never Smoker The patient's breast incisions are well approximated. There is no evidence of infection or tenderness. The patient complains of pain beneath the right clavicle which is especially noted when she takes adeep breath in. Her lungs are clear bilaterally There is no palpable cervical adenopathy. her discomfort does not appear to be associated with her breast reduction and therefore I will sendher down to the emergency room for evaluation. Assessment: Upper chest and neck pain unrelated to breast reduction surgery Plan: The pt is to call with any further problems or questions, otherwise I will see them back PRN. documented in this [facility]05-31-2022 History of Present illness Narrative* Sara Dodd LPN - 11/10/2021 3:15 PM EDT General Plastics Review of Systems: Do you have any of the following: Chills, Fatigue, Fever or Night Sweats: no. Ear pain or eye discharge: no. Hearing loss or visual changes: no. Sore throat or chronic cough: no. Shortness of breath: no. Chest pain, swelling, or heart palpitations: yes. Abdominal pain: no. Constipation or diarrhea: no. Heartburn or Nausea: no. Rash or skin problems: yes Dizziness or numbness: no. Headaches or Migraines: no. Seizures: no. Joint pain, joint swelling or muscle weakness: no. Bruise or bleed easily: no. Any swollen lymph nodes: no. Have you used any nicotine products in the last 3 months? no. Do you use any cannabis, THC or marijuana containing products? no. Are you currently taking the medication Adipex? no. * Kami Leigh MD - 11/10/2021 3:15 PM EDT Subjective: Taylor Rainey is an 26 y.o. female who presents for evaluation of Bilateral breast reduction on 09/24/21. She complains of itching and breaking out into a rash after using aquaphor and guaze to nipples. No Known Allergies Current Outpatient Medications Medication Sig Dispense Refill Acetaminophen (TYLENOL PO) Take by mouth as needed. albuterol 108 (90 Base) MCG/ACT Aero Soln inhaler Inhale 2 puffs every 4 hours as needed for Shortness of Breath. Cetirizine HCl 10 MG capsule Take 10 mg by mouth daily. levonorgestrel (Mirena, 52 MG,) 20 MCG/24HR 1 Device by Intrauterine route Once. use as directed nitrofurantoin, macrocrystal-monohydrate, 100 MG Cap Take 1 capsule by mouth 2 times daily. Take w/food/milk 14 capsule 0 phenazopyridine 200 MG Tab tablet Take 1 tablet by mouth 3 times daily as needed for Pain (Urinary pain). 12 tablet 0 oxyCODONE-acetaminophen 5-325 MG per tablet Take 1 tablet by mouth every 6 hours as needed for Moderate Pain (Use ONLY as needed for pain) for up to 3 days. 8 tablet 0 No current facility-administered medications for this visit. Past Medical History: Diagnosis Date Anxiety Asthma Depression Migraine Past Surgical History: Procedure Laterality Date BREAST REDUCTION Bilateral 09/24/2021 Bilateral breast reduction. (L) 342 gms, (R) 681 gms DILATION AND CURETTAGE 01/28/2016 WISDOM TEETH EXTRACTION Family History Problem Relation Age of Onset Hypertension Brother Social History Socioeconomic History Marital status: Single Spouse name: Not on file Number of children: Not on file Years of education: Not on file Highest education level: Not on file Occupational History Not on file Tobacco Use Smoking status: Never Smoker Smokeless tobacco: Never Used Vaping Use Vaping Use: Never used Substance and Sexual Activity Alcohol use: Not Currently Alcohol/week: 2.0 standard drinks Types: 2 Cans of beer per week Drug use: No Sexual activity: Yes Other Topics Concern Not on file Social History Narrative Not on file Social Determinants of Health Financial Resource Strain: Not on file Food Insecurity: Not on file Transportation Needs: Not on file Physical Activity: Not on file Stress: Not on file Social Connections: Not on file Intimate Partner Violence: Not on file Housing Stability: Not on file Review of Systems Pertinent items are noted in HPI. General Plastics Review of Systems: Do you have any of the following: Chills, Fatigue, Fever or Night Sweats: no. Ear pain or eye discharge: no. Hearing loss or visual changes: no. Sore throat or chronic cough: no. Shortness of breath: no. Chest pain, swelling, or heart palpitations: yes. Abdominal pain: no. Constipation or diarrhea: no. Heartburn or Nausea: no. Rash or skin problems: yes Dizziness or numbness: no. Headaches or Migraines: no. Seizures: no. Joint pain, joint swelling or muscle weakness: no. Bruise or bleed easily: no. Any swollen lymph nodes: no. Have you used any nicotine products in the last 3 months? no. Do you use any cannabis, THC or marijuana containing products? no. Are you currently taking the medication Adipex? no. Objective: BP 108/69 Pulse 94 Temp 97.7 F (36.5 C) (Temporal) Ht 1.626 m (5' 4 ) Wt 94.8 kg (209 lb) BMI 35.87 kg/m Smoking Status Never Smoker The patient's incisions are well approximated although she does appear to have a dermatitis in the areas where she was putting ointment. I suggest that she refrain from using the ointment. She can shower over those areas. I also suggested she apply some digital pressure to the thickened areas of the scars particularly medially. Assessment: Status post breast reduction--satisfactory postoperative course Plan: Pt to RETURN in 1 month FOR RECHECK. They are encouraged to call in the interim with any problems or questions relating to this encounter. [facility] of Present illness Narrative* Candice Puente - 10/20/2021 2:15 PM EDT General Plastics Review of Systems: Do you have any of the following: Chills, Fatigue, Fever or Night Sweats: no. Ear pain or eye discharge: no. Hearing loss or visual changes: no. Sore throat or chronic cough: no. Shortness of breath: no. Chest pain, swelling, or heart palpitations: yes, pt gets heart palpitations when in pain. States this is normal for her. . Abdominal pain: no. Constipation or diarrhea: no. Heartburn or Nausea: no. Rash or skin problems: no. Dizziness or numbness: no. Headaches or Migraines: no. Seizures: no. Joint pain, joint swelling or muscle weakness: yes. Bruise or bleed easily: no. Any swollen lymph nodes: yes. Have you used any nicotine products in the last 3 months? no. * Kami Leigh MD - 10/20/2021 2:15 PM EDT Subjective: Taylor Rainey is an 26 y.o. female who presents for evaluation of Bilateral breast reduction 09/24/21. Pt c/o swelling and Lt breast being very sore . Pt states that she thinks she over did it because she had to watch her kids herself, didn't lift them, but was moving around with them . C/o itching. No Known Allergies Current Outpatient Medications Medication Sig Dispense Refill Acetaminophen (TYLENOL PO) Take by mouth as needed. albuterol 108 (90 Base) MCG/ACT Aero Soln inhaler Inhale 2 puffs every 4 hours as needed for Shortness of Breath. Cetirizine HCl 10 MG capsule Take 10 mg by mouth daily. levonorgestrel (Mirena, 52 MG,) 20 MCG/24HR 1 Device by Intrauterine route Once. use as directed nitrofurantoin, macrocrystal-monohydrate, 100 MG Cap Take 1 capsule by mouth 2 times daily. Take w/food/milk 14 capsule 0 phenazopyridine 200 MG Tab tablet Take 1 tablet by mouth 3 times daily as needed for Pain (Urinary pain). 12 tablet 0 oxyCODONE-acetaminophen 5-325 MG per tablet Take 1 tablet by mouth every 6 hours as needed for Moderate Pain (Use ONLY as needed for pain) for up to 3 days. 8 tablet 0 No current facility-administered medications for this visit. Past Medical History: Diagnosis Date Anxiety Asthma Depression Migraine Past Surgical History: Procedure Laterality Date BREAST REDUCTION Bilateral 09/24/2021 Bilateral breast reduction. (L) 342 gms, (R) 681 gms DILATION AND CURETTAGE 01/28/2016 WISDOM TEETH EXTRACTION Family History Problem Relation Age of Onset Hypertension Brother Social History Socioeconomic History Marital status: Single Spouse name: Not on file Number of children: Not on file Years of education: Not on file Highest education level: Not on file Occupational History Not on file Tobacco Use Smoking status: Never Smoker Smokeless tobacco: Never Used Vaping Use Vaping Use: Never used Substance and Sexual Activity Alcohol use: Not Currently Alcohol/week: 2.0 standard drinks Types: 2 Cans of beer per week Drug use: No Sexual activity: Yes Other Topics Concern Not on file Social History Narrative Not on file Social Determinants of Health Financial Resource Strain: Not on file Food Insecurity: Not on file Transportation Needs: Not on file Physical Activity: Not on file Stress: Not on file Social Connections: Not on file Intimate Partner Violence: Not on file Housing Stability: Not on file Review of Systems Pertinent items are noted in HPI. General Plastics Review of Systems: Do you have any of the following: Chills, Fatigue, Fever or Night Sweats: no. Ear pain or eye discharge: no. Hearing loss or visual changes: no. Sore throat or chronic cough: no. Shortness of breath: no. Chest pain, swelling, or heart palpitations: yes, pt gets heart palpitations when in pain. States this is normal for her. . Abdominal pain: no. Constipation or diarrhea: no. Heartburn or Nausea: no. Rash or skin problems: no. Dizziness or numbness: no. Headaches or Migraines: no. Seizures: no. Joint pain, joint swelling or muscle weakness: yes. Bruise or bleed easily: no. Any swollen lymph nodes: yes. Have you used any nicotine products in the last 3 months? no. Objective: BP (!) 115/93 (BP Location: Right arm, BP Position: Sitting) Pulse 84 Temp 97 F (36.1 C) (Temporal) Ht 1.626 m (5' 4 ) Wt 94.5 kg (208 lb 4.8 oz) BMI 35.75 kg/m Smoking Status Never Smoker The patient's incisions are well approximated. There is no evidence of infection. Residual sutures are removed. Aquaphor was applied to the incisions and she is placed back in her bra. I cautioned her about activity. She is only bathing weekly and I have indicated she can bathe dailyto help get rid of the glue and dry skin. Assessment: Pt presents for ongoing assessment of operative course and is noted to have a SATISFACTORY POST-OP COURSE. Plan: Pt to RETURN in 2 weeks FOR RECHECK. They are encouraged to call in the interim with any problems or questions relating to this encounter. [facility] History of Present illness Narrative* Sara Dodd LPN - 10/07/2021 11:00 AM EDT General Plastics Review of Systems: Do you have any of the following: Chills, Fatigue, Fever or Night Sweats: no. Ear pain or eye discharge: no. Hearing loss or visual changes: no. Sore throat or chronic cough: no. Shortness of breath: no. Chest pain, swelling, or heart palpitations: no. Abdominal pain: no. Constipation or diarrhea: no. Heartburn or Nausea: no. Rash or skin problems: no. Dizziness or numbness: no. Headaches or Migraines: no. Seizures: no. Joint pain, joint swelling or muscle weakness: no. Bruise or bleed easily: no. Any swollen lymph nodes: no. * Kami Leigh MD - 10/07/2021 11:00 AM EDT Subjective: Taylor Rainey is an 26 y.o. female who presents for evaluation of Bilateral breast reduction on 09/24/21. She states she's had a little bit of drainage to left breast. She still has some discomfort in the left breast. Surgical bra worn. . No Known Allergies Current Outpatient Medications Medication Sig Dispense Refill Acetaminophen (TYLENOL PO) Take by mouth as needed. albuterol 108 (90 Base) MCG/ACT Aero Soln inhaler Inhale 2 puffs every 4 hours as needed for Shortness of Breath. Cetirizine HCl 10 MG capsule Take 10 mg by mouth daily. levonorgestrel (Mirena, 52 MG,) 20 MCG/24HR 1 Device by Intrauterine route Once. use as directed nitrofurantoin, macrocrystal-monohydrate, 100 MG Cap Take 1 capsule by mouth 2 times daily. Take w/food/milk 14 capsule 0 phenazopyridine 200 MG Tab tablet Take 1 tablet by mouth 3 times daily as needed for Pain (Urinary pain). 12 tablet 0 oxyCODONE-acetaminophen 5-325 MG per tablet Take 1 tablet by mouth every 6 hours as needed for Moderate Pain (Use ONLY as needed for pain) for up to 3 days. 8 tablet 0 No current facility-administered medications for this visit. Past Medical History: Diagnosis Date Anxiety Asthma Depression Migraine Past Surgical History: Procedure Laterality Date BREAST REDUCTION Bilateral 09/24/2021 Bilateral breast reduction. (L) 342 gms, (R) 681 gms DILATION AND CURETTAGE 01/28/2016 WISDOM TEETH EXTRACTION Family History Problem Relation Age of Onset Hypertension Brother Social History Socioeconomic History Marital status: Single Spouse name: Not on file Number of children: Not on file Years of education: Not on file Highest education level: Not on file Occupational History Not on file Tobacco Use Smoking status: Never Smoker Smokeless tobacco: Never Used Vaping Use Vaping Use: Never used Substance and Sexual Activity Alcohol use: Not Currently Alcohol/week: 2.0 standard drinks Types: 2 Cans of beer per week Drug use: No Sexual activity: Yes Other Topics Concern Not on file Social History Narrative Not on file Social Determinants of Health Financial Resource Strain: Not on file Food Insecurity: Not on file Transportation Needs: Not on file Physical Activity: Not on file Stress: Not on file Social Connections: Not on file Intimate Partner Violence: Not on file Housing Stability: Not on file Review of Systems Pertinent items are noted in HPI. General Plastics Review of Systems: Do you have any of the following: Chills, Fatigue, Fever or Night Sweats: no. Ear pain or eye discharge: no. Hearing loss or visual changes: no. Sore throat or chronic cough: no. Shortness of breath: no. Chest pain, swelling, or heart palpitations: no. Abdominal pain: no. Constipation or diarrhea: no. Heartburn or Nausea: no. Rash or skin problems: no. Dizziness or numbness: no. Headaches or Migraines: no. Seizures: no. Joint pain, joint swelling or muscle weakness: no. Bruise or bleed easily: no. Any swollen lymph nodes: no. Objective: BP 115/59 Pulse 90 Temp 97.2 F (36.2 C) (Temporal) Ht 1.626 m (5' 4 ) Wt 92.5 kg (204 lb) BMI 35.02 kg/m Smoking Status Never Smoker The incisions of the breast are well approximated. There is no evidence of infection. The dressingswere replaced with antibiotic ointment and dry gauze. She was shown how to do the same. He states she has reduced pain in her shoulders and neck Assessment: Status post breast reduction surgery--satisfactory postoperative course Plan: Pt to RETURN in 2 weeks FOR RECHECK. They are encouraged to call in the interim with any problems or questions relating to this encounter. [facility] History of Present illness Narrative* Sara Dodd LPN - 09/30/2021 11:00 AM EDT General Plastics Review of Systems: Do you have any of the following: Chills, Fatigue, Fever or Night Sweats: no. Ear pain or eye discharge: no. Hearing loss or visual changes: no. Sore throat or chronic cough: no. Shortness of breath: no. Chest pain, swelling, or heart palpitations: no. Abdominal pain: no. Constipation or diarrhea: no. Heartburn or Nausea: no. Rash or skin problems: no. Dizziness or numbness: no. Headaches or Migraines: no. Seizures: no. Joint pain, joint swelling or muscle weakness: no. Bruise or bleed easily: no. Any swollen lymph nodes: no. * Kami Leigh MD - 09/30/2021 11:00 AM EDT Subjective: Taylormaikel Rainey is an 26 y.o. female who presents for evaluation of Bilateral breast reduction on 09/24/21. She states occasional discomfort from the bra and itching. No Known Allergies Current Outpatient Medications Medication Sig Dispense Refill Acetaminophen (TYLENOL PO) Take by mouth as needed. albuterol 108 (90 Base) MCG/ACT Aero Soln inhaler Inhale 2 puffs every 4 hours as needed for Shortness of Breath. Cetirizine HCl 10 MG capsule Take 10 mg by mouth daily. levonorgestrel (Mirena, 52 MG,) 20 MCG/24HR 1 Device by Intrauterine route Once. use as directed nitrofurantoin, macrocrystal-monohydrate, 100 MG Cap Take 1 capsule by mouth 2 times daily. Take w/food/milk 14 capsule 0 phenazopyridine 200 MG Tab tablet Take 1 tablet by mouth 3 times daily as needed for Pain (Urinary pain). 12 tablet 0 oxyCODONE-acetaminophen 5-325 MG per tablet Take 1 tablet by mouth every 6 hours as needed for Moderate Pain (Use ONLY as needed for pain) for up to 3 days. 8 tablet 0 No current facility-administered medications for this visit. Past Medical History: Diagnosis Date Anxiety Asthma Depression Migraine Past Surgical History: Procedure Laterality Date BREAST REDUCTION Bilateral 09/24/2021 Laterality: Bilateral; Surgeon: Kami Leigh MD; Location: [facility] DILATION AND CURETTAGE 01/28/2016 WISDOM TEETH EXTRACTION Family History Problem Relation Age of Onset Hypertension Brother Social History Socioeconomic History Marital status: Single Spouse name: Not on file Number of children: Not on file Years of education: Not on file Highest education level: Not on file Occupational History Not on file Tobacco Use Smoking status: Never Smoker Smokeless tobacco: Never Used Vaping Use Vaping Use: Never used Substance and Sexual Activity Alcohol use: Not Currently Alcohol/week: 2.0 standard drinks Types: 2 Cans of beer per week Drug use: No Sexual activity: Yes Other Topics Concern Not on file Social History Narrative Not on file Social Determinants of Health Financial Resource Strain: Not on file Food Insecurity: Not on file Transportation Needs: Not on file Physical Activity: Not on file Stress: Not on file Social Connections: Not on file Intimate Partner Violence: Not on file Housing Stability: Not on file Review of Systems Pertinent items are noted in HPI. General Plastics Review of Systems: Do you have any of the following: Chills, Fatigue, Fever or Night Sweats: no. Ear pain or eye discharge: no. Hearing loss or visual changes: no. Sore throat or chronic cough: no. Shortness of breath: no. Chest pain, swelling, or heart palpitations: no. Abdominal pain: no. Constipation or diarrhea: no. Heartburn or Nausea: no. Rash or skin problems: no. Dizziness or numbness: no. Headaches or Migraines: no. Seizures: no. Joint pain, joint swelling or muscle weakness: no. Bruise or bleed easily: no. Any swollen lymph nodes: no. Objective: BP 103/76 Pulse 103 Temp 97.5 F (36.4 C) (Temporal) Ht 1.626 m (5' 4 ) Wt 92.5 kg (204 lb) BMI 35.02 kg/m Smoking Status Never Smoker The breast incisions are well approximated. There is no evidence of infection. The dressings were changed. Some periareolar sutures are removed. She is placed back in her surgery bra. Restrictions were reviewed with her. The pathology demonstrates benign findings bilaterally. Assessment: Status post breast reduction surgery--satisfactory postoperative course Plan: Pt to RETURN in one week FOR RECHECK. They are encouraged to call in the interim with any problems or questions relating to this encounter. [facility] Miscellaneous Notes* Nursing Notes - Nisreen Menon RN - 09/24/2021 4:35 PM EDT Patient discharge from [facility] in stable condition. IV removed and catheter intact. Discharge instructions reviewed with patient and family who all voiced understanding. Patient taken out to vehicle via wheel chair. * Nursing Notes - Nisreen Menon RN - 09/24/2021 3:02 PM EDT Patient ambulated to the bathroom without any apparent difficulty. * Brief Op Note - Kami Leigh MD - 09/24/2021 12:13 PM EDT POST OPERATIVE/PROCEDURE NOTE Taylor Rainey ([id number]) SURGEON Surgeon(s) and Role: * Kami Leigh MD - Primary TITLE INSURANCE AGENT [employer] ANESTHESIOLOGIST MACHINE SPRAYER: Kolby Childs CRNA; Magdalena Hickman APRN-MACHINE SPRAYER SURGICAL STAFF Display Designer Outside: Jeni Segura RN; Gerri Marlow, RN Monitoring Nurse: Yeni Dwyer RN Registered Nurse Echo Technologist: Vale Islas RN Relief Scrub: ashly [facility] Honey Processor: Arabella Duval PROCEDURE PERFORMED Bilateral breast reduction (R-681gm, L-342gm) PRIMARY CLOSURE Yes ANESTHESIA (type of) General ESTIMATED BLOOD LOSS <50cc ml DRAINS None BLOOD PRODUCTS None FLUIDS Intake/Output Summary (Last 24 hours) at 09/24/2021 1213 Last data filed at 09/24/2021 1157 Gross per 24 hour Intake 2000 ml Output 275 ml Net 1725 ml PRE OPERATIVE DIAGNOSIS Macromastia [N62] Chronic back pain, unspecified back location, unspecified back pain laterality [M54.9, G89.29] POST OPERATIVE DIAGNOSIS Post-Op Diagnosis Codes: * Macromastia [N62] * Chronic back pain, unspecified back location, unspecified back pain laterality [M54.9, G89.29] FINDINGS pending CONDITION OF PATIENT stable COMPLICATIONS None GRAFTS AND/OR IMPLANTS See OR Nursing Documentation SPECIMENS Microbiology specimen sent ID Type Source Tests Collected by Time Destination A : Left Breast reduction tissue (342g) Permanent TISSUE SURGICAL PATHOLOGY REQUEST Kami Leigh MD 09/24/2021 0944 B : Right Breast reduction tissue (681g) Permanent TISSUE SURGICAL PATHOLOGY REQUEST Kami Leigh MD 09/24/2021 0945 Kami Leigh MD September 24, 2021 12:13 PM documented in this [facility]04-14-2022 Note* Nursing Notes - Nisreen Menon RN - 09/24/2021 4:35 PM EDT Patient discharge from [facility] bay 10 in stable condition. IV removed and catheter intact. Discharge instructions reviewed with patient and family who all voiced understanding. Patient taken out to vehicle via wheel chair. [facility]* Nursing Notes - Nisreen Menon RN - 09/24/2021 3:02 PM EDT Patient ambulated to the bathroom without any apparent difficulty. [facility] Nurse Note* Marni Portillo RN - 09/24/2021 12:48 PM EDT Transferred to [facility] per cart in stable condition report given to Jill WALKER * Marni Portillo RN - 09/24/2021 12:14 PM EDT Patient returned from OR per cart IV site without redness or edema. Patient sedated 02 on at 5 L per nasal cannula dressings to bilat breasts clean and dry has on bra from surgery. * Gerri Marlow RN - 09/24/2021 12:13 PM EDT To PACU with Magdalena GAN and Queta Dwyer RN rails up call light in reach. With report given per Queta Dwyer to HEAD OF CYTOGENETICS. * Gerri Marlow RN - 09/24/2021 7:38 AM EDT Fire Risk level of 2 determined during Time Out Application site is dry prior to draping and use of surgical equipment No Pooling of prep solution around patient or surgical area. All prep materials have been removed from OR prior to draping and use of surgical devices. Monitored by staff OR Temp68 OR Room Humidity 42 documented in this [facility]04-14-2022 Nurse Surgical operation note* Marni Portillo RN - 09/24/2021 12:48 PM EDT Transferred to bay 10 per cart in stable condition report given to Jill WALKER [facility] Discharge instructions* Discharge Instructions* Kami Leigh MD - 09/24/2021 12:20 PM EDT Follow instructions given in the office documented in this [facility]04-14-2022 Nurse Surgical operation note* Marni Portillo RN - 09/24/2021 12:14 PM EDT Patient returned from OR per cart IV site without redness or edema. Patient sedated 02 on at 5 L per nasal cannula dressings to bilat breasts clean and dry has on bra from surgery. [facility] Note* Brief Op Note - Kami Leigh MD - 09/24/2021 12:13 PM EDT POST OPERATIVE/PROCEDURE NOTE Taylor Rainey ([id number]) SURGEON Surgeon(s) and Role: * Kami Leigh MD - Primary TITLE INSURANCE AGENT ORE SMELTER ANESTHESIOLOGIST MACHINE SPRAYER: Kolby Childs CRNA; Magdalena Hickman APRN-MACHINE SPRAYER SURGICAL STAFF Display Designer Outside: Jeni Segura RN; Gerri Marlow, RN Monitoring Nurse: Yeni Dwyer RN Registered Nurse Echo Technologist: Vale Islas RN Relief Scrub: ashly [facility] Honey Processor: Arabella Duval PROCEDURE PERFORMED Bilateral breast reduction (R-681gm, L-342gm) PRIMARY CLOSURE Yes ANESTHESIA (type of) General ESTIMATED BLOOD LOSS <50cc ml DRAINS None BLOOD PRODUCTS None FLUIDS Intake/Output Summary (Last 24 hours) at 09/24/2021 1213 Last data filed at 09/24/2021 1157 Gross per 24 hour Intake 2000 ml Output 275 ml Net 1725 ml PRE OPERATIVE DIAGNOSIS Macromastia [N62] Chronic back pain, unspecified back location, unspecified back pain laterality [M54.9, G89.29] POST OPERATIVE DIAGNOSIS Post-Op Diagnosis Codes: * Macromastia [N62] * Chronic back pain, unspecified back location, unspecified back pain laterality [M54.9, G89.29] FINDINGS pending CONDITION OF PATIENT stable COMPLICATIONS None GRAFTS AND/OR IMPLANTS See OR Nursing Documentation SPECIMENS Microbiology specimen sent ID Type Source Tests Collected by Time Destination A : Left Breast reduction tissue (342g) Permanent TISSUE SURGICAL PATHOLOGY REQUEST Kami Leigh MD 09/24/2021 0944 B : Right Breast reduction tissue (681g) Permanent TISSUE SURGICAL PATHOLOGY REQUEST Kami Leigh MD 09/24/2021 0945 Kami Leigh MD September 24, 2021 12:13 PM [facility]04-14-2022 Nurse Surgical operation note* Gerri Marlow RN - 09/24/2021 12:13 PM EDT To PACU with Magdalena GAN and Queta Dwyer RN rails up call light in reach. With report given per Queta Dwyer to HEAD OF CYTOGENETICS. [facility] Surgical operation note* Gerri Marlow RN - 09/24/2021 7:38 AM EDT Fire Risk level of 2 determined during Time Out Application site is dry prior to draping and use of surgical equipment No Pooling of prep solution around patient or surgical area. All prep materials have been removed from OR prior to draping and use of surgical devices. Monitored by staff OR Temp68 OR Room Humidity 42 [employer] [id number] History and physical note* Kami Leigh MD - 09/24/2021 7:12 AM EDT I have examined the patient and reviewed the previous H&P completed on date 09/17/21 and there are no changes. See paper H&P in chart Kami Leigh MD, 09/24/2021, 7:12 AM. [employer] [id number] History and physical note* Kami Leigh MD - 09/24/2021 7:12 AM EDT I have examined the patient and reviewed the previous H&P completed on date 09/17/21 and there are no changes. See paper H&P in chart Kami Leigh MD, 09/24/2021, 7:12 AM. documented in this [facility] [id number] Evaluation note* Encounter Date Diagnosis Assessment Notes Treatment Notes Treatment Clinical Notes Sep, Runny nose (ICD-10 - R09.89) Sep, Mild intermittent asthma with exacerbation (ICD-10 - J45.21) Take medications as directed with food. Complete all doses of steroids. Use inhaler or nebulizer at least 2-3 times per day for next 48 hours. Increase fluid intake. Follow up with primary care provider is recommended to discuss treatment plan changes to asthma. Seek emergency help if difficulty breathing develops [employer] Other 04-05-2022 History of Present illness Narrative* Sara Dodd LPN - 09/15/2021 11:15 AM EDT 78General Plastics Review of Systems: Do you have any of the following: Chills, Fatigue, Fever or Night Sweats: no. Ear pain or eye discharge: no. Hearing loss or visual changes: no. Sore throat or chronic cough: no. Shortness of breath: no. Chest pain, swelling, or heart palpitations: no. Abdominal pain: no. Constipation or diarrhea: no. Heartburn or Nausea: no. Rash or skin problems: no. Dizziness or numbness: no. Headaches or Migraines: no. Seizures: no. Joint pain, joint swelling or muscle weakness: no. Bruise or bleed easily: no. Any swollen lymph nodes: no. * Kami Leigh MD - 09/15/2021 11:15 AM EDT Subjective: Taylor Rainey is an 26 y.o. female who presents for evaluation of Bilateral breast reduction on 09/24/21. Pre-op and post-op instructions reviewed and signed.. No Known Allergies Current Outpatient Medications Medication Sig Dispense Refill Acetaminophen (TYLENOL PO) Take by mouth as needed. albuterol 108 (90 Base) MCG/ACT Aero Soln inhaler Inhale 2 puffs every 4 hours as needed for Shortness of Breath. Cetirizine HCl 10 MG capsule Take 10 mg by mouth daily. levonorgestrel (Mirena, 52 MG,) 20 MCG/24HR 1 Device by Intrauterine route Once. use as directed nitrofurantoin, macrocrystal-monohydrate, 100 MG Cap Take 1 capsule by mouth 2 times daily. Take w/food/milk 14 capsule 0 phenazopyridine 200 MG Tab tablet Take 1 tablet by mouth 3 times daily as needed for Pain (Urinary pain). 12 tablet 0 cephALEXin 500 MG capsule Take 1 capsule by mouth 2 times daily for 7 days. 14 capsule 0 oxyCODONE-acetaminophen 5-325 MG per tablet Take 1 tablet by mouth every 6 hours as needed for Moderate Pain (Use ONLY as needed for pain) for up to 3 days. 8 tablet 0 No current facility-administered medications for this visit. Past Medical History: Diagnosis Date Anxiety Asthma Depression Migraine Past Surgical History: Procedure Laterality Date DILATION AND CURETTAGE 01/28/2016 WISDOM TEETH EXTRACTION Family History Problem Relation Age of Onset Hypertension Brother Social History Socioeconomic History Marital status: Single Spouse name: Not on file Number of children: Not on file Years of education: Not on file Highest education level: Not on file Occupational History Not on file Tobacco Use Smoking status: Never Smoker Smokeless tobacco: Never Used Vaping Use Vaping Use: Never used Substance and Sexual Activity Alcohol use: Not Currently Alcohol/week: 2.0 standard drinks Types: 2 Cans of beer per week Drug use: No Sexual activity: Yes Other Topics Concern Not on file Social History Narrative Not on file Social Determinants of Health Financial Resource Strain: Not on file Food Insecurity: Not on file Transportation Needs: Not on file Physical Activity: Not on file Stress: Not on file Social Connections: Not on file Intimate Partner Violence: Not on file Housing Stability: Not on file Review of Systems Pertinent items are noted in HPI. 78General Plastics Review of Systems: Do you have any of the following: Chills, Fatigue, Fever or Night Sweats: no. Ear pain or eye discharge: no. Hearing loss or visual changes: no. Sore throat or chronic cough: no. Shortness of breath: no. Chest pain, swelling, or heart palpitations: no. Abdominal pain: no. Constipation or diarrhea: no. Heartburn or Nausea: no. Rash or skin problems: no. Dizziness or numbness: no. Headaches or Migraines: no. Seizures: no. Joint pain, joint swelling or muscle weakness: no. Bruise or bleed easily: no. Any swollen lymph nodes: no. Objective: BP 125/87 Pulse 93 Temp 97.9 F (36.6 C) (Temporal) Ht 1.626 m (5' 4 ) Wt 96.2 kg (212 lb) BMI 36.39 kg/m Smoking Status Never Smoker Patient for bilateral breast reduction to relieve asymmetry and back discomfort. The procedure of breast reduction Was thoroughly reviewed with the patient. The reasonable expected outcome was reviewed. The expected Pre-, Intra-, and Post- Operative Course was reviewed. The Pre- and Post-Operative Instructions were reviewed in addition to the medications to avoid before surgery. The patient was given the following scripts (which were also reviewed): keFlex and Percocet Measurements and Sizing were performed as applicable. The Potential Risks and Complications were reviewed as was the Consent for Surgery. The RISKS, BENEFITS, POTENTIAL COMPLICATIONS, and ALTERNATIVES OF TREATMENT were reviewed. The POTENTIAL COMPLICATIONS were reviewed which include (but are not exclusive of) bleeding, infection, pain, numbness, assymmetry, scar tissue, skin necrosis, the need for further surgery, DVT, and even . The patient was given ample opportunity to ask questions. The patient voices understanding. The patient is encouraged to call with any further questions or problems encountered before or after the proposed procedure. Assessment: Patient for bilateral breast reduction following clearance. Plan: Patient call with any problems or questions regarding the proposed surgery documented in this [facility]08-18-2021 History of Present illness Narrative* Kami Leigh MD - 01/28/2021 3:00 PM EDT Subjective: Taylor Rainey is an 25 y.o. female who presents for evaluation of Breast reduction consult. C/o back, neck and bilateral shoulder pain and headaches. Pt states that her breasts are causing bad posture. Pt states she has seen a chiropractor, takes Tylenol and uses a heating pad for pain. Pt states that she wears a 38DDD bra, but it is too small . She denies smoking history. No personal or FH of breast cancer. No Known Allergies Current Outpatient Medications Medication Sig Dispense Refill Acetaminophen (TYLENOL PO) Take by mouth as needed. albuterol (ProAir HFA) 108 (90 Base) MCG/ACT Aero Soln inhaler Inhale 2 puffs every 4 hours as needed for Shortness of Breath. Cetirizine HCl (ZyrTEC Allergy) 10 MG capsule Take 10 mg by mouth daily. levonorgestrel (Mirena, 52 MG,) 20 MCG/24HR 1 Device by Intrauterine route Once. use as directed nitrofurantoin, macrocrystal-monohydrate, 100 MG Cap Take 1 capsule by mouth 2 times daily. Take w/food/milk 14 capsule 0 phenazopyridine 200 MG Tab tablet Take 1 tablet by mouth 3 times daily as needed for Pain (Urinary pain). 12 tablet 0 No current facility-administered medications for this visit. Past Medical History: Diagnosis Date Anxiety Depression Essential hypertension, benign Migraine Vascular ring anomaly right aortic arch Past Surgical History: Procedure Laterality Date DILATION AND CURETTAGE 01/28/2016 Family History Problem Relation Age of Onset Hypertension Brother Social History Socioeconomic History Marital status: Single Spouse name: Not on file Number of children: Not on file Years of education: Not on file Highest education level: Not on file Occupational History Not on file Tobacco Use Smoking status: Never Smoker Smokeless tobacco: Never Used Substance and Sexual Activity Alcohol use: Not Currently Alcohol/week: 2.0 standard drinks Types: 2 Cans of beer per week Drug use: No Sexual activity: Yes Other Topics Concern Not on file Social History Narrative Not on file Social Determinants of Health Financial Resource Strain: Difficulty of Paying Living Expenses: Food Insecurity: Worried About Running Out of Food in the Last Year: Ran Out of Food in the Last Year: Transportation Needs: Lack of Transportation (Medical): Lack of Transportation (Non-Medical): Physical Activity: Days of Exercise per Week: Minutes of Exercise per Session: Stress: Feeling of Stress : Social Connections: Frequency of Communication with Friends and Family: Frequency of Social Gatherings with Friends and Family: Attends [employer] Services: Active Member of Clubs or Organizations: Attends Club or Organization Meetings: Marital Status: Intimate Partner Violence: Fear of Current or Ex-Partner: Emotionally Abused: Physically Abused: Sexually Abused: Review of Systems Pertinent items are noted in HPI. General Plastics Review of Systems: Do you have any of the following: Chills, Fatigue, Fever or Night Sweats: no. Ear pain or eye discharge: no. Hearing loss or visual changes: no. Sore throat or chronic cough: no. Shortness of breath: no. Chest pain, swelling, or heart palpitations: no. Abdominal pain: no. Constipation or diarrhea: no. Heartburn or Nausea: no. Rash or skin problems: no. Dizziness or numbness: no. Headaches or Migraines: yes. Seizures: no. Joint pain, joint swelling or muscle weakness: no. Bruise or bleed easily: yes. Any swollen lymph nodes: no. Objective: BP (!) 125/94 (BP Location: Left arm, BP Position: Sitting) Pulse 95 Temp 98 F (36.7 C) (Temporal) Ht 1.626 m (5' 4 ) Wt 96.3 kg (212 lb 3.2 oz) BMI 36.42 kg/m Smoking Status Never Smoker Patient with breast hypertrophy and ptosis. There are no palpable masses or axillary adenopathy. She has breast asymmetry with the right breast being larger than the left. She has enlarged areola. There is a small skin tag on the right nipple. She has hypertrophy of the trapezius muscle. Sternal notch to N/A L-37cm, R-42cm Estimated reduction L-200-300gm: R-300-400g, The procedure of breast reduction was thoroughly reviewed with the patient. The patient's goals and expectation for the surgery were reviewed, as well as the reasonable expected outcome. The expected pre-, intra-, and post- operative course was reviewed. Assessment: She would be a good candidate for breast reduction due to asymmetry and chronic back problems Plan: Pt to Obtain Further Documentation to Support the Need for the Proposed Procedure. We will then submit all the obtained info to the insurance company to obtain pre-authorization. * Candice Puente - 01/28/2021 3:00 PM EDT General Plastics Review of Systems: Do you have any of the following: Chills, Fatigue, Fever or Night Sweats: no. Ear pain or eye discharge: no. Hearing loss or visual changes: no. Sore throat or chronic cough: no. Shortness of breath: no. Chest pain, swelling, or heart palpitations: no. Abdominal pain: no. Constipation or diarrhea: no. Heartburn or Nausea: no. Rash or skin problems: no. Dizziness or numbness: no. Headaches or Migraines: yes. Seizures: no. Joint pain, joint swelling or muscle weakness: no. Bruise or bleed easily: yes. Any swollen lymph nodes: no. [facility] Diagnosis S/P bilateral breast reduction- Primary Other postprocedural status Macromastia Hypertrophy of breast Chronic back pain, unspecified back location, unspecified back pain laterality [facility] Diagnosis Macromastia- Primary Hypertrophy of breast Chronic back pain, unspecified back location, unspecified back pain laterality [facility] Diagnosis S/P bilateral breast reduction- Primary Other postprocedural status Pre-op testing Preoperative examination, unspecified Macromastia Hypertrophy of breast Chronic back pain, unspecified back location, unspecified back pain laterality [facility] this [facility] Diagnosis S/P bilateral breast reduction- Primary Other postprocedural status [facility] Diagnosis S/P bilateral breast reduction- Primary Other postprocedural status [facility] Diagnosis Upper back strain, initial encounter- Primary Chest wall pain Painful respiration History of bilateral breast reduction surgery Other postprocedural status [facility] Diagnosis Pain of anterior chest wall with respiration- Primary Neck pain, bilateral posterior Cervicalgia [facility] Diagnosis S/P bilateral breast reduction- Primary Other postprocedural status [facility] noteNo assessment information availableUniversity Hospitals Health System Work Phone: [facility] general Narrative - Reported* Type Description Date Medical History asthma Surgical History cyst removal Surgical History D&C Hospitalization History see above [employer] Other History general Narrative - Reported* Type Description Date Medical History asthma Medical History allergies Surgical History cyst removal Surgical History D&C Surgical History breast reduction 2021 Hospitalization History see above [employer] Other [facility] general Narrative - Reported* Type Description Date Medical History asthma Medical History allergies Surgical History cyst removal Surgical History D&C Surgical History breast reduction 2021 Surgical History ROOT CANAL AND CAP PLACEMENT Hospitalization History see above [employer] Other Reason for referral (narrative)* Consultation (Urgent) - New Request Specialty Diagnoses / Procedures Referred By Mary cox Referred To Contact Plastic Surgery Diagnoses Upper back strain, initial encounter Chest wall pain Dhaval Mcallister MD [address] [place] [phone] Kami Leigh MD [address] [place] [phone] Referral ID Status Reason Start Date Expiration Date V isits Requested Visits Authorized [id number] New Request 12/09/2021 01/03/2023 1 1 * (Emergency) - New Request Specialty Diagnoses / Procedures Referred By Mary cox Referred To Contact Procedures SURESH CHRISTINE Anthony J, MD [address] [place] [id number] Referral ID Status Reason Start Date Expiration Date V isits Requested Visits Authorized [id number] New Request 12/09/2021 01/03/2023 1 1 [facility] Auth/Cert Specialty Diagnoses / Procedures Referred By Mary cox Referred To Contact Diagnoses Macromastia Chronic back pain, unspecified back location, unspecified back pain laterality Macromastia [N62] Chronic back pain, unspecified back location, unspecified back pain laterality [M54.9, G89.29] Procedures OR BREAST REDUCTION BREAST REDUCTION Kami Leigh MD [address] [place] [phone] Referral ID Status Reason Start Date Expiration Date Visits Re quested Visits Authorized [id number] 08/27/2021 1 1 [facility] Purpose Family History No Family History Records Found Relationship Condition Age at Onset Recorded Date/T eva father Unknown Malignant neoplasm Unknown Advance Directives No Advanced Directives Records Found Advance Directive Response Recorded Date/ Time Advance Directives No May 6:46pm Chief Complaint and Reason for Visit Chief Complaint Dysuria Chief Complaint Congestion, Sore Thr oat (Going To Wait A Sweat, Chills, Sinus Pressure Behind The Chest Congestion, Cough, Tested Positive possible yeast/ sti Additional Source Comments Reason for Visit (unrecogniz ed section and content) Reason Comments Pre-op Exam Bilateral breast red uction on 09/24/21. Pre-op and post-op instructions reviewed and signed. Reason Comments Breast Reduction Breast reduction con sult. C/o back, neck and bilateral shoulder pain and headaches. Pt states that her breasts are causing bad posture. Pt states she has seen a chiropractor, takes Tylenol and uses a heating pad for pain. Pt states that she wears a 38DDD bra, but it is too small . Specialty Diagnoses / Procedures Referred By Mary cox Referred To Contact Plastic Surgery Diagnoses Pendulous breast Kami Leigh MD [address] [place] [address] Kami Leigh MD [address] [place] [address] Referral ID Status Reason Start Date Expiration Date Visits Re quested Visits Authorized [id number] Closed 10/23/2020 11/17/2021 1 1 Reason Comments Post Op Visit Bilateral breast red uction on 09/24/21. She states occasional discomfort from the bra and itching. Reason Comments Post Op Visit Bilateral breast red uction on 09/24/21. She states she's had a little bit of drainage to left breast. She still has some discomfort in the left breast. Surgical bra worn. Reason Comments Post Op Visit Bilateral breast red uction 09/24/21. Pt c/o swelling and Lt breast being very sore . Pt states that she thinks she over did it because she had to watch her kids herself, didn't lift them, but was moving around with them . C/o itching. Reason Comments Post Op Visit Bilateral breast red uction on 09/24/21. She complains of itching and breaking out into a rash after using aquaphor and guaze to nipples. Reason Comments Muscle Pain Sent by Dr Reese samuel to c/o muscular right sided chest pain with history of breast reduction surgey on September 11 Reason Comments Post Op Visit Bilateral breast red uction on 09/24/21. She complains of right breast and neck pain for the past few days. Reason Comments Follow-up Bilateral breast red uction on 09/24/21. She has no concerns today. Care Teams (unrecognized sec tion and content) Pen Ruler Operator Relationship Specialty Start Date End Date Elissa Wolfe MD [address] [phone] PCP - General Family Medicine 01/28/21 Pen Ruler Operator Relationship Specialty Start Date End Date Elissa Wolfe MD [address] [facility] [place] [address] [place] [address] PCP - General Family Medicine 01/28/21 Pen Ruler Operator Relationship Specialty Start Date End Date Elissa Wolfe MD [address] [facility] [place] [address] [place] [address] PCP - General Family Medicine 01/28/21 Pen Ruler Operator Relationship Specialty Start Date End Date Elissa Wolfe MD [address] [facility] [place] [address] [place] [address] PCP - General Family Medicine 01/28/21 Pen Ruler Operator Relationship Specialty Start Date End Date Elissa Wolfe MD [address] [facility] [place] [address] [place] [address] PCP - General Family Medicine 01/28/21 Pen Ruler Operator Relationship Specialty Start Date End Date Elissa Wolfe MD [address] [facility] [place] [address] [place] [address] PCP - General Family Medicine 01/28/21 Pen Ruler Operator Relationship Specialty Start Date End Date Elissa Wolfe MD [address] [facility] [place] [address] [place] [address] PCP - General Family Medicine 01/28/21 Pen Ruler Operator Relationship Specialty Start Date End Date Elissa Wolfe MD [address] [facility] [place] [address] [place] [address] PCP - General Family Medicine 01/28/21 Team Status: Inactive Member Role Status Dates NON STAFF Primary Care Provider Active GABRIELA Stone Attending Provider Active Team Status: Active Member Role Status Dates NON STAFF Primary Care Provider Active Team Status: Inactive Member Role Status Dates Jania Prince NP Attending Provider Active Start: May 15, 2023 End: May 15, 2023 Team Status: Inactive Member Role Status Dates Jeni Horta RN Attending Provider Active Start : May 17, 2023 End: May 17, 2023 Team Status: Inactive Member Role Status Dates GABRIELA Stone Attending Provider Active S tart: June 15, 2023 End: June 15, 2023 Team Status: Inactive Member Role Status Dates NON STAFF Primary Care Provider Active Start: August 07, 2023 End: August 07, 2023 Ann Drake APRN Attending Provider Active Start: August 07, 2023 End: August 07, 2023 Scheduled Active and Recently Administ ered Medications (unrecognized section and content) Medication Order 09/22/2021 09/23/2021 09/24/2021 ceFAZolin (ANCEF) 1 g in dextrose premix IVPB (COMPLETED) 1 g, Intravenous, Administer over 15 Minutes, EVERY 8 HOURS NON-STANDARD, 1 dose, First dose on Joanne 09/24/21 at 1530, Post-op/Post-Proc 1558 ($$New Bag$$ - Provider: Nisreen Menon, RN) ceFAZolin (ANCEF) 2 g in dextrose 100 mL premix IVPB (COMPLETED) 2 g, Intravenous, Administer over 30 Minutes, ONCE, 1 dose, On Joanne 09/24/21 at 0630, Pre-op/Pre-Proc 0739 (Given - Provid er: Magdalena Hickman APRN-MACHINE SPRAYER) lactated ringers IV solution (COMPLETED) Intravenous, at 50 mL/hr, ONCE, 1 dose, On Joanne 09/24/21 at 0630, Pre-op/Pre-Proc 0702 ($$New Bag$$ - Provider: Elba Miranda, RN) Continuous Medication Order 09/22/2021 09/23/2021 09/24/2021 dextrose 5% and lactated ringers IV solution Intravenous, at 50 mL/hr, CONTINUOUS, Starting on Joanne 09/24/21 at 1515, Until Joanne 09/24/21 at 1844, Discontinue on discharge, Post-op/Post-Proc 1516 ($$New Bag$$ - Provider: Marni Portillo, AARON)1625 (Stopped - Provider: Nisreen Menon, RN) PRN Medication Order 09/22/2021 09/23/2021 09/24/2021 bupivacaine (PF) (MARCAINE) 0.25 % injection NEEDED, Starting on Joanne 09/24/21 at 1200, Until Joanne 09/24/21 at 1844, Intra-op/Intra-Proc 1200 (Given - Provid er: Kami Leigh MD - Comment: bl breast tissue) EPINEPHrine (ADRENALIN) 30 MG/30ML injection NEEDED, Starting on Joanne 09/24/21 at 0822, Until Joanne 09/24/21 at 1844, Intra-op/Intra-Proc 0822 (Given - Provid er: Kami Leigh MD - Comment: topical use as needed to bl breast. to sterile table.) gentamicin (GARAMYCIN) 80 mg in sodium chloride 0.9 % 1,000 mL irrigation solution NEEDED, Starting on Joanne 09/24/21 at 0820, Until Joanne 09/24/21 at 1844, Intra-op/Intra-Proc 0820 (Given - Provid er: Kami Leigh MD - Comment: irrigation to bl breast) meperidine (DEMEROL) injection 12.5-25 mg 12.5-25 mg, Intramuscular, EVERY 4 HOURS NEEDED, Starting on Joanne 09/24/21 at 1512, Until Joanne 09/24/21 at 1844, severe pain, Post-op/Post-Proc methylene blue (PROVAYBLUE) injection NEEDED, Starting on Joanne 09/24/21 at 0818, Until Joanne 09/24/21 at 1844, Intra-op/Intra-Proc 0818 (Given - Provid er: Kami Leigh MD - Comment: BL Breast) oxyCODONE-acetaminophen (PERCOCET) 5-325 MG per tablet 1-2 tablet 1-2 tablet, Oral, EVERY 6 HOURS NEEDED, Starting on Joanne 09/24/21 at 1523, Until Joanne 09/24/21 at 1844, Mild Pain, Moderate Pain, , Post-op/Post-Proc 1528 (Given - Provid er: Nisreen Menon RN) promethazine (PHENERGAN) 12.5 mg in sodium chloride 0.9%, with overfill 60.5 mL (total volume) IVPB(Linked Group 1) 12.5 mg, Intravenous, at 121-242 mL/hr, Administer over 15-30 Minutes, EVERY 6 HOURS NEEDED, Starting on Joanne 09/24/21 at 1512, Until Joanne 09/24/21 at 1844, Refractory Nausea Vomiting, If unable to tolerate PO Extravasation Risk, Post-op/Post-Proc promethazine (PHENERGAN) injection 25 mg(Linked Group 1) 25 mg, Intramuscular, EVERY 6 HOURS NEEDED, Starting on Joanne 09/24/21 at 1512, Until Joanne 09/24/21 at 1844, Refractory Nausea Vomiting, If unable to tolerate PO and no IV access Extravasation Risk, Post-op/Post-Proc promethazine (PHENERGAN) suppository 25 mg(Linked Group 1) 25 mg, Rectal, EVERY 6 HOURS NEEDED, Starting on Joanne 09/24/21 at 1512, Until Joanne 09/24/21 at 1844, Refractory Nausea Vomiting, If unable to tolerate PO, no IV access, and patient declines IM injection, Post-op/Post-Proc promethazine (PHENERGAN) tablet 25 mg(Linked Group 1) 25 mg, Oral, EVERY 6 HOURS NEEDED, Starting on Joanne 09/24/21 at 1512, Until Joanne 09/24/21 at 1844, Refractory Nausea Vomiting, Post-op/Post-Proc Linked Groups Order Group 1: promethazine (PHENERGAN) 12.5 mg in sodium chloride 0.9%, with overfill 60.5 mL (total volume) IVPBJump to med 12.5 mg, Intravenous, at 121-242 mL/hr, Administer over 15-30 Minutes, EVERY 6 HOURS NEEDED, Starting on Joanne 09/24/21 at 1512, Until Joanne 09/24/21 at 1844, Refractory Nausea Vomiting
If unable to tolerate PO Extravasation Risk
Post-op/Post-Proc Or promethazine (PHENERGAN) tablet 25 mgJump to med 25 mg, Oral, EVERY 6 HOURS NEEDED, Starting on Joanne 09/24/21 at 1512, Until Joanne 09/24/21 at 1844, Refractory Nausea Vomiting, Post-op/Post-Proc Or promethazine (PHENERGAN) suppository 25 mgJump to med 25 mg, Rectal, EVERY 6 HOURS NEEDED, Starting on Joanne 09/24/21 at 1512, Until Joanne 09/24/21 at 1844, Refractory Nausea Vomiting
If unable to tolerate PO, no IV access, and patient declines IM injection
Post-op/Post-Proc Or promethazine (PHENERGAN) injection 25 mgJump to med 25 mg, Intramuscular, EVERY 6 HOURS NEEDED, Starting on Joanne 09/24/21 at 1512, Until Joanne 09/24/21 at 1844, Refractory Nausea Vomiting
If unable to tolerate PO and no IV access Extravasation Risk
Post-op/Post-Proc INFORMATION SOURCE (unrecogn ized section and content) DATE CREATED AUTHOR 09/30/2021 [facility] DATE CREATED AUTHOR AUTHOR'S ORGANIZ ATION 01/09/2022 [facility] DATE CREATED AUTHOR AUTHOR'S ORGANIZ ATION 06/04/2022 [facility] DATE CREATED AUTHOR AUTHOR'S ORGANIZ ATION 10/15/2022 [facility] [place] [facility] DATE CREATED AUTHOR AUTHOR'S ORGANIZ ATION 08/17/2023 [facility] DATE CREATED AUTHOR AUTHOR'S ORGANIZ ATION 08/24/2023 [facility] EPIC Goals (unrecognized section and content) Goals may be documented in a n alternate section FOR RECORDS PERTAINING TO PATIENTS WHO ARE OR HAVE BEEN ENROLLED IN A CHEMICAL DEPENDENCY/SUBSTANCEABUSE PROGRAM, SOME INFORMATION MAY BE OMITTED. This clinical summary was aggregated from multiple sources. Caution should be exercised in using it in the provision of clinical care. This summary normalizes information from multiple sources, and as a consequence, information in this document may materially change the coding, format and clinical context of patient data. In addition, data may be omitted in some cases. CLINICAL DECISIONS SHOULD BE BASED ON THE PRIMARY CLINICAL RECORDS. [employer] provides no warranty or guarantee of the accuracy or completeness of information in this document.
[2024-04-23 21:57] VITALS: BP 128/98
[2024-04-23 22:20] LABS: Bilirubin Urine NEGATIVE (NEGATIVE); Blood Urine NEGATIVE (NEGATIVE); Clarity Urine CLEAR (CLEAR); Color Urine LT. YELLOW (YELLOW); Glucose Urine UA NEGATIVE (NEGATIVE); Ketones Urine NEGATIVE (NEGATIVE); Leukocyte Esterase Urine TRACE (NEGATIVE); Nitrite Urine NEGATIVE (NEGATIVE); Protein Urine NEGATIVE (NEG/TRACE); Specific Gravity Urine 1.015 (1.005-1.025); Urobilinogen Urine 0.2 EU/dL (0.2-1.0); pH Urine 7.5 (5.0-9.0)
[2024-04-23 22:22] LABS: HCG Qualitative Urine* NEGATIVE (NEGATIVE); Internal Control Within Normal Limits
[2024-04-23] MEDS: PHENAZOPYRIDINE 100 MG TABLET 200 MG PO (22:22)
[2024-04-23] MEDS: IBUPROFEN 600 MG TABLET PO (22:22)
[2024-04-23 22:26] LABS: Bacteria Urine NONE SEEN #/HPF (NONE SEEN); Cast Seen? NONE SEEN #/LPF (NONE SEEN); Crystals Seen? None Seen #/HPF (None Seen); Mucus Urine NONE SEEN (NONE SEEN); RBC Urine 0-2 #/HPF (0-2); Squamous Epithelial Cell Urine FEW #/LPF (NONE/RARE); Urine Culture Indicated NO; WBC Urine 0-2 #/HPF (NONE SEEN)
--- NOTE | 2024-04-23 22:26 | ED.FEMALEGU1 ---
HPI - Female Genitourinary General Chief complaint: Urogenital-Female Stated complaint: UTI Time Seen by Provider: 04/23/24 21:53 Source: patient Mode of arrival: walk-in History of Present Illness HPI Narrative: This 28-year-old female presents for evaluation of urinary frequency urgency dysuria and pressure over her urinary bladder. The symptoms started several days ago. She states that earlier today she had some chills while using the bathroom. She has not had a documented fever. She denies any vaginal discharge. The symptoms started after she was sexually active with her boyfriend. She is uncertain as to whether or not she may be because she does not use control. She denies any flank pain. She denies any fever. She has no nausea or vomiting. She took 2 Tylenol prior to arrival and picked up prescription for Macrobid earlier this evening and has only taken 1 so far but is concerned because her symptoms did not resolve after taking the antibiotic. Related Data Home Medications ?Medication ?Instructions ?Recorded ?Confirmed nitrofurantoin 100 mg PO BID 04/23/24 04/23/24 monohydrate/macrocrystals 100 mg capsule (Macrobid) Allergies Allergy/AdvReac Type Severity Reaction Status Date / Time No Known Drug Allergies Allergy Verified 01/16/24 01:56 Review of Systems ROS Status of ROS 10 or more systems reviewed and unremarkable except as noted in history and below PFSH PFSH Social History Smoking status: Never smoker Little interest or pleasure in doing things: not at all Feeling down, depressed, or hopeless: not at all Exam Narrative Exam Narrative: Vital signs and Nursing Notes reviewed: Patient is afebrile, she is Radha tachycardic with a pulse of 105, blood pressure is mildly elevated at 128/98, she is not hypoxic with pulse ox of 98% on room air General: Awake, alert, oriented, nontoxic female, no respiratory distress HEENT: Normocephalic atraumatic, mucous membranes are moist and pink, eyes are clear, normal conjunctiva, vision is grossly intact, posterior pharynx is normal in appearance. Chest: Lungs are clear to auscultation with good air entry, there is no wheezing rhonchi or rales appreciated no accessory muscle use, patient is speaking in complete sentences-no chest wall tenderness to palpation CVS: Regular rate and rhythm S1-S2, no to be mildly tachycardic at triage with a pulse of 105, pulse was 90 on my exam and regular, no murmurs rubs or gallops, pulses are brisk and equal bilaterally ABD: Obese, soft, nondistended, mild tenderness over the urinary bladder without rebound guarding or rigidity, there is no flank tenderness and the remainder of the abdominal exam is benign Extremities: Moving all extremities, no lower extremity tenderness or swelling noted, negative Homans' sign, pulses are brisk and equal bilaterally Skin: Normal in appearance without rash,pallor, petechiae or purpura Neuro: No focal deficits Constitutional Vital Signs, click to edit/add: Last Vital Signs Temp 98.3 F 04/23/24 21:49 Pulse 105 H 04/23/24 21:49 Resp 20 04/23/24 21:49 BP 128/98 H 04/23/24 21:57 Pulse Ox 98 04/23/24 21:49 O2 Del Method Room Air 04/23/24 21:49 Course Vital Signs Vital signs: Vital Signs Temperature 98.3 F 04/23/24 21:49 Pulse Rate 105 H 04/23/24 21:49 Respiratory Rate 20 04/23/24 21:49 Blood Pressure 155/100 H 04/23/24 21:49 Pulse Oximetry 98 04/23/24 21:49 Oxygen Delivery Method Room Air 04/23/24 21:49 Temperature 98.3 F 04/23/24 21:49 Pulse Rate 105 H 04/23/24 21:49 Respiratory Rate 20 04/23/24 21:49 Blood Pressure 128/98 H 04/23/24 21:57 Pulse Oximetry 98 04/23/24 21:49 Oxygen Delivery Method Room Air 04/23/24 21:49 MDM - Female Genitourinary MDM Narrative Medical decision making narrative: This 28-year-old female presents for evaluation of urinary frequency urgency and dysuria after having sexual intercourse last week. She states when she was urinating earlier tonight she had some chills and was concerned that she had a fever. She is afebrile here. She was mildly tachycardic at triage but her pulse was 90 on my exam. She is well-appearing without nausea vomiting documented fever or flank pain. She is mildly tender over her urinary bladder. Urine is positive for leukocyte esterase. test is negative. She was medicated emergency department with a dose of Pyridium and ibuprofen. Lab Data Labs: Lab Results 04/23/24 Range/Units 22:11 Urine Color Lt. yellow (YELLOW) Urine Clarity Clear (CLEAR) Urine pH 7.5 (5.0-9.0) Ur Specific [place] 1.015 (1.005-1.025) Urine Protein Negative (NEG/TRACE) mg/dL Urine Glucose (UA) Negative (NEGATIVE) mg/dL Urine Ketones Negative (NEGATIVE) mg/dL Urine Occult Blood Negative (NEGATIVE) Urine Nitrite Negative (NEGATIVE) Urine Bilirubin Negative (NEGATIVE) Urine Urobilinogen 0.2 (0.2-1.0) EU/dL Ur Leukocyte Esterase Trace A (NEGATIVE) Urine RBC 0-2 (0-2) #/HPF Urine WBC 0-2 A (NONE SEEN) #/HPF Ur Squamous Epith Cells Few A (NONE/RARE) #/LPF Urine Crystals None seen (None Seen) #/HPF Urine Bacteria None seen (NONE SEEN) #/HPF Urine Casts None seen (NONE SEEN) #/LPF Urine Mucus None seen (NONE SEEN) Ur Culture Indicated? No Urine HCG, Qual Negative (NEGATIVE) Discharge Plan Discharge Chief Complaint: Urogenital-Female Clinical Impression: Urinary tract infection Patient Disposition: Home, Self-Care Time of Disposition Decision: 22:32 Condition: Good Prescriptions / Home Meds: No Action nitrofurantoin monohyd/m-cryst [Macrobid] 100 mg capsule 100 mg PO BID Rx Instructions: must administer with a meal/food Print Language: Citizen Of [place] Instructions: Urinary Tract Infection in Women (DC) Referrals: Pepe Wolfe MD [Primary Care Provider] - 1 week
== END 2024-04-23 23:10 | disposition home or self-care (01) ==
PROVIDERS: Emergency Provider Emergency Medicine; PCP Family Medicine
DX: N39.0 Urinary tract infection, site not specified (principal)
CPT/HCPCS: 81001; 84703; 99283

== ENCOUNTER 2024-09-07 00:11 | Emergency (ER) | payer MEDICAID, SELFPAY ==
[2024-09-07 00:16] VITALS: BP 158/110; PULSE 108; TEMP 36.9; O2SAT 99; BMI 37.4
--- NOTE | 2024-09-07 00:32 | ED_ITS ---
HPI HPI - General Adult General Chief complaint: Urogenital-Female Stated complaint: ABDOMINAL PAIN Time Seen by Provider: 09/07/24 00:25 Source: patient Mode of arrival: walk-in Limitations: no limitations History of Present Illness HPI narrative: known history of external hemorrhoids. Known hemorrhoids but increased discomfort past couple of days. No abdominal pain or fever . Has been treating with OTC medication . Taking sitz baths which she feels helps the most. Related Data Home Medications ?Medication ?Instructions ?Recorded ?Confirmed albuterol sulfate 90 mcg/actuation inhalation 09/07/24 aerosol inhaler cetirizine 10 mg tablet mg 09/07/24 Allergies Allergy/AdvReac Type Severity Reaction Status Date / Time No Known Drug Allergies Allergy Verified 09/07/24 00:25 Opioid HPI Opioid Management Most Recent Opioid Data: No Data to Display Review of Systems ROS Status of ROS 10 or more systems reviewed and unremark able except as noted in history and below PFSH PFSH Social History Smoking status: Never smoker Little interest or pleasure in doing things: not at all Feeling down, depressed, or hopeless: not at all Exam Constitutional Vital Signs, click to edit/add: Last Vital Signs Temp 98.4 F 09/07/24 00:16 Pulse 108 H 09/07/24 00:16 Resp 16 09/07/24 00:16 BP 158/110 H 09/07/24 00:16 Pulse Ox 99 09/07/24 00:16 O2 Del Method Room Air 09/07/24 00:16 Common normals: no apparent distress, average body habitus, oriented x3, no limitations, healthy appearing, alert and well nourished [facility] Common normals: normocephalic and head/scalp atraumatic Eye Common normals: PERRL, EOMs intact bilaterally and conjunctivae normal Respiratory Common normals: normal respiratory effort, no retractions, no use of accessory muscles and clear to auscultation bilaterally Cardio Common normals: regular rate, regular rhythm, S1 normal heart sound and S2 normal heart sound GI Common normals: Normal to inspection, nondistended, normoactive bowel sounds present, soft to palpation and non-tender Other: rectal anal verge with one thrombosed hemorrhoid that is tender and reproduces symptoms Extremity Common normals: normal to inspection and full ROM Neuro Common normals: oriented x3, CN's II-XII intact bilaterally, moves all extremities and no focal motor deficits Psych Appearance: grossly normal Course Vital Signs Vital signs: Vital Signs Temperature 98.4 F 09/07/24 00:16 Pulse Rate 108 H 09/07/24 00:16 Respiratory Rate 16 09/07/24 00:16 Blood Pressure 158/110 H 09/07/24 00:16 Pulse Oximetry 99 09/07/24 00:16 Oxygen Delivery Method Room Air 09/07/24 00:16 Temperature 98.4 F 09/07/24 00:16 Pulse Rate 108 H 09/07/24 00:16 Respiratory Rate 16 09/07/24 00:16 Blood Pressure 158/110 H 09/07/24 00:16 Pulse Oximetry 99 09/07/24 00:16 Oxygen Delivery Method Room Air 09/07/24 00:16 Medical Decision Making MDM Narrative Medical decision making narrative: patient presents complaining of hemorrhoids. Found to have one isolated thrombosed hemorrhoid. Reassured of the finding and treatment. Advised to continue sitz bath and OTC cream and follow up with her doctor Discharge Plan Discharge Chief Complaint: Urogenital-Female Clinical Impression: Hemorrhoid thrombosis Patient Disposition: Home, Self-Care Prescriptions / Home Meds: No Action cetirizine 10 mg tablet albuterol sulfate 90 mcg/actuation HFA aerosol inhaler INHALATION Print Language: Portuguese Instructions: Hemorrhoids (ED) Referrals: Pepe Wolfe MD [Primary Care Provider] - 1 week
--- OUTSIDE RECORDS SUMMARY | 2024-09-07 00:42 | XMS_ITS | CCD ---
Author Organization [facility] CliniSyma Care Team Providers Care 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 Name Role Phone Elissa Wolfe MD Primary Care Provider [phone] Maribel Del Real Unavailable Ann Drake Unavailable NON STAFF Primary Care Provider UnavailGABRIELA Gutierrez Attending Provider Elizabeth Millan Unavailable Elizabeth Millan Attending Unavailable Elizabeth Millan Admitting Unavailable NON STAFF Primary Care Unavailable GABRIEL Corado, DR BOWERS Primary Care Unavailable JANICE SMITH Attending Unavailable JANICE SMITH Admitting Unavailable HOUSTON, DR YUE Noble Consulting Unavailable JANICE SMITH Consulting Unavailable GABRIEL ., DR BOWERS Primary Care Unavailable GABRIEL ., DR BOWERS Admitting Unavailable HOLópez ., DR BOWERS Attending Unavailable HOY ., DR BOWERS Consulting Unavailable GABRIEL ., DR BOWERS Primary Care Unavailable MISC, DR PATEL Attending Unavailable MISC, DR PATEL Consulting Unavailable MISC, DR PATEL Admitting Unavailable Christiano Engel Consulting Unavailable GABRIEL Corado, DR BOWERS Primary Care Unavailable HENRY MOORE Attending Unavailable HENRY MOORE Admitting Unavailable GABRIEL Corado, DR BOWERS Primary Care Unavailable NEREIDA INMAN Attending Unavailable TYLER Corado, NEREIDA Admitting Unavailable PIERCE HEWITT Consulting UnavailNEREIDA Merino Consulting Unavailable TRAE Corado, DR PERSAUD Attending Unavailable TRAE Corado, DR PERSAUD Consulting Unavailable TRAE Corado, DR PERSAUD Admitting Unavailable GABRIEL Corado, DR BOWERS Primary Care Unavailable Suresh, Jania Unavailable Mychal Jeni Unavailable ELISSA WOLFE Primary Care Unavailable JILLIAN PLATA Admitting Unavailable JILLIAN PLATA Attending Unavailable Dhaval Watson Attending Unavailable ELISSA WOLFE Primary Care Unavailable Dhaval Watson Admitting Unavailable ZOE ANDERSON Attending Unavailable ZOE ANDERSON Attending Unavailable Allergies Allergy Classification Reported Allergen(s) Allergy Type Date of Onset Reaction(s) Facility (3 sources) Shellfish Drug allergy Unknown [employer] Other (2 sources) Shellfish Allergy to substance Cramping of the Muscles [facility] Comment on above: Throat swelling (1 source) No Known Medication Allergies; Translations: [No Known Medication Allergies] Propensity to adverse reactions to drug (disorder) [facility] Repository Medications Current Medications Medication Drug Class(es) Dates Sig (Normalized) Sig (Original) Acetaminophen (10 sources) Acetaminophen (TYLENOL PO) Take by mouth as needed. 0 Active [id number] 200 actuat albuterol 0.09 mg/actuat metered dose [...] 12 hrs for 10 day(s) Jun, Active cetirizine hydrochloride 10 mg oral capsule (11 sources) Histamine-1 Receptor Antagonist Start: 05-12-2024 take 1 capsule by mouth once daily as needed Cetirizine (Zyrtec) 10 mg capsule Active 10 MG PO Daily as needed May 12, 2024 12:00am take 1 capsule by mouth once olman ly Cetirizine HCl 10 MG capsule Take 10 mg by mouth daily. 0 Active cyclobenzaprine hydrochloride 10 mg oral tablet (4 sources) Muscle Relaxant Start: 05-12-2024 take 1 tablet by mouth three times daily as needed for muscle spasms Cyclobenzaprine 10 mg tablet Active 10 MG PO Three times daily as needed for muscle spasm 15 5 May 12, 2024 12:00am Start: 02-07-2022 take 1 tablet by errol th every eight hours Cyclobenzaprine HCl 5 MG [...] Sep, Active fluconazole 150 mg oral tablet (4 sources) Azole Antifungal Start: 07-11-2024 take 1 tablet by mouth once Fluconazole 150 mg tablet Active 150 MG PO Once July 11, 2024 12:00am Start: 08-07-2023 End: 05-12-2024 Fluconazole 150 mg tablet Di scontinued 0 PO Once 2 August 07, 2023 12:00am May 12, 2024 11:24am orally once; Take 1 tablet by mouth, repeat dose in 72 hours if needed Start: 05-19-2022 Diflucan 150 M G 1 tablet Orally once for 2 days [...] day for 14 day(s) October, Not-Taking ibuprofen 800 mg oral tablet (3 sources) Nonsteroidal Anti-inflammatory Drug Start: 05-12-2024 take 1 tablet by mouth every eight hours Ibuprofen 800 mg tablet Active 800 MG PO Every 8 hours May 12, 2024 12:00am Start: 12-09-2021 End: 12-14-2021 take 1 tablet by mouth three times daily as needed for pain ibuprofen 600 MG tablet Take 1 tablet by mouth 3 times daily as needed for Mild Pain (Take with food.) for up to 5 days. 15 tablet 0 12/09/2021 Active levonorgestrel 0.701780 mg/hr intrauterine system (10 sources) Progestin, Progestin-containing [...] (ANCEF) 1 g in dextrose premix IVPB cephalexin 500 mg oral tablet (3 sources) Cephalosporin Antibacterial Start: 08-07-2023 End: 05-12-2024 take 1 tablet by mouth every twelve hours Cephalexin 500 mg tablet Discontinued 500 MG PO Every 12 hours August 07, 2023 12:00am May 12, 2024 11:24am Start: 09-15-2021 End: 09-22-2021 take 1 capsule by mouth twice daily cephALEXin 500 MG capsule Take 1 capsule by mouth 2 times daily for 7 days. 14 capsule 0 09/15/2021 09/22/2021 Active EPINEPHrine 1 mg/ml injectable solution (1 source) [...] Classification Problem Date Documented Da te Episodic/Chronic Anxiety disorders (1 source) Anxiety; Translations: [Anxiety disorder, unspecified] 05-12-2024 Chronic Asthma (20 sources) Exacerbation of intermittent asthma; [...] Episodic Immunizations and screening for infectious disease (11 sources) Suspected clinical finding; Translations: [Contact with [...] source) Impacted cerumen, left ear Episodic Other injuries and conditions due to external causes (1 source) Muscle strain; Translations: [Other injury of unspecified body region, initial encounter] 05-12-2024 Episodic Other injuries and conditions due to external causes (1 source) Other injury of unspecified body region, initial encounter; Translations: [Unspecified site of sprain and strain] 05-12-2024 Episodic Other lower respiratory disease (4 sources) [...] [Nasal congestion] Episodic Other upper respiratory infections (11 sources) Acute pharyngitis, unspecified; Translations: [Acute upper [...] 05-24-2022 Episodic Other aftercare (1 source) 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; Translations: [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] Onset: 05-24-2022 Episodic Other [...] Test Name Value Interpretation Reference Range Facility Influenza virus A and B and SARS-CoV-2 (COVID-19) RNA panel - Respiratory system specon 05-12-2024 Influenza virus A and B RNA and SARS-CoV-2 (COVID-19) N gene panel ANN+probe (Resp) Influenza virus A and B and SARS-CoV-2 (COVID-19) RNA panel - Respiratory system spec [facility] - Microbiology an d Antimicrobial susceptibilityon 05-12-2024 SARS-CoV-2 (COVID-19) RNA ANN+probe Ql (Unsp spec) Negative [facility] No Panel Informationon 05-12 POC Influenza B (ANN) Negative [facility] Coding Summaryon 08-10-2023 Coding Summary HTMLBase 64 EixohefyJMw5wMu+PGhlY WQ+IC8LQETsL69hvJEscB 0qA3EPIXtKVakdEKATLEd ABlCiptLsGP3jhMAiBGTr IC8+AC6bJROoIusprSQfj 5H4xQN2E69kdq0zFVuxdP P8BFMlZyEkchqkg9kftQb 6IDcuNmluOyBt EGMgeR11SRW3xL80Bh72f WZvnXXsl4enbFl0UfMrKC WnKQW0vRteQOpwx4IaVZC xJ14jmPJrl0N6 TXNpsFhpfBEgKuGctQO3e P0nRGoxejmzo1alnhwvJb b7oa97uMKtp9C5pHS5R9N hutW7LRKhxLMp YjirxTKJcM7dfkjqj2kng llqOfEdCRVnQVy8UHi1QO XbcFmlIxSwHG81WEH0QJV fnpTtR9FnYFHc bOjnGdJ4w6C3Hn5PG8IDA whcD4WKBQVRZLnkpTP+PC 31eq86U4AvGxxpHes8KTU zHXP2nWY2oV5n FASvWYulr9N3yPP6R6Ozj gEege8tu4esHIMcNApvN5 5ipOJmd3Q7MEXowEO8ULF nvXzfTkJnmD91 Oyc+VZFmjFziw8VmKiuft 6mxo0blgGm2QksiOKFefo HawThjTHS2z2MjLn9xRYA yrDK3jWP5mW0i ZtSbDzW9SKcsW194YzJfe SLaCaxuJ03iN4YtvIG+PH RaPsh2VYJqaGdmLT0iV4I hZGRpbmctbGVm tBqbCO3aBGJjwjjbSCEiv V5mXMDmP0p0PuOqBwR5TX nlK0OrIMEoqfpiPr91gS2 iDyFhWtH8IOks G8PqimE7FDVvpDVeXOnnM IM4M53ba9X4EOAvSLWbIF S9mPG4eJ7mjDdapidyoBV mdDsgdmVydGlj CGjmZCjxR420VOSzuZhgD kNvZGluZyBEYXRlOiAgMD IvMjgvMjAyNDwvdGQ+PHR yHIW7xLycEQIn bGXsPJqkUr2ysOqraUvtC H9vLNYxfwjeVLBseM7cZI VhiIBxzZlmNB9tPVVlzdb li695PwLvTBJ9 YLDgeVEfP6YvvY9qTgAjP ZQwHCKnR2IymZTmERogN8 18PChsMmK4PYRnpvHzR1N sLWFsaWduOiB0 b2M3Lz7Kt9RuwzqzB3Ruc ACmOmRxFtccGMj4L3QvKq wvdHI+SX43VMCnLT05PNb 5XGR4nSxbCZul XWOmQ0NqfX1aZlSaJWPzN GRkOyc+PHRhYmxlIHdpZH RoPScxMDAlJyBzdHlsZT0 pYs2fWNBnOZPj cMlftLUtYeCym7nqAUOvH YaiKZ9ntLwvQ3YhjNM6OX Hie4v7Qq77W70zY4HtrGX +FYSybEX8uJL1 nM5qQdIdMsM1GJfeP826Y kNqxPAhAjzah8ipf2lwwY j9LeB7QEEkpjLqhPasFFV 4r0FiPc82A59r IHdpZHRoPSIxNSUiIHZhb Twzte0rrT0xMf9+PGNvbC U3yVA9xM5uFfAoHaV3GJw dY796RcBpvGJz Ozymd9hxg8jdbHg2IlHyL DIpopGsfYroMDY5s7PxSb 78U1KowLnyn1JyNtl1ok3 2mGFhb1P7aED1 P4JwZNOwcfrcyENnxKqhS M3uPEGtlpatSJJjrD6eXP DeC2z2ZbRxAoB4WPhbB9Y ognW9ZXTziZTr BRWzoJTHxS5hwdotw8mbt lrwEjHrLNGuCAo3ICl1KT ImrRiqRlJsNVC1TrK7LYN 0cVWjcE3xrLjl jfnhuN4xKfv+JUQ1mEUuo FDBDB4fZbnvvWN+PHRkIH B6oIpkYRrfTIDuhS5cLDR wX5f4AnGoYcI4 CYwdM8CdkpO3MHXdxMSsZ UMvwEQBqJ6ziheoz8etpf gsNcCpHONiZWr1JVw7OVB saWduOiBsZWZ0 KwG8QYK2bXAifY7egFcjv plxkL9eOxj+QmlydGggRG G6BCy2S1KnSmz0WJYqgAp lSA3lqDPkKQlx Dv9zbLjiyVuqSQ2pZYIfh qugc182OzBrv2hoIYCryF PiXYovZJB7C30zs3L8EZV vGLUoRAB4wDJ3 wQ1ziVhbfntxfOAvfUfgc pZiiQtcXCgcJBfbO220IP QivOzmMsSnSDp1Z3IoGbz 9GKDukFmrYJ5h zIHzQJjsYb1ykWdmkPwzD X5lVKDwspxpy463QmUdq8 hjPPCquZNcZAyfSVH1J60 cw8P0WTBzTABt WKO5pEK3lK1liLcscbgkm GVmdDsgdmVydGljYWwtYW dnO594LKFmoVsoPkHqiFw 1J6XgXvp1HPSd pRgoNC6leUCoRHvnWx2eb BptnJrpQL0eGFHjvuurc5 58QrUej1fyKFBxoKDgQFr uEMV4H54gm2B7 AZSnTLRnIDW2aXR5pO1ar GlnbjogbGVmdDsgdmVydG xxEUbyDAdkN336MEZwiZk nPlBhdGllbnQg BQbsDQa4S7ZuMdwlqCN+P B68CVRjNZ65fVGlqESud0 svaKo8LcGgQUMgPUU1bQf lDSsah5DqDCJd D64aiHEou0Z1PIFhkWlba KQfWzCzvIZ5zC1oTIqpgp mgj0zsiokjUydkw0fgyf9 5cJ21L47iNFbc ZHRoPSIzMCUiIHZhbGlnb v4ybZ2wQn1+OIHyyRX6uD T9lB9sTFDzDfT3AMexB73 9InRvcCIvPjxj i9iau7nmjLs9LgF2NYNtk oYujCoeYYW2l9VsEm24U6 9sIHdpZHRoPSIyMCUiIHZ suZbefe2xvL6r Ii8+TMPmvRW9iFH9uV1bR qHkDgT0SAehU623UmCzlC YsDadpC05eW9RqdYM+PHR oTis6FMUmiKfs TC9pmGUmJQrzUb8fXXG8X fAdWkKuRTyuN8ZfHNLxvn emhvoipXK1MFHbXPTyaH3 4Pw9qfPcaLIWo mZLXqV7ytqdot9daokaqL qMvZPLoQPz7LAp8AUFmeY jjBrAmPWM2SmZ0ZMG6wHR qaX1juKmkiyvm jY1zA2OpWVUzennfOr40m Y4iDxWkVtE3TEyoTjn+Uk 9QUMcqAuPXB6xNECSYY5A TL4T8P0IeOkf8 REJiyLyyMR7swADqJOozZ d5vxBjeaIxzBF7vIUXbne yeSVIxfM5pYBTkzHPejMe wHY8tYJAqgmio z867AhBnJRL7NQNuuHXlO 7WboC0yTsMpOAIiXONxG0 JugLCyLVpiB950ZDedEkI 8TXPbvxAyO4Mg GZZapSqnFyQ1h6A7Fq4mQ k2hVt0xXMz9VC52HQ98aU Hve0P8cWK3F1TzCNAdsyl xdefswSF4YHBj KMNikL93qTCcWDigDn6fc 9I1d625PAZzBBYauP42Ck 2pmGhoLGFvxLMIbL8kuri py0pompxqEySx AQHzAIv5CLc3MHPhsNsyD dAxSET7YtV1HDP5uAQciD 6ipGoixsfaeO8cIyh+Mjg zMBIfvcU3S2Dn Ycj0HVTeqIefQW2cpCBgI HocUd6xeBgcqKqcDL7nQI OgeqrxYIMzpZ2yZEJnpVF cmBdvJV2kVZIt xwxsf419TmDvBSR8CNDez PIoP5KnyX1bFdBeAHWjIE OdF0UizCJcRXefS424KFu eXmW1NYLrnuJo F6CqSMRrlWcfRuX2n3C8C w4UCE0YNBO2Y7YpRys8XQ XrjVydPK6dqOUvKJmbHc1 exCyrxLzaGG0k GOKbxvciPHCykA0kPMUux DGvmKovME1yYSAowxlmj4 42ZrSkZGM9GSSsbLWuW7T bkJ3pDrEbUUYn FJIpF6EbsBHiJVdiL771C GxrBjX9KCJgpmMtB3PjQR DysMcmRkW7x3Q6Kp3JfMO tD5JtV7x1E6Br PjwvdHI+OS76SEViRO86x IBhsBRcn8uiiLm6ZhPpPI BnUGA7dEigVNpog0DzUIS gO29ksBIic7X5 IAMqiTnhhRHiMmVarKZ1b T5kVIggquqju7xxfaxdCp dpg4zfzy29oX18F13yTAw pZHRoPSIzMCUi BFKmlQhwtg1xoI0xOi6+P PZqrOS7hKP8cM2dVsCoJn I0CRszW167JlLwgYKdAkp pw2qsn9iefGt4 KpHdWKVgenUfyTwzQOA1s 0AiQc33M63uAMhgDTFtFU VtBPIvEADqwTttuq0irF2 wIi8+YQ6cj1ae kc35oN87iFA+WSNoQVE6b LlzVTdmIBQfvA3hEKfwOd Y3NPUqYvIaaF75lOHfVSw pNr7daKassZrm XM1zNJQvmwgto619FoMrw 9xwHTWoeFXbOCrtRYO5Z5 1vn2Q9QKCvUEWgUPE5fPT 8tO9kiHqdqwom bGVmdDsgdmVydGljYWwtY YlfM258YPHvoZpqLoKbaX VqW8credFBZM7vRdydrSL +ZQZdWPL4rIgp QOlsEFIqjN5sGDVqX3q8L tTxCaL4ODzjM6OppiF8ZF VekWVbXARwySFDoN3jyhz jg6ihukpbJuYu QYJrRTv1KCs5ECVwcFhcY tUvDDQ4YyA3QLZ3mYKezW 5hmLbcmzcwgX1yDmf+Rkl OOjwvdGQ+PHRk MNS7pKrnQEegDFSrxR7oI OZmD9i9DjWnLlV6YUcrF7 JdwhN4BPCncQSpIOLnaUB UrY4wtjfqv2qg msufOlDrSHDrLOu6CLv1E NXhgPehWvHmGEN8HgA2IU V2vEZifU4fnTxhfoejyR1 wOyc+TVJOOjwv dGQ+HVCdDSA4iEgaTSzrU CJmwV7mSPChJ4t6ZuYeWc A0SWxnH2HrhhT2KRHxlKA gGYIelIOAsM3r uofxl2jnyvmqUuKuTJNyZ Ye0KJs4RWApkHxdAkNiEL J7KrM1UGI9mJHjjW0jkZu mrpknlY0jUau+ MPG4BMQ9PQ68ND50U2VyJ jwvdGFibGU+PHRhYmxlIH dpZHRoPScxMDAlJyBzdHl hTH5oHg6fWCDe LWN (more content not included)... Normal [facility] Chlamydia/GC Amplification L Con 08-09-2023 Chlamydia trachomatis, ANN LC Negative Invalid Interpretation Code Negative [facility] Comment on above: Performed By: #### 1 [id number] ####[facility] (DEFAULT)[address] [place] [address] Neisseria gonorrhoeae, ANN LC Negative Invalid Interpretation Code Negative [facility] Comment on above: Result Comment: Perf ormed At: =[address], [place] [id number] Ashley Solares MD Ph:[phone] Performed By: #### 1 [id number] ####[facility] (DEFAULT)[address] [place] [address] C Urineon 08-08-2023 C Urine Urine Culture ordere d as a result of parameters set on specific urine dip and urine microsopic results. <10,000 cfu/ml Normal [facility] Comment on above: Performed By: #### 3 [id number] ####[facility] (DEFAULT)[address] [place] [address] ED Clinical Summaryon 2023 ED Clinical Summary [facility] - Emergency Department [address] [place] [id number] ED Clinical Summary PERSON INFORMATION Name: TAYLOR RAINEY Age: 28 Years Sex: FEMALE : 1995 MRN: Acct#: Visit Reason: Genitourinary problem; PELVIC PRESSURE Arrival: 08/05/2023 01:52:53 Discharge: 08/05/2023 02:52:00 LOS: 000 01:00 Check In: 08/05/2023 01:52:53 Checkout:08/05/2023 02:52:00 Address: [address] [id number] PCP: ELISSA WOLFE PROVIDER INFORMATION Provider Role Assigned Unassigned Dhaval Watson DO ED Provider 08/05/2023 01:55:14 Delilah Hunt SALVAGE CLERK Nurse 08/05/2023 01:55:30 VITALS INFORMATION Vital Sign [...] EDUCATION INFORMATION Instructions: Urinary Tract Infection, Adult, Pzln-te-Uxar Follow-Up: With: Address: When: ELISSA WOLFE [address] [facility], [facility] [place] [place] [address] Business (1) In 2 days 08/07/2023 Comments: home continue the medications call here in 48 hours, to check the results of the STD testing, which is done on the urine your test was negative. You are welcomed to return anytime. Aaliyah WATSON< ER PHYSICIAN< Savannah Daniel [facility] DIAGNOSIS: Urinary tract infection symptoms Patient Understands: Yes - Patient/family/caregi tereza verbalizes understanding of instructions given Comment: Normal [facility] ED Note - Physicianon 2023 ED Note [...] her urine--she called her family physician in [place] yesterday Dr. Wolfe, and he prescribed Pyridium [...] and Plan Diagnosis Urinary tract infection symptoms ([id number] R39.9, Discharge, Medical) Plan Condition: Improved. Disposition: Discharged: time 08/05/2023 02:43:00. Patient was given the following educational materials: Urinary Tract Infection, Adult, Cgpo-cg-Tlgv. Follow up with: ELISSA WOLFE In 2 [...] instructions. [Electronically Signed on: 08/06/2023 20:50 EST] Omley, Dhaval H DO [Electronically Signed on: 08/06/2023 20:51 EST] Dhaval Watson DO [Verified on: 08/06/2023 20:50 EST] Dhaval Watson DO Normal [facility] ED Patient Summaryon 024 ED Patient Summary [facility] - Emergency Department [address] [place] [address] PATIENT DISCHARGE INSTRUCTIONS Patient Information Name: TAYLOR RAINEY Age: 28 Years Date of : 1995 Reason For Visit: Genitourinary problem; PELVIC PRESSURE Arrival Time: 08/05/2023 01:52:53 Primary Care Physician: ELISSA WOLFE Attending Physician: Dhaval Watson DO Comment: Visit Diagnosis: Diagnoses This Visit Genitourinary problem ([id number]) Urinary tract infection symptoms (R39.9) The Pharmacy at [facility] is open Tuesday through Tuesday from [...] alcohol and/or drug addiction problems; contact the [facility] 03/01 Crisis Hotline -Text 9YNAJ ai [phone]. If you received any narcotics, sedation, or [...] legal documents With: Address: When: ELISSA WOLFE [facility] [facility], [facility] [place] [place] [address] Business (1) In 2 days 08/07/2023 Comments: home continue the medications call here in 48 hours, to check the results of the STD testing, which is done on the urine your test was negative. You are welcomed to return anytime. Aaliyah WATSON< ER PHYSICIAN< H B [facility] Medication Information: The exam and treatment you received today in the [facility] Emergency Department were for an urgent problem and are not intended as complete care. It is important for you to follow up with a doctor, nurse practitioner, or physician?s dental ceramist assistant for ongoing care. If your symptoms [...] so we can reach you if necessary. [facility] Emergency Department has provided you with a complete list of medications post discharge. Please inform your primary care physician/provider of your visit and for further instruction [...] organs make, sto (more content not included)... [facility] Test Urine 1on U Preg Negative [facility] Comment on above: Performed By: #### 3 [id number], [id number] ####[facility] (DEFAULT)[address] [place] [address] U Preg Internal Control Pass [facility] Comment on above: Performed By: #### 3 [id number], [id number], [id number] ####[facility] (DEFAULT)[address] [place] [address] UA Nemiu6vb 08-05-2023 UA Bacteria None [facility] Comment on above: Order Comment: Urina lysis Microscopic order added on by Ins[employer]ion Expert Rules system. Performed By: #### 3 [id number], [id number], [id number] ####[facility] (DEFAULT)[address] [place] [address] UA RBC 0-2 [facility] Comment on above: Order Comment: Urina lysis Microscopic order added on by Discern Expert Rules system. Performed By: #### 3 [id number], [id number], [id number] ####[facility] (DEFAULT)[address] [place] [address] UA Squam Epi Moderate [facility] Comment on above: Order Comment: Urina lysis Microscopic order added on by Discern Expert Rules system. Performed By: #### 3 [id number], [id number], [id number], [id number] ####[facility] (DEFAULT)[address] [place] [address] UA WBC 3-5 [facility] Comment on above: Order Comment: Urina lysis Microscopic order added on by Insplorion Expert Rules system. Performed By: #### 3 [id number], [id number], [id number] ####[facility] (DEFAULT)[address] [place] [address] UA w Culture if Ind Standard on 08-05-2023 Breakpoint UA [facility] Comment on above: Performed By: #### 3 [id number], [id number], [id number] ####[facility] (DEFAULT)[address] [place] [address] Color (U) [place] [facility] Comment on above: Performed By: #### 3 [id number], [id number], [id number] ####[facility] (DEFAULT)[address] [place] [address] Culture? Indicated Invalid Interpretation Code [facility] Comment on above: Result Comment: Resu lt created by rule GL_MAGR_ADD_UA_CULT Result created by rule GL_MAGR_ADD_UA_CULT Result created by rule GL_MAGR_ADD_UA_CULT1 Result created by rule GL_MAGR_ADD_UA_CULT Performed By: #### 3 [id number], [id number], [id number], [id number] ####[facility] (DEFAULT)[address] [place] [address] Glucose (U) [Mass/Vol] 100 mg/dL Normal [facility] Comment on above: Performed By: #### 3 [id number], [id number], [id number] ####[facility] (DEFAULT)[address] [place] [address] Ketones Ql (U) Negative Normal [facility] Comment on above: Performed By: #### 3 [id number], [id number], [id number] ####[facility] (DEFAULT)[address] [place] [address] Micro? Indicated Invalid Interpretation Code [facility] Comment on above: Result Comment: Resu lt created by rule GL_MAGR_ADD_UA_MICRO Performed By: #### 3 [id number], [id number], [id number] ####[facility] (DEFAULT)[address] [place] [address] UA Bilirubin Negative Normal [facility] Comment on above: Performed By: #### 3 [id number], [id number] ####[facility] (DEFAULT)[address] [place] [address] UA Blood Negative Normal NEGATIVE [facility] Comment on above: Performed By: #### 3 [id number], [id number], [id number] ####[facility] (DEFAULT)[address] [place] [address]27[address] UA Clarity CLEAR Normal CLEAR [facility] Comment on above: Performed By: #### 3 [id number] ####[facility] (DEFAULT)[address] [place] [address]55 UA Leuk Est SMALL Abnormal NEGATIVE [facility] Comment on above: Performed By: #### 3 [id number] ####[facility] (DEFAULT)[address] [place] [address] 98672 UA Nitrite Positive Abnormal NEGATIVE [facility] Comment on above: Performed By: #### 3 [id number], [id number] ####[facility] (DEFAULT)[address] [place] [address] 28855 UA pH 6.5 Normal 5-8 [facility] Comment on above: Performed By: #### 3 [id number], [id number] ####[facility] (DEFAULT)[address] [place] [address]1401 UA Protein Negative Normal NEGATIVE [facility] Comment on above: Performed By: #### 3 [id number] ####[facility] (DEFAULT)[address] [place] [address] UA Spec Grav 1.020 Normal 1.001-1.035 [facility] Comment on above: Performed By: #### 3 [id number] ####[facility] (DEFAULT)[address] [place] [address] UA Urobilinogen 1.0 mg/dL Normal 0.2-1.0 [facility] Comment on above: Performed By: #### 3 [id number] ####[facility] (DEFAULT)[address] [place] [address] Urine Source Clean Catch Normal [facility] Comment on above: Performed By: #### 3 [id number], [id number], [id number] ####[facility] (DEFAULT)[address] [place] [address] Coding Summaryon 07-15-2023 Coding Summary HTMLBase 64 YloninpiWSo7vAi+PGhlY WQ+ON5RWDOrO01unRPknU 8oJ9ZOAMwPEmecPMNRPFg BYzQwrjPuCC4khFJcVZCi IC8+RH0vRUQoSfsvkZCto 8C3xHR0W42okz8eCLjteR P2RPRpTrCphgwur6evtUg 6IDcuNmluOyBt RYCgbK85QQC7dT91Xf81z BWcpPJdn1fifBd4UqZiEA FtPPJ6qMytQDxry6VlTHH eW87kyIEdj2E8 HPVakAgxaDBiSwXdpNV5m Q5mTPyicajoi7gksgmgSn t2vu73bGJto6F5vSC0O3G qcxW1PRNpdINz BsjjbJOUwH6sfthtq0ywu rteHiWhEAEqMRa4WYv9UF SbsYlwEoCgLM71VZP0NUN tmnCsU2RaZDAt oJojOaM9n0H8Us5GK7YWP ystL4AUDSUHNRbszZR+PC 31vn02X3UvWqkgTwn4TQD hXSP4dPR3zV9w RMKkWAbgv0E9pZZ2O6Avk zPhjt8oz9laFZAqMVrwO0 6fbDHux5S5OJFcdFZ9ZPO wzEtrNlIfzO07 Oyc+UXQxoNdrn8GgZzrtb 0rdl0ihpXy2YtqiUGIkwo MjaGkkSGJ8e6RpWi2cVNO niYB3oBG4nS1s WjDrOdX9XAhsW859SlZkz JFsXwvgK97eT7ChxGM+PH JbZrv4XNJkoEuvIA9kU6A hZGRpbmctbGVm uDpeAV7bZRPfiopaUWDsy E7dINQaS2y4CkOeBrR5PX egW5QoNVRbyvshYt17tF4 kKoHlRuR8LWyy A3CeeuO9JQArlIBhGCsuT KN8D99pz9A5ZPHfFEJuPK I4bUC2fK4klHptvkegyFE mdDsgdmVydGlj FZyhDHxaA456VFOtzArdT kNvZGluZyBEYXRlOiAgMD IvMDIvMjAyNDwvdGQ+PHR vELL9mSxpZNRy eRNaGZjeVs3xiSkeaFkjM V2mDMPpthzwUBEzdR1wCM EiiKYxgWbrHS3iERMgvnt ma310CmLgGYS3 ZKNmuEAiY7JiqL2yWnZlU SHdHVMlQ0ZpoOMaBSkwJ7 93GNenLtU7LQGkzcEfL6B sLWFsaWduOiB0 y2Z2Ts1Tr3GyscelZ1Wtg RBuEaCwRswpKIl5W0FpLn wvdHI+IM82DVSsBX00ZKd 2FHE7cAzcFZjp AMYrC0LqqE9cQwFmEHUhU GRkOyc+PHRhYmxlIHdpZH RoPScxMDAlJyBzdHlsZT0 bTx3vUYEmTYHq eIewyPCoUeCep6hsNHTaS XibSJ5fhOrnE7KmmFJ5RE Rqu5o5Iw41U60zQ5PzgBP +KHJghRT2wFZ5 fQ9jDcTsPwJ0BDkrN530N zCtmXScMiddt2rdu9ijyJ s0HlB5RXZliuFjaWgcJFC 5k3JjMt40G85r IHdpZHRoPSIxNSUiIHZhb Ncmca2vpL9bQr3+PGNvbC J0mDY8aW1eLmTjMeW7KKc eO961DcHyoINh Kocmf0wsq7aqqWl4RcRoG EHpytUnzUmbBRK7w5WqHs 35K9VkjDdmk0YfBkp1nv1 3zNMix6P4fMC1 Q1DiFNHmlztxaOJbaQtgR L7hCPJqpqxjEZPiwA4xOT MtS7g7CkHiFjU6VSceD7H stpD1INHwcORw DCGucUZVqF2xzfgwu4miq vsoJyTjJRKzYKz3QFz9AZ PcjKlzSiWlPPL0DbJ8NSZ 6yTWbuE1sbFaz avcncP4hArb+PZN8lDSrn ZSGMK6fVcqguPY+PHRkIH B4rVbeAMbuOUNbhP5qAMU xY8y6ImIkOqT3 IQrdD4QosaY9BZTjeWXbC NDgwIRYlT0dhtovh6ybzt ixYuXbZLNuIAm1ZVi1GJE saWduOiBsZWZ0 VtE0ISZ9qUKkuO0edOvpe txhvT9uNki+QmlydGggRG W7MHn3S4DyArx6TSOvtOi rOD4gsYDlXFze Pk9sxIfgbFwwMJ2dOIWdd xnpx943EnYww8zzLIItaJ DbZPmlUSO0E35lz2R2HOZ dLUYnMZN9zMW0 aP0lfQlngjmxsUFleRraw eOeqPonBEdrZNicM203SX TtwAluIwSkVUi9D8QpAwq 6YROrkFysFG0m sDYmUAmbRk5uwLooxGieU K8qQCUzprluc697NnFfy3 toAEWlkPRkYNzoEKP1K40 oo8G6YQWiDVNg PVS4pTO9jV6fkZchdhjlp GVmdDsgdmVydGljYWwtYW lcR988AZXqiEdcStRvzPl 3J1LqPmm4RSLh aXalDY3ypCUoPQfwPg7ne NufoJrcGE2nUSEmkzbwo7 45VrUtq9ewWUUpvIIwAMp mPHA6T51sn2H6 HBAkIPKaMNC3pJD2jM8bp GlnbjogbGVmdDsgdmVydG xpBLzbAHisP774MVShwNw nPlBhdGllbnQg ZRpeGKe1N8MwUeiusHU+P S34ACDhIL98jZYjgNUsy1 ddzPu9SsAwBFTzTIK1zHp tROpzd6OgVFTl M96ptVAvi8B0TNBqgBjqe PTdUrLomKS7pL9vZJsdcp ixc9xusqlyEtvfw9tcsz9 4uQ48Z92mOOee ZHRoPSIzMCUiIHZhbGlnb t5dpD3iCw0+AZRtwHC1mY U1mT7dBYJxWdH4ZDncZ76 9InRvcCIvPjxj f6lai5bjiYl7UqW9BNEui cJwzDvxPXS7s5VbKo08I5 9sIHdpZHRoPSIyMCUiIHZ hrQnutn4ncE1q Ii8+CFDsdQC5ySV0bI4gO aFlLoS3RIkyZ085IhGlyI DlKwmsY91wB8RrfTP+PHR zZzv4SQCvwKmx HG6pdCPsNMftXr3xVYZ4T uDwPqImKJcwY6EcATVhro rceifdvHJ1NDRwFONpaM5 5Sz8pvIbvMSRu zNYHnS1rtvcrq0ospzmnZ qHeDOOhVCe9JBe9IUTqnC ubKbNyMWV1VzP9XOR2gCW ikL6bwPqhqgdb dC3vC8AbJZNoqeekLc98n V9hCrOmHyF5QUbqZwv+Uk 0OJNwsMqIYS5wSFFKJF0I ZW8G3F7ZbEby2 LEAlnFbkYJ1upCJeXPtiY g3biAwtyEecLV5uULMlts cxKTQupY2dNAYttQFqqMf tJN9wERMqyada u588PrGsOFP3SILzwUUrX 5UhdT0dZqQuWZGdHPVlO2 IgqFOhSBohV243MOzbBfB 8UGWonaZjB9Zi XMGfeQpbHtS0o6F5Sg7xP l9sEb2hDWq3GN19FH90nV Zfg3K9gOB0I1NnQLUupgk ccbmxeAM1KYJf FDOxcO45zKNnDOmwPh5ie 8B6t577EHXjCOEhfQ71Yy 1juJvsVUOdlDVBxV5splx oy9sgrlqqZrHv AADlFFi6VOz6COStlPfwU lOmCKZ0TmR3HAT6eVPhlO 6ssXfrivyrvO6wIdg+Mjg lXMEcgeK9X5Fo Tft1DENqlXyfJY5gaQSaU MwxYu8idOnpuMwqJT3xIV TvfecnWWPvjS8cNCWnjMU hkGaeXT5fREMt eucrw195ThVeRFP6AUGec ACsC5OfwJ6iQyPpREDoLY HdX6LxtYMkORnhL567UGv wRxR5KVAzfjQq Z5PvLPUoiZgxWcU9n8I6S g9FOY6EOJT5T9FjGee0WI PmxOjrRE8zrKNrCZvwUt6 acDkkwAdgUZ1a TSBurhccGRFsdG5mEGQzn PWjwMpkBK6zEBBjzecae3 27WdWqNLB1OXLtbYLlB3R ttQ6wKwOnUHKq IHNiO3OatMYnQZqdJ202F FmuWcX2UMUrncVrN5FpLO HqdOqxMdS0b1A3Dy7UGCx vdGQ+GY91sh11 N9BzHqoiMto1PASsMJR9o FG3gH7vPDBfSMjsg7K0pU F9N5SqhgPgtm5ru1hqBZF yLDcyL55mpOVo i3W8GMLneLY7RRTxiOosQ gOyrH19Nyo+PGNvbGdyb3 NqTztyl5zof0rnfFr8OoM wJSIgdmFsaWdu JKX6a7AlGw68D81uMPqqQ HRoPSIzMCUiIHZhbGlnbj 5pjQ4dSk8+HQSczDU0jKY 7iI6hDfTlLjE3 XOgaI212YfGgxBKtCshgn 4aut9nazJn4ZjFeUPByeb XzkOpoTCG3v0KtJi57G5D apHnto5RaUpi5 md06kSPok4S4qZJ3W1PrY OAnpufqdYRzdXjoRH7iSJ IcdfboVZIslC0hNTNqB0l 5AhNeKlV7DMex P1BpvnJ9TYMrbGOkRGXwu FMTpL8nezofx6lhxqrwFa TcOYFxDOo0HWk8QQZgmZy yEaYtSRX8XlH8 AXC3mRQxvF2ugZlfwreyj G9wOyc+KXy3w2xklDNkCZ 2yvOI6TL06KV63xIAif2Z 5qHS5T0BdNIRe sbldycevwKG4FIPgHTLtg H18Px7hlZqvSk6qFZTcWG T2XHXxcOHrC4NfaH1dVzJ bWMCaVVBzZ1Xc kPXmULwaC576LPdqWdR1F TLiukViG6LyOBWunEhqDl S6r2D4Os0GXR60GZ67PR5 3lBUsi3W7zDN8 T4SgQVWvfvtzgihfjRR3J PJdLDDgtR77Jh6uxLvlRj 5iJQHsNHB2CSAcoOSzS4V fsS8kLmYqPOOg UQSnY2XhcPCnWYxoS699S FinSeR4WGDezjNaJ1PlHT DmbOznTkF8t7N9Mw8EFg0 7PD49SC84eFBn q4N2tMB2Z6BdSJTfdwozf zqjhEC3UZHfEYVgpX30Hx 6ggUfsHo7iAEDxJEO9SBQ koCPfT8WthZ4g YgRuTYVvLOHhO4PxuWIyV JxpV819HGkaWgK4EMXrpr DsT6ZiCQKjdPvlOiW5j6Q 9Ro3DFKnwrmz7 M0CbWlmmvLT+LP93WIEdZ S81gFDgeTMvg5zqeKw5Lu DaJTBgAKU9zHawKUynx8O wAKAhB59vhMNs c2U (more content not included)... Normal [facility] C Throaton 07-11-2023 C Throat Ordered by Discern. Normal throat patricia isolated No pathogens isolated Normal [facility] Comment on above: Performed By: #### [id number] ####[facility] (DEFAULT)[address] [place] [address] ED Clinical Summaryon 2023 ED Clinical Summary [facility] ? Urgent Care [address] [place] [id number] Clinical Summary PERSON INFORMATION Name: TAYLOR RAINEY Age: 28 Years Sex: FEMALE : 1995 MRN: Acct#: Visit Reason: Sore throat - Adult; SORE THROAT, SINUS PRESSURE, COUGH Arrival: 07/09/2023 10:32:38 Discharge: 07/09/2023 11:36:00 LOS: 000 01:04 Check In: 07/09/2023 10:32:38 Checkout: 07/09/2023 11:36:00 Address: [address] [place], [place] [id number] PCP: ELISSA WOLFE PROVIDER INFORMATION Provider Role Assigned Unassigned Emilie RN, Maria M ED Nurse 07/09/2023 10:36:44 CANDICE PELAYO, JILLIAN Nuñez ED PA 07/09/2023 11:05:44 VITALS INFORMATION Vital [...] Infection Follow-Up: With: Address: When: ELISSA WOLFE [address] [place] [address] [place] [phone] Business (1) Within 3 to 5 days Comments: Follow-up primary care provider next few days for reevaluation. Continue supportive care with plenty of rest and fluids, Tylenol for aches and pains, salt water gargle for sore throat, honey as a natural cough suppressant, Vicks vapor rub for congestion, lyki-mfk-lgahrvy medications such as Mucinex for congestion. Go directly to the emergency department for any crushing chest pains, shortness of breath, intractable vomiting, abdominal pains, high spiking fevers or any other problems. DIAGNOSIS: Nasal congestion; Sore throat Patient Understands: Yes - Patient/family/caregi tereza verbalizes understanding of instructions given Comment: Normal [facility] ED Patient Summaryon 024 ED Patient Summary [facility] ? Urgent Care [address] [place] [address] PATIENT DISCHARGE INSTRUCTIONS Patient Information Name: TAYLOR RAINEY Age: 28 Years Date of : 1995 Reason For Visit: Sore throat - Adult; SORE THROAT, SINUS PRESSURE, COUGH Arrival Time: 07/09/2023 10:32:38 Primary Care Physician: ELISSA WOLFE Attending Physician: JILLIAN PLATA Comment: Patient Education With: Address: When: ELISSA GABRIEL [address] [place] [address] [place] [address] Business (1) Within 3 to 5 days Comments: Follow-up primary care provider next few days for reevaluation. Continue supportive care with plenty of rest and fluids, Tylenol for aches and pains, salt water gargle for sore throat, honey as a natural cough suppressant, Vicks vapor rub for congestion, eozl-fvs-ohrfbrs medications such as Mucinex for congestion. Go [...] home: Managing pain and congestion ? Take tldy-moj-sollkku and prescription medicines only as told by [...] water are not available, use alcohol-based hand sulfide head operator. ? Cover your mouth when you cough. [...] if yo (more content not included)... Normal [facility] Strep Aon 07-09-2023 Strep procedure control Pass Normal [facility] Comment on above: Performed By: #### 6 [id number] ####[facility] (DEFAULT)[address] [place] [address] Streptococcus A Negative Normal Negative [facility] Comment on above: Performed By: #### 6 [id number] ####[facility] (DEFAULT)[address] [place] [id number] Urgent Care Note- Provideron 07-09-2023 Urgent Care [...] All Problems (Selected) asthma / SNOMED CT 095396981 / Confirmed seasonal allergies / SNOMED CT 040965440 / Confirmed Objective CONST: -Well-developed well-nourished. -Acute distress: No -Vitals: reviewed. SKIN: -Gross abnormalities: No EYES: -EOM intact, ALLAN: -Sclera conjunctiva: Unremarkable. ENT: - Normal pharynx pink and moist. Uvula midline tolerating oral secretions without any problems. No tripoding or hot potato voice appreciated NECK: -Supple (srkj-st-mlyat): non-tender. CARD: -Rate and rhythm: Regular RESP: [...] Plan Assessment and Plan: Diagnosis: Sore throat (HSC38-UK J02.9), Nasal congestion (IGG57-PX R09.81). Patient reports nasal congestion and sore [...] on: 07/09/2023 11:33 EST] JILLIAN PLATA Normal [facility] Ur[facility] Care [place] 024 Urgent Care Record [facility] ? Urgent Care [address] [place] [address] PATIENT DISCHARGE INSTRUCTIONS Patient Information Name: TAYLOR RAINEY Age: 28 Years Date of : 1995 Reason For Visit: Sore throat - Adult; SORE THROAT, SINUS PRESSURE, COUGH Arrival Time: 07/09/2023 10:32:38 Primary Care Physician: ELISSA WOLFE Attending Physician: JILLIAN PLATA Comment: Visit Diagnosis: Diagnoses This Visit Nasal congestion (R09.81) Sore throat (J02.9) Sore throat - Adult ([id number]) If you received any narcotics, sedation, or [...] any legal documents With: Address: When: ELISSA GABRIEL [address] [place] [address] [place] [address] Business (1) Within 3 to 5 days Comments: Follow-up primary care provider next few days for reevaluation. Continue supportive care with plenty of rest and fluids, Tylenol for aches and pains, salt water gargle for sore throat, honey as a natural cough suppressant, Vicks vapor rub for congestion, yufh-wbl-cxpmuhv medications such as Mucinex for congestion. Go directly to the emergency department for any crushing chest pains, shortness of breath, intractable vomiting, abdominal pains, high spiking fevers or any other problems. Medication Information: The exam and treatment you received today in the [facility] were for an urgent problem and are not intended as complete care. It is important for you to follow up with a doctor, nurse practitioner, or physician?s dental ceramist assistant for ongoing care. If your symptoms [...] so we can reach you if necessary. [facility] has provided you with a complete list of medications post discharge. Please inform your primary care physician/provider of your visit and for further instruction [...] ? A (more content not included)... Normal [facility] COVID/FLU/RSV RT-PCRon 05-15 SARS-CoV-2 (COVID-19) RNA ANN+probe Ql (Unsp spec) Negative [facility] [employer] Other COVID/FLU/RSV RT-PCR Negative [facility] [employer] Other Quick Strepon 10-16-2022 S. pyogenes Org specific cx Ql (Throat) Negative [employer] [facility] [employer] Other Quick Strep [facility] [employer] Other MG MAMM DIAGNOSTIC 3D RENÉE CA Don 10-11-2022 MG MAMM DIAGNOSTIC 3D RENÉE CAD Patient: TAYLOR RAINEY Exam Date: 10/11/2022 : 1995 Gender:F [place] [facility] [facility]: [id number] Family : Order #: [id number] CLICK HERE TO VIEW EXAM RADIOLOGY REPORT PROCEDURE: MAMMOGRAM DIAGNOSTIC 3D BILATERAL CAD, 10/11/2022, 14:59 ULTRASOUND BREAST RIGHT LIMITED, 10/11/2022, 14:40 COMPARISON: None. INDICATIONS: Breast lump Calculator Name NCI Breast Cancer Risk Assessment Tool 5 Year Breast Cancer Risk Not Applicable. Lifetime Breast Cancer Risk Not Applicable. Personal Breast Cancer No Personal Ovarian Cancer No Treatments None Family Cancers None LOCATION: [facility] BREAST COMPOSITION: Scattered areas fibroglandular density. [...] M.D. on 10/11/2022 at 15:46 Normal [facility] US BREAST RIGHT LIMITEDon US BREAST RIGHT LIMITED Patient: TAYLOR RAINEY Exam Date: 10/11/2022 : 1995 Gender:F Ordering : [place] PAT[place] [facility] #: [id number] Family : Order #: [id number] CLICK HERE TO VIEW EXAM RADIOLOGY REPORT PROCEDURE: MAMMOGRAM DIAGNOSTIC 3D BILATERAL CAD, 10/11/2022, 14:59 ULTRASOUND BREAST RIGHT LIMITED, 10/11/2022, 14:40 COMPARISON: None. INDICATIONS: Breast lump Calculator Name NCI Breast Cancer Risk Assessment Tool 5 Year Breast Cancer Risk Not Applicable. Lifetime Breast Cancer Risk Not Applicable. Personal Breast Cancer No Personal Ovarian Cancer No Treatments None Family Cancers None LOCATION: [facility] BREAST COMPOSITION: Scattered areas fibroglandular density. [...] M.D. on 10/11/2022 at 15:46 Normal [facility] COVID/FLU RT-PCRon SARS-CoV-2 (COVID-19) RNA ANN+probe Ql (Unsp spec) Negative [employer] Other COVID/FLU RT-PCR Negative [facility] [employer] Other Quick Strepon 07-12-2022 S. pyogenes Org specific cx Ql (Throat) Negative [employer] [facility] [employer] Other Quick Strep [employer] Other COVID + FLU Quick Testingon 05-30-2022 SARS-CoV-2 (COVID-19) RNA ANN+probe Ql (Unsp spec) Negative [employer] Other COVID + FLU Quick Testing Negative [employer] Other Covid-19 PCR (CVDTBH)on 05-13 SARS-CoV-2 (COVID-19) RNA ANN+probe Ql (Unsp spec) Not detected Normal NOT DETECTED [facility] Comment on above: Result Comment: This test is not yet approved or cleared by the [place] FDA. When there are no FDA-approved or cleared tests available, and other criteria are met, FDA can make tests available under an emergency access mechanism called an Emergency Use Authorization (EUA). The EUA for this test is supported by the [place] of Health and Human Service's (HHS's) declaration [...] SARS-CoV-2. Performed By: #### C VDTBH #### [facility] [address] [place] [address] Dr. Shane Rodriguez GROUP A STREP CULTUREon 05-13 S. pyogenes Ag Ql (Unsp spec) Culture Observations: NEGATIVE FOR GROUP A STREPTOCOCCUS. Normal [facility] Comment on above: Performed By: #### G RASTCX, SSCRN #### [facility] [address] [place] [address] Dr. Shane Rodriguez INFLUENZA A AND B AGon 05-25 INFLUANEGH SEE BELOW Normal [facility] Comment on above: Result Comment: Nega tive for Flu A protein angiten. Infection due to Flu A cannot be ruled out. Flu A angiten in the sample may be below the detection limit of the test. Performed By: #### G RASTCX, SSCRN #### [facility] [address] [place] [address] Dr. Shane Rodriguez INFLUBNEG SEE BELOW Normal [facility] Comment on above: Result Comment: Nega tive for Flu B protein antigen. Infection due to Flu B cannot be ruled out. Flu B antigen in the sample may be below the detection limit of the test. Performed By: #### G RASTCX, SSCRN #### [facility] [address] [place] [address] Dr. Shane Rodriguez INFLUENZA A AG Negative Normal NEGATIVE SEE COMMENT [facility] Comment on above: Performed By: #### G RASTCX, SSCRN #### [facility] [address] [place] [address] Dr. Shane Rodriguez INFLUENZA B AG Negative Normal NEGATIVE SEE COMMENT [facility] Comment on above: Performed By: #### G RASTCX, SSCRN #### [facility] [address] [place] [address] Dr. Shane Rodriguez INTERNAL CONTROLS Within Normal Limits Normal Wi thin Normal Limits [facility] Comment on above: Performed By: #### G RASTCX, SSCRN #### [facility] [address] [place] [address] Dr. Shane Rodriguez STREPT SCREENon 05-25-2022 STREP SCREEN A Negative Normal NEGATIVE [facility] Comment on above: Performed By: #### G RASTCX, SSCRN #### [facility] [address] [place] [address] Dr. Shane Rodriguez CHLAMYDIA/GONOCOCCUS ANN (SW AB/URINE/PAPon 05-23-2022 Chlamydia trachomatis, ANN Negative Normal Negative [facility] Comment on above: Performed By: #### C T/NGNA #### [facility] [address] [place] [address] Dr. Shane Rodriguez Neisseria gonorrhoeae, ANN Negative Normal Negative [facility] Comment on above: Performed By: #### C T/NGNA #### [facility] [address] [place] [address] Dr. Shane Rodriguez CBC AUTO DIFFon 05-19-2022 BASO # 0.1 103/ul Normal 0.0-0.1 [facility] Comment on above: Performed By: #### G RASTCX, SSCRN #### [facility] [address] [place] [address] Dr. Shane Rodriguez Basophils/100 WBC (Bld) 0.7 % Normal 0.2-2.0 [facility] Comment on above: Performed By: #### G RASTCX, SSCRN #### [facility] [address] [place] [address] Dr. Shane Rodriguez EO # 0.1 103/ul Normal 0.0-0.7 [facility] Comment on above: Performed By: #### G RASTCX, SSCRN #### [facility] [address] [place] [address] Dr. Shane Rodriguez Eosinophils/100 WBC (Bld) 1.3 % Normal 0.9-7.0 [facility] Comment on above: Performed By: #### G RASTCX, SSCRN #### [facility] [address] [place] [address] Dr. Shane Rodriguez Erythrocyte distribution width (RBC) [Ratio] 12.6 % Normal 11.0-15.0 [facility] Comment on above: Performed By: #### G RASTCX, SSCRN #### [facility] [address] [place] [address] Dr. Shane Rodriguez Hematocrit (Bld) [Volume fraction] 39.9 % Normal 36.0-48.0 [facility] Comment on above: Performed By: #### G RASTCX SSCRN #### [facility] [address] [place] [address] Dr. Shane Rodriguez Hemoglobin (Bld) [Mass/Vol] 13.8 g/dL Normal 12.0-16.0 [facility] Comment on above: Performed By: #### G RASTCX SSCRN #### [facility] [address] [place] [address] Dr. Shane Rodriguez IG # 0.03 10e3/ul Normal 0.00-0.03 [facility] Comment on above: Performed By: #### G RASTCX, SSCRN #### [facility] [address] [place] [address] Dr. Shane Rodriguez IG % 0.3 % Normal 0.0-0.5 [facility] Comment on above: Performed By: #### G RASTCX, SSCRN #### [facility] [address] [place] [address] Dr. Shane Rodriguez LYMPH # 3.3 103/ul Normal 1.2-3.8 [facility] Comment on above: Performed By: #### G RASTCX, SSCRN #### [facility] [address] [place] [address] Dr. Shane Rodriguez Lymphocytes/100 WBC (Bld) 30.6 % Normal 20.5-60.0 [facility] Comment on above: Performed By: #### G RASTCX, SSCRN #### [facility] [address] [place] [address] Dr. Shane Rodriguez MANUAL DIFF REQ NO Normal [facility] Comment on above: Performed By: #### G RASTCX, SSCRN #### [facility] [address] [place] [address] Dr. Shane Rodriguez MCH (RBC) [Entitic mass] 32.3 pg Normal 26.7-34.0 [facility] Comment on above: Performed By: #### G RASTCX, SSCRN #### [facility] [address] [place] [address] Dr. Shane Rodriguez MCHC (RBC) [Mass/Vol] 34.6 g/dL Normal 29.9-35.2 [facility] Comment on above: Performed By: #### G RASTCX, SSCRN #### [facility] [address] [place] [address] Dr. Shane Rodriguez MCV (RBC) [Entitic vol] 93.4 fL Normal 81.0-99.0 [facility] Comment on above: Performed By: #### G RASTCX, SSCRN #### [facility] [address] [place] [address] Dr. Shane Rodriguez MONO # 0.7 103/ul Normal 0.3-0.8 [facility] Comment on above: Performed By: #### G RASTCX, SSCRN #### [facility] [address] [place] [address] Dr. Shane Rodriguez Monocytes/100 WBC (Bld) 6.2 % Normal 1.7-12.0 [facility] Comment on above: Performed By: #### G RASTCX, SSCRN #### [facility] [address] [place] [address] Dr. Shane Rodriguez NEUT # 6.5 103/ul Normal 1.4-6.5 [facility] Comment on above: Performed By: #### G RASTCX, SSCRN #### [facility] [address] [place] [address] Dr. Shane Rodriguez Neutrophils/100 WBC (Bld) 60.9 % Normal 43.0-75.0 [facility] Comment on above: Performed By: #### G RASTCX, SSCRN #### [facility] [address] [place] [address] Dr. Shane Rodriguez Platelet mean volume (Bld) [Entitic vol] 9.7 fL Normal 9.5-13.5 [facility] Comment on above: Performed By: #### G RASTCX, SSCRN #### [facility] [address] [place] [address] Dr. Shane Rodriguez PLT 306 103/ul Normal 150-450 [facility] Comment on above: Performed By: #### G RASTCX, SSCRN #### [facility] [address] [place] [address] Dr. Shane Rodriguez RBC 4.27 106/ul Normal 4.20-5.40 [facility] Comment on above: Performed By: #### G RASTCX, SSCRN #### [facility] [address] [place] [address] Dr. Shane Rodriguez WBC 10.6 103/ul Normal 4.0-11.0 [facility] Comment on above: Performed By: #### G RASTCX, SSCRN #### [facility] [address] [place] [address] Dr. Shane Rodriguez ER URINE PROFILEon 2 Clarity (U) CLEAR Normal CLEAR [facility] Comment on above: Performed By: #### G RASTCX, SSCRN #### [facility] [address] [place] [address] Dr. Shane Rodriguez Color (U) YELLOW Normal YELLOW [facility] Comment on above: Performed By: #### G RASTCX, SSCRN #### [facility] [address] [place] [address] Dr. Shane ARNETT A micrscopic examination will be performed if indicated. Normal [facility] Comment on above: Performed By: #### G RASTCX, SSCRN #### [facility] [address] [place] [address] Dr. Shane Rodriguez LEUKOCYTES TRACE Abnormal NEGATIVE [facility] Comment on above: Performed By: #### G RASTCX, SSCRN #### [facility] [address] [place] [address] Dr. Shane Rodriguez pH (U) 8.0 [pH] Normal 5-9 [facility] Comment on above: Performed By: #### G RASTCX, SSCRN #### [facility] [address] [place] [address] Dr. Shane Rodriguez SPEC GRAVITY 1.020 Normal 1.005-<=1.02 5 [facility] Comment on above: Performed By: #### G RASTCX, SSCRN #### [facility] [address] [place] [address] Dr. Shane Rodriguez UA PROTEIN Negative Normal NEGATIVE/ TRACE [facility] Comment on above: Performed By: #### G RASTCX, SSCRN #### [facility] [address] [place] [address] Dr. Shane Rodriguez UR MICRO IND INDICATED Normal [facility] Comment on above: Performed By: #### G RASTCX, SSCRN #### [facility] [address] [place] [address] Dr. Shane Rodriguez Urobilinogen Qn (U) 1.0 {Mauri'U}/dL Normal 0.2 - 1. 0 [facility] Comment on above: Performed By: #### G RASTCX, SSCRN #### [facility] [address] [place] [address] Dr. Shane Rodriguez LIPASEon 05-19-2022 Lipase [Catalytic activity/Vol] 51.0 U/L Critically low 73.0-393.0 [facility] Comment on above: Performed By: #### L IPA, CMP #### [facility] [address] [place] [address] Dr. Shane Rodriguez URon 05-19-2022 , QUAL Negative Normal NEGATIVE [facility] Comment on above: Performed By: #### G RASTCX, SSCRN #### [facility] [address] [place] [address] Dr. Shane Rodriguez PROF 14(COMP METB)on 022 Albumin [Mass/Vol] 3.6 g/dL Normal 3.4-5.0 [facility] Comment on above: Performed By: #### L IPA, CMP #### [facility] [address] [place] [address] Dr. Shane Rodriguez Albumin/Globulin [Mass ratio] 0.9 {ratio} Normal [facility] Comment on above: Performed By: #### L IPA, CMP #### [facility] [address] [place] [address] Dr. Shane Rodriguez ALP [Catalytic activity/Vol] 93 U/L Normal 46-116 [facility] Comment on above: Performed By: #### L IPA, CMP #### [facility] [address] [place] [address] Dr. Shane Rodriguez ALT [Catalytic activity/Vol] 25 U/L Normal 14-59 [facility] Comment on above: Performed By: #### L IPA, CMP #### [facility] [address] [place] [address] Dr. Shane Rodriguez Anion gap [Moles/Vol] 8.1 mmol/L Normal [facility] Comment on above: Performed By: #### L IPA, CMP #### [facility] [address] [place] [address] Dr. Shane Rodriguez AST [Catalytic activity/Vol] 16 U/L Normal 15-37 [facility] Comment on above: Performed By: #### L IPA, CMP #### [facility] [address] [place] [address] Dr. Shane Rodriguez Bilirubin [Mass/Vol] 0.2 mg/dL Normal 0.2-1.0 [facility] Comment on above: Performed By: #### L IPA, CMP #### [facility] [address] [place] [address] Dr. Shane Rodriguez Calcium [Mass/Vol] 8.3 mg/dL Critically low 8.5-10.1 [facility] Comment on above: Performed By: #### L IPA, CMP #### [facility] [address] [place] [address] Dr. Shane Rodriguez Chloride [Moles/Vol] 102 mmol/L Normal 98-107 [facility] Comment on above: Performed By: #### L IPA, CMP #### [facility] [address] [place] [address] Dr. Shane Rodriguez CO2 [Moles/Vol] 28.6 mmol/L Normal 21.0-32.0 [facility] Comment on above: Performed By: #### L IPA, CMP #### [facility] [address] [place] [address] Dr. Shane Rodriguez Creatinine [Mass/Vol] 0.66 mg/dL Normal 0.55-1.02 [facility] Comment on above: Performed By: #### L IPA, CMP #### [facility] [address] [place] [address] Dr. Shane Rodriguez EGFR-AF SAMOAN >60 Normal >=60 [facility] Comment on above: Performed By: #### L IPA, CMP #### [facility] [address] [place] [address] Dr. Shane Rodriguez EGFR-NON AF SAMOAN >60 Normal >=60 [facility] Comment on above: Performed By: #### L IPA, CMP #### [facility] [address] [place] [address] Dr. Shane Rodriguez Globulin (S) [Mass/Vol] 4.1 g/dL Normal [facility] Comment on above: Performed By: #### L IPA, CMP #### [facility] [address] [place] [address] Dr. Shane Rodriguez Glucose [Mass/Vol] 90 mg/dL Normal 74-106 [facility] Comment on above: Performed By: #### L IPA, CMP #### [facility] [address] [place] [address] Dr. Shane Rodriguez Potassium [Moles/Vol] 3.7 mmol/L Normal 3.5-5.1 [facility] Comment on above: Performed By: #### L IPA, CMP #### [facility] [address] [place] [address] Dr. Shane Rodriguez Protein [Mass/Vol] 7.7 g/dL Normal 6.4-8.2 [facility] Comment on above: Performed By: #### L IPA, CMP #### [facility] [address] [address] [address] Shane Rodriguez Sodium [Moles/Vol] 135 mmol/L Critically low 136-145 Th [facility] Comment on above: Performed By: #### L IPA, CMP #### [facility] [address] [place] [address] Dr. Shane Rodriguez Urea nitrogen [Mass/Vol] 11.0 mg/dL Normal 7.0-18.0 [facility] Comment on above: Performed By: #### L IPA, CMP #### [facility] [address] [place] [address] Dr. Shane Rodriguez Urea nitrogen/Creatinine [Mass ratio] 16.7 mg/mg Normal [facility] Comment on above: Performed By: #### L IPA, CMP #### [facility] [address] [place] [address] Dr. Shane Rodirguez URINE MICROSCOPIC ONLYon BACTERIA TRACE Abnormal NONE SEEN [facility] Comment on above: Performed By: #### G RASTCX, SSCRN #### [facility] [address] [place] [address] Dr. Shane Rodriguez Bacteria identified Cx Nom (U) NOT INDICATED Normal [facility] Comment on above: Performed By: #### G RASTCX, SSCRN #### [facility] [address] [place] [address] Dr. Shane Rodriguez CAST NONE SEEN Normal NONE SEEN [facility] Comment on above: Performed By: #### G RASTCX, SSCRN #### [facility] [address] [place] [address] Dr. Shane Rodriguez Crystals LM Nom (Urine sed) NONE SEEN Normal NONE SEEN [facility] Comment on above: Performed By: #### G RASTCX, SSCRN #### [facility] [address] [place] [address] Dr. Shane Rodriguez Epithelial cells LM Ql (Urine sed) MODERATE Abnormal NONE SEEN /RARE [facility] Comment on above: Performed By: #### G RASTCX, SSCRN #### [facility] [address] [place] [address] Dr. Shane Rodriguez MUCOUS NONE SEEN Normal NONE SEEN [facility] Comment on above: Performed By: #### G RASTCX, SSCRN #### [facility] [address] [place] [address] Dr. Shane Rodriguez RBC 2-5 Abnormal 0-2 [facility] Comment on above: Performed By: #### G RASTCX, SSCRN #### [facility] [address] [place] [address] Dr. Shane Rodriguez WBC 0-2 Abnormal NONE SEEN [facility] Comment on above: Performed By: #### G RASTCX, SSCRN #### [facility] [address] [place] [address] Dr. Shane Rodriguez Urinalysis - AUTOMATEDon Bilirubin Ql (U) Negative Normal NEGATIVE [facility] Other Comment on above: Performed By: #### G RASTCX, SSCRN #### [facility] [address] [place] [address] Dr. Shane Rodriguez Glucose Ql (U) Negative Normal NEGATIVE [facility] Other Comment on above: Performed By: #### G RASTCX, SSCRN #### [facility] [address] [place] [address] Dr. Shane Rodriguez Hemoglobin Ql (U) trace-intact Abnormal NEGATIVE [employer] Other Comment on above: Performed By: #### G RASTCX, SSCRN #### [facility] [address] [place] [address] Dr. Shane Rodriguez Ketones Ql (U) Negative Normal NEGATIVE [facility] Other Comment on above: Performed By: #### G RASTCX, SSCRN #### [facility] [address] [place] [address] Dr. Shane Rodriguez Nitrite Ql (U) Negative Normal NEGATIVE [facility] Other Comment on above: Performed By: #### G RASTCX, SSCRN #### [facility] [address] [place] [address] Dr. Shane Rodriguez Appearance (U) clear [facility] Other Color (U) dark yellow [employer] Other Leukocyte esterase Test strip Ql (U) trace [employer] Other pH (U) 6.0 [pH] [employer] Other Protein Ql (U) Negative [facility] Other Specific gravity (U) [Rel density] 1.030 [employer] Other Urobilinogen (U) [Mass/Vol] 0.2 mg/dL [employer] Other Urinalysis - AUTOMATED [employer] Other Urine Cultureon 05-19-2022 Bacteria identified Cx Nom (U) Reason for Exam Dysuria Urine 40,000 colonies/ml mixed bacterial skin contaminants 2 Days PERFORMED BY: [place] [address] PATHOLOGIST UTILIZATION MANAGER GUIDO ROBB M.D. Normal [facility] Comment on above: Performed By: #### C UU #### [address] Bacteria identified Cx Nom (U) [employer] Other WET PREPon 05-19-2022 CLUE CELLS NONE SEEN Normal NONE SEEN [facility] Comment on above: Performed By: #### W P #### [facility] [address] [address] [address] Shane Rodriguez FUNGAL ELEMENTS NONE SEEN Normal NONE SEEN [facility] Comment on above: Performed By: #### W P #### [facility] [address] [address] [address] Shane Rodriguez RBC -WET PREP NONE SEEN Normal NONE SEEN [facility] Comment on above: Performed By: #### W P #### [facility] [address] [address] [address] Shane Rodriguez TRICHOMONAS NONE SEEN Normal NONE SEEN [facility] Comment on above: Performed By: #### W P #### [facility] [address] [address] [address] Shane Rodriguez WBC- WET PREP RARE Abnormal NONE SEEN [facility] Comment on above: Performed By: #### W P #### [facility] [address] [address] [address] Shane Rodriguez WET PREP BACTERIA RARE Abnormal NONE SEEN The [facility] Comment on above: Performed By: #### W P #### [facility] [address] [address] [address] Shane Rodriguez SARS-CoV-2 (COVID-19) RNA NA A+probe Ql (Resp)on 01-08-2022 SARS-CoV-2 (COVID-19) RNA ANN+probe Ql (Unsp spec) Negative [employer] Other D DIMERon 12-09-2021 D DIMER <0.27 Normal <0.50 [facility] Comment on above: Result Comment: If r esult is greater than the cutoff value of 0.56 mg/L then the potential for PE or DVT exists. Other conditions exist which may cause a falsely elevated level. Please correlate clinically, including radiological findings and other clinical parameters. Performed By: #### D DIMER #### Testing performed at [facility] [address] [place] [address] D-DIMER,QUANTITATIVEon 12-09 Fibrin D-dimer FEU (PPP) [Mass/Vol] <0.27 <0.50 g/ml [facility] Comment on above: If result is greater than the cutoff value of 0.56 mg/L then the potential for PE or DVT exists. Other conditions exist which may cause a falsely elevated level. Please correlate clinically, including radiological findings and other clinical parameters. [facility] XR CHEST PA AND LATERALon XR [...] abnormalities. IMPRESSION: No acute cardiopulmonary abnormalities. Normal [facility] XR Chest PA and Lateralon IMPRESSION: No acute cardiopulmonary abnormalities. RADIOLOGY EXAMINATION: XR CHES T PA AND LATERAL, 12/09/2021 2:25 PM EDT HISTORY: chest pain thought to be muscular . Right-sided pain with deep inspiration for 2 days. COMPARISON: 09/27/2021 TECHNIQUE: Chest x-ray: Two views. FINDINGS: Lungs are clear. The cardiomediastinal configuration is within normal limits. No acute bony abnormalities. RADIOLOGY Adela Roque MD - 12/09/2021 EXAMINATION: XR CHEST PA AND LATERAL, 12/09/2021 2:25 PM EDT HISTORY: chest pain thought to be muscular . Right-sided pain with deep inspiration for 2 days. COMPARISON: 09/27/2021 TECHNIQUE: Chest x-ray: Two views. FINDINGS: Lungs are clear. The cardiomediastinal configuration is within normal limits. No acute bony abnormalities. IMPRESSION IMPRESSION: No acute cardiopulmonary abnormalities. [facility] Radiology Study observation (narrative) [facility] XR Chest PA and LateralOrder ed By: Adela Roque on 12-09-2021 [facility] Work Phone: HCG ( test) Ql (U)o n 09-24-2021 [facility] HCG QUALITATIVE, URINEon HCG ( test) Ql (U) Negative [facility] Comment on above: Testing performed at [facility] [place] [id number] URINE HCG QUALon 09-24-2021 Beta HCG ( test) Ql (U) Negative Normal [facility] Comment on above: Result Comment: Test ing performed at [place] [address] Performed By: #### U HCGT #### Testing performed at [facility] [address] [place] [address] COVID Quick Testingon 2021 Result Negative [employer] Other Quick Fluon 09-20-2021 FLUAV Ab CF (S) [Titer] Negative [facility] [employer] Other FLUBV Ab CF (S) [Titer] Negative [facility] [employer] Other Vital Signs Date Time Vital Sign Value Performing Clinician Facility 07-11-2024 16:09-0500 Body height 165.1 cm [facility] 07-11-2024 16:09-0500 Body mass index (BMI) [Ratio] 43.2 kg/m2 [facility] 07-11-2024 16:09-0500 Body temperature 97.7 [degF] [facility] 07-11-2024 16:09-0500 Body weight 117.93 kg [facility] 07-11-2024 16:09-0500 Diastolic blood pressure 86 mm[Hg] [facility] 07-11-2024 16:09-0500 Heart rate 112 /min [facility] 07-11-2024 16:09-0500 Respiratory rate 18 /min [facility] 07-11-2024 16:09-0500 SaO2% (BldA) [Mass fraction] 98 % [facility] 07-11-2024 16:09-0500 Systolic blood pressure 131 mm[Hg] [facility] 05-12-2024 11:18-0500 Body height 165.1 cm [facility] 05-12-2024 11:18-0500 Body mass index (BMI) [Ratio] 37.1 kg/m2 [facility] 05-12-2024 11:18-0500 Body temperature 97.9 [degF] [facility] 05-12-2024 11:18-0500 Body weight 101.37 kg [facility] 05-12-2024 11:18-0500 Diastolic blood pressure 84 mm[Hg] [facility] 05-12-2024 11:18-0500 Heart rate 113 /min [facility] 05-12-2024 11:18-0500 SaO2% (BldA) [Mass fraction] 98 % [facility] 05-12-2024 11:18-0500 Systolic blood pressure 132 mm[Hg] [facility] 08-07-2023 11:15-0500 Body height 166.37 cm [facility] 08-07-2023 11:15-0500 Body mass index (BMI) [Ratio] 36.6 kg/m2 [facility] 08-07-2023 11:15-0500 Body temperature 98 [degF] [facility] 08-07-2023 11:15-0500 Body weight 101.26 kg [facility] 08-07-2023 11:15-0500 Heart rate 96 /min [facility] 08-07-2023 11:15-0500 Respiratory rate 18 /min [facility] 08-07-2023 11:15-0500 SaO2% (BldA) [Mass fraction] 97 % [facility] 06-15-2023 12:00-0500 Body height 166.37 cm Elizabeth Millan Other [facility] 06-15-2023 12:00-0500 Body mass index (BMI) [Ratio] 36.02 kg/m2 Elizabeth Millan Other [employer] Other 06-15-2023 12:00-0500 Body temperature 100 [degF] Elizabeth Millan Other [employer] Other 06-15-2023 12:00-0500 Body weight 99.7 kg Elizabeth Millan Other [employer] Other 06-15-2023 12:00-0500 Body weight 99.69 kg [facility] 06-15-2023 12:00-0500 Diastolic blood pressure 76 mm[Hg] Elizabeth Yana Other [facility] 06-15-2023 12:00-0500 Respiratory rate 18 /min Elizabeth Yana Other [facility] [employer] Other 06-15-2023 12:00-0500 SaO2% (BldA) [Mass fraction] 99 % Elizabeth Millan Other [facility] [employer] Other 06-15-2023 12:00-0500 Systolic blood pressure 118 mm[Hg] Elizabeth Yana Other [facility] 05-17-2023 12:45-0500 Body height 166.37 cm Jeni Mychal Other [facility] 05-17-2023 12:45-0500 Body mass index (BMI) [Ratio] 35.72 kg/m2 Jeni Mychal Other [facility] [employer] Other 05-17-2023 12:45-0500 Body temperature 97.7 [degF] Jeni Mychal Other [facility] [employer] Other 05-17-2023 12:45-0500 Body weight 98.88 kg Jeni Mychal Other [facility] 05-17-2023 12:45-0500 Diastolic blood pressure 82 mm[Hg] Jeni Mychal Other [facility] 05-17-2023 12:45-0500 Respiratory rate 18 /min Jeni Mychal Other [employer] Other 05-17-2023 12:45-0500 SaO2% (BldA) [Mass fraction] 98 % Jeni Mychal Other [facility] [employer] Other 05-17-2023 12:45-0500 Systolic blood pressure 127 mm[Hg] Jeni Mychal Other [facility] 05-15-2023 12:35-0500 Body height 166.37 cm Jania Prince Other [facility] 05-15-2023 12:35-0500 Body mass index (BMI) [Ratio] 35.07 kg/m2 Jania Prince Other [facility] Other 05-15-2023 12:35-0500 Body temperature 98.1 [degF] Jania Prince Other [facility] [employer] Other 05-15-2023 12:35-0500 Body weight 97.07 kg Jania Prince Other [facility] [employer] Other 05-15-2023 12:35-0500 Body weight 97.06 kg [facility] 05-15-2023 12:35-0500 Diastolic blood pressure 79 mm[Hg] Jania Prince Other [facility] 05-15-2023 12:35-0500 Respiratory rate 18 /min Jania Prince Other [employer] Other 05-15-2023 12:35-0500 SaO2% (BldA) [Mass fraction] 99 % Jania Prince Other [employer] Other 05-15-2023 12:35-0500 Systolic blood pressure 123 mm[Hg] Jania Prince Other [facility] 01-05-2023 14:15-0400 Body height 166.37 cm Elizabeth Millan Other [employer] Other 01-05-2023 14:15-0400 Body mass index (BMI) [Ratio] 35.07 kg/m2 Elizabeth Yana Other [employer] Other 01-05-2023 14:15-0400 Body temperature 98.1 [degF] Elizabeth Yana Other [employer] Other 01-05-2023 14:15-0400 Body weight 97.07 kg Elizabeth Yana Other [employer] Other 01-05-2023 14:15-0400 Diastolic blood pressure 81 mm[Hg] Elizabeth Yana Other [employer] Other 01-05-2023 14:15-0400 Respiratory rate 18 /min Elizabeth Yana Other [employer] Other 01-05-2023 14:15-0400 SaO2% (BldA) [Mass fraction] 98 % Elizabeth Yana Other [employer] Other 01-05-2023 14:15-0400 Systolic blood pressure 125 mm[Hg] Elizabeth Yana Other [employer] Other 11-10-2022 15:00-0400 Body height 166.37 cm Elizabeth Yana Other [employer] Other 11-10-2022 15:00-0400 Body mass index (BMI) [Ratio] 35.16 kg/m2 Elizabeth Yana Other [employer] Other 11-10-2022 15:00-0400 Body temperature 97.6 [degF] Elizabeth Yana Other [employer] Other 11-10-2022 15:00-0400 Body weight 97.34 kg Elizabeth Yana Other [employer] Other 11-10-2022 15:00-0400 Respiratory rate 18 /min Elizabeth Yana Other [employer] Other 11-10-2022 15:00-0400 SaO2% (BldA) [Mass fraction] 98 % Elizabeth Yana Other [employer] Other 10-16-2022 14:30-0400 Body height 166.37 cm Elizabeth Yana Other [employer] Other 10-16-2022 14:30-0400 Body mass index (BMI) [Ratio] 34.8 kg/m2 Elizabeth Yana Other [employer] Other 10-16-2022 14:30-0400 Body temperature 98.7 [degF] Elizabeth Yana Other [employer] Other 10-16-2022 14:30-0400 Body weight 96.34 kg Elizabeth Yana Other [employer] Other 10-16-2022 14:30-0400 Diastolic blood pressure 86 mm[Hg] Elizabeth Yana Other [employer] Other 10-16-2022 14:30-0400 Respiratory rate 18 /min Elizabeth Yana Other [employer] Other 10-16-2022 14:30-0400 SaO2% (BldA) [Mass fraction] 98 % Elizabeth Millan Other [employer] Other 10-16-2022 14:30-0400 Systolic blood pressure 130 mm[Hg] Elizabeth Millan Other [employer] Other 07-12-2022 11:35-0500 Body height 166.37 cm Elizabeth Gaticamond Other [employer] Other 07-12-2022 11:35-0500 Body mass index (BMI) [Ratio] 34.95 kg/m2 Elizabeth Yana Other [employer] Other 07-12-2022 11:35-0500 Body temperature 98.2 [degF] Elizabeth Millan Other [employer] Other 07-12-2022 11:35-0500 Body weight 96.75 kg Elizabeth Millan Other [employer] Other 07-12-2022 11:35-0500 Respiratory rate 18 /min Elizabeth Millan Other [employer] Other 07-12-2022 11:35-0500 SaO2% (BldA) [Mass fraction] 84 % Elizabeth Gaticamond Other [employer] Other 05-30-2022 12:00-0500 Body height 166.37 cm Maribel Del Real Other [employer] Other 05-30-2022 12:00-0500 Body mass index (BMI) [Ratio] 34.08 kg/m2 Maribel Del Real Other [employer] Other 05-30-2022 12:00-0500 Body temperature 98.2 [degF] Maribel Del Real Other [employer] Other 05-30-2022 12:00-0500 Body weight 94.35 kg Maribel Del Real Other [employer] Other 05-30-2022 12:00-0500 Respiratory rate 18 /min Maribel Del Real Other [employer] Other 05-30-2022 12:00-0500 SaO2% (BldA) [Mass fraction] 99 % Maribel Del Real Other [employer] Other 05-19-2022 11:00-0500 Body height 166.37 cm Elizabeth Gaticamond Other [employer] Other 05-19-2022 11:00-0500 Body mass index (BMI) [Ratio] 34.08 kg/m2 Elizabeth Gaticamond Other [employer] Other 05-19-2022 11:00-0500 Body temperature 98.5 [degF] Elizabeth Yana Other [employer] Other 05-19-2022 11:00-0500 Body weight 94.35 kg Elizabeth Gaticamond Other [employer] Other 05-19-2022 11:00-0500 Diastolic blood pressure 80 mm[Hg] Elizabeth Yana Other [employer] Other 05-19-2022 11:00-0500 Respiratory rate 18 /min Elizabeth Yana Other [employer] Other 05-19-2022 11:00-0500 SaO2% (BldA) [Mass fraction] 100 % Elizabeth Millan Other [employer] Other 05-19-2022 11:00-0500 Systolic blood pressure 128 mm[Hg] Elizabeth Millan Other [employer] Other 02-07-2022 12:15-0400 Body height 166.37 cm Maribel Del Real Other [employer] Other 02-07-2022 12:15-0400 Body temperature 98.9 [degF] Maribel Solomonault Other [employer] Other 02-07-2022 12:15-0400 SaO2% (BldA) [Mass fraction] 98 % Maribel Solomonault Other [employer] Other 01-08-2022 16:40-0400 Body height 166.37 cm Ann Drake Other [employer] Other 01-08-2022 16:40-0400 Body mass index (BMI) [Ratio] 34.41 kg/m2 Ann Drake Other [employer] Other 01-08-2022 16:40-0400 Body temperature 98.4 [degF] Ann Drake Other [employer] Other 01-08-2022 16:40-0400 Body weight 95.26 kg Ann Drake Other [employer] Other 01-08-2022 16:40-0400 Respiratory rate 18 /min Ann Drake Other [employer] Other 01-08-2022 16:40-0400 SaO2% (BldA) [Mass fraction] 98 % Ann Drake Other [employer] Other 01-06-2022 15:12-0400 Body height 165.1 cm Kami Leigh MD Work Phone: [employer] 01-06-2022 15:12-0400 Body mass index (BMI) [Ratio] 35.11 kg/m2 Kami Leigh MD Work Phone: [facility] 01-06-2022 15:12-0400 Body temperature 97.81 [degF] Kami Leigh MD Work Phone: [facility] 01-06-2022 15:12-0400 Body weight 95.71 kg Kami Leigh MD Work Phone: [facility] 01-06-2022 15:12-0400 Diastolic blood pressure 96 mm[Hg] Kami Leigh MD Work Phone: [facility] 01-06-2022 15:12-0400 Heart rate 89 /min Kami Leigh MD Work Phone: [facility] 01-06-2022 15:12-0400 Systolic blood pressure 122 mm[Hg] Kami Leigh MD Work Phone: [employer] [facility] 12-09-2021 15:00-0400 Diastolic blood pressure 68 mm[Hg] Dhaval Mcallister MD Work Phone: [facility] 12-09-2021 15:00-0400 Heart rate 104 /min Dhaval Mcallister MD Work Phone: [facility] 12-09-2021 15:00-0400 Respiratory rate 20 /min Dhaval Mcallister MD Work Phone: [employer] 06-29-2022 15:00-0400 SaO2% (BldA) [Mass fraction] 100 % Dhaval Mcallister MD Work Phone: [facility] 12-09-2021 15:00-0400 Systolic blood pressure 122 mm[Hg] Dhaval Mcallister MD Work Phone: [facility] 12-09-2021 14:08-0400 Body height 165.1 cm Dhaval Mcallister MD Work Phone: [facility] 12-09-2021 14:07-0400 Body temperature 97.81 [degF] Dhaval Mcallister MD Work Phone: [facility] 12-09-2021 13:25-0400 Body height 162.6 cm Kami Leigh MD Work Phone: 1(425)241-653770 [address] 12-09-2021 13:25-0400 Body mass index (BMI) [Ratio] 36.05 kg/m2 Kami Leigh MD Work Phone: 0(924)[phone] [place] [address] 12-09-2021 13:25-0400 Body temperature 97.5 [degF] Kami Leigh MD Work Phone: 2(087)056-119494 [place] [address] 12-09-2021 13:25-0400 Body weight 95.25 kg Kami Leigh MD Work Phone: 6(826)477-238693 [place] [address] 12-09-2021 13:25-0400 Diastolic blood pressure 77 mm[Hg] Kami Leigh MD Work Phone: 9(844)866-685194 [place] [address] 12-09-2021 13:25-0400 Heart rate 84 /min Kami Leigh MD Work Phone: [facility] 12-09-2021 13:25-0400 Systolic blood pressure 105 mm[Hg] Kami Leigh MD Work Phone: [facility] 11-10-2021 15:25-0400 Body height 162.6 cm Kami Leigh MD Work Phone: 6(348)[phone] [place] [address] 11-10-2021 15:25-0400 Body mass index (BMI) [Ratio] 35.87 kg/m2 Kami Leigh MD Work Phone: 4(757)[phone] [place] [address] 11-10-2021 15:25-0400 Body temperature 97.7 [degF] Kami Leigh MD Work Phone: 2(053)484-552093 [place] [address] 11-10-2021 15:25-0400 Body weight 94.8 kg Kami Leigh MD Work Phone: 3(964)[phone] [place] [address] 11-10-2021 15:25-0400 Diastolic blood pressure 69 mm[Hg] Kami Leigh MD Work Phone: 4(327)870-718393 [place] [address] 11-10-2021 15:25-0400 Heart rate 94 /min Kami Leigh MD Work Phone: 3(206)918-109193 [place] [address] 11-10-2021 15:25-0400 Systolic blood pressure 108 mm[Hg] Kami Leigh MD Work Phone: 6(887)840-287093 [place] [address] 10-20-2021 13:38-0400 Body height 162.6 cm Kami Leigh MD Work Phone: 1(842)780-749293 [place] [address] 10-20-2021 13:38-0400 Body mass index (BMI) [Ratio] 35.75 kg/m2 Kami Leigh MD Work Phone: 0(075)987-754793 [place] [address] 10-20-2021 13:38-0400 Body temperature 97 [degF] Kami Leigh MD Work Phone: 4(989)019-651093 [place] [address] 10-20-2021 13:38-0400 Body weight 94.48 kg Kami Leigh MD Work Phone: 6(284)322-884093 [place] [address] 10-20-2021 13:38-0400 Diastolic blood pressure 93 mm[Hg] Kami Leigh MD Work Phone: 2(911)130-713493 [place] [address] 10-20-2021 13:38-0400 Heart rate 84 /min Kami Leigh MD Work Phone: 1(770)754-098193 [place] [address] 10-20-2021 13:38-0400 Systolic blood pressure 115 mm[Hg] Kami Leigh MD Work Phone: 5(718)855-581293 [place] [address] 10-07-2021 10:54-0400 Body height 162.6 cm Kami Leigh MD Work Phone: 8(817)487-473893 [place] [address] 10-07-2021 10:54-0400 Body mass index (BMI) [Ratio] 35.02 kg/m2 Kami Leigh MD Work Phone: 3(104)365-987393 [place] [address] 10-07-2021 10:54-0400 Body temperature 97.2 [degF] Kami Leigh MD Work Phone: 0(231)943-467093 [place] [address] 10-07-2021 10:54-0400 Body weight 92.53 kg Kami Leigh MD Work Phone: 1(612)718-626693 [place] [address] 10-07-2021 10:54-0400 Diastolic blood pressure 59 mm[Hg] Kami Leigh MD Work Phone: 3(434)564-914093 [place] [address] 10-07-2021 10:54-0400 Heart rate 90 /min Kami Leigh MD Work Phone: 5(803)650-816893 [place] [address] 10-07-2021 10:54-0400 Systolic blood pressure 115 mm[Hg] Kami Leigh MD Work Phone: 5(673)303-824593 [place] [address] 09-30-2021 11:05-0400 Body height 162.6 cm Kami Leigh MD Work Phone: 3(349)360-558293 [place] [address] 09-30-2021 11:05-0400 Body mass index (BMI) [Ratio] 35.02 kg/m2 Kami Leigh MD Work Phone: 7(213)320-725193 [place] [address] 09-30-2021 11:05-0400 Body temperature 97.5 [degF] Kami Leigh MD Work Phone: 4(581)141-985293 [place] [address] 09-30-2021 11:05-0400 Body weight 92.53 kg Kami Leigh MD Work Phone: 8(744)806-659093 [place] [address] 09-30-2021 11:05-0400 Diastolic blood pressure 76 mm[Hg] Kami Leigh MD Work Phone: 4(376)283-208093 [place] [address] 09-30-2021 11:05-0400 Heart rate 103 /min Kami eLigh MD Work Phone: 1(491)946-708993 [place] [address] 09-30-2021 11:05-0400 Systolic blood pressure 103 mm[Hg] Kami Leigh MD Work Phone: 6(058)297-485293 [place] [address] 09-24-2021 16:00-0400 Diastolic blood pressure 80 mm[Hg] Kami Leigh MD Work Phone: 0(563)280-900193 [place] [address] 09-24-2021 16:00-0400 Heart rate 112 /min Kami Leigh MD Work Phone: 5(182)337-838093 [place] [address] 09-24-2021 16:00-0400 Respiratory rate 16 /min Kami Leigh MD Work Phone: 6(364)819-760693 [place] [address] 09-24-2021 16:00-0400 SaO2% (BldA) [Mass fraction] 99 % Kami Leigh MD Work Phone: 3(004)299-922293 [place] [address] 09-24-2021 16:00-0400 Systolic blood pressure 130 mm[Hg] Kami Leigh MD Work Phone: 8(766)811-201193 [place] [address] 09-24-2021 12:50-0400 Body temperature 98.49 [degF] Kami Leigh MD Work Phone: 3(902)486-098893 [place] [address] 09-24-2021 06:45-0400 Body height 162.6 cm Kami Leigh MD Work Phone: 4(964)733-977993 [place] [address] 09-24-2021 06:45-0400 Body mass index (BMI) [Ratio] 36.39 kg/m2 Kami Leigh MD Work Phone: [employer] 09-24-2021 06:45-0400 Body weight 96.16 kg Kami Leigh MD Work Phone: [employer] [facility] 09-20-2021 10:35-0400 Body height 166.37 cm Maribel Del Real Other [employer] Other 09-20-2021 10:35-0400 Body mass index (BMI) [Ratio] 34.08 kg/m2 Maribel Del Real Other [employer] Other 09-20-2021 10:35-0400 Body temperature 98.6 [degF] Maribel Del Real Other [employer] Other 09-20-2021 10:35-0400 Body weight 94.35 kg Maribel Del Real Other [employer] Other 09-20-2021 10:35-0400 SaO2% (BldA) [Mass fraction] 99 % Maribel Del Real Other [employer] Other 09-15-2021 10:31-0400 Body height 162.6 cm Kami Leigh MD Work Phone: [facility] 09-15-2021 10:31-0400 Body mass index (BMI) [Ratio] 36.39 kg/m2 Kami Leigh MD Work Phone: [facility] 09-15-2021 10:31-0400 Body temperature 97.9 [degF] Kami Leigh MD Work Phone: [facility] 09-15-2021 10:31-0400 Body weight 96.16 kg Kami Leigh MD Work Phone: [facility] 09-15-2021 10:31-0400 Diastolic blood pressure 87 mm[Hg] Kami Leigh MD Work Phone: [facility] 09-15-2021 10:31-0400 Heart rate 93 /min Kami Leigh MD Work Phone: [facility] 09-15-2021 10:31-0400 Systolic blood pressure 125 mm[Hg] Kami Leigh MD Work Phone: [facility] 01-28-2021 15:51-0400 Body height 162.6 cm Kami Leigh MD Work Phone: [facility] 01-28-2021 15:51-0400 Body mass index (BMI) [Ratio] 36.42 kg/m2 Kami Leigh MD Work Phone: [facility] 01-28-2021 15:51-0400 Body temperature 98.01 [degF] Kami Leigh MD Work Phone: [facility] 01-28-2021 15:51-0400 Body weight 96.25 kg Kami Leigh MD Work Phone: [facility] 01-28-2021 15:51-0400 Diastolic blood pressure 94 mm[Hg] Kami Leigh MD Work Phone: [facility] 01-28-2021 15:51-0400 Heart rate 95 /min Kami Leigh MD Work Phone: [facility] 01-28-2021 15:51-0400 Systolic blood pressure 125 mm[Hg] Kami Leigh MD Work Phone: [facility] Encounters Encounter Date Encounter Type Care Provider Facility Start: 07-11-2024 End: 07-11-2024 ambulatory [facility] Work Phone: Start: 07-11-2024 End: 07-11-2024 Patient encounter procedure [facility] Work Phone: Start: 05-12-2024 End: 05-12-2024 Patient encounter procedure [facility] Work Phone: Start: 08-23-2023 End: 08-23-2023 ambulatory ZOE MONICA Not Available Start: 08-09-2023 End: 08-09-2023 ambulatory ZOE MONICA Not Available Start: 08-07-2023 End: 08-07-2023 ambulatory [facility] Work Phone: Start: 08-07-2023 End: 08-07-2023 Patient encounter procedure [facility] Work Phone: Start: 08-05-2023 End: 08-05-2023 Emergency department patient visit Dhaval Nuñez aime Facility:[facility] Start: 07-09-2023 End: 07-09-2023 ambulatory ELISSA López Facility:[facility] Start: 06-15-2023 End: 06-15-2023 ambulatory Elizabeth Yana Other [employer] Other Start: 06-15-2023 Office outpatient vi sit 15 minutes Elizabeth Yana [facility] Start: 06-15-2023 End: 06-15-2023 Patient encounter procedure [facility] Work Phone: Start: 05-17-2023 End: 05-17-2023 ambulatory Jeni Mychal Other [employer] Other Start: 05-17-2023 Office outpatient vi sit 15 minutes Jeni Mychal [facility] Start: 05-17-2023 End: 05-17-2023 Patient encounter procedure [facility] Work Phone: Start: 05-15-2023 End: 05-15-2023 ambulatory Jania Prince Other [employer] Other Start: 05-15-2023 Office outpatient vi sit 15 minutes Jania Prince [facility] Start: 05-15-2023 End: 05-15-2023 Patient encounter procedure [facility] Work Phone: Start: 01-05-2023 End: 01-05-2023 ambulatory Elizabeth Yana Other [employer] Other Start: 01-05-2023 Office outpatient vi sit 15 minutes Elizabeth Yana [facility] Start: 11-10-2022 End: 11-10-2022 ambulatory Elizabeth Yana Other [employer] Other Start: 11-10-2022 Office outpatient vi sit 15 minutes Elizabeth Yana [facility] Start: 10-16-2022 End: 10-16-2022 ambulatory Elizabeth Yana Other [employer] Other Start: 10-16-2022 Office outpatient vi sit 15 minutes Elizabeth Yana [facility] Start: 10-11-2022 End: 10-12-[address] ELISSA WOLFE . Facility:[facility] Start: 09-27-2022 End: 09-27-[address] ELISSA WOLFE . Facility:[facility] Start: 08-20-2022 End: 08-20-[address] ELISSA WOLFE . Facility:[facility] Start: 07-12-2022 End: 07-12-2022 ambulatory Elizabeth Yana Other [employer] Other Start: 07-12-2022 Office outpatient vi sit 15 minutes Elizabeth Yana [facility] Start: 05-30-2022 End: 05-30-2022 ambulatory Maribel Del Real Other [employer] Other Start: 05-30-2022 Office outpatient vi sit 15 minutes Maribel Gt [facility] Start: 05-25-2022 End: 05-25-[address] ELISSA WOLFE . Facility:[facility] Start: 05-19-2022 End: 05-19-[address] ELISSA WOLFE . Facility:[facility] Start: 05-19-2022 Office outpatient vi sit 15 minutes Elizabeth Millan [facility] Start: 05-19-2022 End: 05-19-2022 ambulatory Elizabeth Yana Facility:[facility] Start: 05-19-2022 End: 05-19-2022 ambulatory NON STAFF [facility] Work Phone: Start: 05-19-2022 End: 05-19-2022 Departed Referred [facility] Start: 04-14-2022 End: 04-14-[address] CORI LARKIN . Facility: Start: 02-07-2022 End: 02-07-2022 ambulatory Maribel Del Real Other [employer] Other Start: 02-07-2022 Office outpatient vi sit 15 minutes Maribel Del Real [facility] Start: 01-08-2022 End: 01-08-2022 ambulatory Ann Drake Other [employer] Other Start: 01-08-2022 Office outpatient vi sit 15 minutes Ann Drake [facility] Start: 01-06-2022 End: 01-06-2022 Postop follow up visit related to original px Kami Leigh MD Work Phone: [facility] Comment on above: S/P bilateral breast reduction (Primary Dx) Start: 12-09-2021 End: 12-09-2021 Emergency department patient visit Dhaval Mcallister MD Work Phone: [facility] Start: 12-09-2021 End: 12-09-2021 Office outpatient visit 10 minutes Kami Leigh MD Work Phone: [facility] Comment on above: Pain of anterior diana st wall with respiration (Primary Dx); Neck pain, bilateral posterior Start: 11-10-2021 End: 11-10-2021 Postop follow up visit related to original px Kami Leigh MD Work Phone: [facility] Comment on above: S/P bilateral breast reduction (Primary Dx) Start: 10-20-2021 End: 10-20-2021 Postop follow up visit related to original px Kami Leigh MD Work Phone: [facility] Comment on above: S/P bilateral breast reduction (Primary Dx) Start: 10-07-2021 End: 10-07-2021 Postop follow up visit related to original px Kami Leigh MD Work Phone: [facility] Comment on above: S/P bilateral breast reduction (Primary Dx) Start: 09-30-2021 End: 09-30-2021 Postop follow up visit related to original px Kami Leigh MD Work Phone: [facility] Comment on above: S/P bilateral breast reduction (Primary Dx) Start: 09-24-2021 End: 09-24-2021 Patient encounter status Kami Leigh MD Work Phone: [facility] Start: 09-24-2021 End: 09-24-2021 Subsequent hospital visit by physician aKmi Leigh MD Work Phone: [facility] Comment on above: Macromastia Start: 09-20-2021 End: 09-20-2021 ambulatory Maribel Del Real Other [employer] Other Start: 09-20-2021 Office outpatient vi sit 15 minutes Maribel Del Real [facility] Start: 09-15-2021 End: 09-15-2021 Office outpatient visit 25 minutes Kami Leigh MD Work Phone: [facility] Comment on above: S/P bilateral breast reduction (Primary Dx) Start: 01-28-2021 End: 01-28-2021 Office outpatient new 30 minutes Kami Leigh MD Work Phone: [facility] Comment on above: Macromastia (Primary Dx); Chronic back pain, unspecified back location, unspecified back pain laterality Procedures Date Procedure Procedure Detail Performing Clinician Start: 12-09-2021 Fibrin dgradj produc ts d-dimer quantitative Dhaval Mcallitser MD Work Phone: Start: 12-09-2021 Radiologic exam [...] Work Phone: History of reduction of breast Hx of breast reduction, elective Plan of Treatment Date Care Activity Detail Author Start: 02-11-2022 Influenza vaccination A aneesh [employer] [facility] Start: 12-09-2021 End: 12-09-2021 Patient encounter procedure 12/09/2021 Office Visit Plastic Surgery Kami Leigh MD [address] [place] [id number] [facility] Start: 11-03-2021 End: 11-03-2021 Patient encounter procedure 11/03/2021 Office Visit Plastic Surgery Kami Leigh MD [address] [place] [id number] [facility] Start: 10-20-2021 End: 10-20-2021 Patient encounter procedure 10/20/2021 Office Visit Plastic Surgery Kami Leigh MD [address] [place] [id number] [facility] Start: 10-07-2021 End: 10-07-2021 Patient encounter procedure 10/07/2021 Office Visit Plastic Surgery Kami Leigh MD [address] [place] [address] [facility] Start: 09-30-2021 End: 09-30-2021 Patient encounter procedure 09/30/2021 Office Visit Plastic Surgery Kami Leigh MD [address] [place] [address] [facility] Start: 09-24-2021 End: 09-24-2021 Admission to same day surgery center 09/24/2021 Surgery Multispecialty Kami Leigh MD [address] [place] [address] BILATERAL BREAST REDUCTION [facility] Comment on above: BILATERAL BREAST RED UCTION Start: 09-24-2021 End: 09-24-2021 Anesthesia consultation 09/24/2021 Anesthesia Event Multispecialty 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, [employer] [address] [place], [place] [facility] Start: 09-24-2021 End: 09-24-2021 Reduction mammaplasty BREAST REDUCTION Macromastia Chronic back pain, unspecified back location, unspecified back pain laterality 09/24/2021 7:30 AM EDT [facility] Start: 09-24-2021 Subsequent hospital visit by physician 09/24/2021 Hospital Encounter Multispecialty Kami Leigh MD [address] [place] [address] Macromastia [facility] Comment on above: Macromastia Start: 02-11-2021 Influenza vaccination INFLUENZA VACC INE (#1) [facility] Start: 2016 Screening for malign ant neoplasm of cervix CERVICAL CANCER SCREENING DISCUSSION [facility] Start: 2014 Third diphtheria, tetanus and acellular pertussis (DTaP) vaccination TDAP (ADULT) [facility] Start: 2013 Tetanus vaccination TETANUS [facility] Start: 2011 Screening for Chlamy charli trachomatis CHLAMYDIA SCREEN [facility] Start: 2010 HIV screening HIV SCREENING DISCUSSI ON [facility] Start: 2007 COVID-19 VACCINE (1) COVID-19 VACCIN E (1) [facility] Start: 2006 Vaccination for jeferson n papillomavirus HPV VACCINE ADOL (1 - 2-dose series) [facility] Start: 2000 COVID-19 VACCINE (#1) COVID-19 VACCI NE (#1) [facility] Start: 2000 COVID-19 VACCINE (1) COVID-19 VACCIN E (1) [facility] Start: 1995 COVID-19 VACCINE (#1) COVID-19 VACCI NE (#1) [facility] Start: 1995 GONORRHEA SCREEN GONORRHEA SCREEN [facility] Start: 1995 Hepatitis C antibody , confirmatory test HEPATITIS C VIRUS SCREENING [facility] Bacteria identified in Urine by Culture [facility] SURGICAL PATHOLOGY REQUEST SURGICAL PATHOLOGY REQUEST Surg Path Routine Macromastia Chronic back pain, unspecified back location, unspecified back pain laterality Release Upon Ordering for 1 Occurrences starting 09/24/2021 [facility] Comment on above: Release Upon Orderin g for 1 Occurrences starting 09/24/2021 [facility] Immunizations Immunization Date Immunization Notes Care Provider Mati santiago 02-26-2011 influenza virus vaccine, unspecified formulation Kami Leigh MD Work Phone: [facility] Payers Date Payer Category Payer Medicaid [id number] 2022 Self-pay 2021 Unknown [employer] [id number] 2021-Present [address] [place] [address] [id number] 2021 Unknown [employer] [id number] 2021-Present [address] [place] [address] [id number] 1995 Unknown [id number] 1995 Unknown [id number] 1995 Unknown [id number] 1995 Unknown [id number] [id number] 1995 Unknown [id number] [id number] 1995 Unknown [id number] [id number] 1995 Unknown [id number] [id number] 1995 Unknown [id number] [id number] 1995 Unknown [id number] [id number] 1995 Unknown [id number] 1959 Unknown [id number] Medicaid [place] [employer] [id number] Unknown [id number] Unknown [id number] Social History Date Type Detail Facility Start: 04-24-2017 End: 04-15-2018 Tobacco smoking status NHIS Never smoked tobacco [facility] Work Phone: Start: 04-24-2017 Tobacco use and exposure Smokeless tobacco non-user [facility] Start: 09-15-2021 End: 01-06-2022 Alcohol intake Ex-drinker (finding) [facility] Start: 09-15-2021 End: 01-06-2022 Alcohol intake [facility] Start: 1995 Sex Assigned At Not on file [facility] Start: 09-14-2021 End: 09-24-2021 Exposure to SARS-CoV-2 (event) Not sure [facility] Sex Assigned At Sex Assigned At Bir th [employer] Other Start: 1995 Sex Assigned At Female F [facility] Start: 07-11-2024 Sex Female (finding) [facility] Clinical Notes 01-28-2021 to 05-12-2024 Note Date & Type Note Facility 05-12-2024 Evaluation note Diagnosis Onset Date Resolution Muscle strain acute May 122023 10:54am Viral URI with cough acute Nove mber 2023 10:54am Viral URI with cough acute Paulino john 2024 4:01pm Contact with or suspected exposure to severe acute respiratory syndrome noneactive June 4:01pm [facility] Work Phone: 1(702) 498-198402-23-2024 NoteEducation Materials Obstetrics and Gynecology Urinary Tract Infection, Adult A urinary tract infection (UTI) is an infection of any part of the urinary tract. The urinary tractincludes: ? The kidneys. ? The ureters. ? [...] these instructions at home: Medicines ? Take nffi-raq-xosygfn and prescription medicines only as told by your doctor. ? If you were prescribed an antibiotic medicine, take it as told by your doctor. Do not stop takingit even if you start to feel better. [...] provider. Document Revised: 01/09/2021 Document Reviewed: 01/09/2021 [employer] Patient Education ? 2022 [id number] Note Patient Education Materials Follows:Disease Viral Respiratory Infection A respiratory infection [...] The virus may spread from person to person(is contagious). What are the signs or symptoms? [...] home: Managing pain and congestion ? Take zoec-nqb-ugrifyw and prescription medicines only as told by [...] late summer, fall, or winter. Ask your healthcare provider when you should get your flu shot. ? Avoid spreading your infection to other people. If you are sick: ? Wash your hands with soap and water often, especially after you cough or sneeze. Wash for at least 20 seconds. If soap and water are not available, use alcohol-based hand sulfide head operator. ? Cover your mouth when you cough. [...] infections include a cold, influenza, and respiratory syncytialvirus (RSV) infection. ? Symptoms of this condition include a stuffy or runny nose, cough, fatigue, achy muscles, sore throat, and fevers or chills. ? Antibiotic medicines are not prescribed for viral infections. This is because antibiotics are designed to kill bacteria. They are not effective against viruses. This informati (more content not included)...[id number] Evaluation note* Encounter Date Diagnosis Assessment Notes Treatment Notes Treatment Clinical Notes Jun, Acute sinusitis, recurrence not specified, [...] no improvement in 2 to 3 days [employer] Other 12-05-2023 Evaluation note* Encounter Date Diagnosis Assessment Notes Treatment Notes Treatment Clinical Notes May, Viral upper respiratory illness (ICD-10 - J06.9) You were seen here for your cough, congestion, body aches and chills. You state you were tested by peds on [facility] yesterday and was positive for flu [...] develop cough, shortness of breath, chest pain. [employer] Other 12-03-2023 Evaluation note* Encounter Date Diagnosis [...] with PCP if febrile or new/worsening s/s. [employer] Other 07-26-2023 Evaluation note* Encounter Date Diagnosis [...] no improvement and 5 to 7 days [employer] Other 05-31-2023 Evaluation note* Encounter Date Diagnosis [...] no improvement in 2 to 3 days [employer] Other 05-06-2023 Evaluation note* Encounter Date Diagnosis [...] [employer] impaction home care material was printed [employer] Other 04-17-2023 NotePROCEDURE: XR HAND RT MIN 3V COMPARISON: None. HISTORY: Pain FINDINGS: BONES:No fracture, acute abnormality, or significant arthropathy. SOFT TISSUES:Soft tissue swelling tip of the fifth finger EFFUSION:None visible. OTHER: Negative. IMPRESSION: No acute fracture Electronically authenticated by: YUE AMBRIZ Date: 2022-09-27 09:11[facility]01-30-2023 Evaluation note* Encounter Date Diagnosis Assessment Notes [...] no improvement in 2 to 3 days [employer] Other 12-18-2022 Evaluation note* Encounter Date Diagnosis [...] weeks for the cough to go away [employer] Other 12-07-2022 Evaluation note* Encounter Date Diagnosis [...] Other Vaginal yeast infection material was printed [employer] Other 08-28-2022 Evaluation note* Encounter Date Diagnosis [...] if symptoms worsen or new symptoms occur. [employer] Other 07-29-2022 Evaluation note* Encounter Date Diagnosis [...] treatment plan. Patient left in stable condition [employer] Other 07-27-2022 History of Present illness Narrative* [...] taking the medication Adipex? no. * Kami Liegh MD - 01/06/2022 3:00 PM EDT Subjective: [...] see them back PRN. [facility]* Jose Elias Villalba RN - 12/09/2021 3:51 PM EDT Pt given discharge instruction and advised to pick prescription up from pharmacy. Pt voiced understanding and walked out of ER with steady gait and in stable condition. [facility]06-[facility]-20[facility] Emergency department Note* Jose Elias Villalba RN - 12/09/2021 3:51 PM EDT Pt given discharge instruction and advised to pick prescription up from pharmacy. Pt voiced understanding and walked out of ER with steady gait and in stable condition. * Dhaval Mcallister MD - 12/09/2021 2:23 PM EDT Emergency Room Note [facility] EMERGENCY DEPARTMENT Service Date:.12/09/21 PCP: Elissa Wolfe [...] Mcallister MD 12/09/21 1528 documented in this encounterP[facility]rene [facility] Discharge instructions* Discharge Instructions* Dhaval [...] worse in any way. [facility] Phys[facility] Emergency department Note* Dhaval Mcallister MD - 12/09/2021 2:23 PM EDT Emergency Room Note [facility] EMERGENCY DEPARTMENT Service Date:.12/09/21 PCP: Elissa Wolfe [...] information. . Dhaval Mcallister MD 12/09/21 1528 [facility] History of Present illness Narrative* Sara Pritchettberry, MINOR - 12/09/2021 1:30 PM EDT General Plastics [...] see them back PRN. documented in this [facility]05-31-2022 History of Present illness Narrative* Sara [...] relating to this encounter. [facility] History of Present illness Narrative* Candice Puente [...] relating to this encounter. [facility] History of Present illness Narrative* Sara Dodd [...] relating to this encounter. [facility] History of Present illness Narrative* Sara Dodd [...] MD - 09/30/2021 11:00 AM EDT Subjective: Taylor Rainey is [...] relating to this encounter. documented in this encounterP[facility]04-14-[facility]22 Miscellaneous Notes* Nursing Notes - Nisreen Menon RN - 09/24/2021 4:35 PM EDT Patient discharge from [facility] 10 in stable condition. IV removed [...] PM EDT POST OPERATIVE/PROCEDURE NOTE Taylor Rainey ([id number]) SURGEON Surgeon(s) and Role: * Kami Leigh MD - Primary BELT LOOP MACHINE OPERATOR QUICKBOOKS BOOKKEEPER ANESTHESIOLOGIST MERGERS AND ACQUISITIONS ASSOCIATE: Kolby Childs CRNA; Magdalena Hickman APRN-MERGERS AND ACQUISITIONS ASSOCIATE SURGICAL STAFF Laboratory Geneticist: Jeni Segura RN; Gerri Marlow RN Monitoring Nurse: Yeni Dwyer RN Registered Nurse Neurosurgery Research Director: Vale Islas RN Relief Scrub: Rossana Lopez Rf Manager: Arabella Duval PROCEDURE PERFORMED Bilateral breast reduction [...] 24, 2021 12:13 PM documented in this encounterP[facility]04-14-[facility]22 Note* Nursing Notes - Nisreen Menon RN - 09/24/2021 4:35 PM EDT Patient discharge from [facility] 10 in stable condition. IV removed and catheter intact. Discharge instructions reviewed with patient and family who all voiced understanding. Patient taken out to vehicle via wheel chair. [facility] Note* Nursing Notes - Nisreen Menon RN - 09/24/2021 3:02 PM EDT Patient ambulated to the bathroom without any apparent difficulty. [facility] Nurse Note* Marni Portillo RN - 09/24/2021 12:48 PM EDT Transferred to [place] 10 per cart in stable condition report [...] With report given per Queta Dwyer to SESSIONS CLERK. * Gerri Marlow RN - 09/24/2021 7:38 [...] OR Room Humidity 42 documented in this [facility]04-14-2022 Nurse Surgical operation note* Marni Portillo RN - 09/24/2021 12:48 PM EDT Transferred to [place] [facility] per cart in stable condition report given to Jill WALKER [facility]04[facility] Hospital Discharge instructions* Discharge Instructions* Kami Leigh MD - 09/24/2021 12:20 PM EDT Follow instructions given in the office documented in this [facility]04-14-2022 Nurse Surgical operation note* Marni Portillo RN - 09/24/2021 12:14 PM EDT Patient returned from OR per cart IV site without redness or edema. Patient sedated 02 on at 5 L per nasal cannula dressings to bilat breasts clean and dry has on bra from surgery. [facility] Note* Brief Op Note - Kami Leigh MD - 09/24/2021 12:13 PM EDT POST OPERATIVE/PROCEDURE NOTE Taylor Rainey ([id number]) SURGEON Surgeon(s) and Role: * Kami Leigh MD - Primary BELT LOOP MACHINE OPERATOR QUICKBOOKS BOOKKEEPER ANESTHESIOLOGIST MERGERS AND ACQUISITIONS ASSOCIATE: Kolby Childs CRNA; Magdalena Hickman APRN-MALIK SURGICAL STAFF Laboratory Geneticist: Jeni Segura RN; Gerri Marlow, RN Monitoring Nurse: Yeni Dwyer RN Registered Nurse Neurosurgery Research Director: Vale Islas RN Relief Scrub: Rossana Lopez Rf Manager: Arabella Duval PROCEDURE PERFORMED Bilateral breast reduction [...] Leigh MD September 24, 2021 12:13 PM [facility] Nurse Surgical operation note* Gerri Marlow RN - 09/24/2021 12:13 PM EDT To PACU with Magdalena GAN and Queta Dwyer RN rails up call light in reach. With report given per Queta Dwyer to SESSIONS CLERK. [facility] Nurse Surgical operation note* Gerri Marlow [...] staff OR Temp68 OR Room Humidity 42 [facility] History and physical note* Kami Leigh MD - 09/24/2021 7:12 AM EDT I have examined the patient and reviewed the previous H&P completed on date 09/17/21 and there are no changes. See paper H&P in chart Kami eLigh MD, 09/24/2021, 7:12 AM. [facility] History and physical note* Kami Leigh MD - 09/24/2021 7:12 AM EDT I have examined the patient and reviewed the previous H&P completed on date 09/17/21 and there are no changes. See paper H&P in chart Kami Leigh MD, 09/24/2021, 7:12 AM. documented in this encounterPome[facility] Hospital04-10-2022 Evaluation note* Encounter Date Diagnosis Assessment Notes [...] Seek emergency help if difficulty breathing develops [employer] Other 04-05-2022 History of Present illness Narrative* [...] regarding the proposed surgery documented in this [facility]08-18-2021 History of Present illness Narrative* Kami [...] Social Gatherings with Friends and Family: Attends Jewish Services: Active Member of Clubs or Organizations: [...] swollen lymph nodes: no. [facility] Diagnosis S/P bilateral breast reduction- Primary Other postprocedural status Macromastia Hypertrophy of breast Chronic back pain, unspecified back location, unspecified back pain laterality [facility] Diagnosis Macromastia- Primary Hypertrophy of breast Chronic back pain, unspecified back location, unspecified back pain laterality documented in this encounter [facility] note* Diagnosis S/P bilateral breast reduction- Primary Other postprocedural status Pre-op testing Preoperative examination, unspecified Macromastia Hypertrophy of breast Chronic back pain, unspecified back location, unspecified back pain laterality documented in this encounter [facility] note* Diagnosis S/P bilateral breast reduction- Primary Other postprocedural status documented in this encounter [facility] note* Diagnosis S/P bilateral breast reduction- Primary Other postprocedural status documented in this encounter [facility] note* Diagnosis Upper back strain, initial encounter- Primary Chest wall pain Painful respiration History of bilateral breast reduction surgery Other postprocedural status [facility]* Diagnosis Pain of anterior chest wall with respiration- Primary Neck pain, bilateral posterior Cervicalgia [facility]* Diagnosis S/P bilateral breast reduction- Primary Other postprocedural status documented in this encounter [facility] noteNo assessment information availableC[facility] Work Phone: Hisopkm general Narrative - Reported* Type Description Date Medical History asthma Surgical History cyst removal Surgical History D&C Hospitalization History see above [employer] Other Histymh general Narrative - Reported* Type Description Date Medical History asthma Medical History allergies Surgical History cyst removal Surgical History D&C Surgical History breast reduction 2021 Hospitalization History see above [employer] Other History general Narrative - Reported* Type Description Date Medical History asthma Medical History allergies Surgical History cyst removal Surgical History D&C Surgical History breast reduction 2021 Surgical History ROOT CANAL AND CAP PLACEMENT Hospitalization History see above [employer] Other Reason for referral (narrative)* Consultation (Urgent) - New Request Specialty Diagnoses / Procedures Referred By Mary t Referred To Contact Plastic Surgery Diagnoses Upper back strain, initial encounter Chest wall pain Dhaval Mcallister MD [address] [place], [place] [phone] Kami Leigh MD [address] [place] [address] Referral ID Status Reason Start Date Expiration Date V isits Requested Visits Authorized [id number] New Request 12/09/2021 01/03/2023 1 1 * (Emergency) - New Request Specialty Diagnoses / Procedures Referred By Contac t Referred To Contact Procedures D-DIMER,QUANTITATIVE Dhaval Mcallister MD [address] [place], [place] [phone] Referral ID Status Reason Start Date Expiration Date V isits Requested Visits Authorized [id number] New Request 12/09/2021 01/03/2023 1 1 [facility] N[facility]* Auth/Cert Specialty Diagnoses / Procedures Referred By Contac t Referred To Contact Diagnoses Macromastia Chronic back pain, unspecified back location, unspecified back pain laterality Macromastia [N62] Chronic back pain, unspecified back location, unspecified back pain laterality [M54.9, G89.29] Procedures NE BREAST REDUCTION BREAST REDUCTION Kami Leigh MD [address] [place] [id number] Referral ID Status Reason Start Date Expiration Date Visits Re quested Visits Authorized [id number] 08/27/2021 1 1 [facility] Summary Purpose Family History Relationship Condition Age at Onset Recorded Date/T eva father Unknown Malignant neoplasm Unknown Advance Directives Advance Directive Response Recorded Date/ Time Advance Directives No May 6:46pm Chief Complaint and Reason for Visit Chief Complaint Dysuria Chief Complaint Congestion, Sore Thr oat (Going To Wait A Sweat, Chills, Sinus Pressure Behind The Chest Congestion, Cough, Tested Positive possible yeast/ sti Chief Complaint Admit Date upper respiratory May 12, 2024 10:54am head congestion, drainage July 11, 2024 4:01pm Reason for Visit Admit Date Muscle strain May 12, 2024 10:54am Viral URI with cough May 12, 2024 10:54am Viral URI with cough July 11, 2024 4:01pm Contact with or suspected ex posure to severe acute respiratory syndrome July 11, 2024 4:01pm Additional Source Comments Reason for Visit (unrecogniz ed section and content) Reason Comments Pre-op Exam Bilateral breast red uction on 09/24/21. Pre-op and post-op instructions reviewed and signed. Reason Comments Breast Reduction Breast reduction con kat. C/o back, neck and bilateral shoulder pain and headaches. Pt states that her breasts are causing bad posture. Pt states she has seen a chiropractor, takes Tylenol and uses a heating pad for pain. Pt states that she wears a 38DDD bra, but it is too small . Specialty Diagnoses / Procedures Referred By Mary t Referred To Contact Plastic Surgery Diagnoses Pendulous breast Kami Leigh MD [address] [place] [address] Kami Leigh MD [address] [place] [address] Referral ID Status Reason Start Date Expiration Date Visits Re quested Visits Authorized [id number] Closed 10/23/2020 11/17/2021 1 1 Reason Comments [...] Care Teams (unrecognized sec tion and content) 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 Relationship Specialty Start Date End Date Elissa Wolfe MD [address] [phone] PCP - General Family Medicine 01/28/21 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 Relationship Specialty Start Date End Date Elissa Wolfe MD [address] [place] [address] PCP - General Family Medicine 01/28/21 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 Relationship Specialty Start Date End Date Elissa Wolfe MD [address] [place] [address] PCP - General Family Medicine 01/28/21 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 Relationship Specialty Start Date End Date Elissa Wolfe MD [address] [place] [address] PCP - General Family Medicine 01/28/21 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 Relationship Specialty Start Date End Date Elissa Wolfe MD [address] [place] [address] PCP - General Family Medicine 01/28/21 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 Relationship Specialty Start Date End Date Elissa Wolfe MD [address] [facility] [place] [address] [place] [address] PCP - General Family Medicine 01/28/21 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 Relationship Specialty Start Date End Date Elissa Wolfe MD [address] [facility] [place] [address] PCP - General Family Medicine 01/28/21 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 Relationship Specialty Start Date End Date Elissa Wolfe MD [address] [facility] [place] [address] [place] [address] PCP - General Family Medicine 01/28/21 Team [...] August 07, 2023 End: August 07, 2023 Team Status: Active Member Role Status Dates Elissa Wolfe MD Primary Care Provider Active Team Status: Inactive Member Role Status Dates Mari Sanchez APRN Attending Provider Active Start: May 12, 2024 End: May 12, 2024 Elissa Wolfe MD Primary Care Provider Active Start: May 12, 2024 End: May 12, 2024 Team Status: Inactive Member Role Status Dates Elissa Wolfe MD Primary Care Provider Active Start: July 11, 2024 End: July 11, 2024 Jeni Horta APRN Attending Provider Active S tart: July 11, 2024 End: July 11, 2024 Scheduled Active and Recently Administ ered Medications [...] 0739 (Given - Provid er: Magdalena Hickman APRN-MERGERS AND ACQUISITIONS ASSOCIATE) lactated ringers IV solution (COMPLETED) Intravenous, at [...] 1844, Intra-op/Intra-Proc 0818 (Given - Provid er: Kaim Leigh MD - Comment: BL Breast) oxyCODONE-acetaminophen [...] and content) DATE CREATED AUTHOR 09/30/2021 [facility] DATE CREATED AUTHOR AUTHOR'S ORGANIZ ATION 01/09/2022 [facility] DATE CREATED AUTHOR AUTHOR'S ORGANIZ ATION 06/04/2022 [facility] DATE CREATED AUTHOR AUTHOR'S ORGANIZ ATION 10/15/2022 [facility] DATE CREATED AUTHOR AUTHOR'S ORGANIZ ATION 08/17/2023 [facility] DATE CREATED AUTHOR AUTHOR'S ORGANIZ ATION 08/24/2023 [facility] dical Specialists EPIC Goals (unrecognized section [...] BE BASED ON THE PRIMARY CLINICAL RECORDS. [employer] provides no warranty or guarantee of the accuracy or completeness of information in this document.
--- NOTE | 2024-09-07 00:45 | PC.NURSE ---
this patient complains of rectum pain, Dr Casas did a rectum exam
== END 2024-09-07 00:50 | disposition home or self-care (01) ==
PROVIDERS: Emergency Provider Internal Medicine; PCP Family Medicine
DX: K64.5 Perianal venous thrombosis (principal)
CPT/HCPCS: 99281

== ENCOUNTER 2025-03-10 11:02 | Emergency (ER) | payer MEDICAID, SELFPAY ==
--- OUTSIDE RECORDS SUMMARY | 2024-07-25 10:45 | XMS_ITS ---
Author Organization [facility] Address [address] [place] [address] Care Team Providers Care Cook Candy Name Role Phone Dr. Niko Posada Primary Care Provider [phone] Christa Vincent Blanca [phone] REASON FOR VISIT PROPHY LAST HYG 2021 Encounters Encounter Location Date Provider Diagnosis [facility] [address] [place] [address] 07/25/2024 Christa Cortes Acute gingivitis, plaque induced K05.00 Assessments Encounter Date Diagnosis (ICD Code) Assessment Notes Treatment Notes Treatment Clinical Notes Section Notes 07/25/2024 Acute gingivitis, plaque induced (ICD-10 - K05.00) Plan Of Treatment Next Appt Details Provider Name:Christa Cortes , 05/13/2025 03:00:00 PM, [address] [place], [address], Provider Name:Vanesa Watson, 06/10/2025 08:00:00 AM, [address] [place], [address], Progress Notes * NARGIS RAINEYDOB:1995 (29 yo F)Acc No.[id number]:07/25/2024 Patient: NARGIS Duarte OCA Provider: Job Cortes :1995 A ge:29 Y S ex:Female Date:07/25/2024 Address:[address] [place] [id number] Pcp:Dr. Niko Posada Subjective: * Chief Complaints: * 1 . PROPHY LAST HYG 2021. * Medical History: Objective: * Vitals: * Dental Examination/Plan : Tooth / Surface Status Description Provider TP PROPHYLAXIS - ADULT [facility] 07/25 Assessment: * Assessment: 1. A cute gingivitis, plaque induced - K05.00 (Primary) Plan: * Treatment: * Images: * Electronic signature of Mark Cortes on 03/10/2025 at 11:34 AM EDT Sign off status: Pending * Provider: Job Cortes Date: 0 07/25/2024 Generated for Marian montanez/Neptali/Maykel on: 0 03/10/2025 11:34 AM EDT
--- OUTSIDE RECORDS SUMMARY | 2024-09-12 05:45 | XMS_ITS ---
Author Organization [facility] es Address [address] [place] [address] Care Team Providers Care Juvenile Justice Officer Name Role Phone Dr. Niko Posada Primary Care Provider [phone] David Blanco [phone] REASON FOR VISIT PA x-ray Encounters Encounter Location Date Provider Diagnosis [address] [place] [address] 09/12/2024 David Chandler Plan Of Treatment Next Appt Details Provider Name:Christa Cortes , 05/13/2025 03:00:00 PM, [address], [place], [address], Provider Name:Vanesa Watson, 06/10/2025 08:00:00 AM, [address], [place], [address], Progress Notes * NARGIS RAINEYDOB:1995 (29 yo F)Acc No.[id number]:09/12/2024 Patient: NARGIS Duarte OCA Provider: Kavita Chandler DDS :1995 A ge:29 Y S ex:Female Date:09/12/2024 Address:[address] [place] [phone] Pcp:Dr. Niko Posada Subjective: * Chief Complaints: * 1 . PA x-ray. * Medical History: Objective: * Vitals: Assessment: Plan: * Treatment: * Images: * Electronic signature of Luis Armando Chandler DDS on 03/10/2025 at 11:34 AM EDT Sign off status: Pending * Provider: Kavita Chandler DDS Date: 0 09/12/2024 Generated for Marian montanez/Neptali/Maykel on: 0 03/10/2025 11:34 AM EDT
--- OUTSIDE RECORDS SUMMARY | 2024-09-12 09:00 | XMS_ITS ---
Author Organization [facility] [place] Address [address] [place] [address] Care Team Providers Care Pharmacy General Manager Name Role Phone Aiden Guevara Primary Care Provider [phone] REASON FOR VISIT hemorrhoids Encounters Encounter Location Date Provider Diagnosis [address] [address] 09/12/2024 Guevara Wolfe Plan Of Treatment Next Appt Details Provider Name:Guevara Amaris Wolfe, 01:00:00 PM, [address] [place], [address], Progress Notes * Taylor RAINEY LDOB: 5 (29 yo F)Acc No.[id number]:09/12/2024 UNLOCKED PROGRESS NOTE Progress Note Patient: Taylor Duarte OCA [facility]1995 A ge:29 Y S ex:Female Date:09/12/2024 Address:[address] [place], [place] [address] Subjective: * Chief Complaints: * 1 . Hemorrhoids. * Medical History: Objective: * Vitals: Assessment: Plan: * Treatment: * * Electronic signature of Guevara Wolfe MD, [id number] on 03/10/2025 at 11:35 AM EDT Sign off status: Pending Visit Status: N /S N/C (No Show/No Charge) * Provider: Erica Wolfe ([facility])MD Date: 0 09/12/2024 Generated for Marian montanez/Neptali/Maykel on: 0 03/10/2025 11:35 AM EDT
--- OUTSIDE RECORDS SUMMARY | 2024-10-12 09:00 | XMS_ITS ---
Author Organization [facility] [place] Address [address] [place] [address] Care Team Providers Care Cheesemaker Name Role Phone Guevara Wolfe Primary Care Provider REASON FOR VISIT weight and over all health Encounters Encounter Location Date Provider Diagnosis [facility] [address] [place] [address] 10/12/2024 Guevara Wolfe Plan Of Treatment Next Appt Details Provider Name:Guevara Wolfe, 01:00:00 PM, [address] [place], [address], Progress Notes * Taylor RAINEY LDOB: 5 (29 yo F)Acc No.[id number]:10/12/2024 UNLOCKED PROGRESS NOTE Progress Note Patient: Taylor Duarte OCA [facility] Wol[facility] :1995 A ge:29 Y S ex:Female Date:10/12/2024 Address:[address] [place], [place] [id number] Subjective: * Chief Complaints: * 1 . Weight and over all health. * Medical History: Objective: * Vitals: Assessment: Plan: * Treatment: * * Electronic signature of Guevara Wolfe MD, [id number] on 03/10/2025 at 11:34 AM EDT Sign off status: Pending Visit Status: N /S N/C (No Show/No Charge) * Provider: Erica Wolfe ([facility])MD Date: 0 10/12/2024 Generated for Marian montanez/Neptali/Maykel on: 0 03/10/2025 11:34 AM EDT
--- OUTSIDE RECORDS SUMMARY | 2024-12-19 04:40 | XMS_ITS ---
Author Organization [facility] Address [address] [place] [address] Care Team Providers Care Circular Ripsaw Operator Name Role Phone Dr. Niko Posada Primary Care Provider REASON FOR VISIT MOUTH PAIN Encounters Encounter Location Date Provider Diagnosis [facility] [address] [place] [address] 12/19/2024 Niko Posada Plan Of Treatment Next Appt Details Provider Name:Christa Cortes , 05/13/2025 03:00:00 PM, [address], [place], [address], Provider Name:Vanesa Watson, 06/10/2025 08:00:00 AM, [address], [place], [address], Progress Notes * REDD JESSEROSETTADOB:1995 (29 yo F)Acc No.[id number]:12/19/2024 Patient: NARGIS Duarte OCA Provider: Ruby Posada DDS :1995 A ge:29 Y S ex:Female Date:12/19/2024 Address:[address] [place] [phone] Subjective: * Chief Complaints: * 1 . MOUTH PAIN. * Medical History: Objective: * Vitals: Assessment: Plan: * Treatment: * Images: * Electronic signature of Dr. Niko Posada , DMD on 03/10/2025 at 11:35 AM EDT Sign off status: Pending * Provider: Ruby Posada DDS Date: 0 12/19/2024 Generated for Marian montanez/Neptali/Maykel on: 0 03/10/2025 11:35 AM EDT
--- OUTSIDE RECORDS SUMMARY | 2025-01-18 10:21 | XMS_ITS ---
Author Name Auto Generated Organization OHIP Care Team Providers Care Voting Machine Repairer Name Role Phone Mari Sanchez Admitting Unavailable Mari Sanchez Attending Unavailable Pepe Wolfe Primary Care Unavailable PROBLEMS DATE TYPE CONDITION / CODE [facility] Unknown Pain in left betito t / M79.672(ICD-10) Mari Sanchez Active [facility] PROCEDURES No Procedure Records Found RESULTS XR FOOT LT MIN 3V* Observed: 01/18/2025 10:43 AM Status: COMPLETED Source: [facility] [place] [address] XRay Report Signed Patient: Taylor Qiu MR#: [id number] 00 : 1995 Acct:[id number] Age/Sex: 29 / F ADM Date: 01/18/25 Loc: XDUCLY Room: Type: [facility] Attending Dr: Mari Sanchez APRN Copies to: Mari Sanchez APRN Ordering Provider: Mari Sanchez APRN Date of Service: 01/18/25 XR/XR foot LT min 3V*: LEFT FOOT PAIN LEFT FOOT - 3 views CLINICAL HISTORY: Twisted left foot 2 days ago now with pain third through fifth metatarsals. COMPARISON: None FINDINGS: No focal soft tissue abnormality or acute bony process. Joint spaces appear maintained. No bony erosions. XR/XR foot LT min 3V* IMPRESSION: NO ACUTE BONY PROCESS. Impression dictated by: Niok Aj Jr., D.OMickie 01/18/2025 10:45 AM Dictation Location: [place] [address] Transcribed By: [facility] 01/18/25 1045 Dictated By: Niko Aj Jr, DO 01/18/25 1043 Signed By: <Electronically signed by Niko Aj Jr, DO in OV> 01/18/25 1045 ALLERGIES DATE TYPE / CODE NAME / CODE REACTION SEVERITY SOURCE 01/18/2025 Drug Allergy/4160 63670(SNOMED CT) shellfish derived/[id number](RXNORM) Cramping of the Muscles Severe (Severity Modifier) (Qualifier Value) [facility] ENCOUNTERS ADMIT/DISCHARGE ACCOUNT NUMBER ADMITTING ENCOUNTER CLASS LOCATION SOURCE 01/18/2025/ 5 [id number] [facility] ENCOUNTER GUARANTOR PAYER SUBSCRIBER SOURCE 01/18/2025 [address] [place] [address]Ocf: () Primary Insurance[facility] MedicaidPolicy Number: [id number] Date:[id number] [address] [address], [place] [address]IQ: Taylor LucianoB: [id number] [place] [address]Jlp: (HP) [facility] 01/18/2025 Secondary Insurance:Self PayPolicy Number: Effective Date:2025-01-18 [facility]
--- OUTSIDE RECORDS SUMMARY | 2025-02-27 09:15 | XMS_ITS ---
Author Organization [facility] [place] Address [address] [place] [address] Care Team Providers Care Collarette Separator Name Role Phone Guevara Wolfe Primary Care Provider Allergies No Known Allergies REASON FOR VISIT f/u on bp Medications Medication SIG (Take, Route, Frequency, Duration) Notes Start Date End Date Status Dulera 100-5 MCG/ACT 2 puffs Inhalation twice daily; Duration: 30 days Active ZyrTEC Allergy 10 MG 1 tablet Orally Once a day Active Ventolin HFA 108 (90 Base) MCG/ACT 2 puff Inhalation every 4 hrs PRN PRN Active Social History Tobacco Use: Social History Observation Description Date Details (start date - stop date) Never Smoker NA - NA Tobacco Use/Smoking Question Answer Notes Patient is a nonsmoker AUDIT-C (Standard) Question Answer Notes Did you have a drink containing alcohol in the p ast year? No Points 0 Interpretation Negative Vital Signs Weight 209.0 lbs 02/27/2025 Height 65 in 02/27/2025 Blood pressure systolic 142 mm Hg 02/28/20 25 Blood pressure diastolic 82 mm Hg 025 BMI 34.78 kg/m2 02/27/2025 Encounters Encounter Location Date Provider Diagnosis [facility] [address] [place] [address] 02/27/2025 Guevara Wolfe Hypertension I10 Assessments Encounter Date Diagnosis (ICD Code) Assessment Notes Treatment Notes Treatment Clinical Notes Section Notes 02/27/2025 Hypertension (ICD-10 - I10) Plan Of Treatment Next Appt Details Provider Name:Guevara Wolfe, 01:00:00 PM, [address] [facility] [place], [address], Progress Notes * Taylor RAINEY LDOB: [birth year] (29 yo F)Acc No.[id number]:02/27/2025 Progress Note Patient: Taylor Duarte OCA Provider: Erica Wolfe ([facility])MD :1995 A ge:29 Y S ex:Female Date:02/27/2025 Address:[address] [place] [id number] Check In:01:11 PM ESTCheck O ut:01:44 PM EST Subjective: * Chief Complaints: * F /u on bp * HPI: G eneral: Disucsed saalt and caffeine restrictions. * ROS: E ENT: hearing changes d enies. v isual changes d enies.?non-healing mouth sores d enies. s wollen glands or neck lumps d enies. h oarseness d enies. s ore throat d enies. d ifficulty swallowing d enies. n ose bleeds d enies. n ramiro congestion d enies. e ar ache d enies. e ar discharge?denies. r inging in ears d enies. l ight sensitivity d enies. e ye pain d enies. b lurring d enies. e ye irritation d enies. d ouble vision d enies.?vision loss d enies. G eneral/Constitutional: Sweats: D enies. F atigue d enies. S leep problems d enies. A norexia d enies. M alaise d enies. W eight loss d enies.?Fatigue or Weakness d enies. F ever or Chills d enies. C ardiovascular: Shortness of Breath w/lying flat d enies. L ightheadedness/dizziness d enies. C hest tightness/ heavy pressure d enies. S welling of legs, ankles, or feet d enies. W aking up with shortness of breath d enies. C hest pain denies. P alpitations d enies. W eight gain d enies. R espiratory: Chronic or frequent cough d enies. C oughing up blood?denies. D ifficulty breathing d enies. P roductive cough d enies. S noring?denies. S hortness of breath that awakens from sleep (PND) d enies. C hest pain d enies. S putum production d enies. W heezing d enies. M usculoskeletal: Joint pain d enies. J oint Fluid d enies. B ack pain d enies. K nee pain d enies. N meera pain d enies. J oint Stiffness d enies. M uscle cramps d enies. W eakness of muscles d enies. A rthritis d enies. M uscle aches d enies. P ain in shoulder(s) d enies. S wollen joints d enies. * Active Problem List L42 Pityriasis rosea Modified On:06/16/2023/U Status:confirmed R00.2 Palpitations Modified On:06/16/2023/U Status:confirmed J45.909 Asthma Modified On:06/16/2023U Status:confirmed L30.9 Eczema Modified On:06/16/2023/U Status:confirmed G43.909 Migraine Modified On:06/16/2023U Status:confirmed J30.2 Seasonal allergic rh initis Modified On:06/16/2023/U Status:confirmed J01.90 Acute sinusitis Modified On:07/11/2023/U Status:confirmed N39.0 Recurrent UTI Modified On:01/11/2024/U Status:confirmed I10 Hypertension Modified On:02/06/2025/U Status:confirmed * Medical History: * Surgical History: B reast Reduction 09/2021 * Hospitalization/Major Diagno stic Procedure: D enies Past Hospitalization * Family History: F ather: , pancreatic ca, diagnosed with Other malignant neoplasm of unspecified site.?Mother: alive, bowel issues, diagnosed with Unspecified essential hypertension. B srinivasa(s): alive, diagnosed with Unspecified essential hypertension. S sander(s): alive. D aughter(s): alive. 1 brother(s) , 1 sister(s) - healthy. 2 daughter(s) . . * Social History: T obacco Use: T obacco Use/Smoking P atient is a n onsmoker D rug/Alcohol: A CHRISTOPHER-C (Standard) D id you have a drink containing alcohol in the past year? N o P oints 0 I nterpretation N egative * Medications: T akingDulera(Mometasone Furo-Formoterol Fum) 100-5 MCG/ACT Aerosol 2 puffs Inhalation twice daily Ventolin HFA(Albuterol Sulfate HFA) 108 (90 Base) MCG/ACT Aerosol Solution 2 puff Inhalation every 4 hrs PRN , Notes to Pharmacist: PRNZyrTEC Allergy(Cetirizine HCl) 10 MG Tablet 1 tablet Orally Once a day Taking Dulera(Mometasone Furo-Formoterol Fum) 100-5 MCG/ACT Aerosol 2 puffs Inhalation twice daily Taking Ventolin HFA(Albuterol Sulfate HFA) 108 (90 Base) MCG/ACT Aerosol Solution 2 puff Inhalation every 4 hrs PRN , Notes to Pharmacist: PRNTaking ZyrTEC Allergy(Cetirizine HCl) 10 MG Tablet 1 tablet Orally Once a day DiscontinuedAmoxicillin-Pot Clavulanate 875-125 MG Tablet 1 tablet Orally every 12 hrs Benzonatate 200 MG Capsule 1 capsule Orally Three times a day predniSONE 20 MG Tablet 3 tablets Orally Once a day Triamcinolone Acetonide 0.1 % Cream 1 application Externally Twice a day Medication List reviewed and reconciled with the patientDiscontinued Amoxicillin-Pot Clavulanate 875-125 MG Tablet 1 tablet Orally every 12 hrs Discontinued Benzonatate 200 MG Capsule 1 capsule Orally Three times a day Discontinued predniSONE 20 MG Tablet 3 tablets Orally Once a day Discontinued Triamcinolone Acetonide 0.1 % Cream 1 application Externally Twice a day Medication List reviewed and reconciled with the patient * Allergies: N .K.D.A.no[Allergies Verified] Objective: * Vitals: W t:209.0lbs, Ht: 65 in, BP:142/82mm Hg, BMI:34.78Index, Ht-cm: 165.1 cm, Wt-k.8 kg. * Examination: P hysical Exam: GENERAL: w ell developed, well nourished, in no acute distress. HEAD: n ormocephalic/atraumatic. EYES: p upils equal, round and reactive to light, conjunctivae and sclerae normal. EARS: n o deformity or lesion of external ear, canals and TM appear normal bilaterally, TM's intact, not inflamed with normal light reflex, hearing grossly normal to conversational speech. NOSE: n o deformity, discharge, inflammation, or lesions.? MOUTH: m ucous membranes moist, normal oropharynx and posterior pharynx without lesions or exudates, tongue normal, dentition normal. NECK: n meera supple, no masses or palpable cervical nodes, trachea midline, thyroid without nodules, masses, tenderness, or enlargement. CHEST: n o chest wall deformity, no chest wall tenderness.? LUNGS: n ormal respiratory effort and clear to auscultation, no wheezes, rales, or rhonchi, good air exchange. CARDIO: r egular rate and rhythm, normal S1 and S2, nor murmur, rub, or gallop. PULSES: n ormal capillary refill. ABDOMEN: s oft, non-distended, non-tender, no masses. MUSCULOSKELETAL: n o deformity or scoliosis noted, normal range of motion, joints normal, no erythema, edema, effusion, or ecchymosis. EXTREMITY: n o clubbing, cyanosis, edema, or deformity with normal ROM in both upper and lower bilateral extremities. NEUROLOGIC: g rossly normal. SKIN: n o rashes, ulcerations, or suspicious lesions. LYMPH NODES: n o cervical adenopathy, nodes normal. MENTAL STATUS: a lert and oriented x3, normal mood and affect. Assessment: * Assessment: 1. H ypertension - I10 (Primary) Plan: * Treatment: * Procedure Codes: * Preventive Medicine: Screenings/Counseling: B MS ACTION PLAN Above Normal BMI Follow-up D ietary management education, guidance, and counseling * * Sign off status: Completed Visit Status: C HK (Check Out) true * Provider: Erica Wolfe ([facility])MD Date: 0 02/27/2025 Generated for Printi ng/Faxing/eTransmitting on: 0 03/10/2025 11:35 AM EDT History and Physical Notes * HPI (History of Present Illness) Category Sub-Category Detail Notes Category Not es General Disucsed saalt and caffeine restrictions Examination Category Sub-Category Detail Notes Category Not es Physical Exam GENERAL: well developed, well nourished, in no acute distress HEAD: normocephalic/atraum atic EYES: pupils equal, round and reactive to light, conjunctivae and sclerae normal EARS: no deformity or lesi on of external ear, canals and TM appear normal bilaterally, TM's intact, not inflamed with normal light reflex, hearing grossly normal to conversational speech NOSE: no deformity, discha rge, inflammation, or lesions MOUTH: mucous membranes dina st, normal oropharynx and posterior pharynx without lesions or exudates, tongue normal, dentition normal NECK: neck supple, no mass es or palpable cervical nodes, trachea midline, thyroid without nodules, masses, tenderness, or enlargement CHEST: no chest wall deform ity, no chest wall tenderness LUNGS: normal respiratory e ffort and clear to auscultation, no wheezes, rales, or rhonchi, good air exchange CARDIO: regular rate and rhy thm, normal S1 and S2, nor murmur, rub, or gallop PULSES: normal capillary ref ill ABDOMEN: soft, non-distended, non-tender, no masses RECTAL: MUSCULOSKELETAL: no deformity or scol iosis noted, normal range of motion, joints normal, no erythema, edema, effusion, or ecchymosis EXTREMITY: no clubbing, cyanosi s, edema, or deformity with normal ROM in both upper and lower bilateral extremities NEUROLOGIC: grossly normal SKIN: no rashes, ulceratio ns, or suspicious lesions LYMPH NODES: no cervical adenopat hy, nodes normal MENTAL STATUS: alert and oriented x 3, normal mood and affect
[2025-03-10] VITALS (10 sets, daily range): BP systolic 125–156; BP diastolic 89–101; PULSE 84–114; TEMP 37.4; O2SAT 100; BMI 35.5
--- NOTE | 2025-03-10 11:17 | ECG_ITS ---
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
--- NOTE | 2025-03-10 11:17 | XR_ITS ---
The [place] [address] Patient Name: NARGIS RAINEY MRN: [id number] date: 1995 Sex: F Assigned Patient Location: ED.MAIN Current Patient Location: Accession/Order Number: [id number] Exam Date: 03/10/2025 11:52 Report Date: 03/10/2025 12:33 At the request of: JANICE SMITH MD Procedure: XR chest 1V XR chest 1V 03/10/2025 12:07 PM SIGNS AND SYMPTOMS: ^Elevated blood pressure, palpitations ^Y PROTOCOL: Frontal radiograph of the chest COMPARISON: 10/31/2020 FINDINGS: The trachea is midline. The heart and mediastinal structures are within normal limits. The lung parenchyma is clear. The bony thorax is intact. XR/XR chest 1V IMPRESSION: No acute cardiopulmonary pathology. Impression dictated by: Jules Thayer M.D. 03/10/2025 12:33 PM Dictation Location: [place] [address] Electronically authenticated by: [id number] Y Date: 03/10/2025 12:33
--- NOTE | 2025-03-10 11:20 | ED_ITS ---
HPI HPI - General Adult General Chief complaint: Arrhythmia/Palpitations Stated complaint: HEART PALPITATIONS Time Seen by Provider: 03/10/25 11:11 Source: patient Mode of arrival: walk-in Limitations: no limitations History of Present Illness HPI narrative: 29-year-old female presents to the emergency department for concerns about heart rate and blood pressure. She feels like her heart is racing and she states she has been under a lot of stress recently. She saw her doctor a few days ago and has an appointment in 2 days. No fever or vomiting. Related Data Home Medications ?Medication ?Instructions ?Recorded ?Confirmed albuterol sulfate 90 mcg/actuation inhalation 09/07/24 aerosol inhaler cetirizine 10 mg tablet mg 09/07/24 Allergies Allergy/AdvReac Type Severity Reaction Status Date / Time No Known Drug Allergies Allergy Verified 03/10/25 11:06 Review of Systems ROS Narrative A ten point review of systems is negative except as noted above. PFSH PFSH Social History Smoking status: Never smoker Little interest or pleasure in doing things: not at all Feeling down, depressed, or hopeless: not at all Exam Narrative Exam Narrative: Nurses note and vital signs reviewed and patient is not hypoxic. General:The patient appears well and in no apparent distress.Patient is resting comfortably on cart. Skin:Warm, dry, no pallor noted.There is no rash noted. Head:Normocephalic, atraumatic Eye: Normal conjunctiva, no drainage Ears, Nose, Mouth, and Throat: oral mucosa is moist. Nares patent. Cardiovascular:Regular Rate and Rhythm, mild tachycardia Respiratory:Patient is in no distress, no accessory muscle use, lungs are clear to auscultation, no wheezing, rales or rhonchi Back:non-tender GI: Soft and nontender Musculoskeletal: The patient has no evidence of calf tenderness, no pitting edema, symmetrical pulses noted bilaterally Neurological:A&O, normal speech Psychiatric:Cooperative Constitutional Vital Signs, click to edit/add: Last Vital Signs Temp 99.3 F 03/10/25 11:07 Pulse 84 03/10/25 11:50 Resp 12 03/10/25 11:50 BP 125/89 03/10/25 11:30 Pulse Ox 100 03/10/25 11:50 O2 Del Method Room Air 03/10/25 11:13 Course Vital Signs Vital signs: Vital Signs Temperature 99.3 F 03/10/25 11:07 Pulse Rate 109 H 03/10/25 11:07 Respiratory Rate 20 03/10/25 11:07 Blood Pressure 156/101 H 03/10/25 11:07 Pulse Oximetry 100 03/10/25 11:07 Temperature 99.3 F 03/10/25 11:07 Pulse Rate 84 03/10/25 11:50 Respiratory Rate 12 03/10/25 11:50 Blood Pressure 125/89 03/10/25 11:30 Pulse Oximetry 100 03/10/25 11:50 Oxygen Delivery Method Room Air 03/10/25 11:13 Medical Decision Making MDM Narrative Medical decision making narrative: Pressure has improved spontaneously and her workup is negative. She has an appointment with her PCP in 2 days and she will keep that appointment. No further intervention is required at this point. Treatment diagnosis and follow- up were discussed with the patient. Differential Diagnosis Differential Diagnosis: Hypertension, kidney disease, stress Lab Data Lab results reviewed: Yes I reviewed the patient's lab results Labs: Lab Results 03/10/25 Range/Units 11:24 WBC 8.6 (4.0-11.0) 10^3/uL RBC 4.11 L (4.20-5.40) 10^6/uL Hgb 13.3 (12.0-16.0) g/dL Hct 39.0 (36.0-48.0) % MCV 94.9 (81.0-99.0) fL MCH 32.4 (26.7-34.0) pg MCHC 34.1 (29.9-35.2) g/dL RDW 12.7 (11.0-15.0) % Plt Count 300 (150-450) 10^3/uL MPV 10.1 (9.5-13.5) fL Neut % (Auto) 60.0 (43.0-75.0) % Lymph % (Auto) 32.8 (20.5-60.0) % [place] % (Auto) 4.9 (1.7-12.0) % Eos % (Auto) 1.5 (0.9-7.0) % Baso % (Auto) 0.6 (0.2-2.0) % Neut # (Auto) 5.1 (1.4-6.5) 10^3/uL Lymph # (Auto) 2.8 (1.2-3.8) 10^3/uL [place] # (Auto) 0.4 (0.3-0.8) 10^3/uL Eos # (Auto) 0.1 (0.0-0.7) 10^3/uL Baso # (Auto) 0.1 (0.0-0.1) 10^3/uL Abs Immat Gran (auto) 0.02 (0.00-0.03) 10^3/uL Imm/Tot Granulo (auto) 0.2 (0.0-0.5) % Sodium 140 (136-145) mmol/L Potassium 4.1 (3.5-5.1) mmol/L Chloride 103 (98-107) mmol/L Carbon Dioxide 28.1 (21.0-32.0) mmol/L Anion Gap 13.0 BUN 10.0 (7.0-18.0) mg/dL Creatinine 0.63 (0.55-1.02) mg/dL Est GFR ( Amer) >60 (>=60 mL/min/1.73m^2) Est GFR (Non-Af Amer) >60 (>=60 mL/min/1.73m^2) BUN/Creatinine Ratio 15.9 Glucose 102 (74-106) mg/dL Calcium 8.7 (8.5-10.1) mg/dL TSH & Free T4 Interp 0.887 (0.358-3.740) uIU/mL Imaging Data Chest x-ray: My impression: No acute findings ECG Data Attestation: I personally reviewed and interpreted this ECG as follows: (EKG on my interpretation shows sinus rhythm with a rate of 101 and no acute change) Discharge Plan Discharge Chief Complaint: Arrhythmia/Palpitations Clinical Impression: Elevated blood pressure reading Patient Disposition: Home, Self-Care Time of Disposition Decision: 12:23 Condition: Good Mode of Transportation: Private Vehicle Prescriptions / Home Meds: No Action cetirizine 10 mg tablet albuterol sulfate 90 mcg/actuation HFA aerosol inhaler INHALATION Print Language: Trinidadian Instructions: Anxiety (ED) Referrals: Pepe Wolfe MD [Primary Care Provider, Family Practice]
[2025-03-10 11:33] LABS: Hematocrit 39.0 % (36.0-48.0); Hemoglobin 13.3 g/dL (12.0-16.0); Immature Granulocytes Abs Auto 0.02 10^3/uL (0.00-0.03); Immature Granulocytes Pct Auto 0.2 % (0.0-0.5); Lymphocytes Absolute Auto 2.8 10^3/uL (1.2-3.8); Mean Corpuscular HGB Conc 34.1 g/dL (29.9-35.2); Mean Corpuscular Hemoglobin 32.4 pg (26.7-34.0); Mean Corpuscular Volume 94.9 fL (81.0-99.0); Platelet Count 300 10^3/uL (150-450); Red Blood Count 4.11 10^6/uL (4.20-5.40); White Blood Count 8.6 10^3/uL (4.0-11.0)
--- OUTSIDE RECORDS SUMMARY | 2025-03-10 11:34 | XMS_ITS | Clinical Summary ---
Author Organization [facility] Healthcare Address [address] [place] [address] Care Team Providers Care Aoc Operations Intelligence Officer Name Role Phone Pepe Wolfe MD Primary Care Provider [phone] Allergies Active Allergy Reactions Criticality Noted Date Comments Other Unknown 02/07/2023 Medications acetaminophen (Tylenol) 325 MG tablet Take by mouth. Activ e albuterol HFA (ProAir HFA) 90 mcg/act inhaler inhale 2 puff by inhalation route 4 - 6 hours as needed Inhalation Active albuterol HFA 90 mcg/act inhaler inhale 2 puffs by mouth every 4 hours if needed Active Cetirizine HCl 10 MG capsule Take 10 mg by mouth in the morning. Active Urea 20 Intensive Hydrating 20 % cream apply topically to feet twice a day if needed for FLARES 3 Active tretinoin (Retin-A) 0.025 % cream APPLY TO FACE EVERY OTHER NIGHT - INCREASE TO NIGHTLY TOLERATED 3 Active Drospirenone (Slynd) 4 MG tabletIndicatio ns: control counseling Take 4 mg by mouth Daily 28 tablet 11 4 Active fluticasone (Flonase) 50 MCG/ACT nasal spray Administer 2 sprays into each nostril Daily 4 Active trimethoprim-po lymyxin b (Polytrim) ophthalmic solution 4 Active Family History Medical History Relation Name Comments Asthma Father Anemia Maternal Grandfather Asthma Mother Hypertension Other maternal aunt Relation Name Status Comments Father Maternal Grandfather Maternal Grandmother Mother Alive Other maternal aunt Paternal Grandfather Paternal Grandmother Social History Tobacco Use Types Packs/Day Years Used Date Smoking Tobacco: Never Smokeless Tobacco: Never Tobacco Cessation:Counseling Given: Not Answered Alcohol Use Standard Drinks/Week Comments Never 0 (1 standard drink = 0.6 oz pur e alcohol) Comments No Sex and Gender Information Value Date Recorded Sex Assigned at Not on file Legal Sex Female 6:41 PM EDT Gender Identity Not on file Sexual Orientation Not on file Last Filed Vital Signs Vital Sign Reading Time Taken Comments Blood Pressure 124/78 08/23/2023 9:21 AM EDT Pulse - - Temperature - - Respiratory Rate - - Oxygen Saturation - - Inhaled Oxygen Concentration - - Weight 101 kg (222 lb) 08/23/2023 9:21 AM EDT Height - - Body Mass Index - - Plan of Treatment Not on file Insurance [place] [employer] [place] Care Teams Aoc Operations Intelligence Officer Relationship Specialty Start Date End Date Pepe Wolfe MD PCP - General Family Medicine 02/07/23
--- OUTSIDE RECORDS SUMMARY | 2025-03-10 11:35 | XMS_ITS | Clinical Summary ---
Author Organization [facility] Address [address] [place] [address] Care Team Providers Care Nipping Machine Operator Name Role Phone Pepe Wolfe MD Primary Care Provider [phone] Allergies No known active allergies Medications nitrofurantoin, macrocrystal-mo nohydrate, 100 MG Cap Take 1 capsule by mouth 2 times daily. Take w/ food/milk 14 capsule 7 Active phenazopyridine 200 MG Tab tablet Take 1 tablet by mouth 3 times daily as needed for Pain (Urinary pain). 12 tablet 7 Active Cetirizine HCl 10 MG capsule Take 10 mg by mouth daily. Active levonorgestrel (Mirena, 52 MG,) 20 MCG/24HR 1 Device by Intrauterine route Once. use as directed Active albuterol 108 (90 Base) MCG/ACT Aero Soln inhaler Inhale 2 puffs every 4 hours as needed for Shortness of Breath. Active Acetaminophen (TYLENOL PO) Take by mouth as needed. Active oxyCODONE-aceta minophen 5-325 MG per tabletIndicatio ns:S/P bilateral breast reduction Take 1 tablet by mouth every 6 hours as needed for Moderate Pain (Use ONLY as needed for pain) for up to 3 days. 8 tablet 2 Active cyclobenzaprine 10 MG tablet Take 0.5 tablets by mouth 3 times daily as needed for Muscle spasms for up to 5 days. 8 tablet 2 Active ibuprofen 600 MG tablet Take 1 tablet by mouth 3 times daily as needed for Mild Pain (Take with food.) for up to 5 days. 15 tablet Active Active Problems Problem Noted Date Diagnosed Date Pain in thoracic spine 12/09/2021 Pain of anterior chest wall with respiration Neck pain, bilateral posterior 12/09/2021 Obesity: body mass index of 35.0-39.9 01/28/2021 Macromastia 01/28/2021 Chronic back pain 01/28/2021 Family History Medical History Relation Name Comments Hypertension Brother Relation Name Status Comments Brother Father Maternal Grandfather Maternal Grandmother Paternal Grandfather Paternal Grandmother Social History Tobacco Use Types Packs/Day Years Used Date Smoking Tobacco: Never Smokeless Tobacco: Never Alcohol Use Standard Drinks/Week Comments Not Currently 2 (1 standard drink = 0.6 oz pur e alcohol) Comments No Sex and Gender Information Value Date Recorded Sex Assigned at Not on file Legal Sex Female 7:45 AM EST Gender Identity Female 04/24/2017 8:37 AM EST Sexual Orientation Not on file Last Filed Vital Signs Vital Sign Reading Time Taken Comments Blood Pressure 122/96 01/06/2022 3:12 PM EDT Pulse 89 01/06/2022 3:12 PM EDT Temperature 36.6 C (97.8 F) 01/06/2022 3:12 PM EDT Respiratory Rate 20 12/09/2021 3:00 PM EDT Oxygen Saturation 100% 12/09/2021 3:00 PM EDT Inhaled Oxygen Concentration - - Weight 95.7 kg (211 lb) 01/06/2022 3:12 PM EDT Height 165.1 cm (5' 5 ) 01/06/2022 3:12 PM EDT Body Mass Index 35.11 01/06/2022 3:12 PM EDT Plan of Treatment Health Maintenance Due Date Last Done Comments HEPATITIS C VIRUS SCREENING 1995 HIV SCREENING DISCUSSION 2010 CERVICAL CANCER SCREENING DISCUSSION 2016 COVID-19 VACCINE ( season) 2025 INFLUENZA VACCINE (#1) 2025 1, 05/03/2009 TETANUS 11/18/2030 11/18/2020 HEP B VACCINE Completed 06/15/1996, 1995, 1995 HPV VACCINE ADOL Discontinued 03/17/2009, 11/18/2008, 09/12/2008 HPV VACCINE Completed 03/17/2009, 11/18/2008, 09/12/2008 TDAP (ADULT) Completed 11/18/2020 PNEUMOCOCCAL VACCINE SERIES Aged Out No longer eligible based on patient's age to complete this topic Care Teams Nipping Machine Operator Relationship Specialty Start Date End Date Pepe Wolfe MD PCP - General Family Medicine 01/28/21
--- OUTSIDE RECORDS SUMMARY | 2025-03-10 11:35 | XMS_ITS | Patient Health Record ---
Author Organization [facility] [place] Address [address] [place] [address] Care Team Providers Care Zoo Director Name Role Phone Guevara Wolfe Primary Care Provider Eugene Elizabeth Unavailable [phone] Allergies No Known Allergies Results Component Value Reference Range Notes ECG 12 lead (Not yet reviewe d by provider) Interpretation: Performing Lab: Notes/Report: Source Facility: [place] [address] Electrocardiograph Report Draft Patient: NARGIS RAINEY MR#: [id number] : 1995 Acct:[id number] Age/Sex: 29 / F ADM Date: Loc: ER Attending Dr: Ordering Physician: Christofer Cheung M.D. Date of Service: 03/10/25 Procedure(s): ECG 12 lead Accession Number(s): [id number] cc: [facility] Test Date: 2025-03-10 Pat Name: NARGIS RAINEY Department: Room: - Gender: Female Project Asst: : 1995 Requested By: 1030 Order Number: [id number] Reading MD: Measurements Intervals Mason Rate: 101 P: 56 NC: 134 QRS: 73 QRSD: 96 T: 27 QT: 344 QTc: 402 Interpretive Statements 1120 Sinus tachycardia 9140 abnormal rhythm ECG No previous ECG available for comparison Dictated By: Shonda Martinez Signed By: DD/ 1110 TD/TT: Codifier: HCG Qualitative Urine Reviewed date:04/24/2024 06:37:30 PM Interpretation: Performing Lab: Notes/Report: [facility] , HCG Qualitative Urine* NEGATIVE NEGATIVE Performing Lab: see note - [facility] UA RANDOM W or MICROSCOPIC Reviewed date:04/24/2024 06:37:30 PM Interpretation: Performing Lab: Notes/Report: [facility] , Color Urine LT. YELLOW YELLOW Clarity Urine CLEAR CLEAR Specific [place] Urine 1.015 1.005-1.025 pH Urine 7.5 5.0-9.0 Protein Urine NEGATIVE NEG/TRACE mg/dL Glucose Urine UA NEGATIVE NEGATIVE mg/dL Bilirubin Urine NEGATIVE NEGATIVE Ketones Urine NEGATIVE NEGATIVE mg/dL Blood Urine NEGATIVE NEGATIVE Nitrite Urine NEGATIVE NEGATIVE Urobilinogen Urine 0.2 0.2-1.0 EU/dL Leukocyte Esterase Urine TRACE NEGATIVE WBC Urine 0-2 NONE SEEN #/HPF RBC Urine 0-2 0-2 #/HPF Bacteria Urine NONE SEEN NONE SEEN #/HPF Mucus Urine NONE SEEN NONE SEEN Squamous Epithelial Cell Urine FEW NONE/RARE #/LPF Crystals Seen? None Seen None Seen #/HPF Cast Seen? NONE SEEN NONE SEEN #/LPF Urine Culture Indicated NO Performing Lab: see note - [facility] Reason For Referral No Information Medications Medication SIG (Take, Route, Frequency, Duration) [...] Question Answer Notes Patient is a nonsmoker Alcohol Screen (Audit-C) Question Answer Notes Did you have a drink containing alcohol in the p ast year? No Points 0 Interpretation Negative AUDIT-C (Standard) Question Answer Notes Did you have a drink containing alcohol in the p ast year? No Points 0 Interpretation Negative Problems Problem Type SNOMED Code ICD Code Onset Dates Problem Status W/U Status Risk Notes Problem Pityriasis rosea (42379435) Pityriasis rosea (L42) Active confirmed Problem Palpitations (26194255) Palpitations (R00.2) Active confirmed Problem Recurrent urinary tract infection (885336902) Recurrent UTI (N39.0) Active confirmed Problem Hypertension (00514542) Hypertension (I10) Active confirmed Problem Asthma (655930044) Asthma (J45.909) Active confirmed Problem Eczema (77507035) Eczema (L30.9) Active confirmed Problem Migraine (63822160) Migraine (G43.909) Active confirmed Problem Acute sinusitis (91434244) Acute sinusitis (J01.90) Active confirmed Problem Seasonal allergic rhinitis (109611779) Seasonal allergic rhinitis (J30.2) Active confirmed Vital Signs Temperature 97.8 degrees Fahrenheit 02/06/2025 Blood pressure diastolic 82 mm Hg 02/27/2025 Height 65 in 02/27/2025 Blood pressure systolic 142 mm Hg 02/27/2025 Weight 209.0 lbs 02/27/2025 BMI 34.78 kg/m2 02/27/2025 Encounters Encounter Location Date Provider Diagnosis [address] [address] 11/12/2024 Guevara Cabreray Acute non-recurrent sinusitis, unspecified location J01.90 and Nasal congestion R09.[address] [address] 02/06/2025 Guevara Cabreray Acute non-recurrent sinusitis, unspecified location J01.90 ; Nasal congestion R09.81 and Hypertension I10 [address] [address] 02/27/2025 Guevara Wolfe Hypertension I10 [address] [address] 05/02/2024 Guevara Cabreray [address] [address] 07/11/2024 Guevara Wolfe [address] [address] 10/12/2024 Guevara Wolfe Assessments Encounter Date Diagnosis (ICD Code) Assessment Notes Treatment Notes Treatment Clinical Notes Section Notes 11/12/2024 Acute non-recurrent sinusitis, unspecified location (ICD-10 - J01.90) Rest and drink more liquids, especially water. You may use a humidifier or vaporizer to help keep the drainage moist. Lion-mhz-nbcuurl Nasal Saline may help the stuffy and runny nose. Use Ibuprofen and or Tylenol as needed for fever, chills, body aches or pain. Children 5 years old should not be given aydo-sxy-hnzvbzz cough and cold medications such as guaifenesin and dextromethorphan. If you're over age 5, you may try hkpn-ghz-umgngdl cold medications such as guaifenesin and dextromethorphan, or multi-symptom cold reliever such as Dayquil to help reduce the symptoms. Antibiotics have been prescribed. You should take these until completed and follow the directions. Antibiotics can sometimes cause upset stomach, and in rare cases, serious allergic reactions or serious gastrointestinal problems. If you start having severe abdominal pain, severe vomiting, or bloody diarrhea, you should be reevaluated by your physician or urgent care immediately. Follow up with your Primary Care Provider or return to clinic if symptoms do not improve within 3-5 days 02/06/2025 Acute non-recurrent sinusitis, unspecified location (ICD-10 - J01.90) Rest and drink more liquids, especially water. You may use a humidifier or vaporizer to help keep the drainage moist. Pehi-xrz-gkbexcw Nasal Saline may help the stuffy and runny nose. Use Ibuprofen and or Tylenol as needed for fever, chills, body aches or pain. Children 5 years old should not be given crfv-wxk-emzsnlj cough and cold medications such as guaifenesin and dextromethorphan. If you're over age 5, you may try faqv-icq-cvwhxld cold medications such as guaifenesin and dextromethorphan, or multi-symptom cold reliever such as Dayquil to help reduce the symptoms. Antibiotics have been prescribed. You should take these until completed and follow the directions. Antibiotics can sometimes cause upset stomach, and in rare cases, serious allergic reactions or serious gastrointestinal problems. If you start having severe abdominal pain, severe vomiting, or bloody diarrhea, you should be reevaluated by your physician or urgent care immediately. Follow up with your Primary Care Provider or return to clinic if symptoms do not improve within 3-5 days 02/27/2025 Hypertension (ICD-10 - I10) 02/06/2025 Nasal congestion (ICD-10 - R09.81) 02/06/2025 Hypertension (ICD-10 - I10) 11/12/2024 Nasal congestion (ICD-10 - R09.81) Plan Of Treatment Pending Test Test Name Order Date ECG 12 lead 03/10/2025 Next Appt Details Provider Name:Guevara Wolfe, 01:00:00 PM, [address] [facility], [place], [address], Insurance Providers Payer Name Payer Address Payer Phone Subscriber Number Group Number Insured Name Patient Relationship to Insured Coverage Start Date Coverage End Date [employer] [place] [employer] [address] [address] [place] [address] [id number] LazarusNargis Self - patient is the insured 3 Medical (General) History Medical History History ICD Code Asthma J45.909 Back pain, thoracic M54.6 COVID-19 U07.1 Eczema L30.9 Migraine G43.909 Palpitations R00.2 Pityriasis rosea L42 Seasonal allergic rhinitis J30.2 Surgical History Surgery Date(Month/Year) Breast Reduction 09/2021
--- OUTSIDE RECORDS SUMMARY | 2025-03-10 11:35 | XMS_ITS | Clinical Summary ---
Author Organization [facility] Address [id number] [place] [address] Care Team Providers Care Snowmobile Mechanic Name Role Phone No Pcp, No Pcp Primary Care Provider Unavailabl e Allergies No known active allergies Medications VENTOLIN HFA 90 mcg/actuation inhaler 06/02/20 16 Active PNV,calcium 31-kgxk-zwaqx acid ( PLUS) 27 mg iron- 1 mg tablet Take 1 tablet by mouth daily. 90 tablet 3 11/05/19 18 Active Additional Information Patient not taking.Reported on 11/24/2017 acetaminophen (TYLENOL) 325 mg tabletIndications: Abdominal pain affecting Take 2 tablets (650 mg total) by mouth every 4 (four) hours as needed for pain. 100 tablet 2 11/11/19 18 Active promethazine (PHENERGAN) 12.5 mg tablet Take 1 tablet (12.5 mg total) by mouth every 6 (six) hours as needed for nausea or vomiting. 30 tablet 12/06/19 18 Active Additional Information Patient not taking.Reported on 01/31/2020 ondansetron ODT (ZOFRAN-ODT) 4 mg disintegrating tablet Dissolve 4 mg on tongue every 6 (six) hours as needed for nausea or vomiting. 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, antepartum 01/31/2020 Normal in first trimester 11/24/2017 Nausea and vomiting during p regnancy prior to 22 weeks gestation 11/24/2017 Overview (12/05/2017): Given a sample bottle of diclegis on 11/2412/05/17: pt took one pill and now cannot find sample, severe n/v still continues, phenergan rx sent today Maternal varicella, non-immune 11/21/2017 High risk sexual behavior 07/22/2016 Frequency of micturition 04/29/2016 Resolved Problems Problem Noted Date Diagnosed Date Resolved Date Contraceptive surveillance 04/29/2016 0 11/24/2017 Overview (04/29/2016): C/o nexplanon site pain and numbness Family History Medical History Relation Name Comments Hypertension Brother Cancer Father pancreatic Mental illness Father Kidney disease Maternal Aunt Hypertension Maternal Grandmother Stroke Maternal Grandmother Mental illness Sister Sophie depression, a nxiety Relation Name Status Comments Brother Alive Father Maternal Aunt Alive Maternal Grandfather Alive Maternal Grandmother Mother Alive Paternal Grandfather Paternal Grandmother Sister Sophie Alive Social History Tobacco Use Types Packs/Day Years Used Date Smoking Tobacco: Never Smokeless Tobacco: Never Alcohol Use Standard Drinks/Week Comments Yes 0 (1 standard drink = 0.6 oz pur e alcohol) none since Childcare Answer Date Recorded Childcare Unknown 11/22/2018 Employment Answer Date Recorded Employment Unknown 11/22/2018 Purpose - Life Answer Date Recorded Purpose and direction in life Unknown Comments No Sex and Gender Information Value Date Recorded Sex Assigned at Not on file Legal Sex Female 11:51 AM EDT Gender Identity Not on file Sexual Orientation Not on file Last Filed Vital Signs Vital Sign Reading Time Taken Comments Blood Pressure 110/70 01/31/2020 1:35 PM EDT Pulse 81 12/10/2017 1:40 PM EDT Temperature 36.7 C (98 F) 12/10/2017 11:44 AM EDT Respiratory Rate 20 12/10/2017 11:44 AM EDT Oxygen Saturation 100% 12/10/2017 1:59 PM EDT Inhaled Oxygen Concentration - - Weight 93.9 kg (207 lb) 01/31/2020 1:35 PM EDT Height 162.6 cm (5' 4 ) 12/10/2017 11:44 AM EDT Body Mass Index 35.53 12/10/2017 11:44 AM EDT Plan of Treatment Health Maintenance Due Date Last Done Comments Depression Screening 2007 Tobacco Screening 2007 Adult BMI Screening 2013 DTaP,Tdap and Td Vaccines (1 - Tdap) 2014 Pap Smear 11/24/2020 11/24/2017, 10/2016, 11/15/2016 Influenza Vaccine 02/11/2025 Medical Devices Not on file Procedures Procedure Name Priority Date/Time Associated Diagnosis Comments PAP SMEAR Routine 11/24/2017 5:14 PM EDT from Last 3 Months or Most Recently Relevant to Health Maintenance Results * Pap Smear (11/24/2017 5:14 PM EDT) VC 11/24/2017 5:14 PM EDT 11/24/2017 5:55 PM EDT Narrative COPATH - 12/05/2017 3:23 PM EDT [facility] [address] [place] [address] Gynecologic Cytology Consultation Patient Name: NARGIS RAINEY : 1995 (Age: 22) Gender: F Taken: 11/24/2017 Reported: 12/05/2017 Physician(s): Sisi Wyatt CNM ([phone]) Copy To: [facility]. Rec. #: [id number] Acct: # [id number] Final Cytologic Interpretation Vaginal/Cervical (with or without endocervical) ThinPrep: Satisfactory for evaluation. A transformation zone component was not noted. The lack of a transformation zone component in a patient is not unusual. NEGATIVE FOR INTRAEPITHELIAL LESION OR MALIGNANCY. pjt/12/05/2017 Interpretation performed at [facility], [address] [place] [address], License number: [id number]. Electronically Signed Out By ARLETTE Pereyra (ASCP) Date of Last Menstrual Period: 09/27/2017 Other Clinical Conditions: z34.81 Source of Specimen Vaginal/Cervical (with or without endocervical) ThinPrep Thin Prep Pap (LABOR EXPEDITER) Fee Code(s): G0145 The Pap test is a screening test with an inherent, but low, probability of error. The Pap test is primarily effective for the diagnosis and prevention of squamous cell carcinoma. Regular screening is critical for prevention. ThinPrep liquid-based slides, which meet the Graffiti Cleaner criteria for automated screening, have been screened by the ThinPrep Imaging System (as of 02/27/07) along with an additional manual rescreening by a geospatial information scientist and, if indicated, by a pathologist.Sisi Wyatt CNM 12/01/2017 Sisi Wytat APRN-[facility] PATHOLOGY/CYTOLOGY ORDER [facility] Final Result COPATH from Last 3 Months or Most Recently Relevant to Health Maintenance Insurance [employer] Care Teams Snowmobile Mechanic Relationship Specialty Start Date End Date No Pcp, [place] [address] PCP - General Family Medicine 11/18/17
--- OUTSIDE RECORDS SUMMARY | 2025-03-10 11:35 | XMS_ITS | Encounter Summary ---
Author Organization [facility] Address [id number] [place] [address] Care Team Providers Care Mat Machine Tender Name Role Phone No Pcp, No Pcp Primary Care Provider Unavailabl e Reason for Visit * Reason Comments Med Refill Encounter Details Date Type Department Care Team (Late st Contact Info) Description 05/23/2018 Refill [facility] Certified Nurse Manager Cosmetic - [address] [address] Leanne Argueta, VOUCHER CLERK[address] [address] Encounter for initial prescription of other contraceptives Social History Tobacco Use Types Packs/Day Years Used Date Smoking Tobacco: Never Smokeless Tobacco: Never Alcohol Use Standard Drinks/Week Comments Yes 0 (1 standard drink = 0.6 oz pur e alcohol) none since Comments Yes Sex and Gender Information Value Date Recorded Sex Assigned at Not on file Legal Sex Female 11:51 AM EDT Gender Identity Not on file Sexual Orientation Not on file documented as of this encounter Plan of Treatment Not on file documented as of this encounter Visit Diagnoses Diagnosis Encounter for initial prescription of other contraceptives documented in this encounter Care Teams Mat Machine Tender Relationship Specialty Start Date End Date No Pcp, [place] [address] PCP - General Family Medicine 11/18/17 documented as of this encounter
--- OUTSIDE RECORDS SUMMARY | 2025-03-10 11:35 | XMS_ITS | Encounter Summary ---
Author Organization [facility] Address [address] [place] [address] Care Team Providers Care Smoking Pipe Driller And Threader Name Role Phone Pepe Wolfe MD Primary Care Provider [phone] Encounter Details Date Type Department Care Team (Late st Contact Info) Description 02/03/2023 [facility] [address] [place] [address] Dory Reyes PA [address] [place] [address] Social History Tobacco Use Types Packs/Day Years Used Date Smoking Tobacco: Never Smokeless Tobacco: Never Alcohol Use Standard Drinks/Week Comments Never 0 (1 standard drink = 0.6 oz pur e alcohol) Comments Unknown Sex and Gender Information Value Date Recorded Sex Assigned at Not on file Legal Sex Female 6:41 PM EDT Gender Identity Not on file Sexual Orientation Not on file documented as of this encounter Plan of Treatment Not on file documented as of this encounter Visit Diagnoses Not on filedocumented in this encounter Care Teams Smoking Pipe Driller And Threader Relationship Specialty Start Date End Date Pepe Wolfe MD PCP - General Family Medicine 02/07/23 documented as of this encounter
--- OUTSIDE RECORDS SUMMARY | 2025-03-10 11:35 | XMS_ITS | Encounter Summary ---
Author Organization [facility] Address [address] [facility] [place] [address] Care Team Providers Care Cylinder Press Operator Apprentice Name Role Phone Pepe Wolfe MD Primary Care Provider [phone] Encounter Details Date Type Department Care Team (Late st Contact Info) Description 11/01/2022 [facility] [address] [address] [place] [id number] Tobin Beltran DO [address] [facility] [place] [address] Social History Tobacco Use Types Packs/Day Years [...] on filedocumented in this encounter Care Teams Cylinder Press Operator Apprentice Relationship Specialty Start Date End Date Pepe Wolfe MD PCP - General Family Medicine 02/07/23 documented as of this encounter
--- OUTSIDE RECORDS SUMMARY | 2025-03-10 11:36 | XMS_ITS | Patient Health Record ---
Author Organization [facility] Address [address] [place] [address] Care Team Providers Care Window Cutter Name Role Phone Dr. Niko Posada Primary Care Provider David Chandler Unavailable [phone] Sebastian Christa Unavailable [phone] Vanesa Watson Unavailable [phone] Reason For Referral No Information Medications Medication SIG (Take, Route, Fr equency, Duration) Notes Start Date End Date Status Ibuprofen 800 MG 1 tablet with food o r milk as needed Orally Three times a day 11/13/2020 Active Ibuprofen 800 MG 1 tablet with food o r milk as needed Orally Three times a day 05/01/2024 Active Ibuprofen 800 MG 1 tablet with food o r milk as needed Orally Three times a day 05/04/2024 Active Ibuprofen 800 MG 1 tablet with food o r milk as needed Orally Three times a day 06/22/2024 Active Ibuprofen 800 MG 1 tablet with food o r milk as needed Orally Three times a day 07/04/2024 Active Encounters Encounter Location Date Provider Diagnosis [facility] [address] [place] [address] 07/04/2024 [facility] [address] [place] [address] 04/30/2024 [facility] [address] [place] [address] 05/02/2024 [facility] [address] [place] [address] 05/04/2024 [facility] [address] [place] [address] 05/04/2024 [address] [place] [address] 05/14/2024 [address] [place] [address] 06/22/2024 [address] [place] [address] 08/06/2024 [address] [place] [address] 09/04/2024 [address] [place] [address] 07/10/2024 Vanesa Watson Dental caries on pit and fissure surface penetrating into dentin K02.52 [address] [place] [address] 04/27[facility] caries on pit and fissure surface penetrating into dentin K02.52 ; Encounter for dental examination and cleaning with abnormal findings Z01.21 and Other dental procedure status Z98.818 [address] [place] [address] 06/25/2024 [address] [place] [address] 11/08/2024 Vanesa Watson Assessments Encounter Date Diagnosis (ICD Code) Assessment Notes Treatment Notes Treatment Clinical Notes Section Notes 07/10/2024 Dental caries on pit and fissure surface penetrating into dentin (ICD-10 - K02.52) 04/27/2024 Dental caries on pit and fissure surface penetrating into dentin (ICD-10 - K02.52) 04/27/2024 Encounter for dental examination and cleaning with abnormal findings (ICD-10 - Z01.21) 04/27/2024 Other dental procedure status (ICD-10 - Z98.818) Plan Of Treatment Next Appt Details Provider Name:Christa Cortes , 05/13/2025 03:00:00 PM, [address], [place], [address], Provider Name:Vanesa Watson, 06/10/2025 08:00:00 AM, [address], [place], [address], Insurance Providers Payer Name Payer Address Payer Phone Subscriber Number Group Number Insured Name Patient Relationship to Insured Coverage Start Date Coverage End Date zPARAMOUN T ADVANTAGE -termed 22 [address] [place] [address] [id number] NARGIS RAINEY Self - patient is the insured 1 3 [employer] [place] Medicaid [address] [place] [address] [id number] NARGIS RAINEY Self - patient is the insured 3 Wrap [employer]FC [employer] [address] [place] [address] [phone] [id number] NARGIS RAINEY Self - patient is the insured 3 zDENTAL DQ PARAMOUNT -termed 22 [address] [place] [address] [id number] 99 NARGIS RAINEY Self - patient is the insured 1 3 zDental MEDICAID CFC after PARAMOUNT -termed 22 [address] [place] [address] [id number] NARGIS RAINEY Self - patient is the insured 1 3 Dental [employer] DQ Terminate d 24 [address] [place] [address] [id number] NARGIS RAINEY Self - patient is the insured 3 Dental Wrap [employer] Termed 4 [address] [place] [address] [id number] NARGIS RAINEY Self - patient is the insured 3 DENTAL LIBERTY [facility] [address] [address] [place] [address] [id number] ANOHCAIDAD [id number] NARGIS RAINEY Self - patient is the insured 5 Dental [place] Medicaid [address] [address] [place] [address] [id number] NARGIS RAINEY Self - patient is the insured 5 Dental [place] wrap [facility] [address] [place] [address] [id number] NARGIS RAINEY Self - patient is the insured 5
[2025-03-10 11:56] LABS: Anion Gap 13.0; Blood Urea Nitrogen 10.0 mg/dL (7.0-18.0); Calcium 8.7 mg/dL (8.5-10.1); Carbon Dioxide 28.1 mmol/L (21.0-32.0); Chloride 103 mmol/L (98-107); Estimated GFR (African America >60 (>=60 mL/min/1.73m^2); Estimated GFR (Non-African Ame >60 (>=60 mL/min/1.73m^2); Glucose 102 mg/dL (74-106); Potassium 4.1 mmol/L (3.5-5.1); Sodium 140 mmol/L (136-145); TSH W/ REFLEX FT4 0.887 uIU/mL (0.358-3.740)
== END 2025-03-10 12:32 | disposition home or self-care (01) ==
PROVIDERS: Emergency Provider Emergency Medicine; PCP Family Medicine
DX: R03.0 Elevated blood-pressure reading, without diagnosis of hypertension (principal)
CPT/HCPCS: 36415; 71045; 80048; 84443; 85025; 93005; 99285

== ENCOUNTER 2025-03-26 12:43 | Outpatient (OUT) | payer MEDICAID, SELFPAY ==
--- OUTSIDE RECORDS SUMMARY | 2024-07-23 04:20 | XMS_ITS ---
Author Organization [facility] Address [address] [place] [address] Care Team Providers Care Geoduck Diver Name Role Phone Dr. Niko Posada Primary Care Provider [phone] REASON FOR VISIT TOOTH PAIN Encounters Encounter Location Date Provider Diagnosis [facility] [address] [place] [address] 07/23/2024 Niko Posada Plan Of Treatment Next Appt Details Provider Name:Christa Cortes , 05/13/2025 03:00:00 PM, [address], [place], [address], Provider Name:Vanesa Watson, 06/10/2025 08:00:00 AM, [address], [place], [address], Progress Notes * NARGIS RAINEYDOB:1995 (29 yo F)Acc No.[id number]:07/23/2024 Patient: NARGIS Duarte OCA Provider: Ruby Posada DDS :1995 A ge:29 Y S ex:Female Date:07/23/2024 Address:[address] [place] [id number] Subjective: * Chief Complaints: * T OOTH PAIN Billing Information: * Procedure Codes: * Electronic signature of Dr. Niko Posada , [facility], [id number] on 03/26/2025 at 12:45 PM EDT Sign off status: Pending * Provider: Ruby Posada DDS Date: 0 07/23/2024 Generated for Marian montanez/Neptali/Maykel on: 1 12:45 PM EDT
--- OUTSIDE RECORDS SUMMARY | 2024-07-25 10:45 | XMS_ITS ---
Author Organization [facility] Address [address] [place] [address] Care Team Providers Care Cigar Maker Name Role Phone Dr. Niko Posada Primary Care Provider [phone] Christa Vincent Blanca [phone] REASON FOR VISIT PROPHY LAST HYG 2021 Encounters Encounter Location Date Provider Diagnosis [facility] [address] [place] [address] 07/25/2024 Christa Cortes Acute gingivitis, plaque induced K05.00 Assessments Encounter Date Diagnosis (ICD Code) Assessment Notes Treatment Notes Treatment Clinical Notes Section Notes 07/25/2024 Acute gingivitis, plaque induced (ICD-10 - K05.00) Plan Of Treatment Next Appt Details Provider Name:Christa Cortes , 05/13/2025 03:00:00 PM, [address] [place], [address], Provider Name:Vanesa Watson, 06/10/2025 08:00:00 AM, [address] [place], [address], Progress Notes * NARGIS RAINEYDOB:1995 (29 yo F)Acc No.[id number]:07/25/2024 Patient: NARGIS Duarte OCA Provider: Job Cortes :1995 A ge:29 Y S ex:Female Date:07/25/2024 Address:[address] [place] [id number] Pcp:Dr. Niko Posada Subjective: * Chief Complaints: * P ROPHY LAST 2021 Objective: * Dental Examination/Plan : Tooth / Surface Status Description Provider TP PROPHYLAXIS - ADULT [facility] 07/25 Assessment: * Assessment: 1. A cute gingivitis, plaque induced - K05.00 (Primary) Billing Information: * Procedure Codes: * Electronic signature of Mark Cortes on 03/26/2025 at 12:45 PM EDT Sign off status: Pending * Provider: Job Cortes Date: 0 07/25/2024 Generated for Marian montanez/Neptali/Maykel on: 1 12:45 PM EDT
--- OUTSIDE RECORDS SUMMARY | 2024-09-12 05:45 | XMS_ITS ---
Author Organization [facility] es Address [address] [place] [address] Care Team Providers Care Loss Prevention Guard Name Role Phone Dr. Niko Posada Primary Care Provider [phone] David Blanco [phone] REASON FOR VISIT PA x-ray Encounters Encounter Location Date Provider Diagnosis [address] [place] [address] 09/12/2024 David Chandler Plan Of Treatment Next Appt Details Provider Name:Christa Cortes , 05/13/2025 03:00:00 PM, [address], [place], [address], Provider Name:Vanesa Watson, 06/10/2025 08:00:00 AM, [address], [place], [address], Progress Notes * NARGIS RAINEYDOB:1995 (29 yo F)Acc No.[id number]:09/12/2024 Patient: NARGIS Duarte OCA Provider: Kavita Chandler DDS :1995 A ge:29 Y S ex:Female Date:09/12/2024 Address:[address] [place] [phone] Pcp:Dr. Niko Posada Subjective: * Chief Complaints: * P A x-ray Billing Information: * Procedure Codes: * Electronic signature of Luis Armando Chandler DDS on 03/26/2025 at 12:45 PM EDT Sign off status: Pending * Provider: Kavita Chandler DDS Date: 0 09/12/2024 Generated for Marian Jauregui/Maykel on: 1 12:45 PM EDT
--- OUTSIDE RECORDS SUMMARY | 2024-12-19 04:40 | XMS_ITS ---
Author Organization [facility] Address [address] [place] [address] Care Team Providers Care Camera Repairman Name Role Phone Dr. Niko Posada Primary Care Provider [phone] REASON FOR VISIT MOUTH PAIN Encounters Encounter Location Date Provider Diagnosis [facility] [address] [place] [address] 12/19/2024 Niko Posada Plan Of Treatment Next Appt Details Provider Name:Christa Cortes , 05/13/2025 03:00:00 PM, [address], [place], [address], Provider Name:Vanesa Watson, 06/10/2025 08:00:00 AM, [address] [place], [address], Progress Notes * NARGIS RAINEYDOB:1995 (29 yo F)Acc No.[id number]:12/19/2024 Patient: NARGIS Duarte OCA Provider: Ruby Posada DDS :1995 A ge:29 Y S ex:Female Date:12/19/2024 Address:[address] [place] [address] Subjective: * Chief Complaints: * M OUTH PAIN Billing Information: * Procedure Codes: * Electronic signature of Dr. Niko Posada , [facility], [id number] on 03/26/2025 at 12:45 PM EDT Sign off status: Pending * Provider: Ruby Posada DDS Date: 0 12/19/2024 Generated for Marian montanez/Neptali/Maykel on: 1 12:45 PM EDT
--- OUTSIDE RECORDS SUMMARY | 2025-03-13 09:00 | XMS_ITS ---
Author Organization [facility] [place] Address [address] [place] [address] Care Team Providers Care Technical Operator Name Role Phone Guevara Wolfe Primary Care Provider REASON FOR VISIT 2 week f/u Encounters Encounter Location Date Provider Diagnosis [facility] [address] [place] [address] 03/13/2025 Guevara Wolfe Plan Of Treatment No Information Progress Notes * Taylor RAINEY LDOB: 5 (29 yo F)Acc No.[id number]:03/13/2025 UNLOCKED PROGRESS NOTE Progress Note Patient: Taylor Duarte OCA Provider: Erica Wolfe MD (TTC) :1995 A ge:29 Y S ex:Female Date:03/13/2025 Address:[address] [place], [place] [id number] Subjective: * Chief Complaints: * 1 . 2 week f/u. * Medical History: Objective: * Vitals: Assessment: Plan: * Treatment: * * Electronic signature of Guevara Wolfe MD, [id number] on 03/26/2025 at 12:46 PM EDT Sign off status: Pending Visit Status: N /S N/C (No Show/No Charge) * Provider: Erica Wolfe MD (TTC) Date: Generated for Printi ng/Faxing/eTransmitting on: 12:46 PM EDT
--- OUTSIDE RECORDS SUMMARY | 2025-03-26 12:45 | XMS_ITS | Encounter Summary ---
Author Organization [facility] [facility] Address [id number] [address] [place] [address] Care Team Providers Care Cloth Finishing Range Operator Chief Name Role Phone No Pcp, No Pcp Primary Care Provider Unavailabl e Reason for Visit * Reason Comments Med Refill Encounter Details Date Type Department Care Team (Late st Contact Info) Description 05/23/2018 Refill [facility] Certified Nurse Hot End Operator - [address] [address] Leanne Argueta, PAPER [place] MACHINE OPERATOR[address] [address] Encounter for initial prescription of other contraceptives [...] contraceptives documented in this encounter Care Teams Cloth Finishing Range Operator Chief Relationship Specialty Start Date End Date No Pcp, [place] [address] PCP - General Family Medicine 11/18/17 documented as of this encounter
--- OUTSIDE RECORDS SUMMARY | 2025-03-26 12:45 | XMS_ITS | Clinical Summary ---
Author Organization [facility] Address [address] [place] [address] Care Team Providers Care Boiler Coverer Helper Name Role Phone Pepe Wolfe MD Primary Care Provider [phone] Allergies Active Allergy Reactions Criticality Noted Date [...] Insurance [employer]BS MEDICAID [place] Care Teams Boiler Coverer Helper Relationship Specialty Start Date End Date Pepe Wolfe MD PCP - General Family Medicine 02/07/23
--- OUTSIDE RECORDS SUMMARY | 2025-03-26 12:46 | XMS_ITS | Encounter Summary ---
Author Organization [facility] Address [address] [facility] [place] [address] Care Team Providers Care Axle Bearing Polisher Name Role Phone Pepe Wolfe MD Primary Care Provider [phone] Encounter Details Date Type Department Care Team (Late st Contact Info) Description 02/03/2023 Abstract [facility] [address] [place] [address] Dory Reyes PA [address] [place] [address] Social History Tobacco Use Types Packs/Day Years [...] on filedocumented in this encounter Care Teams Axle Bearing Polisher Relationship Specialty Start Date End Date Pepe Wolfe MD PCP - General Family Medicine 02/07/23 documented as of this encounter
--- OUTSIDE RECORDS SUMMARY | 2025-03-26 12:46 | XMS_ITS | Clinical Summary ---
Author Organization [employer] [facility] Address [id number] [address] [place] [address] Care Team Providers Care Cat Wagon Operator Name Role Phone No Pcp, No Pcp Primary Care Provider Unavailabl e Allergies No known active allergies Medications VENTOLIN HFA 90 mcg/actuation inhaler 06/02/20 16 Active PNV,calcium 92-xzqn-smmxi acid ( PLUS) 27 mg iron- 1 [...] Narrative COPATH - 12/05/2017 3:23 PM EDT [facility] [address] [place] [address] Gynecologic Cytology Consultation Patient Name: NARGIS RAINEY : 1995 (Age: 22) Gender: F Taken: 11/24/2017 Reported: 12/05/2017 Physician(s): Sisi Wyatt CNM ([phone]) Copy To: [facility]. Rec. #: [id number] Acct: # [id number] Final Cytologic Interpretation Vaginal/Cervical (with or without endocervical) ThinPrep: Satisfactory for evaluation. A transformation zone component was not noted. The lack of a transformation zone component in a patient is not unusual. NEGATIVE FOR INTRAEPITHELIAL LESION OR MALIGNANCY. pjt/12/05/2017 Interpretation performed at [facility], [address] [place] [address], License number: [id number]. Electronically Signed Out By ARLETTE Pereyra (ASCP) Date of Last Menstrual Period: 09/27/2017 Other Clinical Conditions: z34.81 Source of Specimen Vaginal/Cervical (with or without endocervical) ThinPrep Thin Prep Pap (MEDICAL OFFICE REPRESENTATIVE) Fee Code(s): G0145 The Pap test is a screening test with an inherent, but low, probability of error. The Pap test is primarily effective for the diagnosis and prevention of squamous cell carcinoma. Regular screening is critical for prevention. ThinPrep liquid-based slides, which meet the Back Tender Pulp Drier criteria for automated screening, have been screened by the ThinPrep Imaging System (as of 02/27/07) along with an additional manual rescreening by a insulation manager and, if indicated, by a pathologist.Sisi Wyatt CNM 12/01/2017 Sisi Wyatt APRN-MARGY PATHOLOGY/CYTOLOGY ORDER [place] Final Result COPATH from Last 3 Months or Most Recently Relevant to Health Maintenance Insurance [employer] MEDICAID Care Teams Cat Wagon Operator Relationship Specialty Start Date End Date No Pcp, [place] [address] PCP - General Family Medicine 11/18/17
--- OUTSIDE RECORDS SUMMARY | 2025-03-26 12:46 | XMS_ITS | Patient Health Record ---
Author Organization [facility] Address [address] [place] [address] Care Team Providers Care Wrapper Sheeter Name Role Phone Dr. Niko Posada Primary Care Provider David Chandler Unavailable [phone] Christa Cortes Unavailable [phone] Vanesa Watson Unavailable [phone] Reason For Referral No Information Medications Medication SIG (Take, Route, Fr equency, Duration) Notes Start Date End Date Status Ibuprofen 800 MG Tablet 1 tablet with fo od or milk as needed Orally Three times a day 11/13/2020 Active Ibuprofen 800 MG Tablet 1 tablet with fo od or milk as needed Orally Three times a day 05/01/2024 Active Ibuprofen 800 MG Tablet 1 tablet with fo od or milk as needed Orally Three times a day 05/04/2024 Active Ibuprofen 800 MG Tablet 1 tablet with fo od or milk as needed Orally Three times a day 06/22/2024 Active Ibuprofen 800 MG Tablet 1 tablet with fo od or milk as needed Orally Three times a day 07/04/2024 Active Encounters Encounter Location Date Provider Diagnosis [facility] [address] [place] [address] 07/04/2024 [facility] [address] [place] [address] 04/30/2024 [facility] [address] [place] [address] 05/02/2024 [facility] [address] [place] [address] 05/04/2024 [facility] [address] [place] [address] 05/04/2024 [address] [place] [address] 05/14/2024 [address] [place] [address] 06/22/2024 [address] [place] [address] 08/06/2024 [address] [place] [address] 09/04/2024 [address] [place] [address] 07/10/2024 Vanesa Watson Dental caries on pit and fissure surface penetrating into dentin K02.[address] [place] [address] 04/27/2024 [facility] Dental caries on pit and fissure surface penetrating into dentin K02.52 ; Encounter for dental examination and cleaning with abnormal findings Z01.21 and Other dental procedure status Z98.818 [address] [place] [address] 06/25/2024 [address] [place] [address] 11/08/2024 Vanesa Watson Assessments Encounter Date Diagnosis (ICD Code) Assessment Notes Treatment Notes Treatment Clinical Notes Section Notes 04/27/2024 Dental caries on pit and fissure surface penetrating into dentin (ICD-10 - K02.52) 07/10/2024 Dental caries on pit and fissure surface penetrating into dentin (ICD-10 - K02.52) 04/27/2024 Encounter for dental examination and cleaning with abnormal findings (ICD-10 - Z01.21) 04/27/2024 Other dental procedure status (ICD-10 - Z98.818) Plan Of Treatment Next Appt Details Provider Name:Christa Cortes , 05/13/2025 03:00:00 PM, [address], [place], [address], Provider Name:Vanesa Watson, 06/10/2025 08:00:00 AM, [address], [place], [address], Insurance Providers Payer Name Payer Address Payer Phone Subscriber Number Group Number Insured Name Patient Relationship to Insured Coverage Start Date Coverage End Date zPARAMOUN T ADVANTAGE -termed 22 [address] [place] [address] [id number] NARGIS RAINEY Self - patient is the insured 1 3 [employer] [place] Medicaid [address] [place] [address] [id number] NARGIS RAINEY Self - patient is the insured 3 Wrap [employer]FC [employer] BCBS [address] [place] [address] [id number] NARGIS RAINEY Self - patient is the insured 3 zDENTAL DQ PARAMOUNT -termed 22 [address] [facility] [place] [address] [id number] 99 NARGIS RAINEY Self - patient is the insured 1 3 zDental MEDICAID CFC after PARAMOUNT -termed 22 [address] [place] [address] [phone] [id number] NARGIS RAINEY Self - patient is the insured 1 3 Dental [employer] DQ Terminate d 24 [address] [place] [address] [id number] NARGIS RAINEY Self - patient is the insured 3 Dental Wrap [employer] BCBS Termed 4 [address] [place] [address] [id number] NARGIS RAINEY Self - patient is the insured 3 DENTAL LIBERTY [employer] [address] [address] [place] [address] [id number] ANOHCAIDAD 19 NARGIS RAINEY Self - patient is the insured 5 Dental [employer] [place] Medicaid [address] [address] [place] [address] [id number] NARGIS RAINEY Self - patient is the insured 5 Dental [employer] wrap [facility] [address] [place] [address] [id number] NARGIS RAINEY Self - patient is the insured 5
--- OUTSIDE RECORDS SUMMARY | 2025-03-26 12:46 | XMS_ITS | Clinical Summary ---
Author Organization [facility] Address [address] [facility] [place] [address] Care Team Providers Care Appeals And Generalist Clerk Name Role Phone Pepe Wolfe MD Primary Care Provider [phone] Allergies No known active allergies Medications nitrofurantoin, [...] age to complete this topic Care Teams Appeals And Generalist Clerk Relationship Specialty Start Date End Date Pepe Wolfe MD PCP - General Family Medicine 01/28/21
--- OUTSIDE RECORDS SUMMARY | 2025-03-26 12:46 | XMS_ITS | Patient Health Record ---
Author Organization [facility] in [place] Address [address] [place] [address] Care Team Providers Care Signal Person Name Role Phone RickGuevara william Primary Care Provider [phone] Elizabeth Knight [phone] Allergies No Known Allergies Results Component Value Reference Range Notes UA RANDOM W or MICROSCOPIC Reviewed date:04/24/2024 06:37:30 PM Interpretation: Performing Lab: Notes/Report: [facility] , Color Urine LT. YELLOW YELLOW Clarity Urine CLEAR CLEAR Specific Franklin Urine 1.015 1.005-1.025 pH Urine 7.5 5.0-9.0 [...] Culture Indicated NO Performing Lab: see note ML - [facility] LB HCG Qualitative Urine Reviewed date:04/24/2024 06:37:30 PM Interpretation: Performing Lab: Notes/Report: [facility] , HCG Qualitative Urine* NEGATIVE NEGATIVE Performing Lab: see note ML - [facility] LB CBC AUTO DIFF Reviewed date:03/10/2025 09:07:52 PM Interpretation: Performing Lab: Notes/Report: [facility] , White Blood Count 8.6 4.0-11.0 10 3/uL Red Blood Count 4.11 4.20-5.40 10 6/uL Hemoglobin 13.3 12.0-16.0 g/dL Hematocrit 39.0 36.0-48.0 % Mean Corpuscular Volume 94.9 81.0-99.0 fL Mean Corpuscular Hemoglobin 32.4 26.7-34.0 pg Mean Corpuscular HGB Conc 34.1 29.9-35.2 g/dL Red Cell Distribution Width 12.7 11.0-15.0 % Platelet Count 300 150-450 10 3/uL Mean Platelet Volume 10.1 9.5-13.5 fL Neutrophils Percent Auto 60.0 43.0-75.0 % Lymphocytes Percent Auto 32.8 20.5-60.0 % Monocytes Percent Auto 4.9 1.7-12.0 % Eosinophils Percent Auto 1.5 0.9-7.0 % Basophils Percent Auto 0.6 0.2-2.0 % Immature Granulocytes Pct Auto 0.2 0.0-0.5 % Neutrophils Absolute Auto 5.1 1.4-6.5 10 3/uL Lymphocytes Absolute Auto 2.8 1.2-3.8 10 3/uL Monocytes Absolute Auto 0.4 0.3-0.8 10 3/uL Eosinophils Absolute Auto 0.1 0.0-0.7 10 3/uL Basophils Absolute Auto 0.1 0.0-0.1 10 3/uL Immature Granulocytes Abs Auto 0.02 0.00-0.03 10 3/uL Performing Lab: see note ML - [facility] LB PROF CHEM 8 (BAS METB) Reviewed date:03/10/2025 09:07:52 PM Interpretation: Performing Lab: Notes/Report: [facility] , Sodium 140 136-145 mmol/L Potassium 4.1 3.5-5.1 mmol/L Chloride 103 98-107 mmol/L Carbon Dioxide 28.1 21.0-32.0 mmol/L Anion Gap 13.0 Glucose 102 74-106 mg/dL Blood Urea Nitrogen 10.0 7.0-18.0 mg/dL Creatinine 0.63 0.55-1.02 mg/dL Estimated GFR ( Sarah >60 >=60 mL/mi n/1.73m 2 Estimated GFR (Non- Jessica >60 >=60 mL/mi n/1.73m 2 BUN Creatinine Ratio 15.9 Calcium 8.7 8.5-10.1 mg/dL Performing Lab: see note - [facility] LB TSH W/ REFLEX FT4 Reviewed date:03/10/2025 09:07:52 PM Interpretation: Performing Lab: Notes/Report: [facility] , TSH W/ REFLEX FT4 0.887 0.358-3.740 uIU/mL Performing Lab: see note - [facility] LB ECG 12 lead Reviewed date:03/11/2025 06:53:09 PM Interpretation: Performing Lab: Notes/Report: Source Facility: [facility]-[address] [place] [address] Electrocardiograph Report Signed Patient: NARGIS RAINEY MR#: [id number] : 1995 Acct:[id number] Age/Sex: 29 / F ADM Date: 03/10/25 Loc: ER Attending Dr: Ordering Physician: Janice Smith M.D. 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 Date of Service: 03/10/25 Procedure(s): XR chest 1V Accession Number(s): [id number] cc: Pepe Wolfe M.D.; Janice Smith M.D. [place] [address] Patient Name: NARGIS RAINEY MRN: [id number] date: 1995 Sex: F Assigned Patient Location: ED.MAIN Current Patient Location: Accession/Order Number: [id number] Exam Date: 03/10/2025 11:52 Report Date: 03/10/2025 12:33 At the request of: JANICE SMITH MD Procedure: XR chest 1V XR chest 1V 03/10/2025 12:07 PM SIGNS AND SYMPTOMS: Elevated blood pressure, palpitations Y PROTOCOL: Frontal radiograph of the chest COMPARISON: 10/31/2020 FINDINGS: The trachea is midline. The heart and mediastinal structures are within normal limits. The lung parenchyma is clear. The bony thorax is intact. XR/XR chest 1V IMPRESSION: No acute cardiopulmonary pathology. Impression dictated by: Jules Thayer M.D. 03/10/2025 12:33 PM Dictation Location: [place] [address] Electronically authenticated by: [id number] Y Date: 03/10/2025 12:33 Dictated By: Jules Thayer M.D. 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: Reason For Referral No Information Medications Medication SIG (Take, Route, Frequency, Duration) Notes Start Date End Date Status Ventolin HFA 108 (90 Base) MCG/ACT 2 puff Inhalation every 4 hrs PRN PRN Active ZyrTEC Allergy 10 MG 1 tablet Orally Once a day Active Dulera 100-5 MCG/ACT 2 puffs Inhalation twice daily; Duration: 30 days Active Social History Tobacco Use: Social History [...] W/U Status Risk Notes Problem Pityriasis rosea (16643041) Pityriasis rosea (L42) Active confirmed Problem Palpitations (09986825) Palpitations (R00.2) Active confirmed Problem Recurrent urinary tract infection (630944960) Recurrent UTI (N39.0) Active confirmed Problem Hypertension (83270883) Hypertension (I10) Active confirmed Problem Asthma (765504472) Asthma (J45.909) Active confirmed Problem Eczema (77375347) Eczema (L30.9) Active confirmed Problem Migraine (00924447) Migraine (G43.909) Active confirmed Problem Acute sinusitis (34405000) Acute sinusitis (J01.90) Active confirmed Problem Seasonal allergic rhinitis (122850109) Seasonal allergic rhinitis (J30.2) Active confirmed Vital Signs Temperature 97.8 degrees Fahrenheit 02/06/2025 Blood pressure diastolic 82 mm Hg 03/15/2025 Height 65 in 03/15/2025 Blood pressure systolic 132 mm Hg 03/15/2025 Weight 207.2 lbs 03/15/2025 BMI 34.48 kg/m2 03/15/2025 Procedures Procedure Date Ordered Date Performed Result Body Sit e Holter Monitor - 3 days up to 14 days 03/15/2025 N/A Encounters Encounter Location Date Provider Diagnosis [facility] [address] [place] [address] 11/12/2024 Guevara Hoy Acute non-recurrent sinusitis, unspecified location J01.[address] R09.81 [facility] [address] [place] [address] 02/06/2025 Guevara Wolfe Acute non-recurrent sinusitis, unspecified location J01.90 ; Nasal congestion R09.[address] [facility] [address] [place] [address] 02/27/2025 Gue[address] Wolfe [address] [facility] [address] [place] [facility] [place] [place] [address] 03/15/2025 Guevara Cabreray Pal[address] R00.2 [facility] [address] [place] [facility] [place] [place] [address] 05/02/[address] [facility] [address] [place] [place] [address] 07/11/[address] [facility] [address] [place] [place] [address] 10/12/[address] [facility] [address] [place] [facility] [place] [place] [address] 03/10/2025 Guevara Wolfe Assessments Encounter Date Diagnosis (ICD Code) Assessment Notes Treatment Notes Treatment Clinical Notes Section Notes 11/12/2024 Acute non-recurrent sinusitis, unspecified location (ICD-10 - J01.90) Rest and drink more liquids, especially water. You may use a humidifier or vaporizer to help keep the drainage moist. Zmuv-dwp-fxfyfuh Nasal Saline may help the stuffy and runny nose. Use Ibuprofen and or Tylenol as needed for fever, chills, body aches or pain. Children 5 years old should not be given qttv-pdg-wyqzksc cough and cold medications such as guaifenesin and dextromethorphan. If you're over age 5, you may try aioq-etu-ixisjpv cold medications such as guaifenesin and dextromethorphan, [...] vaporizer to help keep the drainage moist. Ugtq-kfo-emzwwda Nasal Saline may help the stuffy and runny nose. Use Ibuprofen and or Tylenol as needed for fever, chills, body aches or pain. Children 5 years old should not be given jgnt-gcy-fpruoor cough and cold medications such as guaifenesin and dextromethorphan. If you're over age 5, you may try ccpr-cft-huucagn cold medications such as guaifenesin and dextromethorphan, [...] 3-5 days 02/27/2025 Hypertension (ICD-10 - I10) 03/15/2025 Palpitations (ICD-10 - R00.2) 02/06/2025 Nasal congestion (ICD-10 - R09.81) 02/06/2025 Hypertension (ICD-10 - I10) 11/12/2024 Nasal congestion (ICD-10 - R09.81) Plan Of Treatment Pending Test Test Name Order Date Holter Monitor - 3 days up to 14 days Insurance Providers Payer Name Payer Address Payer Phone Subscriber Number Group Number Insured Name Patient Relationship to Insured Coverage Start Date Coverage End Date [employer] [place] [employer] [address] [address] [place] [address] [id number] Nargis Rainey Self - patient is the insured Medical (General) History Medical History History ICD Code Asthma J45.909 Back pain, thoracic M54.6 COVID-19 U07.1 Eczema L30.9 Migraine G43.909 Palpitations R00.2 Pityriasis rosea L42 Seasonal allergic rhinitis J30.2 Surgical History Surgery Date(Month/Year) Breast Reduction 09/2021
--- OUTSIDE RECORDS SUMMARY | 2025-03-26 12:46 | XMS_ITS | Encounter Summary ---
Author Organization [facility] Address [address] [place] [address] Care Team Providers Care Statement Clerk Name Role Phone Pepe Wolfe MD Primary Care Provider [phone] Encounter Details Date Type Department Care Team (Late st Contact Info) Description 11/01/2022 Abstract [facility] [address] [id number] Tobin Beltran DO [address] [place] [address] Social History Tobacco Use Types Packs/Day Years [...] on filedocumented in this encounter Care Teams Statement Clerk Relationship Specialty Start Date End Date Pepe Wolfe MD PCP - General Family Medicine 02/07/23 documented as of this encounter
--- OUTSIDE RECORDS SUMMARY | 2025-03-26 12:48 | XMS_ITS | CCD ---
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 Name Role Phone Elissa Wolfe MD Primary Care Provider [phone] Gt Maribel Unavailable Ann Drake Unavailable NON STAFF Primary Care Provider UnavailGABRIELA Gutierrez Attending Provider Elizabeth Millan Unavailable DR ELISSA CHRISTIAN Primary Care Unavailable JANICE SMITH Attending Unavailable JANICE SMITH Admitting Unavailable [place], DR YUE Noble Consulting Unavailable JANICE SMITH Consulting Unavailable GABRIEL ., DR BOWERS Primary Care Unavailable HOY ., DR BOWERS Admitting Unavailable HOY ., DR BOWERS Attending Unavailable HOY ., DR BOWERS Consulting Unavailable HOY ., DR BOWERS Primary Care Unavailable MISC, [...] GABRIEL Corado, DR BOWERS Primary Care Unavailable Jania Prince Unavailable Jeni Horta Unavailable ELISSA WOLFE Primary Care Unavailable JILLIAN PLATA Admitting Unavailable JILLIAN PLATA Attending Unavailable Dhaval Watson Attending Unavailable ELISSA WOLFE Primary Care Unavailable Dhaval Watson Admitting Unavailable ZOE ANDERSON Attending Unavailable ZOE ANDERSON Attending Unavailable Elissa Wolfe MD Primary Care Provider [phone] Mari Sanchez APRN Attending Provider [phone] Mari Sanchez Attending Unavailable Mari Sanchez Admitting Unavailable Elissa Wolfe Primary Care Unavailable Allergies Allergy Classification Reported Allergen(s) Allergy Type Date of Onset Reaction(s) Facility (3 sources) Shellfish Drug allergy Unknown NurseGrid Other (5 sources) Shellfish; Translations: [shellfish derived] Allergy to substance Cramping of the [facility] Comment on above: Throat swelling (1 source) No Known Medication Allergies; Translations: [No Known Medication Allergies] Propensity to adverse reactions to drug (disorder) [facility] Repository Medications Current Medications Medication Drug Class(es) Dates Sig (Normalized) Sig (Original) Acetaminophen (10 sources) Acetaminophen (TYLENOL PO) Take by mouth as needed. 0 Active [id number] actuat albuterol 0.09 mg/actuat metered dose inhaler (17 sources) beta2-Adrenergic Agonist Start: 01-18-2025 take 1 puff(s) by inhalation every four hours as needed Start: 09-20-2021 take 2 puff(s) by in halation every four hours as needed Albuterol Sulfate HFA 108 (90 Base) MCG/ACT 2 puffs as needed Inhalation every 4 hrs Sep, Active take 1 puff(s) by in halation every four hours as needed Ventolin HFA 108 (90 Base) MCG/ACT 1 puff as needed Inhalation every 4 hrs Active take 2 puff(s) by in halation every four hours as needed albuterol 108 (90 Base) MCG/ACT Aero Soln [...] Active cetirizine hydrochloride 10 mg oral capsule (13 sources) Histamine-1 Receptor Antagonist Start: 05-12-2024 take 1 capsule by mouth once daily as needed take 1 capsule by mouth once olman ly Cetirizine HCl 10 MG capsule Take 10 mg by mouth daily. 0 Active dexamethasone 6 mg oral tablet (1 source) Corticosteroid Start: 09-20-2021 take 1 tablet by mouth every twenty-four hours Dexamethasone 6 MG 1 tablet Orally Once a day for 5 day(s) Sep, Active fluticasone propionate 0.05 mg/actuat metered dose [...] October, Not-Taking ibuprofen 800 mg oral tablet (7 sources) Nonsteroidal Anti-inflammatory Drug Start: 05-12-2024 End: 01-18-2025 take 1 tablet by mouth every eight hours as needed Start: 12-09-2021 End: 12-14-2021 take 1 tablet by mouth three times daily as needed for pain ibuprofen 600 MG tablet Take 1 tablet by mouth 3 times daily as needed for Mild Pain (Take with food.) for up to 5 days. 15 tablet 0 12/09/2021 Active levonorgestrel 0.007846 mg/hr intrauterine system (10 sources) Progestin, Progestin-containing [...] a day for 6 days Jan, Active naproxen 500 mg oral tablet (2 sources) Nonsteroidal Anti-inflammatory Drug Start: 01-18-2025 take 1 tablet by mouth twice daily as needed for pain nitrofurantoin, macrocrystals 25 mg / nitrofurantoin, monohydrate [...] Orally bid for 5 day(s) Jun, Active triamcinolone acetonide 1 mg/ml topical cream (15 sources) Corticosteroid Start: 01-18-2025 Start: 10-23-2020 KENALOG - 10 m g October, 10 mg Completed/Discontinued Medications Medication Drug Class(es) Dates Sig [...] premix IVPB cephalexin 500 mg oral tablet (5 sources) Cephalosporin Antibacterial Start: 08-07-2023 End: 05-12-2024 take 1 tablet by mouth every twelve hours Cephalexin 500 mg tablet Discontinued 500 MG PO Every 12 hours August 07, 2023 1:00am May 12, 2024 12:24pm Start: 09-15-2021 End: 09-22-2021 take 1 capsule by mouth twice daily cephALEXin 500 MG capsule Take 1 capsule by mouth 2 times daily for 7 days. 14 capsule 0 09/15/2021 09/22/2021 Active cyclobenzaprine hydrochloride 10 mg oral tablet (6 sources) Muscle Relaxant Start: 05-12-2024 End: 01-18-2025 take 1 tablet by mouth three times daily as needed for muscle spasms Cyclobenzaprine 10 mg tablet Discontinued 10 MG PO Three times daily as needed for muscle spasm 15 5 May 12, 2024 1:00am January 18, 2025 9:56am Start: 02-07-2022 take 1 tablet by errol [...] 5 days. 8 tablet 0 12/09/2021 Active EPINEPHrine 1 mg/ml injectable solution (1 source) alpha-Adrenergic Agonist, beta-Adrenergic Agonist, Catecholamine Start: 09-24-2021 End: 09-24-2021 EPINEPHrine (ADRENALIN) 30 MG/30ML injection fluconazole 150 mg oral tablet (8 sources) Azole Antifungal Start: 07-11-2024 End: 01-18-2025 take 1 tablet by mouth once Fluconazole 150 mg tablet Discontinued 150 MG PO Once July 11, 2024 1:00am January 18, 2025 9:56am Start: 08-07-2023 End: 05-12-2024 Fluconazole 150 mg tablet Di scontinued 0 PO Once 2 August 07, 2023 1:00am May 12, 2024 12:24pm orally once; Take 1 tablet by mouth, repeat dose in 72 hours if needed Start: 05-19-2022 Diflucan 150 M G 1 tablet Orally once for 2 days Take 1 tablet p.o. today, take the second tablet in 3 days. May, Active 60 actuat formoterol fumarate 0.005 mg/actuat / [...] (1 source) Oxidation-Reduction Agent Start: 09-24-2021 End: 04-14-2022 methylene blue (PROVAYBLUE) injection promethazine (PHENERGAN) 12.5 mg in sodium chloride 0.9%, with overfill 60.5 mL (total volume) IVPB (1 source) Start: 09-24-2021 End: 09-24-2021 take 12.5 mg intravenously every six hours as needed promethazine (PHENERGAN) 12.5 mg in sodium chloride 0.9%, with overfill 60.5 mL (total volume) IVPB Toradol 30 mg/ml (11 sources) Start: 02-07-2022 Toradol 30 mg/ml Jan, 30 mg Problems Active Problems Problem Classification Problem Date Documented Da te Episodic/Chronic Anxiety disorders (3 sources) Anxiety; Translations: [Anxiety disorder, unspecified] 05-12-2024 Chronic [...] 09-28-2022 Episodic Genitourinary symptoms and ill-defined conditions (12 sources) Dysuria; Translations: [Dysuria] Episodic Immunizations and screening for infectious disease [...] IN RIGHT FINGERS] Onset: 09-27-2022 Episodic Other connective tissue disease (2 sources) Pain in left foot; Translations: [Pain in left foot] 01-18-2025 Episodic Other ear and sense organ disorders (1 source) Impacted cerumen, left ear Episodic Other injuries and conditions due to external causes (3 sources) Muscle strain; Translations: [Other injury of unspecified [...] [Nasal congestion] Episodic Other upper respiratory infections (13 sources) Acute pharyngitis, unspecified; Translations: [Acute upper respiratory infection, unspecified] Episodic Residual codes; unclassified (4 sources) Procedure and treatment not carried out due to patient leaving prior to being seen by health care provider; Translations: [PROC AND TX NOT CARRIED OUT PT LEAVE] Onset: 08-20-2022 Episodic Sprains and strains (4 sources) Strain of back muscle; Translations: [Strain [...] 05-24-2022 Episodic Other aftercare (1 source) Other assisted (current) drug therapy; Translations: [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 [place] [address] XRay Report Signed Patient: Taylor Rainey MR#: [id number] : 1995 Acct:[id number] Age/Sex: 29 / F ADM Date: 5 Loc: XDUCLY Room: Type: [facility] Attending Dr: Mari Sanchez APRN Copies to: Mari Sanchez APRN~ Ordering Provider: Mari Sanchez APRN Date of Service: 01/18/25 XR/XR foot LT min 3V*: LEFT FOOT PAIN LEFT FOOT - 3 views CLINICAL HISTORY: Twisted left foot 2 days ago now with pain third through fifthmetatarsals. COMPARISON: None FINDINGS: No focal soft tissue abnormality or acute bony process. Joint spaces appear maintained. No bony erosions. XR/XR foot LT min 3V* IMPRESSION: NO ACUTE BONY PROCESS. Impression dictated by: Niko Aj Jr., D.O. 01/18/2025 10:45 AM Dictation Location: RADIO-PC-23 Transcribed By: [facility] 01/18/25 1045 Dictated By: Niko Aj Jr, DO 01/18/25 1043 Signed By: 01/18/25 1045 [facility] XR foot LT min 3V*on 025 XR foot LT min 3V* 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 Impression dictated by: Niko Aj Jr., D.O. 01/18/2025 10:45 AM Dictation Location: RADIO--23 Transcribed By: [facility] 01/18/25 1045 Dictated By: Niko Aj Jr, DO 01/18/25 104 Signed By: 01/18/25 104 Normal [facility] Influenza virus A and B and SARS-CoV-2 (COVID-19) RNA panel - Respiratory system specon 05-12-2024 Influenza virus A and B RNA and SARS-CoV-2 (COVID-19) N gene panel ANN+probe (Resp) Influenza virus A and B and SARS-CoV-2 (COVID-19) RNA panel - Respiratory system spec [facility] - Microbiology an d Antimicrobial susceptibilityon 05-12-2024 SARS-CoV-2 (COVID-19) RNA ANN+probe Ql (Unsp spec) Negative [facility] No Panel Informationon 05-12 POC Influenza B (ANN) Negative [facility] Coding Summaryon 08-10-2023 Coding Summary HTMLBase 64 PcsnriryCVa0yNg+PGhlY WQ+GK2ATHLmR68mwWYbfG 2hU3EYOUkXZgucYMIGCCh NVhVgirUnUX5qjGNuOESx IC8+YM5cXROhNxxgdTMeu 0L6iYN5L13vzp5pLVpksU R3KHIaUbYqsfdcn6nbqRh 6IDcuNmluOyBt BXTgdB07HKJ6aL39Vs97m CKjqZDnz4ikfIv1ZyMuLZ YwQIR0jUhtVAwbb5DzRWQ lY59ghBTbp2H8 UYMjhUjpjROqHbTsgKY3a Q3jCCggtvotl5bbzrmjSp y2je80tTFwi5P8yBD5N8Y ckyO5RYBdyNCw XfzoyXZJtG8fptxwd9nlr sisTxAnUPVcJFf2FFn7XS PkxIgqVcLmSB09SJB8OXF dntLqC6YwSUBz kJfvWsL5k3S7Xj5JY0EIY rafU0CFXTHOIIzwjRU+PC 57hn77B9ZfWhffDmj8UEU lSHR9rDY9iK8k WFOpMTedz8W8zDE2V6Pfn mBmfb1wh2fhFODjVEcqH4 4xePHho6T6QGWxuYO2CRG xiXatReXkyE99 Oyc+QMOgcFqtw6TwUoeqp 4dhe2fvhAf1NgrvMDGgej LqkAjrCUH6x4SeCp9pKNL quQE6eIL9xJ9v KdQnHdQ0BYiuR456BrGdn KUaUxtmF84bS6JbkBJ+PH LxFpt4HSGqzYsvFY2tE7W hZGRpbmctbGVm zBqzWA4dCSUxoflaTNNcy J2eTBVtF6b6QfVjJjS9UI cvZ9VuMTUfhgafRu07uD1 rUeGzYvI6AQrr Y2UrrmF9KIGfiKZuMZfgK PF6F69kf2S4LYRuROBvPB F0oRH1zO4zvPqfsirviAR mdDsgdmVydGlj TPmdZHdhR732LOZwhJsjD kNvZGluZyBEYXRlOiAgMD IvMjgvMjAyNDwvdGQ+PHR hQAS1lFobOMCl vWQsAGysRs3zeKszpOrcD X1mJNVeobpaODFuoN7eTL XpoLAisZpnUH5rPRPwcmq qf482XhXhYUX7 RCCqoDJbR2WyiL6lSjRrP SIhUXApR3AxxQTqKWbvT8 10WBniEvD0YSPxpgIdB2W sLWFsaWduOiB0 p1G9Ag5Fj9GkmzqiJ3Kwu RQjDwCjRtdbNZw8O1QkFf wvdHI+NA85LMWjNU26TPd 4XPN1dVwsDIgt ACJsA1VmcR5dNuWbUWBgL GRkOyc+PHRhYmxlIHdpZH RoPScxMDAlJyBzdHlsZT0 nKz0jVCPzANPe gWhfyVVwQuCju1adMGIbS FxwYJ3roLuwQ7FvxXR1ZS Oqk4g4Xf08H91zV8DiwVF +FLLxpCI3oUW8 qN2pBtTeViX5MDvtL734T mGrzSUeRsddt4rga4pvhF o1ReR7MBAaytDskLtuZUW 4k7NkHa99F61t IHdpZHRoPSIxNSUiIHZhb Prkrf8fgU1iEp4+PGNvbC J8sNA2cY1xRdPqYaQ9TLf tV122ZuLqkRQe Bgpqe4ado4hxnOg7HnFnU QMxzuMwbHzoAWR0z1UuXy 04B7CnySzwb1KfCui0ja6 8rJPao9M6vDF4 F7CqBNSlsmrywLIsjGsfS C7lJAIbsxiyWELjzT8vWH GmU6j2MfUgFqH6RBhfB5H vzqV9FDAjuUUb QJAyvXQLiP7xsxirh6afh ervKoTeKZEvEMq5IWw5HL JbzOedBsEmVRP3XwW3OIF 9kLKutI9hnRfu zgwcfI9xHsw+YCV4eQCcl DBDKQ0yGbwgmEM+PHRkIH S4uPvcZFvcJWDvsN1oOMN nW9x6YbSjZgK6 VLqvC0WyyoP8DXMgmZBeI JWjtLPAvV5eysoio9oxga ihNsYdUBRuAJn6CIb2ZWT saWduOiBsZWZ0 DhM1PID1eSFsvL5tkShge wibpL7yVax+QmlydGggRG Y0WUh0W9FwTwp4COTaoLf dTX9bfIRlIEsp Rp3auNutqRqlFT1xRUJzn esdx863AdYme4ybKGCpuE McLWpaWTB9N49tp7G8ZQD mSKQrGGB4sOA5 fD3sqHtspkgdkZWlpNrev tPjwFdkTNwxVPfmG726HF KdvRzlBmVdYNb2D4NkEsg 7YADtrAwkFS4j aLInCMlcNn7teSpayXzzF Y5dJFLywbbgk758NbGso5 loOASyvDMqBWfpSPK9V38 as6A1VXOnEHXd GXZ2wXI8fM1siLqjcsiqt GVmdDsgdmVydGljYWwtYW pvN231BULvwZfpZeVgbBi 1Q2ZeMhx2PLXa lXweFE9llAEcLNlnFy8jv YdtjOnpZY8gWYLjfgsdd4 71DhXdf0laQVMzfQMnWOi mHAP5C51or0U3 EZGqEFEmVPM9dXP3oJ1ff GlnbjogbGVmdDsgdmVydG jvPZcrBHklY266MULzuCi nPlBhdGllbnQg KUhhDVq6J9BmQmzikBH+P I52OAAhDU90iDYbuXPkb4 fyeQt7AcHyFQYhMTW0dGv wMOrai9EwRRBb W62siBYzp9Y4EDXxxDiyb QMfRuTitVG9vZ3oLXxxkz ijo6fxhejwTixmu3zmnc9 9gV99C37pVRru ZHRoPSIzMCUiIHZhbGlnb c3wvS3vYd5+SFNojQW3sG P7kV6mODQtCfU6FSqcI43 9InRvcCIvPjxj o3klz3bycUh5QqI5NZHqd rXjtYmkUCU8t2BkHa79A7 9sIHdpZHRoPSIyMCUiIHZ nfRdtam2jiR9y Ii8+KSDvsXW8eZC8lK3jF sSvVlU9GAciJ212ByObkR VaDumnE82jT1ObaCC+PHR iVhz0SHMctOut HJ5esOKjEIscOk2zOQI7B jLnKnOzMPxmK5ZlSPBhzd dolhrqiOL0ZGPrZMTehC4 2Lo8vkAxcHAZk mBMDiW0holdes6xojsodR uMeBDVdXUc1KPd7FTUvpK clXqEdKCE3DxV4QWM6lJX ysK1hpTdkurhb iE7eQ4KmVFWgemizHx93k B8oCmKnFcD2DHnmRwc+Uk 5MUDuxKgKTR8bFYHBXD9W ES6P7X5KcDxz7 YDIgsLbvQF1vqAWfRYcqR b7fdFafeOfkUU8lTTLgiz gpWERuuH8pXDGceAPneAa qXC8bNRQjegxg v478KrXgJAX1YRHpbIOwD 9YacG3yTzAvVVUjFBDrY1 TviHEeJOdrV410GRbfBvK 1ULFuznSbL3Oo AVFtpWoiJkQ4p5N6At6uY d6dMa6aOYz4KL91HI78wC Tkm4B2oUI8Q3IxPXJsffg neyqhxJV2XQLo YCAqrY01nIIhBWbnQm6dx 0O4n096OVVrNLPibP51Jk 8igFrwMDIyyUEIoA9aake hq9fafpwzRmQc ICUtKZg1ZAs7IYKzuTsdK fHcJOJ7XjY4UBX4dCNmwC 7bwPjurfhndD3gRnr+Mjg oZTTbjhV6K5Gl Jqz3DEEmgJilVQ0brXSaJ OvaXk5eoKffwSvsYM2lHB EsjkblQVNliK1yKHPmxUE xmQccBY6dNEOq aczox670NzDuFQG7JBQhc TZvQ4FvaM3rCgUzJVTcBI FeM6FteIRrWSeoY106WAs aEmS8XUOsnnUa N8UpYLPkpFboVsP3u5S4H b8DNQ5IFTK4M0YyAge4TQ AopZuhTU5asDHuPIdhPd2 epTdrbXqwID9o RAYwpplyBKBczI1hOZMga BKynZzaPU5fQYAplnlaf2 64AiEoEWM4CVRtvPWzL9H ncY4hSdJqVPFk TKMhX1PvrQTpQOmwX095Y SbsDbK9GCCiisFgA9XcYZ VlaXpzRiT5t9C1Bx2QcQR nC0ReN8b0J6Fl PjwvdHI+RN08UTQtDW53m RDgpMCml4uoqDb1ToSvEB JcLBT7vRxcPGknk7AxDGR bL73nmCEcw6Y5 OGMafZfvyUEmBuZkiXL6r T2nGZlotggty6ddrkitYc ehp3gycm09oK77F03sBYt pZHRoPSIzMCUi SNImmToyki4wiO0hBt2+P WHcdYI9qUL0dC3jQiTtKj A6QPscP632VnZzhWHjMxl qq5xhh0wicWw3 OhEiKAMfnwGrkQaaWBY4o 6IwWo91N79zUOupYKRsOH MiSXDkSMAvyIyyqe7ixZ4 wIi8+ZD3we0yf jt80tN42gIH+DVLzIBW4e XffZTkpWPRsrS1lWWpiZa B7BLQgMqNbnD24kTQpYDm lTb7zcVivnZdo FT5nORKenywwg613JzLml 2djMJRmbWWaZTisDHO6O9 4el6Q2KOMkANOlMYK9sPE 0rC7gkIrljnlg bGVmdDsgdmVydGljYWwtY BzzK778SOAmqIooOdUyhR RgR2gjqrXUPS0uInnhzGU +FUIuEQD9gTgm ZRtiRIHzdY7bIZPsK1l1W sCqSfV1NFkqB9FqqdL5CZ PceXQbINChbKUOjF4lmri ya0cmowtcBjZr QLOvAJm9TRd7ODXpvQziM wSbWIM9AhB6WLC7gUFqaO 0chXgvjlitbC1mBby+Rkl OOjwvdGQ+PHRk BQL6jVvwZWmgCIVwrA3jV EMxA2v0CpTjOtL2OLyqR7 UoplM8VSHpzGTpFGGdoUT IdU5wshajb5zl zhsvEkFbVAQnWNw1OXe5V LHxoKwbHjJrKKJ2EuZ8UK X0wGTruJ7qnDcqgkwirI8 wOyc+TVJOOjwv dGQ+MQKfDHK7qQcfDFhvS ORyeJ7iOWMgB5s0HxKiEh L2WKqqO1XrmuL0KUToiQQ zYCZisUCFqU2q olzjy6sipfjbOfLrCMVtZ Vj0LDl5CVKifOnnEtNcAJ G6LpH6ICY5sODeoA4xrXo wbrearU6mTzt+ PYB0LRR8OC66UY67Y4CzE jwvdGFibGU+PHRhYmxlIH dpZHRoPScxMDAlJyBzdHl nDM5gSj9fYFNr LWN (more content not included)... Normal [facility] Chlamydia/GC Amplification L Con 08-09-2023 Chlamydia trachomatis, ANN LC Negative Invalid Interpretation Code Negative [facility] Comment on above: Performed By: #### 1 [id number] ####[facility] (DEFAULT)[address] [place] [address] Neisseria gonorrhoeae, ANN LC Negative Invalid Interpretation Code Negative [facility] Comment on above: Result Comment: Perf ormed At: = Lab[address] [id number] Ashley Solares MD Ph:[phone] Performed By: #### 1 [id number] ####[facility] (DEFAULT)[address] [place] [id number] C Urineon 08-08-2023 C Urine Urine Culture ordere d as a result of parameters set on specific urine dip and urine microsopic results. <10,000 cfu/ml [facility] Comment on above: Performed By: #### 3 [id number] ####[facility] (DEFAULT)[address] [place] [id number] ED Clinical Summaryon 2023 ED Clinical Summary [facility] - Emergency Department [address] [place] [id number] ED Clinical Summary PERSON INFORMATION Name: TAYLOR RAINEY Age: 28 Years Sex: FEMALE : 1995 MRN: Acct#: Visit Reason: Genitourinary problem; PELVIC PRESSURE Arrival: 08/05/2023 01:52:53 Discharge: 08/05/2023 02:52:00 LOS: 000 01:00 Check In: 08/05/2023 01:52:53 Checkout:08/05/2023 02:52:00 Address: [facility] [place] [id number] PCP: ELISSA WOLFE PROVIDER INFORMATION Provider Role Assigned Unassigned Dhaval Watson DO ED Provider 08/05/2023 01:55:14 Delilah Hunt FOOD AND BEVERAGE OPERATIONS MANAGER Nurse 08/05/2023 01:55:30 VITALS INFORMATION Vital Sign [...] EDUCATION INFORMATION Instructions: Urinary Tract Infection, Adult, [id number] Follow-Up: With: Address: When: ELISSA WOLFE [address] [facility] [place] [id number] [facility] (1) In 2 days 08/07/2023 Comments: home continue the medications call here in 48 hours, to check the results of the STD testing, which is done on the urine your test was negative. You are welcomed to return anytime. T H JOSEPH< ER PHYSICIAN< Savannah Mcdonald DIAGNOSIS: Urinary tract infection symptoms Patient Understands: Yes - Patient/family/caregi tereza verbalizes understanding of instructions given Comment: [facility] ED Note - Physicianon 2023 ED Note [...] her urine--she called her family physician in [place] yesterday Dr. Wolfe, and he prescribed Pyridium [...] and Plan Diagnosis Urinary tract infection symptoms (JWM26-DS R39.9, Discharge, Medical) Plan Condition: Improved. Disposition: Discharged: time 08/05/2023 02:43:00. Patient was given the following educational materials: Urinary Tract Infection, Adult, Yufh-nv-Ubhf. Follow up with: ELISSA WOLFE In 2 [...] 08/06/2023 20:50 EST] Dhaval Watson DO Normal [facility] ED Patient Summaryon 024 ED Patient Summary [facility] - Emergency Department [address] [place] [id number] PATIENT DISCHARGE INSTRUCTIONS Patient Information Name: TAYLOR RAINEY Age: 28 Years Date of : 1995 Reason For Visit: Genitourinary problem; PELVIC PRESSURE Arrival Time: 08/05/2023 01:52:53 Primary Care Physician: ELISSA WOLFE Attending Physician: Dhaval Watson DO Comment: Visit Diagnosis: Diagnoses This Visit Genitourinary problem ([id number]) Urinary tract infection symptoms (R39.9) The Pharmacy at [facility] is open Tuesday through Tuesday from [...] alcohol and/or drug addiction problems; contact the [facility] 03/01 Crisis Hotline -Text 4HCPA ec [phone]. If you received any narcotics, sedation, or [...] legal documents With: Address: When: ELISSA GABRIEL [address] [place] [address] [place] [phone] Business (1) In 2 days 08/07/2023 Comments: home continue the medications call here in 48 hours, to check the results of the STD testing, which is done on the urine your test was negative. You are welcomed to return anytime. Aaliyah WATSON< CAROL PHYSICIAN< Savannah GreenHarry Medication Information: The exam and treatment you received today in the [facility] Emergency Department were for an urgent problem and are not intended as complete care. It is important for you to follow up with a doctor, nurse practitioner, or physician?s housekeeper and laundry assistant for ongoing care. If your symptoms [...] so we can reach you if necessary. [facility] Emergency Department has provided you with a complete list of medications post discharge. Please inform your claims account manager/provider of your visit and for further instruction [...] organs make, sto (more content not included)... [facility] Test Urine 1on U Preg Negative [facility] Comment on above: Performed By: #### 3 [id number] ####[facility] (DEFAULT)[address] [place] [address] U Preg Internal Control Pass [facility] Comment on above: Performed By: #### 3 [id number] ####[facility] (DEFAULT)[address] [place] [address] UA Ulcsh5nk 08-05-2023 UA Bacteria None [facility] Comment on above: Order Comment: Urina lysis Microscopic order added on by [employer] Medical Expert Rules system. Performed By: #### 3 [id number] ####[facility] (DEFAULT)[address] [place] [address] UA RBC 0-2 [facility] Comment on above: Order Comment: Urina lysis Microscopic order added on by [employer] Rules system. Performed By: #### 3 [id number] ####[facility] (DEFAULT)[address] [place] [address] UA Squam Epi Moderate [facility] Comment on above: Order Comment: Urina lysis Microscopic order added on by [employer] Rules system. Performed By: #### 3 [id number], [id number], [id number] ####[facility] (DEFAULT)[address] [place] [address] UA WBC 3-5 [facility] Comment on above: Order Comment: Urina lysis Microscopic order added on by [employer] Rules system. Performed By: #### 3 [id number], [id number] ####[facility] (DEFAULT)[address] [place] [address] UA w Culture if Ind Standard on 08-05-2023 Breakpoint UA [facility] Comment on above: Performed By: #### 3 [id number], [id number], [id number] ####[facility] (DEFAULT)[address] [place] [address] Color (U) Twining Normal [facility] Comment on above: Performed By: #### 3 [id number], [id number], [id number] ####[facility] (DEFAULT)[address] [place] [address] Culture? Indicated Invalid Interpretation Code [facility] Comment on above: Result Comment: Resu lt created by rule GL_MAGR_ADD_UA_CULT Result created by rule GL_MAGR_ADD_UA_CULT Result created by rule GL_MAGR_ADD_UA_CULT1 Result created by rule GL_MAGR_ADD_UA_CULT Performed By: #### 3 [id number], [id number] ####[facility] (DEFAULT)[address] [place] [address] Glucose (U) [Mass/Vol] 100 mg/dL [facility] Comment on above: Performed By: #### 3 [id number], [id number], [id number] ####[facility] (DEFAULT)[address] [place] [address] Ketones Ql (U) Negative Normal [facility] Comment on above: Performed By: #### 3 [id number], [id number], [id number] ####[facility] (DEFAULT)[address] [place] [address] Micro? Indicated Invalid Interpretation Code [facility] Comment on above: Result Comment: Resu lt created by rule GL_MAGR_ADD_UA_MICRO Performed By: #### 3 [id number], [id number], [id number], [id number] ####[facility] (DEFAULT)91 [place] [address] UA Bilirubin Negative Normal [facility] Comment on above: Performed By: #### 3 [id number], [id number], [id number], [id number] ####[facility] (DEFAULT)[address] [place] [address] UA Blood Negative Normal NEGATIVE [facility] Comment on above: Performed By: #### 3 [id number], [id number], [id number], [id number] ####[facility] (DEFAULT)[address] [place] [address] 37840 UA Clarity CLEAR Normal CLEAR [facility] Comment on above: Performed By: #### 3 [id number], [id number], [id number], [id number] ####[facility] (DEFAULT)[address] [place] [address] 14544 UA Leuk Est SMALL Abnormal NEGATIVE [facility] Comment on above: Performed By: #### 3 [id number], [id number], [id number], [id number] ####[facility] (DEFAULT)[address] [place] [address] 28047 UA Nitrite Positive Abnormal NEGATIVE [facility] Comment on above: Performed By: #### 3 [id number], [id number], [id number], [id number] ####[facility] (DEFAULT)[address] [place] [address] 52862 UA pH 6.5 Normal 5-8 [facility] Comment on above: Performed By: #### 3 [id number], [id number], [id number], [id number] ####[facility] (DEFAULT)[address] [place] [address] 76865 UA Protein Negative Normal NEGATIVE [facility] Comment on above: Performed By: #### 3 [id number], [id number], [id number], [id number] ####[facility] (DEFAULT)[address] [place] [address] 35923 UA Spec Grav 1.020 Normal 1.001-1.035 [facility] Comment on above: Performed By: #### 3 [id number], [id number], [id number], [id number] ####[facility] (DEFAULT)[address] [place] [address] UA Urobilinogen 1.0 mg/dL Normal 0.2-1.0 [facility] Comment on above: Performed By: #### 3 [id number], [id number], [id number], [id number] ####[facility] (DEFAULT)[address] [place] [address] Urine Source Clean Catch Normal [facility] Comment on above: Performed By: #### 3 [id number], [id number], [id number], [id number] ####[facility] (DEFAULT)[address] [place] [address] 43936 Coding Summaryon 07-15-2023 Coding Summary HTMLBase 64 QkbflhsbXTq8mNe+PGhlY WQ+MI2EJRBfG07jzFZcoX 1qF6OQQCsFSargGLRNMPc RIuNvhvHyCW3agNBbVJLy IC8+RR3cVVJxZhzggRAtq 6S6aEQ8Y39jjf0bABxldD R0CWRgSmUyerqxo5pzwUg 6IDcuNmluOyBt MQIahR35THA6aJ80Pb10r ACmtPUvp3kpfIu4GtCrUN TjEHG6iBvaWLddk4WeRFR uG33bqRHtl8Z1 LIRtaCprbOUcDeBgbSJ5t G3dQFhxvscbe2mzuujkGw b4lu97iFVvm9H6zSS3U4U buhS4IYOxiGGu JamhdCXXaV8bkjewc4sun pogHrCbDOTwLPf5NSe6ID ZmtLocNsXcMV50TFH9WTF idgBiN0BqBJAe zEusHcT1e0E8Ck9QB4GIF kriG9FUHOODGJkfyTJ+PC 65pz08T6MxUwslGiy5OMG oMGM2nBX5wU3h GRNtZFlpc6H9aBC2H9Kwi rFgma2oq2srQCTmHVqcW1 5fcCQex0L1SQWygNM7JZZ tpBljCfMpnU03 Oyc+CSYefCbkc0EdAgrwl 7odu7hgjCg0HnxoPJGntx FoxRpwNXQ6v1PrGh3zJJF bpWH9zMR8lS2f JfGbGcZ5VEncM406DxXwh WTrYpgiW01uM1FguLO+PH YsUdb1BLIpuLheXK4nJ7R hZGRpbmctbGVm vMvqHD0xEAAmxwuwIPQlz X0yRCBuS3f9OnRsElT0FQ qgZ8TjWTEctcazHh37sV2 iVmKzCvU7FGzd P9MhzbW9CHAwtSBtBRxgZ PF3L48ov5T2AGEvCHHsUV W8nKN8iC0lbEaauhegdZR mdDsgdmVydGlj MMiyXByeI299EZEmdAxeA kNvZGluZyBEYXRlOiAgMD IvMDIvMjAyNDwvdGQ+PHR fDCQ3tQqpIJQk jJZkDQitXg7xoHyepPtgT W4dFHQmgqbbGAKmhO6kXG AkuNQamMjiDI1oTYOlwxq qa033CcBkWEW4 TQDpuYFiW6UrkO4vPcByD HFtGELkG3QkjGNxSPotW9 53PDkoToE3YUGpabUzO0X sLWFsaWduOiB0 y7F6Uq2Gf2YlbviyD1Fnn XPfDfMmNocfIWg4L1UdWj wvdHI+AW93QUVxXI78SAl 2XUR2hFhaNNah FHXgT0VdlA7yByUnKDTjX GRkOyc+PHRhYmxlIHdpZH RoPScxMDAlJyBzdHlsZT0 yXr1qVSAzSWSm zCyppTEaWpKdw8jkYHBzF NtbNB6ixZbkT1CkyHA6OJ Ugp3o0Ve64I70bO0KqfXP +RUYlrGV4oRH8 mT8iVcIlAoD5KZazS246F bXgjRDaKqqin8ahs7qytZ f2ZsX1UNHwxbGoaPpqUQP 9m4MyGz08E75p IHdpZHRoPSIxNSUiIHZhb Gaqbr0avT1qFe2+PGNvbC B2zXB2fV5zQxKgFjZ9TMs xB545TvEsgTKa Hvkoe3eih2xxeNd1OrRjY BOuxlCinDieEIN9a4JrGg 51I7BczQsen5QnRhv4mc7 3sYAbs3A7mZU7 V5YtYIEpwotptFJuqSieF S0gULXzydvwCEQvnR0oAP CfH6t1LcFsFlI8SHgyN3Q xhyT4HXWceONv SPOooTWBlM8pvhpzx3aew tewPgNrWSFrOAo8BGl3QN XamBjtIjVlSHY9NnY4QZB 7bEOsfX0weInf hkjrdE3aXho+XRV8qWJwd OMDNZ2dKmfccYX+PHRkIH R3oPwlJQxfPSHnaD3gEUH oO8v2XcBqWkJ9 ENioY2TgvrE8PHHruXDxL UZodIFAsE9hfnkcs5mrag gvLpMjOFDvPNw1UAt3OTB saWduOiBsZWZ0 QrH4NGI7bBZkuN2dmRxqc giwhX7aXbr+QmlydGggRG R4IMa4B0YePqs3UPNmiTe bXQ9miAUaEEqf Pm3tiBjlaRqbQI3rOFCip fppg788MnSsm9znRQVnbI RiTEuqZXW7A04uz9C6AEK fFEKrIOM0pCX8 vX6tiJpqnyevwXZbxNrom bVnjObwXEkwGGxgK409YG ZgsRxrCvYsXWm5E6IkVge 3PWPhmTyyAV4h fGZhSZraNe8oiWxfcFrpJ W8kFRHpavheu857XhEmj5 ckOPFztNYlVXgoFRE0W04 sz8R9BNIzGXQm WDK8sAQ9aE8bmVpsxvmmt GVmdDsgdmVydGljYWwtYW miN387ROJykLfoMqGwfZc 2Y9SsTle0ZUJa cRzkAA3xvWRpCUlxCk0an ZevyPmiIG9kCAQtvqqzy3 81OeChf2erDEMbmIMmDCb tGFL5X15tu3S3 ZQRaLKChTCU8dZS2oW0iq GlnbjogbGVmdDsgdmVydG jrNZirKZrwY576MDGgmMq nPlBhdGllbnQg ALkcJUk8J2MlVduudUZ+P G53SYPyOJ49xEWqiJQwm5 hihHy5KwUnZVLvGBS5oOz hXVlgo9JsRDLs A30jaNVve6D2XGYcfFbtm GWvDqAdrDC9aD4eKZyspf mmh6imdlomMhual2ntqi5 4wK61Z20sFOku ZHRoPSIzMCUiIHZhbGlnb z9exJ4oKv4+HILzdWW9hX A8iR0lKXZkLjI5QTidU64 9InRvcCIvPjxj m4epp2tcqTr9FrP2RSMug tMonHhkMAJ4h2GgCs06L5 9sIHdpZHRoPSIyMCUiIHZ vhOquvl7foO2w Ii8+CRPijLZ2tRX0wX7zJ gGpSlN6KAbqZ278PdLnuD XtYphrM39lA8YkcQD+PHR dVmf1YWOndWji XX3jwYEyOBafIy0mVXE1I lQpKaBoWSfaU7CaFKPiys hnrgpnxWO1HMBbBAItwA4 5Hj9jjWoqXOEu dFGPpH4cucrcr2qldoxgG aLtIDVyBUp4REl2MIIskV ttUoGqFBP4HjM0XHN4sZO txN3tjPstbjlb zS8oL3BhFLNtsbzyMa36b B9rXtNxPgZ5HSwjSbw+Uk 3AXTtsYxRWB8eTDMMJS6H IE1N6J8MbDbu7 ANBviUyjPF4hrUOzPHcqQ e2mtLdrqLguIO0gWFHnik dcMADkxC8fLUSvvDBlxSo cJH5xGSTbqygr j746AfZvAVX1OFKhaPSgZ 9BmrI2iBvDlYDUxZLQoU1 NqrRItZMusI821DSqxBdP 6RXYrvlSeG5Lw AAWquYyiGsW6c0M8Ga1lQ f7lSt4fRZv2YN15TN94pA Rha2T7cLL4L5SvEKBjsjv lhrtujQI9ENIb JSYeoD12oSCcBDtiDz8qf 9F1s412HSUfQYUzhH68Ii 5urYlcSHEayADScT4ujcb pw7mryebrWzIo GDKnWBk0LOi4ASIipOcwK dLrXYY4GqF2GNR5fAVnhD 1xvNobqwtyrS2qDac+Mjg iXGXqywO6L5Lk Lvt3QNFcpEenKV9ofNJgO LqoVv6wgYpqpCxaPT5eFA SgunqyPGNdpI6lOKOurFN yfRfkRG3cDQCr kbosb900GuWzNRJ5FLVpc YPxO7YfsM7vEbCjNKVkLE MjU8DrzNZwBRpoV937ZOj cCpO7IUGetuRo P3GySOUgwDbsVnV1b6S6Y b2UUP7ENJX2J8FkAbv5LW TcjClwGQ8wbHNtUVgiNh7 aiThssNopPO1k DJTcsufqKUYqvQ6oIWSdc WNjiBpoDW2eUZOssqubq6 89UgNvWHS6GYUhuEPeG9D wvY9oFqOlMURo SQUiE2QysZWeMAqoZ770D AmvMtN5EWZagmBkC5DnBX YzyIfpZmU5p7T3Dx0ISUi vdGQ+TN81bs44 W6UnHdnqAmt7VAVzLMH1b ZI9eG5hOBGfCUqao0C7eS G6P1TszaFmux1cw3voTQF hETavF67zrQFy l5R9UOVijCH7DGGclMrhZ aZmxJ53Fct+PGNvbGdyb3 QtWwnjj7lhy7gxcCp8JzR wJSIgdmFsaWdu BMN2t3AvVv04Q94aMWwaM HRoPSIzMCUiIHZhbGlnbj 2gqY5hSo1+YFFpwNA8pUP 0cL3gPgQuUcU8 SYprW912OdWqwHWyDbdqc 7agp2kufRe1HiJrIAQcxl LkzTrlZUC4t0FhMu42Z6F xyBxkg7YhLuc7 io43iPKrf5A3iJV0H0RtF URqfywjnKIrhBehCW4hFI FwfjueGKNacT4xEFTdQ6m 2CiFxKxN7YKja I4DskpT4JMQzpZOyDPMya FAUvU7hlshzt2vxjhesLu VtPZGgUDn1GXd6VNKmmEs kIoWyRJB1WyF0 CQY4kQSltM1saWbekqmtl G9wOyc+RLv1x5saoGDpHI 3fqGZ9DG77FT36xKNac4H 0cEK7X5AkOXDd wiwnhzfvuQF8FUFtVQGso R53Kz4rrBgcEc3oUSDwZF K9COPzwFJiS1BhdG9xYpJ qETQqXQJpM6Qo jYBhFWhtA320QGrwQxL7X RXbjyOpY3NqHTQfuHedRp E0m8A6Kc0PAJ54OZ12XX9 9uGOht8V4qOM2 J7BqKPNjthjysgfxrZY2O ESmHVJsoK61Ou9loNaeGs 7bDUEkBUF4RZRptPNbH3F ipJ8uXqCyZJGj AKQcH6XqhDQjSMriV852T LukZyP3FQNblePmJ5CgNV QhySafTbU2j7R1Kv4DFw0 6XS54DE68cYNv a0C7lOH4T2WcYGSfgzaxv uwqaAA9AIGqCUHfjJ03Gz 5zxLwsAq3dVGSfHLD4DOR hlEFsT1XndX3p CgZuEKYaKWMhK1SxwJVdC HowZ148XMeuFyG3HZSxvn MpP7OsFKDbxAvyIkR2i3A 1Ur3YXKxzapj6 X5KvGgqjhWU+CB52JLVnL W00yZHlmZOar0wdpOf8Kg EpJRMzODW0hYteDBwog1D dFOIoX62avFYp c2U (more content not included)... Normal [facility] C Throaton 07-11-2023 C Throat Ordered by Discern. Normal throat patricia isolated No pathogens isolated [facility] Comment on above: Performed By: #### 6 [id number], [id number] ####[facility] (DEFAULT)[address] [place] [address] ED Clinical Summaryon 2023 ED Clinical Summary [facility] ? Urgent Care [address] [place], [place] [id number] Clinical Summary PERSON INFORMATION Name: TAYLOR RAINEY Age: 28 Years Sex: FEMALE : 1995 MRN: Acct#: Visit Reason: Sore throat - Adult; SORE THROAT, SINUS PRESSURE, COUGH Arrival: 07/09/2023 10:32:38 Discharge: 07/09/2023 11:36:00 LOS: 000 01:04 Check In: 07/09/2023 10:32:38 Checkout: 07/09/2023 11:36:00 Address: [facility] [place] [address] PCP: ELISSA WOLFE PROVIDER INFORMATION Provider Role [...] Infection Follow-Up: With: Address: When: ELISSA WOLFE [address] [place] [address], [facility] [place], [place] [id number] Business (1) Within 3 to 5 days Comments: Follow-up primary care provider next few days for reevaluation. Continue supportive care with plenty of rest and fluids, Tylenol for aches and pains, salt water gargle for sore throat, honey as a natural cough suppressant, Vicks vapor rub for congestion, rbne-auz-aqtveid medications such as Mucinex for congestion. Go directly to the emergency department for any crushing chest pains, shortness of breath, intractable vomiting, abdominal pains, high spiking fevers or any other problems. DIAGNOSIS: Nasal congestion; Sore throat Patient Understands: Yes - Patient/family/caregi tereza verbalizes understanding of instructions given Comment: Normal [facility] ED Patient Summaryon 024 ED Patient Summary [facility] ? Urgent Care [address] [place] [id number] PATIENT DISCHARGE INSTRUCTIONS Patient Information Name: TAYLOR RAINEY Age: 28 Years Date of : 1995 Reason For Visit: Sore throat - Adult; SORE THROAT, SINUS PRESSURE, COUGH Arrival Time: 07/09/2023 10:32:38 Primary Care Physician: ELISSA WOLFE Attending Physician: JILLIAN PLATA Comment: Patient Education With: Address: When: ELISSA WOLFE [facility], [facility] [place], [place] [id number] Business (1) Within 3 to 5 days Comments: Follow-up primary care provider next few days for reevaluation. Continue supportive care with plenty of rest and fluids, Tylenol for aches and pains, salt water gargle for sore throat, honey as a natural cough suppressant, Vicks vapor rub for congestion, zfxj-egq-tleyxki medications such as Mucinex for congestion. Go [...] home: Managing pain and congestion ? Take bdyu-oxq-awbapmo and prescription medicines only as told by [...] water are not available, use alcohol-based hand functional analyst. ? Cover your mouth when you cough. [...] if yo (more content not included)... Normal [facility] Strep Aon 07-09-2023 Strep procedure control Pass [facility] Comment on above: Performed By: #### 6 [id number], [id number] ####[facility] (DEFAULT)[address] [place] [address] Streptococcus A Negative Normal Negative [facility] Comment on above: Performed By: #### 6 [id number], [id number] ####[facility] (DEFAULT)[address] [place] [address] Urgent Care Note- Provideron 07-09-2023 Urgent Care [...] All Problems (Selected) asthma / SNOMED CT 176917521 / Confirmed seasonal allergies / SNOMED CT 177118547 / Confirmed Objective CONST: -Well-developed well-nourished. -Acute distress: No -Vitals: reviewed. SKIN: -Gross abnormalities: No EYES: -EOM intact, ALLAN: -Sclera conjunctiva: Unremarkable. ENT: - Normal pharynx pink and moist. Uvula midline tolerating oral secretions without any problems. No tripoding or hot potato voice appreciated NECK: -Supple (shzl-qa-ftuff): non-tender. CARD: -Rate and rhythm: Regular RESP: [...] Plan Assessment and Plan: Diagnosis: Sore throat (IHR20-JJ J02.9), Nasal congestion (XEV48-GW R09.81). Patient reports nasal congestion and sore [...] [Verified on: 07/09/2023 11:33 EST] JILLIAN PLATA [facility] [place] 024 Urgent Care Record [facility] ? Urgent Care [address] [place] [address] PATIENT DISCHARGE INSTRUCTIONS Patient Information Name: TAYLOR RAINEY Age: 28 Years Date of : 1995 Reason For Visit: Sore throat - Adult; SORE THROAT, SINUS PRESSURE, COUGH Arrival Time: 07/09/2023 10:32:38 Primary Care Physician: ELISSA WOLFE Attending Physician: JILLIAN PLATA Comment: Visit Diagnosis: Diagnoses This Visit Nasal congestion (R09.81) Sore throat (J02.9) Sore throat - Adult ([id number]) If you received any narcotics, sedation, or [...] legal documents With: Address: When: ELISSA WOLFE [address] [place] [address] [place], [place] [phone] Business (1) Within 3 to 5 days Comments: Follow-up primary care provider next few days for reevaluation. Continue supportive care with plenty of rest and fluids, Tylenol for aches and pains, salt water gargle for sore throat, honey as a natural cough suppressant, Vicks vapor rub for congestion, msdo-ofc-befyspg medications such as Mucinex for congestion. Go directly to the emergency department for any crushing chest pains, shortness of breath, intractable vomiting, abdominal pains, high spiking fevers or any other problems. Medication Information: The exam and treatment you received today in the [facility] were for an urgent problem and are not intended as complete care. It is important for you to follow up with a doctor, nurse practitioner, or physician?s housekeeper and laundry assistant for ongoing care. If your symptoms [...] so we can reach you if necessary. [facility] Urgent [facility] has provided you with a complete list of medications post discharge. Please inform your claims account manager/provider of your visit and for further instruction [...] ? A (more content not included)... Normal [facility] COVID/FLU/RSV RT-PCRon 05-15 SARS-CoV-2 (COVID-19) RNA ANN+probe Ql (Unsp spec) Negative [facility] [employer] [employer] Other COVID/FLU/RSV RT-PCR Negative [facility] Other Quick Strepon 05-06-2023 S. pyogenes Org specific cx Ql (Throat) Negative [facility] Other Quick Strep [facility] Other [facility] 3D RENÉE CA Don 10-11-2022 [facility]NO[facility] 3D RENÉE CAD Patient: TAYLOR RAINEY Exam Date: 10/11/2022 : 1995 Gender:F Ordering : [facility] Admission #: [id number] Family : Order #: [id number] CLICK HERE TO VIEW EXAM RADIOLOGY REPORT PROCEDURE: MAMMOGRAM DIAGNOSTIC 3D BILATERAL CAD, 10/11/2022, 14:59 ULTRASOUND BREAST RIGHT LIMITED, 10/11/2022, 14:40 COMPARISON: None. INDICATIONS: Breast lump Calculator Name NCI Breast Cancer Risk Assessment Tool 5 Year Breast Cancer Risk Not Applicable. Lifetime Breast Cancer Risk Not Applicable. Personal Breast Cancer No Personal Ovarian Cancer No Treatments None Family Cancers None LOCATION: [facility] BREAST COMPOSITION: Scattered areas fibroglandular density. FINDINGS: [...] M.D. on 10/11/2022 at 15:46 Normal [facility] US BREAST RIGHT LIMITEDon US BREAST RIGHT LIMITED Patient: TAYLOR RAINEY Exam Date: 10/11/2022 : 1995 Gender:F Ordering : [facility] Admission #: [id number] Family : Order #: [id number] CLICK HERE TO VIEW EXAM RADIOLOGY REPORT PROCEDURE: MAMMOGRAM DIAGNOSTIC 3D BILATERAL CAD, 10/11/2022, 14:59 ULTRASOUND BREAST RIGHT LIMITED, 10/11/2022, 14:40 COMPARISON: None. INDICATIONS: Breast lump Calculator Name NCI Breast Cancer Risk Assessment Tool 5 Year Breast Cancer Risk Not Applicable. Lifetime Breast Cancer Risk Not Applicable. Personal Breast Cancer No Personal Ovarian Cancer No Treatments None Family Cancers None LOCATION: [facility] BREAST COMPOSITION: Scattered areas fibroglandular density. FINDINGS: [...] Engel M.D. on 10/11/2022 at 15:46 Normal [facility] COVID/FLU RT-PCRon 3 SARS-CoV-2 (COVID-19) RNA ANN+probe Ql (Unsp spec) Negative [facility] Other COVID/FLU RT-PCR Negative [facility] [employer] Other Quick Strepon 07-12-2022 S. pyogenes Org specific cx Ql (Throat) Negative [facility] [employer] Other Quick Strep [facility] [employer] Other COVID + FLU Quick Testingon 05-30-2022 SARS-CoV-2 (COVID-19) RNA ANN+probe Ql (Unsp spec) Negative [facility] [employer] Other COVID + FLU Quick Testing Negative [facility] [employer] Other [facility]on 05-13 SARS-CoV-2 (COVID-19) RNA ANN+probe Ql (Unsp spec) Not detected Normal NOT DETECTED [facility] Comment on above: Result Comment: This test is not yet approved or cleared by the [place] FDA. When there are no FDA-approved or cleared tests available, and other criteria are met, FDA can make tests available under an emergency access mechanism called an Emergency Use Authorization (EUA). The EUA for this test is supported by the [place] of Health and Human Service's (HHS's) declaration [...] consistent with SARS-CoV-2. Performed By: #### C VDTB #### [facility] [address] [place] [address] Dr. Shane Rodriguez GROUP A STREP CULTUREon 05-13 S. pyogenes Ag Ql (Unsp spec) Culture Observations: NEGATIVE FOR GROUP A STREPTOCOCCUS. Normal [facility] Comment on above: Performed By: #### G RASTCX, SSCRN #### [facility] [address] [place] [address] Dr. Shane Rodriguez INFLUENZA A AND B AGon 05-25 INFLUANEGH SEE BELOW Normal [facility] Comment on above: Result Comment: Nega tive for Flu A protein angiten. Infection due to Flu A cannot be ruled out. Flu A angiten in the sample may be below the detection limit of the test. Performed By: #### G RASTCX, SSCRN #### [facility] [address] [place] [address] Dr. [facility] SEE BELOW Normal [facility] Comment on above: Result Comment: Nega tive for Flu B protein antigen. Infection due to Flu B cannot be ruled out. Flu B antigen in the sample may be below the detection limit of the test. Performed By: #### G RASTCX, SSCRN #### [facility] [address] [place] [address] Dr. Shane Rodriguez INFLUENZA A AG Negative Normal NEGATIVE SEE COMMENT [facility] Comment on above: Performed By: #### G RASTCX, SSCRN #### [facility] [address] [place] [address] Dr. Shane Rodriguez INFLUENZA B AG Negative Normal NEGATIVE SEE COMMENT [facility] Comment on above: Performed By: #### G RASTCX, SSCRN #### [facility] [address] [place] [address] Dr. Shane Rodriguez INTERNAL CONTROLS Within Normal Limits Normal Wi thin Normal Limits [facility] Comment on above: Performed By: #### G RASTCX, SSCRN #### [facility] [address] [place] [address] Dr. Shane Rodriguez STREPT SCREENon 05-25-2022 STREP SCREEN A Negative Normal NEGATIVE [facility] Comment on above: Performed By: #### G RASTCX, SSCRN #### [facility] [address] [place] [address] Dr. Shane Rodriguez CHLAMYDIA/GONOCOCCUS ANN (SW AB/URINE/PAPon 05-23-2022 Chlamydia trachomatis, ANN Negative Normal Negative [facility] Comment on above: Performed By: #### C T/NGNA #### [facility] [address] [place] [address] Dr. Shane Rodriguez Neisseria gonorrhoeae, ANN Negative Normal Negative [facility] Comment on above: Performed By: #### C T/NGNA #### [facility] [address] [place] [address] Dr. Shane Rodriguez CBC AUTO DIFFon 05-19-2022 BASO # 0.1 103/ul Normal 0.0-0.1 [facility] Comment on above: Performed By: #### G RASTCX, SSCRN #### [facility] [address] [place] [address] Dr. Shane Rodriguez Basophils/100 WBC (Bld) 0.7 % Normal 0.2-2.0 [facility] Comment on above: Performed By: #### G RASTCX, SSCRN #### [facility] [address] [place] [address] Dr. Shane Rodriguez EO # 0.1 103/ul Normal 0.0-0.7 [facility] Comment on above: Performed By: #### G RASTCX, SSCRN #### [facility] [address] [place] [address] Dr. Shane Rodriguez Eosinophils/100 WBC (Bld) 1.3 % Normal 0.9-7.0 [facility] Comment on above: Performed By: #### G RASTCX, SSCRN #### [facility] [address] [place] [address] Dr. Shane Rodriguez Erythrocyte distribution width (RBC) [Ratio] 12.6 % Normal 11.0-15.0 [facility] Comment on above: Performed By: #### G RASTCX, SSCRN #### [facility] [address] [place] [address] Dr. Shane Rodriguez Hematocrit (Bld) [Volume fraction] 39.9 % Normal 36.0-48.0 [facility] Comment on above: Performed By: #### G RASTCX, SSCRN #### [facility] [address] [place] [address] [address] Shane Rodriguez Hemoglobin (Bld) [Mass/Vol] 13.8 g/dL Normal 12.0-16.0 [facility] Comment on above: Performed By: #### G RASTCX, SSCRN #### [facility] [address] [place] [address] Dr. Shane Rodriguez IG # 0.03 10e3/ul Normal 0.00-0.03 [facility] Comment on above: Performed By: #### G RASTCX, SSCRN #### [facility] [address] [place] [address] Dr. Shane Rodriguez IG % 0.3 % Normal 0.0-0.5 [facility] Comment on above: Performed By: #### G RASTCX, SSCRN #### [facility] [address] [place] [address] Dr. Shane Rodriguez LYMPH # 3.3 103/ul Normal 1.2-3.8 [facility] Comment on above: Performed By: #### G RASTCX, SSCRN #### [facility] [address] [place] [address] Dr. Shane Rodriguez Lymphocytes/100 WBC (Bld) 30.6 % Normal 20.5-60.0 [facility] Comment on above: Performed By: #### G RASTCX, SSCRN #### [facility] [address] [place] [address] Dr. Shane Rodriguez MANUAL DIFF REQ NO Normal [facility] Comment on above: Performed By: #### G RASTCX, SSCRN #### [facility] [address] [place] [address] Dr. Shane Rodriguez MCH (RBC) [Entitic mass] 32.3 pg Normal 26.7-34.0 [facility] Comment on above: Performed By: #### G RASTCX, SSCRN #### [facility] [address] [place] [address] Dr. Shane Rodriguez MCHC (RBC) [Mass/Vol] 34.6 g/dL Normal 29.9-35.2 [facility] Comment on above: Performed By: #### G RASTCX, SSCRN #### [facility] [address] [place] [address] Dr. Shane Rodriguez MCV (RBC) [Entitic vol] 93.4 fL Normal 81.0-99.0 [facility] Comment on above: Performed By: #### Ginny RASTCX SSCRN #### [facility] [address] [place] [address] Dr. Shane Rodriguez MONO # 0.7 103/ul Normal 0.3-0.8 [facility] Comment on above: Performed By: #### Ginny RASTCX SSCRN #### [facility] [address] [place] [address] Dr. Shane Rodriguez Monocytes/100 WBC (Bld) 6.2 % Normal 1.7-12.0 [facility] Comment on above: Performed By: #### Ginny RASTCX SSCRN #### [facility] [address] [place] [address] Dr. Shane Rodriguez NEUT # 6.5 103/ul Normal 1.4-6.5 [facility] [facility] Comment on above: Performed By: #### Ginny RASTCX SSCRN #### [facility] [address] [place] [address] Dr. Shane Rodriguez Neutrophils/100 WBC (Bld) 60.9 % Normal 43.0-75.0 [facility] Comment on above: Performed By: #### G RASTCX, SSCRN #### [facility] [address] [place] [address] Dr. Shane Rodriguez Platelet mean volume (Bld) [Entitic vol] 9.7 fL Normal 9.5-13.5 [facility] Comment on above: Performed By: #### G RASTCX, SSCRN #### [facility] [address] [place] [address] Dr. Shane Rodriguez PLT 306 103/ul Normal 150-450 [facility] Comment on above: Performed By: #### G RASTCX, SSCRN #### [facility] [address] [place] [address] Dr. Shane Rodriguez RBC 4.27 106/ul Normal 4.20-5.40 [facility] Comment on above: Performed By: #### G CHIARATCX, SSCRN #### [facility] [address] [place] [address] Dr. Shane Rodriguez WBC 10.6 103/ul Normal 4.0-11.0 [facility] Comment on above: Performed By: #### G RASTCX, SSCRN #### [facility] [address] [place] [address] Dr. Shane Rodriguez ER URINE PROFILEon 2 Clarity (U) CLEAR Normal CLEAR [facility] Comment on above: Performed By: #### G RASTCX, SSCRN #### [facility] [address] [place] [address] Dr. Shane Rodriguez Color (U) YELLOW Normal YELLOW [facility] Comment on above: Performed By: #### G CHIARATCX, SSCRN #### [facility] [address] [place] [address] Dr. Shane Rodriguez ERUAHD A micrscopic examination will be performed if indicated. Normal [facility] Comment on above: Performed By: #### G CHIARATCX, SSCRN #### [facility] [address] [place] [address] Dr. Shane Rodriguez LEUKOCYTES TRACE Abnormal NEGATIVE [facility] Comment on above: Performed By: #### G CHIARATCX, SSCRN #### [facility] [address] [place] [address] Dr. Shane Rodriguez pH (U) 8.0 [pH] Normal 5-9 [facility] Comment on above: Performed By: #### G CHIARATCX, SSCRN #### [facility] [address] [place] [address] Dr. Shane Rodriguez SPEC GRAVITY 1.020 Normal 1.005-<=1.02 5 [facility] Comment on above: Performed By: #### G CHIARATCX, SSCRN #### [facility] [address] [address] [address] Shane Rodriguez UA PROTEIN Negative Normal NEGATIVE/ TRACE [facility] Comment on above: Performed By: #### G RASTCX, SSCRN #### [facility] [address] [place] [address] Dr. Shane Rodriguez UR MICRO IND INDICATED Normal [facility] Comment on above: Performed By: #### G RASTCX, SSCRN #### [facility] [address] [address] [address] Shane Rodriguez Urobilinogen Qn (U) 1.0 {Mauri'U}/dL Normal 0.2 - 1. 0 [facility] Comment on above: Performed By: #### G RASTCX, SSCRN #### [facility] [address] [place] [address] Dr. Shane Rodriguez LIPASEon 05-19-2022 Lipase [Catalytic activity/Vol] 51.0 U/L Critically low 73.0-393.0 [facility] Comment on above: Performed By: #### L IPA, CMP #### [facility] [address] [place] [address] Dr. Shane Rodriguez URon 05-19-2022 , QUAL Negative Normal NEGATIVE [facility] Comment on above: Performed By: #### G RASTCX, SSCRN #### [facility] [address] [place] [address] Dr. Shane Rodriguez PROF 14(COMP METB)on 022 Albumin [Mass/Vol] 3.6 g/dL Normal 3.4-5.0 [facility] Comment on above: Performed By: #### L IPA, CMP #### [facility] [address] [place] [address] Dr. Shane Rodriguez Albumin/Globulin [Mass ratio] 0.9 {ratio} Normal [facility] Comment on above: Performed By: #### L IPA, CMP #### [facility] [address] [place] [address] Dr. Shane Rodriguez ALP [Catalytic activity/Vol] 93 U/L Normal 46-116 [facility] Comment on above: Performed By: #### L IPA, CMP #### [facility] [address] [address] [address] Shane Rodriguez ALT [Catalytic activity/Vol] 25 U/L Normal 14-59 [facility] Comment on above: Performed By: #### L IPA, CMP #### [facility] [address] [address] [address] Shane Rodriguez Anion gap [Moles/Vol] 8.1 mmol/L Normal [facility] Comment on above: Performed By: #### L IPA, CMP #### [facility] [address] [address] [address] Shane Rodriguez AST [Catalytic activity/Vol] 16 U/L Normal 15-37 [facility] Comment on above: Performed By: #### L IPA, CMP #### [facility] [address] [address] [address] Shane Rodriguez Bilirubin [Mass/Vol] 0.2 mg/dL Normal 0.2-1.0 [facility] Comment on above: Performed By: #### L IPA, CMP #### [facility] [address] [address] [address] Shane Rodriguez Calcium [Mass/Vol] 8.3 mg/dL Critically low 8.5-10.1 [facility] Comment on above: Performed By: #### L IPA, CMP #### [facility] [address] [address] [address] Shane Rodriguez Chloride [Moles/Vol] 102 mmol/L Normal 98-107 [facility] Comment on above: Performed By: #### L IPA, CMP #### [facility] [address] [address] [address] Shane Rodriguez CO2 [Moles/Vol] 28.6 mmol/L Normal 21.0-32.0 [facility] Comment on above: Performed By: #### L IPA, CMP #### [facility] [address] [address] [address] Shane Rodriguez Creatinine [Mass/Vol] 0.66 mg/dL Normal 0.55-1.02 [facility] Comment on above: Performed By: #### L IPA, CMP #### [facility] [address] [address] [address] Shane Rodriguez EGFR-AF AFGHAN >60 Normal >=60 [facility] Comment on above: Performed By: #### L IPA, CMP #### [facility] [address] [address] [address] Shane Rodriguez EGFR-NON AF AFGHAN >60 Normal >=60 [facility] Comment on above: Performed By: #### L IPA, CMP #### [facility] [address] [address] [address] Shane Rodriguez Globulin (S) [Mass/Vol] 4.1 g/dL Normal [facility] Comment on above: Performed By: #### L IPA, CMP #### [facility] [address] [address] [address] Shane Rodriguez Glucose [Mass/Vol] 90 mg/dL Normal 74-106 [facility] Comment on above: Performed By: #### L IPA, CMP #### [facility] [address] [address] [address] Shane Rodriguez Potassium [Moles/Vol] 3.7 mmol/L Normal 3.5-5.1 [facility] Comment on above: Performed By: #### L IPA, CMP #### [facility] [address] [address] [address] Shane Rodriguez Protein [Mass/Vol] 7.7 g/dL Normal 6.4-8.2 [facility] Comment on above: Performed By: #### L IPA, CMP #### [facility] [address] [address] [address] Shane Rodriguez Sodium [Moles/Vol] 135 mmol/L Critically low 136-145 [facility] Comment on above: Performed By: #### L IPA, CMP #### [facility] [address] [address] [address] Shane Rodriguez Urea nitrogen [Mass/Vol] 11.0 mg/dL Normal 7.0-18.0 [facility] Comment on above: Performed By: #### L IPA, CMP #### [facility] [address] [address] [address] Shane Rodriguez Urea nitrogen/Creatinine [Mass ratio] 16.7 mg/mg Normal [facility] Comment on above: Performed By: #### L IPA, CMP #### [facility] [address] [address] [address] Shane Rodriguez URINE MICROSCOPIC ONLYon BACTERIA TRACE Abnormal NONE SEEN [facility] Comment on above: Performed By: #### G RASTCX, SSCRN #### [facility] [address] [place] [address] Dr. Shane Rodriguez Bacteria identified Cx Nom (U) NOT INDICATED Normal [facility] Comment on above: Performed By: #### G RASTCX, SSCRN #### [facility] [address] [place] [address] Dr. Shane Rodriguez CAST NONE SEEN Normal NONE SEEN [facility] Comment on above: Performed By: #### G RASTCX, SSCRN #### [facility] [address] [place] [address] Dr. Shane Rodriguez Crystals LM Nom (Urine sed) NONE SEEN Normal NONE SEEN [facility] Comment on above: Performed By: #### G RASTCX, SSCRN #### [facility] [address] [place] [address] Dr. Shane Rodriguez Epithelial cells LM Ql (Urine sed) MODERATE Abnormal NONE SEEN /RARE [facility] Comment on above: Performed By: #### G RASTCX, SSCRN #### [facility] [address] [place] [address] Dr. Shane Rodriguez MUCOUS NONE SEEN Normal NONE SEEN [facility] Comment on above: Performed By: #### G RASTCX, SSCRN #### [facility] [address] [place] [address] Dr. Shane Rodriguez RBC 2-5 Abnormal 0-2 [facility] Comment on above: Performed By: #### G RASTCX, SSCRN #### [facility] [address] [address] [address] Shane Rodriguez WBC 0-2 Abnormal NONE SEEN [facility] Comment on above: Performed By: #### G RASTCX, SSCRN #### [facility] [address] [address] [address] Shane Rodriguez Urinalysis - AUTOMATEDon Bilirubin Ql (U) Negative Normal NEGATIVE [facility] Other Comment on above: Performed By: #### G RASTCX, SSCRN #### [facility] [address] [address] [address] Shane Rodriguez Glucose Ql (U) Negative Normal NEGATIVE [employer] Other Comment on above: Performed By: #### G RASTCX, SSCRN #### [facility] [address] [place] [address] Dr. Shane Rodriguez Hemoglobin Ql (U) trace-intact Abnormal NEGATIVE [facility] Other Comment on above: Performed By: #### G RASTCX, SSCRN #### [facility] [address] [address] [address] Shane Rodriguez Ketones Ql (U) Negative Normal NEGATIVE [facility] Other Comment on above: Performed By: #### G RASTCX, SSCRN #### [facility] [address] [address] [address] Shane Rodriguez Nitrite Ql (U) Negative Normal NEGATIVE [facility] Other Comment on above: Performed By: #### G RASTCX, SSCRN #### [facility] [address] [address] [address] Shane Rodriguez Appearance (U) clear [employer] Other Color (U) dark yellow [facility] Other Leukocyte esterase Test strip Ql (U) trace [facility] Other pH (U) 6.0 [pH] [facility] Other Protein Ql (U) Negative [employer] Other Specific gravity (U) [Rel density] 1.030 [facility] Other Urobilinogen (U) [Mass/Vol] 0.2 mg/dL [facility] Other Urinalysis - AUTOMATED [facility] Other Urine Cultureon 05-19-2022 Bacteria identified Cx Nom (U) [facility] Other WET PREPon 05-19-2022 CLUE CELLS NONE SEEN Normal NONE SEEN [facility] Comment on above: Performed By: #### W P #### [facility] [address] [place] [address] Dr. Shane Rodriguez FUNGAL ELEMENTS NONE SEEN Normal NONE SEEN The [facility] Comment on above: Performed By: #### W P #### [facility] [address] [place] [address] Dr. Shane Rodriguez RBC -WET PREP NONE SEEN Normal NONE SEEN [facility] Comment on above: Performed By: #### W P #### [facility] [address] [place] [address] Dr. Shane Rodriguez TRICHOMONAS NONE SEEN Normal NONE SEEN [facility] Comment on above: Performed By: #### W P #### [facility] [address] [place] [address] Dr. Shane Rodriguez WBC- WET PREP RARE Abnormal NONE SEEN The [facility] Comment on above: Performed By: #### W P #### [facility] [address] [address] [address] Shane Rodriguez WET PREP BACTERIA RARE Abnormal NONE SEEN The [facility] Comment on above: Performed By: #### W P #### [facility] [address] [place] [address] Dr. Shane Rodriguez SARS-CoV-2 (COVID-19) RNA NA A+probe Ql (Resp)on 07-29-2022 SARS-CoV-2 (COVID-19) RNA ANN+probe Ql (Unsp spec) Negative [facility] Other D DIMERon 12-09-2021 D DIMER <0.27 Normal <0.50 [facility] Comment on above: Result Comment: If r esult is greater than the cutoff value of 0.56 mg/L then the potential for PE or DVT exists. Other conditions exist which may cause a falsely elevated level. Please correlate clinically, including radiological findings and other clinical parameters. Performed By: #### D DIMER #### Testing performed at [facility] [address] [place] [address] D-DIMER,QUANTITATIVEon 12-09 Fibrin D-dimer FEU (PPP) [Mass/Vol] <0.27 <0.50 g/ml [facility] Comment on above: If result is greater than the cutoff value of 0.56 mg/L then the potential for PE or DVT exists. Other conditions exist which may cause a falsely elevated level. Please correlate clinically, including radiological findings and other clinical parameters. [facility] XR CHEST PA AND LATERALon XR [...] abnormalities. IMPRESSION: No acute cardiopulmonary abnormalities. Normal [facility] XR Chest PA and Lateralon [...] abnormalities. IMPRESSION IMPRESSION: No acute cardiopulmonary abnormalities. [facility] Radiology Study observation (narrative) [facility] [email or web address] XR Chest PA and LateralOrder ed By: Adela Roque on 12-09-2021 [facility] Work Phone: HCG ( test) Ql (U)o n 09-24-2021 [facility] HCG QUALITATIVE, URINEon HCG ( test) Ql (U) Negative [facility] Comment on above: Testing performed at [place] [address] URINE HCG QUALon 09-24-2021 Beta HCG ( test) Ql (U) Negative Normal [facility] Comment on above: Result Comment: Test ing performed at [place] [address] Performed By: #### U HCGT #### Testing performed at [address] [address] COVID Quick Testingon 2021 Result Negative [employer] [facility] [employer] Other Quick Fluon 09-20-2021 FLUAV Ab CF (S) [Titer] Negative [facility] [employer] Other FLUBV Ab CF (S) [Titer] Negative [facility] [employer] Other Vital Signs Date Time Vital Sign Value Performing Clinician Facility 01-18-2025 09:50-0400 Body height 165.1 cm Elissa Wolfe MD Work Phone: [facility] 01-18-2025 09:50-0400 Body mass index (BMI) [Ratio] 35.9 kg/m2 Elissa Wolfe MD Work Phone: [facility] 01-18-2025 09:50-0400 Body temperature 98 [degF] Elissa Wolfe MD Work Phone: [facility] 01-18-2025 09:50-0400 Body weight 97.74 kg Elissa Wolfe MD Work Phone: [facility] 01-18-2025 09:50-0400 Diastolic blood pressure 80 mm[Hg] Elissa Wolfe MD Work Phone: [facility] 01-18-2025 09:50-0400 Heart rate 82 /min Elissa Wolfe MD Work Phone: [facility] 01-18-2025 09:50-0400 Respiratory rate 18 /min Elissa Wolfe MD Work Phone: [facility] 01-18-2025 09:50-0400 SaO2% (BldA) [Mass fraction] 98 % Elissa Wolfe MD Work Phone: [facility] 01-18-2025 09:50-0400 Systolic blood pressure 124 mm[Hg] Elissa Wolfe MD Work Phone: [facility] 07-11-2024 16:09-0500 Body height 165.1 cm [facility] 07-11-2024 16:09-0500 Body mass index (BMI) [Ratio] 43.2 kg/m2 [facility] 07-11-2024 16:09-0500 Body temperature 97.7 [degF] [facility] 07-11-2024 16:09-0500 Body weight 117.93 kg [facility] 07-11-2024 16:09-0500 Diastolic blood pressure 86 mm[Hg] [facility] 07-11-2024 16:09-0500 Heart rate 112 /min [facility] 07-11-2024 16:09-0500 Respiratory rate 18 /min [facility] 07-11-2024 16:09-0500 SaO2% (BldA) [Mass fraction] 98 % [facility] 07-11-2024 16:09-0500 Systolic blood pressure 131 mm[Hg] [facility] 05-12-2024 11:18-0500 Body height 165.1 cm [facility] 05-12-2024 11:18-0500 Body mass index (BMI) [Ratio] 37.1 kg/m2 [facility] 05-12-2024 11:18-0500 Body temperature 97.9 [degF] [facility] 05-12-2024 11:18-0500 Body weight 101.37 kg [facility] 05-12-2024 11:18-0500 Diastolic blood pressure 84 mm[Hg] [facility] 05-12-2024 11:18-0500 Heart rate 113 /min [facility] 05-12-2024 11:18-0500 SaO2% (BldA) [Mass fraction] 98 % [facility] 05-12-2024 11:18-0500 Systolic blood pressure 132 mm[Hg] [facility] 08-07-2023 11:15-0500 Body height 166.37 cm [facility] 08-07-2023 11:15-0500 Body mass index (BMI) [Ratio] 36.6 kg/m2 [facility] 08-07-2023 11:15-0500 Body temperature 98 [degF] [facility] 08-07-2023 11:15-0500 Body weight 101.26 kg [facility] 08-07-2023 11:15-0500 Heart rate 96 /min [facility] 08-07-2023 11:15-0500 Respiratory rate 18 /min [facility] 08-07-2023 11:15-0500 SaO2% (BldA) [Mass fraction] 97 % [facility] 06-15-2023 12:00-0500 Body height 166.37 cm Elizabeth Millan Other [facility] 06-15-2023 12:00-0500 Body mass index (BMI) [Ratio] 36.02 kg/m2 Elizabeth Millan Other [employer] [facility] [employer] Other 06-15-2023 12:00-0500 Body temperature 100 [degF] Elizabeth Millan Other [facility] Other 06-15-2023 12:00-0500 Body weight 99.7 kg Elizabeth Millan Other [facility] [employer] Other 06-15-2023 12:00-0500 Body weight 99.69 kg [facility] 06-15-2023 12:00-0500 Diastolic blood pressure 76 mm[Hg] Elizabeth Yana Other [facility] 06-15-2023 12:00-0500 Respiratory rate 18 /min Elizaebth Yana Other [facility] [employer] Other 06-15-2023 12:00-0500 SaO2% (BldA) [Mass fraction] 99 % Elizabeth Millan Other [facility] [employer] Other 06-15-2023 12:00-0500 Systolic blood pressure 118 mm[Hg] Elizabeth Yana Other [facility] 05-17-2023 12:45-0500 Body height 166.37 cm Jeni Mychal Other [facility] 05-17-2023 12:45-0500 Body mass index (BMI) [Ratio] 35.72 kg/m2 Jeni Mychal Other [facility] [employer] Other 05-17-2023 12:45-0500 Body temperature 97.7 [degF] Jeni Mychal Other [facility] [employer] Other 05-17-2023 12:45-0500 Body weight 98.88 kg Jeni Mychal Other [facility] 05-17-2023 12:45-0500 Diastolic blood pressure 82 mm[Hg] Jeni Mychal Other [facility] 05-17-2023 12:45-0500 Respiratory rate 18 /min Jeni Mychal Other [facility] [employer] Other 05-17-2023 12:45-0500 SaO2% (BldA) [Mass fraction] 98 % Jeni Mychal Other [employer] Other 05-17-2023 12:45-0500 Systolic blood pressure 127 mm[Hg] Jeni Mychal Other [facility] 05-15-2023 12:35-0500 Body height 166.37 cm Jania Prince Other [facility] 05-15-2023 12:35-0500 Body mass index (BMI) [Ratio] 35.07 kg/m2 Jania Prince Other [facility] [employer] Other 05-15-2023 12:35-0500 Body temperature 98.1 [degF] Jania Prince Other [facility] [employer] Other 05-15-2023 12:35-0500 Body weight 97.07 kg Jania Prince Other [facility] [employer] Other 05-15-2023 12:35-0500 Body weight 97.06 kg [facility] 05-15-2023 12:35-0500 Diastolic blood pressure 79 mm[Hg] Janai Prince Other [facility] 05-15-2023 12:35-0500 Respiratory rate 18 /min Jania Prince Other [employer] Other 05-15-2023 12:35-0500 SaO2% (BldA) [Mass fraction] 99 % Jania Prince Other [employer] Other 05-15-2023 12:35-0500 Systolic blood pressure 123 mm[Hg] Jania Prince Other [facility] 01-05-2023 14:15-0400 Body height 166.37 cm Elizabeth Yana Other [facility] Other 01-05-2023 14:15-0400 Body mass index (BMI) [Ratio] 35.07 kg/m2 Elizabeth Yana Other [facility] Other 01-05-2023 14:15-0400 Body temperature 98.1 [degF] Elizabeth Yana Other [facility] Other 01-05-2023 14:15-0400 Body weight 97.07 kg Elizabeth Yana Other [facility] Other 01-05-2023 14:15-0400 Diastolic blood pressure 81 mm[Hg] Elizabeth Yana Other [facility] Other 01-05-2023 14:15-0400 Respiratory rate 18 /min Elizabeth Yana Other [facility] Other 01-05-2023 14:15-0400 SaO2% (BldA) [Mass fraction] 98 % Elizabeth Yana Other [facility] Other 01-05-2023 14:15-0400 Systolic blood pressure 125 mm[Hg] Elizabeth Yana Other [facility] Other 11-10-2022 15:00-0400 Body height 166.37 cm Elizabeth Yana Other [facility] Other 11-10-2022 15:00-0400 Body mass index (BMI) [Ratio] 35.16 kg/m2 Elizabeth Yana Other [facility] Other 11-10-2022 15:00-0400 Body temperature 97.6 [degF] Elizabeth Yana Other [facility] Other 11-10-2022 15:00-0400 Body weight 97.34 kg Elizabeth Yana Other [facility] Other 11-10-2022 15:00-0400 Respiratory rate 18 /min Elizabeth Yana Other [facility] Other 11-10-2022 15:00-0400 SaO2% (BldA) [Mass fraction] 98 % Elizabeth Yana Other [facility] Other 10-16-2022 14:30-0400 Body height 166.37 cm Elizabeth Yana Other [facility] Other 10-16-2022 14:30-0400 Body mass index (BMI) [Ratio] 34.8 kg/m2 Elizabeth Yana Other [facility] Other 10-16-2022 14:30-0400 Body temperature 98.7 [degF] Elizabeth Yana Other [facility] Other 10-16-2022 14:30-0400 Body weight 96.34 kg Elizabeth Yana Other [facility] Other 10-16-2022 14:30-0400 Diastolic blood pressure 86 mm[Hg] Elizabeth Yana Other [facility] Other 10-16-2022 14:30-0400 Respiratory rate 18 /min Elizabeth Yana Other [facility] Other 10-16-2022 14:30-0400 SaO2% (BldA) [Mass fraction] 98 % Elizabeth Millan Other [facility] Other 10-16-2022 14:30-0400 Systolic blood pressure 130 mm[Hg] Elizabeth Gaticamond Other [facility] Other 07-12-2022 11:35-0500 Body height 166.37 cm Elizabeth Millan Other [facility] Other 07-12-2022 11:35-0500 Body mass index (BMI) [Ratio] 34.95 kg/m2 Elizabeth Gaticamond Other [facility] Other 07-12-2022 11:35-0500 Body temperature 98.2 [degF] Elizabeth Millan Other [facility] Other 07-12-2022 11:35-0500 Body weight 96.75 kg Elizabeth Millan Other [facility] Other 07-12-2022 11:35-0500 Respiratory rate 18 /min Elizabeth Gaticamond Other [facility] Other 07-12-2022 11:35-0500 SaO2% (BldA) [Mass fraction] 84 % Elizabeth Gaticamond Other [facility] Other 05-30-2022 12:00-0500 Body height 166.37 cm Maribel Del Real Other [facility] Other 05-30-2022 12:00-0500 Body mass index (BMI) [Ratio] 34.08 kg/m2 Maribel Del Real Other [facility] Other 05-30-2022 12:00-0500 Body temperature 98.2 [degF] Maribel Del Real Other [facility] Other 05-30-2022 12:00-0500 Body weight 94.35 kg Maribel Del Real Other [facility] Other 05-30-2022 12:00-0500 Respiratory rate 18 /min Maribel Del Real Other [facility] Other 05-30-2022 12:00-0500 SaO2% (BldA) [Mass fraction] 99 % Maribel Del Real Other [facility] Other 05-19-2022 11:00-0500 Body height 166.37 cm Elizabeth Gaticamond Other [facility] Other 05-19-2022 11:00-0500 Body mass index (BMI) [Ratio] 34.08 kg/m2 Elizabeth Gaticamond Other [facility] Other 05-19-2022 11:00-0500 Body temperature 98.5 [degF] Elizabeth Gaticamond Other [facility] Other 05-19-2022 11:00-0500 Body weight 94.35 kg Elizabeth Gaticamond Other [facility] Other 05-19-2022 11:00-0500 Diastolic blood pressure 80 mm[Hg] Elizabeth Yana Other [employer] Other 05-19-2022 11:00-0500 Respiratory rate 18 /min Elizabeth Millan Other [employer] Other 05-19-2022 11:00-0500 SaO2% (BldA) [Mass fraction] 100 % Elizabeth Millan Other [facility] Other 05-19-2022 11:00-0500 Systolic blood pressure 128 mm[Hg] Elizabeth Millan Other [facility] Other 02-07-2022 12:15-0400 Body height 166.37 cm Maribel Gt Other [employer] Other 02-07-2022 12:15-0400 Body temperature 98.9 [degF] Maribel Del Real Other [facility] Other 02-07-2022 12:15-0400 SaO2% (BldA) [Mass fraction] 98 % Maribel Solomonault Other [facility] Other 01-08-2022 16:40-0400 Body height 166.37 cm Ann Drake Other [employer] Other 01-08-2022 16:40-0400 Body mass index (BMI) [Ratio] 34.41 kg/m2 Ann Drake Other [facility] Other 01-08-2022 16:40-0400 Body temperature 98.4 [degF] Ann Drake Other [facility] Other 01-08-2022 16:40-0400 Body weight 95.26 kg Ann Drake Other [facility] Other 01-08-2022 16:40-0400 Respiratory rate 18 /min Ann Drake Other [facility] Other 01-08-2022 16:40-0400 SaO2% (BldA) [Mass fraction] 98 % Ann Drake Other [facility] Other 01-06-2022 15:12-0400 Body height 165.1 cm Kami Leigh MD Work Phone: [employer] 01-06-2022 15:12-0400 Body mass index (BMI) [Ratio] 35.11 kg/m2 Kami Leigh MD Work Phone: [employer] [facility] 01-06-2022 15:12-0400 Body temperature 97.81 [degF] Kami Leigh MD Work Phone: [employer] [facility] 01-06-2022 15:12-0400 Body weight 95.71 kg Kami Leigh MD Work Phone: [employer] [facility] 01-06-2022 15:12-0400 Diastolic blood pressure 96 mm[Hg] Kami Leigh MD Work Phone: [employer] [facility] 01-06-2022 15:12-0400 Heart rate 89 /min Kami Leigh MD Work Phone: [employer] [facility] 01-06-2022 15:12-0400 Systolic blood pressure 122 mm[Hg] Kami eLigh MD Work Phone: [employer] [facility] 12-09-2021 15:00-0400 Diastolic blood pressure 68 mm[Hg] Dhaval Mcallister MD Work Phone: [employer] [facility] 12-09-2021 15:00-0400 Heart rate 104 /min Dhaval Mcallister MD Work Phone: [employer] 12-09-2021 15:00-0400 Respiratory rate 20 /min Dhaval Mcallister MD Work Phone: [facility] 12-09-2021 15:00-0400 SaO2% (BldA) [Mass fraction] 100 % Dhaval Mcallister MD Work Phone: [facility] 12-09-2021 15:00-0400 Systolic blood pressure 122 mm[Hg] Dhaval Mcallister MD Work Phone: [facility] 12-09-2021 14:08-0400 Body height 165.1 cm Dhaval Mcallister MD Work Phone: [facility] 12-09-2021 14:07-0400 Body temperature 97.81 [degF] Dhaval Mcallister MD Work Phone: [facility] 12-09-2021 13:25-0400 Body height 162.6 cm Kami Leigh MD Work Phone: [facility] 12-09-2021 13:25-0400 Body mass index (BMI) [Ratio] 36.05 kg/m2 Kami Leigh MD Work Phone: [facility] 12-09-2021 13:25-0400 Body temperature 97.5 [degF] Kami Leigh MD Work Phone: [facility] 12-09-2021 13:25-0400 Body weight 95.25 kg Kami Leigh MD Work Phone: [facility] 12-09-2021 13:25-0400 Diastolic blood pressure 77 mm[Hg] Kami Leigh MD Work Phone: [facility] 12-09-2021 13:25-0400 Heart rate 84 /min Kami Leigh MD Work Phone: [facility] 12-09-2021 13:25-0400 Systolic blood pressure 105 mm[Hg] Kami Leigh MD Work Phone: 8(242)495-299383 [place] [address] 11-10-2021 15:25-0400 Body height 162.6 cm Kami Leigh MD Work Phone: 0(518)233-858683 [place] [address] 11-10-2021 15:25-0400 Body mass index (BMI) [Ratio] 35.87 kg/m2 Kami Leigh MD Work Phone: 0(426)814-852383 [place] [address] 11-10-2021 15:25-0400 Body temperature 97.7 [degF] Kami Leigh MD Work Phone: 5(991)700-975683 [place] [address] 11-10-2021 15:25-0400 Body weight 94.8 kg Kami Leigh MD Work Phone: 2(520)484-136283 [place] [address] 11-10-2021 15:25-0400 Diastolic blood pressure 69 mm[Hg] Kami Leigh MD Work Phone: 8(152)300-212683 [place] [address] 11-10-2021 15:25-0400 Heart rate 94 /min Kami Leigh MD Work Phone: 2(743)071-762583 [place] [address] 11-10-2021 15:25-0400 Systolic blood pressure 108 mm[Hg] Kami Leigh MD Work Phone: 7(937)807-568283 [place] [address] 10-20-2021 13:38-0400 Body height 162.6 cm Kami Leigh MD Work Phone: 8(257)728-814483 [place] [address] 10-20-2021 13:38-0400 Body mass index (BMI) [Ratio] 35.75 kg/m2 Kami Leigh MD Work Phone: 7(264)481-195983 [place] [address] 10-20-2021 13:38-0400 Body temperature 97 [degF] Kami Leigh MD Work Phone: 4(251)180-242383 [place] [address] 10-20-2021 13:38-0400 Body weight 94.48 kg Kami Leigh MD Work Phone: 1(710)267-574683 [place] [address] 10-20-2021 13:38-0400 Diastolic blood pressure 93 mm[Hg] Kami Leigh MD Work Phone: 8(236)136-734583 [place] [address] 10-20-2021 13:38-0400 Heart rate 84 /min Kami Leigh MD Work Phone: 0(816)483-918783 [place] [address] 10-20-2021 13:38-0400 Systolic blood pressure 115 mm[Hg] Kami Leigh MD Work Phone: 1(691)086-378783 [place] [address] 10-07-2021 10:54-0400 Body height 162.6 cm Kami Leigh MD Work Phone: 9(867)647-440183 [place] [address] 10-07-2021 10:54-0400 Body mass index (BMI) [Ratio] 35.02 kg/m2 Kami Leigh MD Work Phone: 2(448)218-593183 [place] [address] 10-07-2021 10:54-0400 Body temperature 97.2 [degF] Kami Leigh MD Work Phone: 5(268)148-217083 [place] [address] 10-07-2021 10:54-0400 Body weight 92.53 kg Kami Leigh MD Work Phone: 1(738)430-989683 [place] [address] 10-07-2021 10:54-0400 Diastolic blood pressure 59 mm[Hg] Kami Leigh MD Work Phone: 2(226)825-274483 [place] [address] 10-07-2021 10:54-0400 Heart rate 90 /min Kami Leigh MD Work Phone: 9(875)104-569883 [place] [address] 10-07-2021 10:54-0400 Systolic blood pressure 115 mm[Hg] Kami Leigh MD Work Phone: 9(826)587-354183 [place] [address] 09-30-2021 11:05-0400 Body height 162.6 cm Kami Leigh MD Work Phone: 6(301)459-125583 [place] [address] 09-30-2021 11:05-0400 Body mass index (BMI) [Ratio] 35.02 kg/m2 Kami Leigh MD Work Phone: 2(263)516-353283 [place] [address] 09-30-2021 11:05-0400 Body temperature 97.5 [degF] Kami Leigh MD Work Phone: 7(665)355-027283 [place] [address] 09-30-2021 11:05-0400 Body weight 92.53 kg Kami Leigh MD Work Phone: 6(541)647-132283 [place] [address] 09-30-2021 11:05-0400 Diastolic blood pressure 76 mm[Hg] Kami Leigh MD Work Phone: 5(218)571-520283 [place] [address] 09-30-2021 11:05-0400 Heart rate 103 /min Kami Leigh MD Work Phone: 9(694)721-749483 [place] [address] 09-30-2021 11:05-0400 Systolic blood pressure 103 mm[Hg] Kami Leigh MD Work Phone: 9(048)596-873583 [place] [address] 09-24-2021 16:00-0400 Diastolic blood pressure 80 mm[Hg] Kami Leigh MD Work Phone: 5(641)594-772583 [place] [address] 09-24-2021 16:00-0400 Heart rate 112 /min Kami Leigh MD Work Phone: 2(822)181-870283 [place] [address] 09-24-2021 16:00-0400 Respiratory rate 16 /min Kami Leigh MD Work Phone: 9(290)333-271883 [place] [address] 09-24-2021 16:00-0400 SaO2% (BldA) [Mass fraction] 99 % Kami Leigh MD Work Phone: 4(026)254-901983 [place] [address] 09-24-2021 16:00-0400 Systolic blood pressure 130 mm[Hg] Kami Leigh MD Work Phone: 9(012)189-811783 [place] [address] 09-24-2021 12:50-0400 Body temperature 98.49 [degF] Kami Leigh MD Work Phone: 8(123)612-234883 [place] [address] 09-24-2021 06:45-0400 Body height 162.6 cm [facility]ami Leigh MD [facility] 09-24-2021 06:45-0400 Body mass index (BMI) [Ratio] 36.39 kg/m2 Kami Leigh MD Work Phone: [facility] 09-24-2021 06:45-0400 Body weight 96.16 kg Kami Leigh MD Work Phone: [facility] 09-20-2021 10:35-0400 Body height 166.37 cm Maribel Del Real Other [employer] Other 09-20-2021 10:35-0400 Body mass index (BMI) [Ratio] 34.08 kg/m2 Maribel Solomonault Other [facility] Other 09-20-2021 10:35-0400 Body temperature 98.6 [degF] Maribel Solomonault Other [facility] Other 09-20-2021 10:35-0400 Body weight 94.35 kg Maribel Del Real Other [facility] Other 09-20-2021 10:35-0400 SaO2% (BldA) [Mass fraction] 99 % Maribel Del Real Other [facility] Other 09-15-2021 10:31-0400 Body height 162.6 cm Kami Leigh MD Work Phone: [employer] 09-15-2021 10:31-0400 Body mass index (BMI) [Ratio] 36.39 kg/m2 Kami Leigh MD Work Phone: [facility] [employer] [facility] 09-15-2021 10:31-0400 Body temperature 97.9 [degF] Kami Leigh MD Work Phone: [facility] 09-15-2021 10:31-0400 Body weight 96.16 kg Kami Leigh MD Work Phone: [facility] 09-15-2021 10:31-0400 Diastolic blood pressure 87 mm[Hg] Kami Leigh MD Work Phone: [facility] 09-15-2021 10:31-0400 Heart rate 93 /min Kami Leigh MD Work Phone: [facility] 09-15-2021 10:31-0400 Systolic blood pressure 125 mm[Hg] Kami Leigh MD Work Phone: [facility] 01-28-2021 15:51-0400 Body height 162.6 cm Kami Leigh MD Work Phone: 8(456)595-129183 [place] [address] 01-28-2021 15:51-0400 Body mass index (BMI) [Ratio] 36.42 kg/m2 Kami Leigh MD Work Phone: 6(515)887-233383 [place] [address] 01-28-2021 15:51-0400 Body temperature 98.01 [degF] Kami Leigh MD Work Phone: [facility] 01-28-2021 15:51-0400 Body weight 96.25 kg Kami Leigh MD Work Phone: [facility] 01-28-2021 15:51-0400 Diastolic blood pressure 94 mm[Hg] Kami Leigh MD Work Phone: 8(379)583-205112 [place] [address] 01-28-2021 15:51-0400 Heart rate 95 /min Kami Leigh MD Work Phone: [facility] 01-28-2021 15:51-0400 Systolic blood pressure 125 mm[Hg] Kami Leigh MD Work Phone: [facility] Encounters Encounter Date Encounter Type Care Provider Facility Start: 01-18-2025 End: 01-18-2025 ambulatory Elissa Wolfe MD Work Phone: [facility] Work Phone: Start: 01-18-2025 End: 01-18-2025 Patient encounter procedure 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 -[facility] Work Phone: Start: 07-11-2024 End: 07-11-2024 ambulatory [facility] Work Phone: Start: 07-11-2024 End: 07-11-2024 Patient encounter procedure [facility] Work Phone: Start: 05-12-2024 End: 05-12-2024 Patient encounter procedure [facility] Work Phone: Start: 08-23-2023 End: 08-23-2023 ambulatory ZOE MONICA Not Available Start: 08-09-2023 End: 08-09-2023 ambulatory ZOE MONICA Not Available Start: 08-07-2023 End: 08-07-2023 ambulatory [facility] Work Phone: Start: 08-07-2023 End: 08-07-2023 Patient encounter procedure [facility] Work Phone: Start: 08-05-2023 End: 08-05-2023 Emergency department patient visit Dhaval Watson Facility:[facility] Start: 07-09-2023 End: 07-09-2023 ambulatory ELISSA WOLFE Facility:[facility] Start: 06-15-2023 End: 06-15-2023 ambulatory Elizabeth Millan Other [facility] Other Start: 06-15-2023 Office outpatient vi sit 15 minutes Elizabeth Millan [facility] Start: 06-15-2023 End: 06-15-2023 Patient encounter procedure [facility] Work Phone: Start: 05-17-2023 End: 05-17-2023 ambulatory Jeni Mychal Other [facility] Other Start: 05-17-2023 Office outpatient vi sit 15 minutes Jeni Mychal [facility] Start: 05-17-2023 End: 05-17-2023 Patient encounter procedure [facility] Work Phone: Start: 05-15-2023 End: 05-15-2023 ambulatory Jania Prince Other [facility] Other Start: 05-15-2023 Office outpatient vi sit 15 minutes Jania Prince [facility] Start: 05-15-2023 End: 05-15-2023 Patient encounter procedure [facility] Work Phone: Start: 01-05-2023 End: 01-05-2023 ambulatory Elizabeth Yana Other [facility] Other Start: 01-05-2023 Office outpatient vi sit 15 minutes Elizabeth Yana [facility] Start: 11-10-2022 End: 11-10-2022 ambulatory Elizabeth Yana Other [facility] Other Start: 11-10-2022 Office outpatient vi sit 15 minutes Elizabeth Yana [facility] Start: 10-16-2022 End: 10-16-2022 ambulatory Elizabeth Yana Other [facility] Other Start: 10-16-2022 Office outpatient vi sit 15 minutes Elizabeth Yana [facility] Start: 10-11-2022 End: 10-12-[address] ELISSA WOLFE . Facility:[facility] Start: 09-27-2022 End: 09-27-[address] ELISSA WOLFE . Facility:[facility] Start: 08-20-2022 End: 08-20-[address] ELISSA WOLFE . Facility:[facility] Start: 07-12-2022 End: 07-12-2022 ambulatory Elizabeth Millan Other [facility] Other Start: 07-12-2022 Office outpatient vi sit 15 minutes Elizabeth Yana [facility] Start: 05-30-2022 End: 05-30-2022 ambulatory Maribel Del Real Other [facility] Other Start: 05-30-2022 Office outpatient vi sit 15 minutes Maribelpanfilo Del Real [facility] Start: 05-25-2022 End: 05-25-[address] ELISSA WOLFE . Facility:[facility] Start: 05-19-2022 End: 05-19-[address] ELISSA WOLFE . Facility:[facility] Start: 05-19-2022 Office outpatient vi sit 15 minutes Elizabeth Yana [facility] Start: 05-19-2022 End: 05-19-2022 ambulatory NON STAFF [facility] Work Phone: Start: 05-19-2022 End: 05-19-2022 Departed Referred [facility] [place] Start: 04-14-2022 End: 04-14-[address] CORI LARKIN . Facility: Start: 02-07-2022 End: 02-07-2022 ambulatory Maribel Del Real Other [employer] Other Start: 02-07-2022 Office outpatient vi sit 15 minutes Maribel Gt [facility] Start: 01-08-2022 End: 01-08-2022 ambulatory Ann Drake Other [facility] Other Start: 01-08-2022 Office outpatient vi sit 15 minutes Ann Drake [facility] Start: 01-06-2022 End: 01-06-2022 Postop follow up visit related to original px Kami Leigh MD Work Phone: [facility] Comment on above: S/P bilateral breast reduction (Primary Dx) Start: 12-09-2021 End: 12-09-2021 Emergency department patient visit Dhaval Mcallister MD Work Phone: [facility] Start: 12-09-2021 End: 12-09-2021 Office outpatient visit 10 minutes Kami Leigh MD Work Phone: [facility] Comment on above: Pain of anterior diana st wall with respiration (Primary Dx); Neck pain, bilateral posterior Start: 11-10-2021 End: 11-10-2021 Postop follow up visit related to original px Kami Leigh MD Work Phone: [facility] Comment on above: S/P bilateral breast reduction (Primary Dx) Start: 10-20-2021 End: 10-20-2021 Postop follow up visit related to original px Kami Leigh MD Work Phone: [facility] Comment on above: S/P bilateral breast reduction (Primary Dx) Start: 10-07-2021 End: 10-07-2021 Postop follow up visit related to original px Kami Leigh MD Work Phone: [facility] Comment on above: S/P bilateral breast reduction (Primary Dx) Start: 09-30-2021 End: 09-30-2021 Postop follow up visit related to original px Kami Leigh MD Work Phone: [facility] Comment on above: S/P bilateral breast reduction (Primary Dx) Start: 09-24-2021 End: 09-24-2021 Patient encounter status Kami Leigh MD Work Phone: [facility] Start: 09-24-2021 End: 09-24-2021 Subsequent hospital visit by physician Kami Leigh MD Work Phone: [facility] Comment on above: Macromastia Start: 09-20-2021 End: 09-20-2021 ambulatory Maribel Del Real Other [facility] [employer] Other Start: 09-20-2021 Office outpatient vi sit 15 minutes Maribel Del Real [facility] Start: 09-15-2021 End: 09-15-2021 Office outpatient visit 25 minutes Kami Leigh MD Work Phone: [facility] Comment on above: S/P bilateral breast reduction (Primary Dx) Start: 01-28-2021 End: 01-28-2021 Office outpatient new 30 minutes Kami Leigh MD Work Phone: [facility] Comment on above: Macromastia (Primary Dx); Chronic back pain, unspecified back location, unspecified back pain laterality Procedures Date Procedure Procedure Detail Performing Clinician Start: 01-18-2025 X-ray of left foot Guevara Wolfe MD Work Phone: Start: 12-09-2021 Fibrin dgradj produc ts d-dimer [...] Detail Author Start: 02-11-2022 Influenza vaccination [facility] Start: 12-09-2021 End: 12-09-2021 Patient encounter procedure 12/09/2021 Office Visit Plastic Surgery Kami Leigh MD [address] [place] [address] [facility] Start: 11-03-2021 End: 11-03-2021 Patient encounter procedure 11/03/2021 Office Visit Plastic Surgery Kami Leigh MD [address] [place] [address] [facility] Start: 10-20-2021 End: 10-20-2021 Patient encounter procedure 10/20/2021 Office Visit Plastic Surgery Kami Leigh MD [address] [place] [address] [facility] Start: 10-07-2021 End: 10-07-2021 Patient encounter procedure 10/07/2021 Office Visit Plastic Surgery Kami Leigh MD [address] [place] [address] [facility] Start: 09-30-2021 End: 09-30-2021 Patient encounter procedure 09/30/2021 Office Visit Plastic Surgery Kami Leigh MD [address] [place] [address] [facility] Start: 09-24-2021 End: 09-24-2021 Admission to same day surgery center 09/24/2021 Surgery Multispecialty Kami Leigh MD [address] [place] [address] BILATERAL BREAST REDUCTION [facility] Comment on above: BILATERAL BREAST RED UCTION Start: 09-24-2021 End: 09-24-2021 Anesthesia consultation 09/24/2021 Anesthesia Event Multispecialty 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, HOOP FLARING MACHINE OPERATOR-[employer]OW REMOVING SUPERVISOR [address] [place], [place] [facility] Start: 09-24-2021 End: 09-24-2021 Reduction mammaplasty BREAST REDUCTION Macromastia Chronic back pain, unspecified back location, unspecified back pain laterality 09/24/2021 7:30 AM EDT [facility] Start: 09-24-2021 Subsequent hospital visit by physician 09/24/2021 Hospital Encounter Multispecialty Kami Leigh MD [address] [place] [address] Macromastia [facility] Comment on above: Macromastia Start: 02-11-2021 Influenza vaccination INFLUENZA VACC INE (#1) [facility] Start: 2016 Screening for malign ant neoplasm of cervix CERVICAL CANCER SCREENING DISCUSSION [facility] Start: 2014 Third diphtheria, tetanus and acellular pertussis (DTaP) vaccination TDAP (ADULT) [facility] Start: [address] [facility] Start: 2011 Screening for Chlamy charli trachomatis CHLAMYDIA SCREEN [facility] Start: 2010 HIV screening HIV SCREENING DISCUSSI ON [facility] Start: 2007 COVID-19 VACCINE (1) COVID-19 VACCIN E (1) [facility] Start: 2006 Vaccination for jeferson n papillomavirus HPV VACCINE ADOL (1 - 2-dose series) [facility] Start: 2000 COVID-19 VACCINE (#1) COVID-19 VACCI NE (#1) [facility] Start: 2000 COVID-19 VACCINE (1) COVID-19 VACCIN E (1) [facility] Start: 1995 COVID-19 VACCINE (#1) COVID-19 VACCI NE (#1) [facility] Start: 1995 GONORRHEA SCREEN GONORRHEA SCREEN [facility] Start: 1995 Hepatitis C antibody , confirmatory test HEPATITIS C VIRUS SCREENING [facility] Bacteria identified in Urine by Culture [facility] SURGICAL PATHOLOGY REQUEST SURGICAL PATHOLOGY REQUEST Surg Path Routine Macromastia Chronic back pain, unspecified back location, unspecified back pain laterality Release Upon Ordering for 1 Occurrences starting 09/24/2021 [facility] Comment on above: Release Upon Orderin g for 1 Occurrences starting 09/24/2021 XR Foot - left GE 3 Views [facility] Immunizations Immunization Date Immunization Notes Care Provider Mati santiago 02-26-2011 influenza virus vaccine, unspecified formulation Kami Leigh MD Work Phone: [facility] Payers Date Payer Category Payer Self-pay 2022 Medicaid [id number] 2021 Unknown [employer] [id number] 2021-Present [address] [place] [address] [id number] 2021 Unknown [employer] [id number] 2021-Present [address] [place] [address] [id number] 1995 Unknown [id number] 1995 Unknown [id number] 1995 Unknown [id number] 1995 Unknown [id number] 1995 Unknown [id number] 1995 Unknown [id number] [id number] 1995 Unknown [id number] 1995 Unknown [id number] [id number] 1995 Unknown [id number] [id number] 1995 Unknown [id number] 1959 Unknown [id number] Medicaid [place] Ad[employer] [id number] Unknown [id number] Unknown [id number] Social History Date Type Detail Facility Start: 04-24-2017 End: 01-18-2025 Tobacco smoking status CAIS Never smoked tobacco [facility] Work Phone: Start: 04-24-2017 Tobacco use and exposure Smokeless tobacco non-user [facility] Start: 09-15-2021 End: 01-06-2022 Alcohol intake Ex-drinker (finding) [facility] Start: 09-15-2021 End: 01-06-2022 Alcohol intake [facility] Start: 1995 Sex Assigned At Not on file [facility] Start: 09-14-2021 End: 09-24-2021 Exposure to SARS-CoV-2 (event) Not sure [facility] Sex Assigned At Sex Assigned At [facility] Other Start: 1995 Sex Assigned At Female F [facility] Start: 07-11-2024 Sex Female (finding) [facility] Clinical Notes 01-28-2021 to 01-18-2025 Note Date & Type Note Facility 01-18-2025 Evaluation note Diagnosis Onset Date Resolution Sprain of left foot acute Augus t 2024 9:31am [facility] Work Phone: 1(374) 709-738411-30-2024 Evaluation note* Diagnosis Onset Date Resolution Status Admit Date Muscle strain acute May 122023 10:54am Viral URI with cough acute Catiae mber 2023 10:54am Viral URI with cough acute Paulino john 2024 4:01pm Contact with or suspected exposure to severe acute respiratory syndrome noneactive June 4:01pm [facility] Work Phone: 1(321) 374-715602-23-2024 NoteEducation Materials Obstetrics and Gynecology Urinary Tract [...] these instructions at home: Medicines ? Take viwf-uac-yulbcvj and prescription medicines only as told by [...] provider. Document Revised: 01/09/2021 Document Reviewed: 01/09/2021 [email or web address] Patient Education ? 2022 [employer] [id number] Note Patient Education Materials Follows:Disease Viral Respiratory [...] home: Managing pain and congestion ? Take yjxb-jvn-plqgkbq and prescription medicines only as told by [...] water are not available, use alcohol-based hand functional analyst. ? Cover your mouth when you cough. [...] against viruses. This informati (more content not included)...[facility] [id number] Evaluation note* Encounter Date Diagnosis Assessment Notes [...] no improvement in 2 to 3 days [facility] Other 12-05-2023 Evaluation note* Encounter Date Diagnosis Assessment Notes Treatment Notes Treatment Clinical Notes May, Viral upper respiratory illness (ICD-10 - J06.9) You were seen here for your cough, congestion, body aches and chills. You state you were tested by peds on [facility] nurse yesterday and was positive [...] develop cough, shortness of breath, chest pain. [facility] Other 12-03-2023 Evaluation note* Encounter Date Diagnosis [...] with PCP if febrile or new/worsening s/s. [facility] Other 07-26-2023 Evaluation note* Encounter Date Diagnosis [...] no improvement and 5 to 7 days [facility] Other 05-31-2023 Evaluation note* Encounter Date Diagnosis [...] no improvement in 2 to 3 days [facility] Other 05-06-2023 Evaluation note* Encounter Date Diagnosis [...] Cerumen impaction home care material was printed [facility] Other 04-17-2023 NotePROCEDURE: XR HAND RT MIN 3V COMPARISON: None. HISTORY: Pain FINDINGS: BONES:No fracture, acute abnormality, or significant arthropathy. SOFT TISSUES:Soft tissue swelling tip of the fifth finger EFFUSION:None visible. OTHER: Negative. IMPRESSION: No acute fracture Electronically authenticated by: YUE AMBRZI Date: 2022-09-27 09:11[facility]01-30-2023 Evaluation note* Encounter Date Diagnosis Assessment [...] no improvement in 2 to 3 days [facility] Other 12-18-2022 Evaluation note* Encounter Date Diagnosis [...] weeks for the cough to go away [facility] Other 12-07-2022 Evaluation note* Encounter Date Diagnosis [...] Other Vaginal yeast infection material was printed [facility] Other 08-28-2022 Evaluation note* Encounter Date Diagnosis [...] if symptoms worsen or new symptoms occur. [facility] Other 07-29-2022 Evaluation note* Encounter Date Diagnosis [...] treatment plan. Patient left in stable condition [facility] Other 07-27-2022 History of Present illness Narrative* [...] see them back PRN. [facility]* Jose Elias Villalba RN - 12/09/2021 3:51 PM EDT Pt given discharge instruction and advised to pick prescription up from pharmacy. Pt voiced understanding and walked out of ER with steady gait and in stable condition. [facility] Emergency department Note* Jose Elias Villalba RN - 12/09/2021 3:51 PM EDT Pt given discharge instruction and advised to pick prescription up from pharmacy. Pt voiced understanding and walked out of ER with steady gait and in stable condition. * Dhaval Mcallister MD - 12/09/2021 2:23 PM EDT Emergency Room Note [facility] EMERGENCY DEPARTMENT Service Date:.12/09/21 PCP: Elissa [...] Mcallister MD 12/09/21 1528 documented in this [facility] Hospital Discharge instructions* Discharge Instructions* Dhaval [...] worse in any way. documented in this [facility] Physician Emergency department Note* Dhaval Mcallister MD - 12/09/2021 2:23 PM EDT Emergency Room Note [facility] EMERGENCY DE[facility]MENT Service Date:.12/09/21 PCP: Elissa Wolfe Chief Complaint: Chief Complaint Patient presents with Muscle Pain Sent by Dr Leigh due to c/o muscular right sided chest pain with history of breast reduction surgey on September 11 Taylor Rainey is a 26 y.o. female [...] information. . Dhaval Mcallister MD 12/09/21 1528 [facility]06-29-[facility] History of Present illness Narrative* Sara Dodd [...] see them back PRN. documented in this [facility] History of Present illness Narrative* Sara [...] relating to this encounter. [facility] History of Present illness Narrative* Candice [...] relating to this encounter. [facility] History of Present illness Narrative* Sara [...] relating to this encounter. [facility] History of Present illness Narrative* Sara [...] relating to this encounter. [facility] Miscellaneous Notes* Nursing Notes - Nisreen Menon RN - 09/24/2021 4:35 PM EDT Patient discharge from [facility] in stable condition. IV [...] PM EDT POST OPERATIVE/PROCEDURE NOTE Taylor Rainey ([id number]) SURGEON Surgeon(s) and Role: * Kami Leigh MD - Primary GRAPPLE SKIDDER OPERATOR VILLA ANESTHESIOLOGIST SNOW REMOVING SUPERVISOR: Kolby Childs CRNA; Magdalena Hickman APRN-SNOW REMOVING SUPERVISOR SURGICAL STAFF Software Installation Engineer: Jeni Segura RN; Gerri Marlow RN Monitoring Nurse: Yeni Dwyer RN Registered Nurse Unit Aide: Vale Islas RN Relief Scrub: Rossana Lopez Marketing Team Lead: Arabellavenu Duval PROCEDURE PERFORMED Bilateral breast reduction ([id number], [...] 24, 2021 12:13 PM documented in this encounterMer[facility] Note* Nursing Notes - Nisreen Menon RN - 09/24/2021 4:35 PM EDT Patient discharge from [facility] bay 10 in stable condition. IV removed and catheter intact. Discharge instructions reviewed with patient and family who all voiced understanding. Patient taken out to vehicle via wheel chair. [facility]04-14-[facility] Note* Nursing Notes - Nisreen Menon RN - 09/24/2021 3:02 PM EDT Patient ambulated to the bathroom without any apparent difficulty. [facility]04-[facility] Nurse Note* Marni Portillo RN - 09/24/2021 12:48 PM EDT Transferred to [facility] per cart in stable condition report given [...] With report given per Queta Dwyer to BIKE MECHANIC. * Gerri Marlow RN - 09/24/2021 7:38 [...] OR Room Humidity 42 documented in this encounterMer[facility] Nurse Surgical operation note* Marni Portillo RN - 09/24/2021 12:48 PM EDT Transferred to [facility] per cart in stable condition report given to Jill WALKER [facility]04-[facility] Hospital Discharge instructions* Discharge Instructions* Kami Leigh MD - 09/24/2021 12:20 PM EDT Follow instructions given in the office documented in [facility]Mer[facility] Nurse Surgical operation note* Marni Portillo RN - 09/24/2021 12:14 PM EDT Patient returned from OR per cart IV site without redness or edema. Patient sedated 02 on at 5 L per nasal cannula dressings to bilat breasts clean and dry has on bra from surgery. [facility]04[facility] Note* Brief Op Note - Kami Leigh MD - 09/24/2021 12:13 PM EDT POST OPERATIVE/PROCEDURE NOTE Taylor Rainey ([id number]) SURGEON Surgeon(s) and Role: * Kami Leigh MD - Primary GRAPPLE SKIDDER OPERATOR FRUIT PACKER ANESTHESIOLOGIST SNOW REMOVING SUPERVISOR: Kolby Childs CRNA; Magdalena Hickman APRN-SNOW REMOVING SUPERVISOR SURGICAL STAFF Software Installation Engineer: Jeni Segura RN; Gerri Marlow RN Monitoring Nurse: Yeni Dwyer RN Registered Nurse Unit Aide: Vale Islas RN Relief Scrub: Rossana Lopez Marketing Team Lead: Arabella Duval PROCEDURE PERFORMED Bilateral breast reduction [...] Leigh MD September 24, 2021 12:13 PM [facility]04-14-2022 Nurse Surgical operation note* Gerri Marlow RN - 09/24/2021 12:13 PM EDT To PACU with Magdalena GAN and Queta Dwyer RN rails up call light in reach. With report given per Queta Dwyer to BIKE MECHANIC. [facility]04-14-2022 Nurse Surgical operation note* Gerri Marlow [...] staff OR Temp68 OR Room Humidity 42 [facility]04-14-2022 History and physical note* Kami Leigh MD - 09/24/2021 7:12 AM EDT I have examined the patient and reviewed the previous H&P completed on date 09/17/21 and there are no changes. See paper H&P in chart Kami Leigh MD, 09/24/2021, 7:12 AM. [facility]04[facility] History and physical note* Kami Leigh MD - 09/24/2021 7:12 AM EDT I have examined the patient and reviewed the previous H&P completed on date 09/17/21 and there are no changes. See paper H&P in chart Kami Leigh MD, 09/24/2021, 7:12 AM. documented in this encounterMer[facility] Evaluation note* Encounter Date Diagnosis Assessment [...] Seek emergency help if difficulty breathing develops [facility] Other 04-05-2022 History of Present illness Narrative* [...] regarding the proposed surgery documented in this [facility]08[facility] History of Present illness Narrative* Kami [...] Social Gatherings with Friends and Family: Attends Faith Services: Active Member of Clubs or Organizations: [...] swollen lymph nodes: no. documented in this encounterMer[facility]Evaluation [facility]* Diagnosis S/P bilateral breast reduction- Primary Other postprocedural status Macromastia Hypertrophy of breast Chronic back pain, unspecified back location, unspecified back pain laterality documented in this encounter [facility]* Diagnosis Macromastia- Primary Hypertrophy of breast Chronic back pain, unspecified back location, unspecified back pain laterality documented in this encounter [facility]* Diagnosis S/P bilateral breast reduction- Primary Other postprocedural status Pre-op testing Preoperative examination, unspecified Macromastia Hypertrophy of breast Chronic back pain, unspecified back location, unspecified back pain laterality documented in this encounter [facility]* Diagnosis S/P bilateral breast reduction- Primary Other postprocedural status documented in this encounter [facility]* Diagnosis S/P bilateral breast reduction- Primary Other postprocedural status documented in this encounter [facility]* Diagnosis Upper back strain, initial encounter- Primary Chest wall pain Painful respiration History of bilateral breast reduction surgery Other postprocedural status documented in this encounter [facility]* Diagnosis Pain of anterior chest wall with respiration- Primary Neck pain, bilateral posterior Cervicalgia documented in this encounter [facility] note* Diagnosis S/P bilateral breast reduction- Primary Other postprocedural status documented in this encounter [facility]Eval[facility] noteNo assessment information availableMagruder Memorial Hospital Ctr Work Phone: Hisfxjj general Narrative - Reported* Type Description Date Medical History asthma Surgical History cyst removal Surgical History D&C Hospitalization History see above [facility] Other [facility] Narrative - Reported* Type Description Date Medical History asthma Medical History allergies Surgical History cyst removal Surgical History D&C Surgical History breast reduction 2021 Hospitalization History see above [facility] Other [facility] general Narrative - Reported* Type Description Date Medical History asthma Medical History allergies Surgical History cyst removal Surgical History D&C Surgical History breast reduction 2021 Surgical History ROOT CANAL AND CAP PLACEMENT Hospitalization History see above [facility] Other Reason for referral (narrative)* Consultation (Urgent) - New Request Specialty Diagnoses / Procedures Referred By Mary cox Referred To Contact Plastic Surgery Diagnoses Upper back strain, initial encounter Chest wall pain Dhaval Mcallister MD [address] [place], [place] [phone] Kami Leigh MD [address] [place], [place] [phone] Referral ID Status Reason Start Date Expiration Date V isits Requested Visits Authorized [id number] New Request 12/09/2021 01/03/2023 1 1 * (Emergency) - New Request Specialty Diagnoses / Procedures Referred By Mary cox Referred To Contact Procedures D-DIMER,QUANTITATIVE Dhaval Mcallister MD [address] [place], [place] [phone] Referral ID Status Reason Start Date Expiration Date V isits Requested Visits Authorized [id number] New Request 12/09/2021 01/03/2023 1 1 [facility]Reason for referral (narrative)No reason for referral information availableSouthern [facility] Work Phone: Reason for visit Narrative* Auth/Cert Specialty Diagnoses / Procedures Referred By Contac t Referred To Contact Diagnoses Macromastia Chronic back pain, unspecified back location, unspecified back pain laterality Macromastia [N62] Chronic back pain, unspecified back location, unspecified back pain laterality [M54.9, G89.29] Procedures NC BREAST REDUCTION BREAST REDUCTION Kami Leigh MD [address] [place] [address] Referral ID Status Reason Start Date Expiration Date Visits Re quested Visits Authorized [id number] 08/27/2021 1 1 [facility] Summary Purpose Family History No Family History Records Found Relationship Condition Age at Onset Recorded Date/T eva father Unknown Malignant neoplasm Unknown Advance Directives No Advanced Directives Records Found Advance Directive Response Recorded Date/ Time Advance Directives No May 6:46pm Advance Directive Response Recorded Date/ Time Advance Directives No May 7:46pm Chief Complaint and Reason for Visit Chief [...] acute respiratory syndrome July 11, 2024 4:01pm Chief Complaint Admit Date Left foot pain January 18, 2025 9:3 1am Chief Complaint Admit Date Left foot pain January 18, 2025 9:3 1am M79.672 January 18, 2025 10: 21am Reason for Visit Admit Date Sprain of left foot January 18, 2025 9:3 1am Additional Source Comments Reason for Visit (unrecogniz [...] Surgery Diagnoses Pendulous breast Kami Leigh MD [address] [place] [phone] Kami Leigh MD [address] [place] [phone] Referral ID Status Reason Start Date Expiration Date Visits Re quested Visits Authorized [id number] Closed 10/23/2020 11/17/2021 1 1 Reason Comments [...] Teams (unrecognized sec tion and content) 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 [place] [address] [place] [address] PCP - General Family Medicine 01/28/21 Team [...] 2023 Team Status: Active Member Role Status Sanju Wolfe MD Primary Care Provider Active Team Status: Inactive Member Role Status Sanju Sanchez APRN Attending Provider Active Start: May 12, 2024 End: May 12, 2024 Elissa Wolfe MD Primary Care Provider Active Start: May 12, 2024 End: May 12, 2024 Team Status: Inactive Member Role Status Sanju Wolfe MD Primary Care Provider Active Start: July 11, 2024 End: July 11, 2024 Jeni Horta APRN Attending Provider Active S tart: July 11, 2024 End: July 11, 2024 Team Status: Inactive Member Role Status Sanju Wolfe MD Primary Care Provider Active Start: January 18, 2025 End: January 18, 2025 Mari Sanchez APRN Attending Provider Active Start: January 18, 2025 End: January 18, 2025 Team Status: Active Member Role Status Sanju Wolfe MD Primary Care Provider Active Start: January 18, 2025 Mari Sanchez APRN Attending Provider Active Start: January 18, 2025 Scheduled Active and Recently Administ ered Medications [...] Pre-op/Pre-Proc 0739 (Given - Provid er: Magdalena Hickman, HOOP FLARING MACHINE OPERATOR-SNOW REMOVING SUPERVISOR) lactated ringers IV solution (COMPLETED) Intravenous, at [...] and content) DATE CREATED AUTHOR 09/30/2021 Viridiana alicea DATE CREATED AUTHOR 'S ORGANIZ ATION 01/09/2022 [facility] DATE CREATED AUTHOR AUTHOR'S ORGANIZ ATION 10/15/2022 [facility] DATE CREATED AUTHOR AUTHOR'S ORGANIZ ATION 08/17/2023 [facility] DATE CREATED AUTHOR AUTHOR'S ORGANIZ ATION 08/24/2023 [facility] EP[facility] DATE CREATED AUTHOR AUTHOR'S ORGANIZ ATION 01/21/2025 [facility] Goals (unrecognized section and content) Goals may [...] BE BASED ON THE PRIMARY CLINICAL RECORDS. [employer] provides no warranty or guarantee of the accuracy or completeness of information in this document.
== END 2025-03-26 12:44 | disposition home or self-care (01) ==
LOC: CARD 12:43
PROVIDERS: PCP Family Medicine; Visit Provider Family Medicine
DX: R00.2 Palpitations (principal)
CPT/HCPCS: 93246